=== PATIENT | male | born 1925 | race Caucasian/White ===

== ENCOUNTER → 2016-03-23 | Outpatient (CLI) | payer MEDICARE, OTHER ==
[~2016-03-23] MED LIST: ACIP20TA6 OR; ACIP20TA6 PO; BUME1TAB28 PO; CARV3.12 PO; CARV3.125 PO; FERR325T PO; FURO1TAB93 PO; FURO20TA PO; HYDR25TA5 PO; ISOS30TA3 PO; ISOS40TA PO; KLOR20TA6 PO; PLAV75TA PO; PLAV75TA29 PO; POTA-163 PO; RANE1000 PO; RANO500 PO; SIMV20TA PO; SIMV40TA PO
[2016-03-23 15:49] LABS: HEMATOCRIT 27.9 % (39.0-51.0); MEAN CELL VOLUME 84.5 FL (80.0-100.0); MEAN CORPUSCULAR HEMOGLOBIN 27.9 PG (27.0-34.0); MEAN CORPUSCULAR HGB CONC 33.1 % (32.0-36.0); PLATELET COUNT 380 TH/MM3 (150-450); RED BLOOD COUNT 3.31 MIL/MM3 (4.50-5.90); RED CELL DISTRIBUTION WIDTH 20.9 % (11.6-17.2); WHITE BLOOD COUNT 15.7 TH/MM3 (4.0-11.0)
[2016-03-23 15:56] LABS: HEMO FLAGS AUTO DIFF
[2016-03-23 16:43] LABS: BANDS 14 % (0-6); BASOPHILS 1 % (0-2); CORRECTED NUCLEATED RBC 2 /100 WBC (0-0); EOSINOPHILS 1 % (0-4); NEUTROPHIL # MANUAL DIFF 13.3 TH/MM3 (1.8-7.7); OVALOCYTES 1+ (NORMAL); PLATELET ESTIMATE SMEAR HIGH (NORMAL); PLATELET MORPHOLOGY ENLARGED (NORMAL); POLYS (SEG NEUTROPHILS) 71 % (16-70); SCAN/DIFF FINAL DIFF MANUAL; WBC DIFF SAMPLE 100
== END ==
LOC: PLAB 03-19 11:51
PROVIDERS: ATTEND Internal Medicine Gastroenterology
DX: D64.9 Anemia, unspecified (principal); Z86.010 Personal history of colon polyps; Z87.19 Personal history of other diseases of the digestive system; R16.1 Splenomegaly, not elsewhere classified
CPT/HCPCS: 36415; 85007; 85027

== ENCOUNTER → 2016-04-09 | Outpatient (CLI) | payer MEDICARE, OTHER ==
[2016-04-09 11:11] LABS: HEMATOCRIT 27.8 % (39.0-51.0); MEAN CELL VOLUME 82.5 FL (80.0-100.0); MEAN CORPUSCULAR HEMOGLOBIN 27.6 PG (27.0-34.0); MEAN CORPUSCULAR HGB CONC 33.5 % (32.0-36.0); PLATELET COUNT 371 TH/MM3 (150-450); RED BLOOD COUNT 3.37 MIL/MM3 (4.50-5.90); RED CELL DISTRIBUTION WIDTH 20.4 % (11.6-17.2); WHITE BLOOD COUNT 13.8 TH/MM3 (4.0-11.0)
[2016-04-09 11:19] LABS: HEMO FLAGS AUTO DIFF
[2016-04-09 11:56] LABS: ALKALINE PHOSPHATASE 72 U/L (45-117); ALT (GPT) 16 U/L (12-78); ANION GAP 8 MEQ/L (5-15); AST (GOT) 22 U/L (15-37); BICARBONATE 28.7 MEQ/L (21.0-32.0); BLOOD UREA NITROGEN 21 MG/DL (7-18); CHLORIDE 100 MEQ/L (98-107); GLOMERULAR FILTRATION RATE 37 ML/MIN (>89); GLUCOSE,FASTING 112 MG/DL (74-99); HDL CHOLESTEROL 36.3 MG/DL (40.0-60.0); LDL CHOLESTEROL 43 MG/DL (0-99); POTASSIUM 3.6 MEQ/L (3.5-5.1); SODIUM (NA) 137 MEQ/L (136-145); TOTAL BILIRUBIN ADULT 1.1 MG/DL (0.2-1.0)
[2016-04-09 12:02] LABS: BANDS 7 % (0-6); BASOPHILS 5 % (0-2); CORRECTED NUCLEATED RBC 3 /100 WBC (0-0); EOSINOPHILS 1 % (0-4); METAMYELOCYTES 1 % (0-1); MYELOCYTES 1 % (0-0); NEUTROPHIL # MANUAL DIFF 11.2 TH/MM3 (1.8-7.7); POLYS (SEG NEUTROPHILS) 72 % (16-70); WBC DIFF SAMPLE 100
[2016-04-09 12:03] LABS: PLATELET ESTIMATE SMEAR NORMAL (NORMAL); SCAN/DIFF FINAL DIFF MANUAL
[2016-04-09 12:04] LABS: KERATOCYTES OCC (NORMAL)
[2016-04-09 12:05] LABS: PLATELET MORPHOLOGY NORMAL (NORMAL)
== END ==
LOC: PLAB 09:33
PROVIDERS: ATTEND Family Medicine
DX: I25.10 Atherosclerotic heart disease of native coronary artery without angina pectoris (principal)
CPT/HCPCS: 36415; 80053; 80061; 85007; 85027

== ENCOUNTER 2016-05-02 11:15 | Inpatient (IN) | payer MEDICARE, OTHER ==
[~2016-05-02] VITALS: Ht 172.7 cm; Wt 87.4 kg
[2016-05-02] VITALS (8 sets, daily range): BP systolic 110–133; BP diastolic 55–74; PULSE 55–87; RESP 16–24; TEMP 97.6–98.4; O2SAT 96–99
[~2016-05-02 11:15] MED LIST changes: -ACIP20TA6 PO; -BUME1TAB28 PO; -CARV3.12 PO; -FERR325T PO; -FURO20TA PO; -HYDR25TA5 PO; -ISOS30TA3 PO; -PLAV75TA29 PO; -POTA-163 PO; -RANE1000 PO; -SIMV20TA PO
[2016-05-02] MEDS ORDERED: FURO20TA PO (11:45)
[2016-05-02] MEDS ORDERED: POTA-163 PO (11:45)
[2016-05-02] MEDS ORDERED: SIMV20TA PO (11:45)
[2016-05-02] MEDS ORDERED: ACIP20TA6 PO (11:45)
[2016-05-02] MEDS ORDERED: PLAV75TA29 PO (11:45)
[2016-05-02] MEDS ORDERED: ISOS30TA3 PO (11:45)
[2016-05-02] MEDS ORDERED: CARV3.12 PO (11:45)
[2016-05-02] MEDS ORDERED: FUROSEMIDE 40 MG/4 ML VIAL IV PUSH ONE (11:45)
[2016-05-02] MEDS ORDERED: HYDR25TA5 PO (11:45)
[2016-05-02] MEDS ORDERED: RANE1000 PO (11:45)
[2016-05-02 11:59] LABS: AUTOMATED NEUTROPHIL # 20.6 TH/MM3 (1.8-7.7); BASOPHIL # 0.3 TH/MM3 (0-0.2); EOSINOPHIL # 0.6 TH/MM3 (0-0.4); EOSINOPHIL % 2.3 % (0.0-4.0); HEMATOCRIT 25.1 % (39.0-51.0); LYMPH % 4.9 % (9.0-44.0); LYMPHOCYTE # 1.2 TH/MM3 (1.0-4.8); MEAN CELL VOLUME 79.5 FL (80.0-100.0); MEAN CORPUSCULAR HGB CONC 33.9 % (32.0-36.0); NEUT % 82.8 % (16.0-70.0); PLATELET COUNT 560 TH/MM3 (150-450); RED BLOOD COUNT 3.15 MIL/MM3 (4.50-5.90); RED CELL DISTRIBUTION WIDTH 20.9 % (11.6-17.2); WHITE BLOOD COUNT 24.9 TH/MM3 (4.0-11.0)
--- NOTE | 2016-05-02 11:59 | RADRPT ---
EXAM DATE/TIME: 05/02/2016 11:53 [facility] COMPARISON: CHEST SINGLE AP, April 07, 2015, 19:26. INDICATIONS : Short of breath MEDICAL HISTORY : Chronic obstructive pulmonary disease. Venous insufficiency. Stroke. SURGICAL HISTORY : CABG. ENCOUNTER: Initial ACUITY: 1 month PAIN SCORE: 0/10 LOCATION: Bilateral chest FINDINGS: A single view of the chest demonstrates mild infiltrates in both lung bases. The upper lungs are mart sly clear. The heart size is enlarged but stable. There is evidence of previous cardiothoracic surger y. Otherwise no other significant changes are demonstrated. The bony structures are stable.. CONCLUSION: Mild bibasilar infiltrates. Rajinder Vu MD on May 02, 2016 at 11:57 Board Certified Radiologist. This report was verified electronically.
[2016-05-02 12:02] LABS: HEMO FLAGS AUTO DIFF
[2016-05-02 12:12] LABS: APTT (PATIENT) 30.3 SEC (24.3-30.1); INTERNATIONAL NORMALIZED RATIO 1.3 RATIO; PROTHROMBIN TIME - PATIENT 14.7 SEC (9.8-11.6)
[2016-05-02 12:14] LABS: ANION GAP 14 MEQ/L (5-15); AST (GOT) 29 U/L (15-37); BICARBONATE 26.5 MEQ/L (21.0-32.0); BLOOD UREA NITROGEN 63 MG/DL (7-18); CHLORIDE 93 MEQ/L (98-107); GLOMERULAR FILTRATION RATE 19 ML/MIN (>89); MAGNESIUM 2.5 MG/DL (1.5-2.5); POTASSIUM 3.3 MEQ/L (3.5-5.1); SODIUM (NA) 133 MEQ/L (136-145)
--- NOTE | 2016-05-02 12:16 | PD ---
HPI Chief Complaint: Edema Time Seen by Provider: 12:08 Travel History International Travel<30 days: No Contact w/Intl Traveler<30days: No Traveled to known affect area: No History of Present Illness HPI 89-year-old male that presents to the ED for evaluation of lower leg edema and abdominal edema as well as shortness of breath. Per family and patient she's had the lower leg edema for years but for the past 2 weeks to a month is being worsening. Per patient the swelling seems to be worsening and imaging the medications that he is taking at this time are not really helping. 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 Solis who has been put him on Lasix and other water pills with some relief in the past but for the past 2 weeks they have not been working. They also mention to me that apparently patient was sent to a GI doctor secondary to some abdominal discomfort on the swelling and the did some testing that apparently was negative for acute disease other than for enlarged spleen and concern for issues with the bone marrow. Per significant other who is the one giving most of the information patient is to have an appointment next week with a stereotyper apprentice for this. Patient states that he couldn't wait because the swelling is getting so severe to now he cannot even walk. Per patient he swelling on his groin and abdomen is getting worse as well. Patient reports that he feels dehydrated. Per patient he feels short of breath with deep breaths. He denies any chest pain. He denies any abdominal discomfort with a stiff feeling constipated. He has not had a normal bowel movement for at least a week. He states that he is not urinating as much because of the swelling. He has an allergy to aspirin and Norvasc. He states that he is compliant with his medications. He has not seen a doctor in the last couple weeks. He states that the pain in the legs is 8 out of 10. PFSH Past Medical History Hx Anticoagulant Therapy: Yes (PLAVIX) Arthritis: Yes Blood Disorders: No Anxiety: No Depression: No Heart Rhythm Problems: Yes (CA) Cancer: Yes (SKIN CANCER) Cardiac Catheterization: Yes Cardiovascular Problems: Yes High Cholesterol: Yes Chemotherapy: No Chest Pain: Yes (HX OF CP) Congestive Heart Failure: No Cerebrovascular Accident: Yes (X5 YEARS AGO ) Coronary Artery Disease: Yes Diabetes: No Diminished Hearing: No Endocrine: No Gastrointestinal Disorders: Yes GERD: Yes Glaucoma: No Genitourinary: No Headaches: No Hepatitis: No Hiatal Hernia: No Hypertension: Yes Immune Disorder: No Medical other: Yes (S/P CRANIOTOMY (MENINGIOMA), HX ULCERS, BARRETTTS ESOPHAGUS) Musculoskeletal: Yes Neurologic: Yes Psychiatric: No Reproductive: No Respiratory: Yes (SOB ON EXERTION) Integumentary: No Migraines: No Radiation Therapy: No Seizures: No Sleep Apnea: No Thyroid Disease: No Ulcer: Yes Tetanus Vaccination: < 5 Years Influenza Vaccination: Yes Past Surgical History Abdominal Surgery: No AICD: No Appendectomy: Yes (1964.) Arteriovenous Shunt: No Body Medical Devices: STENTS X2, GREENFILTER Cardiac Surgery: Yes (CABG IN 1990) Cholecystectomy: Yes Coronary Artery Bypass Graft: Yes (TRIPLE BYPASS-1990.) Coronary Stent: Yes (X2) Ear Surgery: No Endocrine Surgery: No Eye Surgery: Yes (CAT. SX BILAT EYES) Genitourinary Surgery: No Gynecologic Surgery: No Insulin Pump: No Joint Replacement: No Neurologic Surgery: Yes (REMOVAL OF LEFT TEMPORAL MASS 07/08/2006 ) Oral Surgery: No Pacemaker: No Thoracic Surgery: No Tonsillectomy: Yes (1934) Other Surgery: Yes Social History Alcohol Use: Yes (RARELY) Tobacco Use: No (FORMER) Substance Use: No Allergies-Medications (Allergen,Severity, Reaction): Coded Allergies: Norvasc (Verified Allergy, Severe, Arrhythmias, 05/02/16) Aspirin (Verified Adverse Reaction, Intermediate, GI BLEED, 05/02/16) CHANGES MADE PER JUANITA IN PHARMACY. STATES HE SPOKE TO THE DOCTOR. Reported Meds & Prescriptions Reported Meds & Active Scripts Active Reported Hydrochlorothiazide 25 Mg Tab 25 Mg PO DAILY Aciphex (Rabeprazole Sodium) 20 Mg Tab 20 Mg PO DAILY Furosemide 20 Mg Tab 20 Mg PO BID Plavix (Clopidogrel Bisulfate) 75 Mg Tab 75 Mg PO DAILY Simvastatin 20 Mg Tab 20 Mg PO Isosorbide Mononitrate ER (Isosorbide Mononitrate) 30 Mg Lazaro 30 Mg PO DAILY Carvedilol 3.125 Mg Tab 3.125 Mg PO DAILY Ranexa ER 12 HR (Ranolazine) 1,000 Mg Tab 1,000 Mg PO BID Potassium Chloride ER (Potassium Chloride) 20 Meq Tab 20 Meq PO BID Review of Systems General / Constitutional: No: Fever, Chills, Weight Gain, Weight Loss, Other Eyes: No: Diploplia, Blurred Vision, Photophobia, Drainage, Redness, Foreign Body Sensation, Pain, Tearing, Blind Spots, Visual changes, Blindness, Other HENT: No: Headaches, Vertigo, Lightheadedness, Sore Throat, Rhinitis, Rhinorrhea, Congestion, Nosebleed, Neck Stiffness, Neck Pain, Masses, Gingival Bleeding, Dental Difficulties, Ear Discharge, Earache, Other Cardiovascular: Positive: Edema, No: Chest Pain or Discomfort, Palpitations, Irregular Rhythm, Tachycardia, Diaphoresis, Syncope, Dyspnea on exertion, Varicosities, Cyanosis, Varicosities, Phlebitis, Claudication, Other Respiratory: Positive: Shortness of Breath, No: Cough, Wheezing, Sneezing, Orthopnea, Hemoptysis, Stridor, Night Sweats, Pleuritic Pain, Other Gastrointestinal: Positive: Nausea, Abdominal Pain, Constipation, No: Vomiting , Diarrhea, Hematemesis, Hematochezia, Changes in Bowel Habits, Indigestion, Dysphagia, Loss of Appetite, Other Genitourinary: No: Urgency, Frequency, Dysuria, Nocturia, Hematuria, Decreased Urinary Output, Oliguria, Hesitancy, Dribbling, Incontinence, Pelvic Pain, Flank Pain, Dyspareunia, Discharge, Dysmenorrhea, Menorrhagia, Metorrhagia, Vaginal Bleeding, Other Musculoskeletal: No: Myalgias, Arthralgias, Limited ROM, Weakness, Cramping, Edema, Pain, Atrophy, Other Skin: No Rash, No Itching, No Dryness, No Lumps, No Hives, No Change in Pigmentation, No Change in nails, No Alopecia, No Lesions, No Breast Lumps, No Breast Tenderness, No Breast Swelling, No Other Neurologic: No: Weakness, Dizziness, Syncope, Focal Abnormalities, Coordination Problem, Tremor, Ataxia, Headache, Change in Mentation, Slurred Speech, Paresthesia, Incontinence, Seizures, Sensory Disturbance, Other Psychiatric: No: Anxiety, Depression, Suicidal Ideations, Disorder of Thought, Mood Disorder, Substance Abuse, Homicidal Ideation, Other Endocrine: No: Heat Intolerance, Cold Intolerance, Polyuria, Polydipsia, Other Hematologic/Lymphatic: No: Easy Bruising, Lymph Node Enlargement, Other Physical Exam Narrative GENERAL: SKIN: Warm and dry. HEAD: Atraumatic. Normocephalic. EYES: Pupils equal and round 4 mm reactive to light and accommodation. No scleral icterus. No injection or drainage. ENT: No nasal bleeding or discharge. Mucous membranes pink and moist. Tongue is midline. No Uvula deviation. NECK: Trachea midline. No JVD. CARDIOVASCULAR: Regular rate and rhythm. No murmurs, S3, S4. RESPIRATORY: No accessory muscle use. Clear to auscultation. Breath sounds equal bilaterally. GASTROINTESTINAL: Abdomen soft, non-tender, distended. Hepatic and splenic margins not palpable. MUSCULOSKELETAL: Extremities without clubbing, cyanosis, or edema. No obvious deformities. Has 2+ pitting edema in the lower legs with left worst than right. Scrum itself is edematous but nontender. Patient does have edema noted on the abdomen and the abdomen itself is distended. No obvious mass noted and no obvious tenderness on the abdomen but does appear to have some sort fluid. 2+ pulses bilaterally. NEUROLOGICAL: Awake and alert. No obvious cranial nerve deficits. Motor grossly within normal limits. Five out of 5 muscle strength in the arms and legs. Normal speech. PSYCHIATRIC: Appropriate mood and affect; insight and judgment normal. Data Data Last Documented VS Vital Signs Date Time Temp Pulse Resp B/P Pulse Ox O2 Delivery O2 Flow Rate FiO2 05/02/16 11:59 16 97 Room Air 05/02/16 11:18 97.6 68 133/65 Orders Electrocardiogram (05/02/16 ) Complete Blood Count With Diff (05/02/16 11:41) Comprehensive Metabolic Panel (05/02/16 11:41) Troponin I (05/02/16 11:41) B-Type Natriuretic Peptide (05/02/16 11:41) Prothrombin Time / Inr (Pt) (05/02/16 11:41) Act Partial Throm Time (Ptt) (05/02/16 11:41) Lipase (05/02/16 11:41) Urinalysis - C+S If Indicated (05/02/16 11:41) Magnesium (Mg) (05/02/16 11:41) Chest, Single Ap (05/02/16 11:41) Iv Access Insert/Monitor (05/02/16 11:41) Ecg Monitoring (05/02/16 11:41) Oximetry (05/02/16 11:41) Furosemide Inj (Lasix Inj) (05/02/16 11:45) Urinary Catheter Management ZION.Q8H (05/02/16 12:23) Blood Culture (05/02/16 12:26) Lactic Acid (05/02/16 12:26) Ceftriaxone Inj (Rocephin Inj) (05/02/16 12:30) Azithromycin Inj (Zithromax Inj) (05/02/16 12:30) Sodium Chlorid 0.9% 500 Ml Inj (Ns 500 M (05/02/16 13:00) Admit Order (Ed Use Only) (05/02/16 13:02) Consult Cardiology (05/02/16 ) Labs Laboratory Tests Test 05/02/16 05/02/16 11:46 12:21 White Blood Count 24.9 TH/MM3 Red Blood Count 3.15 MIL/MM3 Hemoglobin 8.5 GM/DL Hematocrit 25.1 % Mean Corpuscular Volume 79.5 FL Mean Corpuscular Hemoglobin 27.0 PG Mean Corpuscular Hemoglobin 33.9 % Concent Red Cell Distribution Width 20.9 % Platelet Count 560 TH/MM3 Mean Platelet Volume 9.0 FL Neutrophils (%) (Auto) 82.8 % Lymphocytes (%) (Auto) 4.9 % Monocytes (%) (Auto) 9.0 % Eosinophils (%) (Auto) 2.3 % Basophils (%) (Auto) 1.0 % Neutrophils # (Auto) 20.6 TH/MM3 Lymphocytes # (Auto) 1.2 TH/MM3 Monocytes # (Auto) 2.2 TH/MM3 Eosinophils # (Auto) 0.6 TH/MM3 Basophils # (Auto) 0.3 TH/MM3 CBC Comment AUTO DIFF Differential Total Cells 100 Counted Neutrophils % (Manual) 67 % Band Neutrophils % 10 % Lymphocytes % 4 % Monocytes % 5 % Eosinophils % 3 % Basophils % 4 % Neutrophils # (Manual) 20.9 TH/MM3 Metamyelocytes 2 % Myelocytes 4 % Promyelocytes 1 % Nucleated Red Blood Cells 2 /100 WBC Differential Comment FINAL DIFF MANUAL Platelet Estimate HIGH Platelet Morphology Comment NORMAL Tear Drop Cells 1+ Keratocytes OCC Prothrombin Time 14.7 SEC Prothromb Time International 1.3 RATIO Ratio Activated Partial 30.3 SEC Thromboplast Time Sodium Level 133 MEQ/L Potassium Level 3.3 MEQ/L Chloride Level 93 MEQ/L Carbon Dioxide Level 26.5 MEQ/L Anion Gap 14 MEQ/L Blood Urea Nitrogen 63 MG/DL Creatinine 3.11 MG/DL Estimat Glomerular Filtration 19 ML/MIN Rate Random Glucose 123 MG/DL Calcium Level 8.7 MG/DL Magnesium Level 2.5 MG/DL Total Bilirubin 1.6 MG/DL Aspartate Amino Transf 29 U/L (AST/SGOT) Alanine Aminotransferase 23 U/L (ALT/SGPT) Alkaline Phosphatase 64 U/L Troponin I 0.13 NG/ML B-Type Natriuretic Peptide 840 PG/ML Total Protein 6.8 GM/DL Albumin 3.5 GM/DL Lipase 137 U/L Urine Color YELLOW Urine Turbidity CLEAR Urine pH 6.0 Urine Specific [place] 1.010 Urine Protein 30 mg/dL Urine Glucose (UA) NEG mg/dL Urine Ketones NEG mg/dL Urine Occult Blood NEG Urine Nitrite NEG Urine Bilirubin NEG Urine Urobilinogen LESS THAN 2.0 MG/DL Urine Leukocyte Esterase NEG Urine RBC 1 /hpf Urine WBC 1 /hpf Urine Squamous Epithelial 1 /hpf Cells Urine Bacteria FEW /hpf Urine Hyaline Casts 59 /lpf Urine Mucus FEW /lpf Microscopic Urinalysis Comment CULT NOT INDICATED MDM Medical Decision Making Medical Screen Exam Complete: Yes Emergency Medical Condition: Yes Medical Record Reviewed: Yes Interpretation(s) CBC & BMP Diagram 05/02/16 11:46 LFTs and lipase within normal limits. Troponin elevated at 0.13 BNP in the 800s Last Impressions Chest X-Ray 05/02/16 1141 Signed Impressions: Service Date/Time: Monday, May 02, 2016 11:53 - CONCLUSION: Mild bibasilar infiltrates. Rajinder Vu MD EKG show LBBB which appears to be chronic from previous. No obvious sign of acute change read by me and attending. Differential Diagnosis Fluid retention versus CHF versus pneumonia versus anemia versus kidney failure versus electron abnormality versus STEMI versus an STEMI versus fluid overload versus sepsis Narrative Course 89-year-old male that presents to the ED for evaluation of edema. Patient was properly examined and was found to have signs and symptoms consistent what appears to be worsening edema. Labs and imaging ordered. Patient cannot give us a urine sample sent To be put on a Lozano secondary to his edema. Only minimal urine came out of the Lozano. Labs and imaging show elevated white blood cell count in the 22,000 and possible consolidations to the chest as well as worsening kidney function. This is likely secondary to dehydration and over use of the diuretics to help patient with his edema. Patient does also have a positive troponin which I believe is more related to the kidney disease but patient does have a history of heart disease. Patient follows with Dr. Vega slot floor supervisor, EKG show LBBB which appears to be old and unchanged from prior EKG done here. Patient is no longer taking Plavix secondary to the anemia as Dr. Velez and put him off of it secondary to wanting to rule out bleed. Case was discussed in my attending Dr. Rodriguez who agrees the patient is to be admitted. He wants me to consult medical. [facility] Hospitalist was contacted and recommends admission. Dr palma. Procedures EKG Prior to Arrival: No Sepsis Criteria SIRS Criteria (2 or more): RR > 20 or PaCO2 < 32, WBC > 51053, < 4000 or > 10 % bands Sepsis Criteria (SIRS+source): Infect source susp/known Severe Sepsis (+one): Organ Dysfunction Criteria Outcome: Meets severe sepsis criteria Diagnosis Primary Impression: Sepsis Qualified Code: A41.9 - Sepsis, due to unspecified organism Additional Impressions: Kidney failure, acute Qualified Code: N17.9 - Acute renal failure, unspecified acute renal failure type NSTEMI (non-ST elevated myocardial infarction) Elevated troponin Pneumonia Qualified Code: J18.9 - Pneumonia of both lower lobes due to infectious organism Edema due to congestive heart failure Admitting Information Admitting Physician Requests: Admit Reynaldo Sky May 02, 2016 12:16
[2016-05-02 12:19] LABS: ALKALINE PHOSPHATASE 64 U/L (45-117); ALT (GPT) 23 U/L (12-78); TOTAL BILIRUBIN ADULT 1.6 MG/DL (0.2-1.0)
[2016-05-02] MEDS ORDERED: cefTRIAXone INJ 1,000 MG in SODIUM CHLORIDE 0.9% INJ 100 ML IV ONE (12:30)
[2016-05-02] MEDS ORDERED: AZITHROMYCIN INJ 500 MG in SODIUM CHLOR 0.9% 250 ML INJ 250 ML IV ONE (12:30)
[2016-05-02 12:33] LABS: BANDS 10 % (0-6); BASOPHILS 4 % (0-2); CORRECTED NUCLEATED RBC 2 /100 WBC (0-0); EOSINOPHILS 3 % (0-4); METAMYELOCYTES 2 % (0-1); MYELOCYTES 4 % (0-0); NEUTROPHIL # MANUAL DIFF 20.9 TH/MM3 (1.8-7.7); POLYS (SEG NEUTROPHILS) 67 % (16-70); PROMYELOCYTES 1 % (0-0); WBC DIFF SAMPLE 100
[2016-05-02 12:35] LABS: KERATOCYTES OCC (NORMAL); TEARDROP RBCS 1+ (NORMAL)
[2016-05-02 12:36] LABS: PLATELET ESTIMATE SMEAR HIGH (NORMAL); PLATELET MORPHOLOGY NORMAL (NORMAL); SCAN/DIFF FINAL DIFF MANUAL
[2016-05-02 12:52] LABS: BACTERIA, URINE FEW /hpf; BLOOD, URINE NEG (NEG); GLUCOSE,URINE NEG (NEG); HYALINE CAST, URINE 59 /lpf (RARE); KETONE, URINE NEG (NEG); MUCUS URINE FEW /lpf (OCC); NITRITE,URINE NEG (NEG); SQUAMOUS EPITHELIAL CELL URINE 1 /hpf (0-5); URINE COLOR YELLOW (YELLW/STRAW)
[2016-05-02 12:54] LABS: COMMENT (UR) CULT NOT INDICATED; CULTURE IF INDICATED CULT NOT INDICATED
[2016-05-02] MEDS ORDERED: SODIUM CHLORID 0.9% 500 ML INJ 500 ML IV ONE (13:00)
[2016-05-02] MEDS ORDERED: NALOXONE HCL 0.4 MG/ML AMP IV PRN (13:30)
[2016-05-02] MEDS ORDERED: SODIUM CHLORIDE 0.9% FLUSH 5 ML FLUSH FLUSH PRN (13:30)
[2016-05-02] MEDS ORDERED: DIATRIZOATE MEGLUM/DIATRIZOATE SOD 9 ML CUP PO ONE (13:45)
[2016-05-02] MEDS ORDERED: POTASSIUM CL 40 MEQ/30 ML LIQ UDC PO ONE (14:00)
--- NOTE | 2016-05-02 14:19 | HHI.HP ---
[facility] Tanmay Aaron M.D. 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 Patient presented to the emergency room for increase in lower extremity edema as well as abdominal distention associated with dyspnea with exertion over the past year but worse over the last couple of weeks. Patient endorses that he's always had some chronic swelling to the left leg from previous bypass surgery but in the last couple months has become worse and now the right one is also becoming larger. He's also noted abdominal distention and has noted an increase in weight of 20 pounds in the last 2 weeks. He's also noted dyspnea with minimal exertion, no chest pain, no palpitations. He is constipated; has not had a good bowel movement in approximately 2-3 weeks. At times he has watery almost liquid rectal drainage and a couple "turner:. He's had dry heaves and has very poor appetite. He has been in to see his primary care Dr. Aaron who did laboratory workup and was noted anemic. He was referred to see Dr. Nielsen who examined him and noted an enlarged spleen and referred him to hematology. An EGD was also completed but he's not really clear on the findings. He was due to see Dr. Martin next week. Additionally he has been following with Dr. Solis who put him on Lasix and other diuretics with some relief but now they're not working. He's not sure if he's had an echocardiogram but his believes he did have EKG. Patient is not a very good historian, he's had a history of stroke and has some expressive aphasia. Information is mostly provided by his . He's noted poor urine output, he has difficulty ambulating and in the last couple days he hasn't been able to move very much. He has prior history of pulmonary emboli and DVT for which he had IVC filter placed in 2006. He's not able to be on any aspirin or anticoagulation as he had severe GI bleeds in the past. He denies any fever, no chills, no cough no sputum production. In the emergency room, patient was evaluated, vital signs were stable he was hemodynamically stable, no fever. Laboratory workup was significant for significant leukocytosis, WBC 24.9 with elevated neutrophil count. Hemoglobin 8.5, hematocrit 25.1. Platelet count 560. He was noted an acute renal injury with BUNs of 63, creatinine 3.11. AST 29 AST 23. Troponin was elevated 0.13. BNP was a 40. Albumin 3.5. Lipase 137. Chest x-ray demonstrated mild by basilar infiltrates. Patient was given Lasix, a Lozano catheter was inserted. Empiric antibiotics were started and cultures were obtained. EKG showed left bundle branch which is similar to other EKGs. Patient is examined in the emergency room, he is resting comfortably does not appear in any distress. Patient is admitted for further evaluation and treatment. (Cathie Toney) Review of Systems Constitutional: COMPLAINS OF: Fatigue, Weight loss, Change in appetite Respiratory: COMPLAINS OF: Shortness of breath Cardiovascular: COMPLAINS OF: Dyspnea on Exertion, Lower Extremity Edema Gastrointestinal: COMPLAINS OF: Constipation, Nausea Neurologic: COMPLAINS OF: Speech Problems (CHRONIC, HX CVA, EXPRESSIVE APHASIA) (Cathie Toney) Past Family Social History Past Medical History 1. Coronary artery disease with a stent times two to the distal left main and proximal circumflex September of 2012. 2. Hypertension. 3. Hyperlipidemia. 4. Prior episode of GI bleed while on aspirin. 5. Left temporal fossa mass status post craniotomy (had meningioma) in 2006 with residual short term memory loss. 6. Expressive aphasia. 7. Hyperlipidemia. 8. Previous coronary artery bypass graft in 2003. 9. Cholecystectomy. 10. Tonsillectomy previous pulmonary emboli. 11. Previous cerebrovascular accident. 12. Deep venous thrombosis./PE/IVC filter 13. Bilateral cataract surgery. 14. Hyperlipidemia. 15. Gastroesophageal reflux disease. 16. Previous upper and lower endoscopy. 17. Peptic ulcer disease. 18. GI bleed due to ASA and Xarelto 19. Longo's esophagus 20. Recent findings of splenomegaly, anemia, referred to hematology 21. S/P EGD, unsure of findings, Dr. Nielsen Reported Medications Reported Meds & Active Scripts Active Reported Hydrochlorothiazide 25 Mg Tab 25 Mg PO DAILY Aciphex (Rabeprazole Sodium) 20 Mg Tab 20 Mg PO DAILY Furosemide 20 Mg Tab 20 Mg PO BID Plavix (Clopidogrel Bisulfate) 75 Mg Tab 75 Mg PO DAILY Simvastatin 20 Mg Tab 20 Mg PO Isosorbide Mononitrate ER (Isosorbide Mononitrate) 30 Mg Lazaro 30 Mg PO DAILY Carvedilol 3.125 Mg Tab 3.125 Mg PO DAILY Ranexa ER 12 HR (Ranolazine) 1,000 Mg Tab 1,000 Mg PO BID Potassium Chloride ER (Potassium Chloride) 20 Meq Tab 20 Meq PO BID (Cathie Toney) Allergies: Coded Allergies: Norvasc (Verified Allergy, Severe, Arrhythmias, 05/02/16) Aspirin (Verified Adverse Reaction, Intermediate, GI BLEED, 05/02/16) CHANGES MADE PER JUANITA IN PHARMACY. STATES HE SPOKE TO THE DOCTOR. Active Ordered Medications Inpatient Medications Acetaminophen (Tylenol) 650 mg Q4H PRN PO TEMP > 100.4; Start 05/02/16 at 13:30 Azithromycin 500 mg/Sodium Chloride 250 ml @ 250 mls/hr ONCE ONCE IV ; Start 05/02/16 at 12:30; Stop 05/02/16 at 13:29; Status DC Carvedilol (Coreg) 3.125 mg DAILY PO ; Start 05/03/16 at 09:00 Ceftriaxone Sodium 1000 mg/ Sodium Chloride 100 ml @ 200 mls/hr ONCE ONCE IV Last administered on 05/02/16 13:55; Start 05/02/16 at 12:30; Stop 05/02/16 at 12:59; Status DC Ceftriaxone Sodium/Sodium Chloride (Rocephin Inj/NS Inj) 100 ml @ 200 mls/hr Q24H IV ; Start 05/03/16 at 13:00; Status UNV Clopidogrel Bisulfate (Plavix) 75 mg DAILY PO ; Start 05/03/16 at 09:00 Diatrizoate Meglum/ Diatrizoate Sod ( Gastroview Liq) 18 ml ONCE ONCE PO Last administered on 05/02/16 13:55; Start 05/02/16 at 13:45; Stop 05/02/16 at 13:46; Status DC Furosemide 40 mg 40 mg ONCE ONCE IV PUSH Last administered on 05/02/16 12:05 ; Start 05/02/16 at 11:45; Stop 05/02/16 at 11:46; Status DC Isosorbide Mononitrate (Imdur) 30 mg DAILY PO ; Start 05/03/16 at 09:00 IV Flush (NS Flush) 2 ml BID FLUSH ; Start 05/02/16 at 21:00 Naloxone HCl 0.4 mg 0.4 mg UNSCH PRN IV SEE LABEL COMMENTS; Start 05/02/16 at 13:30 Ondansetron HCl (Zofran Inj) 4 mg Q6H PRN IVP NAUSEA OR VOMITING; Start at 13:30 Pantoprazole Sodium (Protonix) 20 mg DAILY PO ; Start 05/03/16 at 09:00 Potassium Chloride (KCl 40 Meq/30 ml Liq) 40 meq ONCE ONCE PO ; Start 05/02/16 at 14:00; Stop 05/02/16 at 14:01; Status DC Potassium Chloride (KCl) 20 meq BID PO ; Start 05/02/16 at 21:00 Ranolazine (Ranexa) 1,000 mg BID PO ; Start 05/02/16 at 21:00 Sodium Chloride 1,000 ml @ 42 mls/hr [id number] IV ; Start 05/02/16 at 14:00 Sodium Chloride (NS 500 ml Inj) 500 ml @ 1,000 mls/hr BOLUS ONCE IV Last administered on 05/02/16 13:55; Start 05/02/16 at 13:00; Stop 05/02/16 at 13:29 ; Status DC Family History Mother with hx of lung cancer Brother, alive, 80s multiple medical problems Social History , lives at home with , no kids. Quit smoking many years ago, no ETOH , no substance abuse (Cahtie Toney) Physical Exam Vital Signs Vital Signs Date Time Temp Pulse Resp B/P Pulse Ox O2 Delivery O2 Flow Rate FiO2 05/02/16 11:59 16 97 Room Air 05/02/16 11:18 97.6 68 24 133/65 99 Room Air Physical Exam GENERAL: This is a well-nourished, well-developed patient, in no apparent distress. SKIN: Pale, cool, dry, anasarca noted. HEAD: Atraumatic. Normocephalic. No temporal or scalp tenderness. EYES: Pupils equal round and reactive. Extraocular motions intact. No scleral icterus. No injection or drainage. ENT: Nose without bleeding, purulent drainage or septal hematoma. Throat without erythema, tonsillar hypertrophy or exudate. Uvula midline. Airway patent. NECK: Trachea midline. No JVD or lymphadenopathy. Supple, nontender, no meningeal signs. CARDIOVASCULAR: Regular rate and rhythm with soft murmurs. No gallops, or rubs. RESPIRATORY: Clear to auscultation. Breath sounds equal bilaterally. No wheezes , rales, or rhonchi. GASTROINTESTINAL: Protuberant, with ascites, flank edema. Bowel sounds hypoactive, ? splenomegaly. MUSCULOSKELETAL: Extremities without clubbing, cyanosis. No joint tenderness, effusion, or edema noted. No calf tenderness. Negative Homans sign bilaterally. Bilat pedal edema feet to thighs 2+, L>R, pedal pulses difficult to palpate due to edema. NEUROLOGICAL: Awake, oriented x 3. Following commands, no focal deficits. Poor historian. Laboratory Laboratory Tests Test 05/02/16 05/02/16 05/02/16 11:46 12:21 13:10 White Blood Count 24.9 Red Blood Count 3.15 Hemoglobin 8.5 Hematocrit 25.1 Mean Corpuscular Volume 79.5 Mean Corpuscular Hemoglobin 27.0 Mean Corpuscular Hemoglobin 33.9 Concent Red Cell Distribution Width 20.9 Platelet Count 560 Mean Platelet Volume 9.0 Neutrophils (%) (Auto) 82.8 Lymphocytes (%) (Auto) 4.9 Monocytes (%) (Auto) 9.0 Eosinophils (%) (Auto) 2.3 Basophils (%) (Auto) 1.0 Neutrophils # (Auto) 20.6 Lymphocytes # (Auto) 1.2 Monocytes # (Auto) 2.2 Eosinophils # (Auto) 0.6 Basophils # (Auto) 0.3 CBC Comment AUTO DIFF Differential Total Cells 100 Counted Neutrophils % (Manual) 67 Band Neutrophils % 10 Lymphocytes % 4 Monocytes % 5 Eosinophils % 3 Basophils % 4 Neutrophils # (Manual) 20.9 Metamyelocytes 2 Myelocytes 4 Promyelocytes 1 Nucleated Red Blood Cells 2 Differential Comment FINAL DIFF MANUAL Platelet Estimate HIGH Platelet Morphology Comment NORMAL Tear Drop Cells 1+ Keratocytes OCC Prothrombin Time 14.7 Prothromb Time International 1.3 Ratio Activated Partial 30.3 Thromboplast Time Sodium Level 133 Potassium Level 3.3 Chloride Level 93 Carbon Dioxide Level 26.5 Anion Gap 14 Blood Urea Nitrogen 63 Creatinine 3.11 Estimat Glomerular Filtration 19 Rate Random Glucose 123 Calcium Level 8.7 Magnesium Level 2.5 Total Bilirubin 1.6 Aspartate Amino Transf 29 (AST/SGOT) Alanine Aminotransferase 23 (ALT/SGPT) Alkaline Phosphatase 64 Troponin I 0.13 B-Type Natriuretic Peptide 840 Total Protein 6.8 Albumin 3.5 Lipase 137 Urine Color YELLOW Urine Turbidity CLEAR Urine pH 6.0 Urine Specific [place] 1.010 Urine Protein 30 Urine Glucose (UA) NEG Urine Ketones NEG Urine Occult Blood NEG Urine Nitrite NEG Urine Bilirubin NEG Urine Urobilinogen LESS THAN 2.0 Urine Leukocyte Esterase NEG Urine RBC 1 Urine WBC 1 Urine Squamous Epithelial 1 Cells Urine Bacteria FEW Urine Hyaline Casts 59 Urine Mucus FEW Microscopic Urinalysis Comment CULT NOT INDICATED Lactic Acid Level 1.8 Date/Time Procedure Status Source Growth 05/02/16 13:16 Aerobic Blood Culture Received Blood Peripheral Pending 05/02/16 13:16 Anaerobic Blood Culture Received Blood Peripheral Pending (Cathie Toney) Result Diagram: 05/02/16 1146 05/02/16 1146 Imaging Last Impressions Chest X-Ray 05/02/16 1141 Signed Impressions: Service Date/Time: Monday, May 02, 2016 11:53 - CONCLUSION: Mild bibasilar infiltrates. Rajinder Vu MD (Cathie Toney) Assessment and Plan Problem List: (1) Sepsis (2) Elevated troponin (3) Pneumonia (4) Kidney failure, acute (5) History of GI bleed (6) History of CVA (cerebrovascular accident) (7) Hypertension (8) Hyperlipidemia (9) CAD (coronary artery disease) (10) Dehydration (11) Hypokalemia (12) Anasarca (13) Leukocytosis (14) Splenomegaly (15) Anemia Assessment and Plan Admit to Dr. Owens 89-year-old male with history of CAD, hypertension, chronic left leg edema, previous CABG, history of DVT and PE, GI bleed. Presented to emergency room with worsening lower extremity edema with increased abdominal extension, dyspnea with exertion, constipation. Was found with significant leukocytosis, possible pneumonia, anemia, acute renal injury Sepsis, possibly secondary to a pulmonary process Continue with cautious hydration Continue with empiric antibiotics Follow cultures closely Peripheral edema, now with anasarca, ascites, recent diagnosis of splenomegaly, rule out myeloproliferative disease -Consul hematology for evaluation-Dr. Martin will be evaluated -We will obtain a CT of the abdomen and pelvis Acute renal injury, likely secondary to over diuresing, possibly dehydrated We will hydrate cautiously, normal saline at 42 one hour Tomorrow we'll reevaluate, possibly try Lasix and albumin. -Monitor renal function closely Avoid nephrotoxic agents -Monitor electrolytes Constipation -bowel regimen Elevated troponin, denies any chest pain, likely stress-induced, rule out acute coronary syndrome. History of coronary artery disease -We will obtain 2-D echo -Continue with serial cardiac enzymes Consult cardiology for evaluation -Continue with Plavix, Coreg, Ranexa, Imdur Anemia, history of previous GI bleed -Follow H&H closely Stool for occult blood We will check iron studies HTN, stable -continue home meds Hx CVA, stable -continue home meds Home medications reviewed, initiated as indicated Plan of care discussed with the patient and his , the questions answered detail. Plan of care discussed with attending and registered nurse. Further management of the patient will be dependent on the hospital course This patient was seen by myself and Dr. Owens, this H&P is written on his behalf (Cathie Toney) Assessment and Plan Pt seed and examined in ER with at bedside dw ER pa in detail chart was revieewed in detail elyssa powers about plan of care d dw pt and at bedside condition guarded prog guarded (Stacie Owens MD) Physician Certification 2 Midnight Certification Type: Admission for Inpatient Services Order for Inpatient Services The services are ordered in accordance with Medicare regulations or non- Medicare payer requirements, as applicable. In the case of services not specified as inpatient-only, they are appropriately provided as inpatient services in accordance with the 2-midnight benchmark. Estimated LOS (days): 2 2 days is the estimated time the patient will need to remain in the hospital, assuming treatment plan goals are met and no additional complications. Post-Hospital Plan: Not yet determined (Cathie Toney) Problem Qualifiers (1) Sepsis: Qualified Code: A41.9 - Sepsis, due to unspecified organism (2) Pneumonia: Qualified Code: J18.9 - Pneumonia of both lower lobes due to infectious organism (3) Kidney failure, acute: Qualified Code: N17.9 - Acute renal failure, unspecified acute renal failure type (4) Hypertension: Qualified Code: I10 - Essential hypertension (5) Hyperlipidemia: Qualified Code: E78.5 - Hyperlipidemia, unspecified hyperlipidemia type (6) CAD (coronary artery disease): Qualified Code: I25.10 - Coronary artery disease involving [place] coronary artery of [place] heart without angina pectoris (7) Leukocytosis: Qualified Code: D72.825 - Bandemia (8) Anemia: Qualified Code: D64.9 - Anemia, unspecified type Cathie Toney May 02, 2016 14:19 Stacie Owens MD May 02, 2016 20:48
[2016-05-02] MEDS: SODIUM CHLOR 0.9% 1000 ML INJ 1,000 ML IV SCH (15:13)
[2016-05-02] MEDS ORDERED: MAGNESIUM HYDROXIDE SUSP 30 ML CUP PO PRN (15:45)
[2016-05-02] MEDS: POLYETHYLENE GLYCOL 17 GM PKG PO SCH (16:12)
--- NOTE | 2016-05-02 17:28 | RADRPT ---
EXAM DATE/TIME: 05/02/2016 15:40 [facility] COMPARISON: No previous studies available for comparison. EXTERNAL COMPARISON : [facility], US LEG, LEFT VENOUS DOPPLER, June 07, 2007, December 23, 2006. INDICATIONS : Bilateral leg swelling. MEDICAL HISTORY : Hypercholesterolemia. Hypertension. Gastroesophageal reflux disease. Cerebrovascular accident. [place] ry artery disease. Pulmonary embolism. Skin cancer. Longo's esophagus. meningioma. chest pain. dysp shayan. ulcer. arthritis. anticoagulant therapy, plavix. SURGICAL HISTORY : Tonsillectomy.CABG Coronary artery stent.Bilateral cataract surgery. Left temporal mass removal. Card iac cath. Appendectomy. Cholecystectomy. Back surgery. Left knee scope. Craniotomy. ENCOUNTER: Initial ACUITY: >1 year PAIN SCORE: 1/10 LOCATION: Bilateral leg. TECHNIQUE: Venous ultrasound of the left and right leg was performed from the inguinal ligament to the proximal calf. Real-time, color Doppler and spectral tracing, compression and augmentation techniques were us ed. FINDINGS: RIGHT LEG: There is normal compressibility of the deep venous system from the inguinal region to the proximal ca lf. No echogenic clot is seen in the lumen of the common femoral, femoral, popliteal, and posterior tibial veins. There is a normal response of the venous system to proximal and distal augmentation an d respiration. LEFT LEG: There is normal compressibility of the deep venous system from the inguinal region to the proximal ca lf. No echogenic clot is seen in the lumen of the common femoral, femoral, popliteal, and posterior tibial veins. There is a normal response of the venous system to proximal and distal augmentation an d respiration. CONCLUSION: 1. Negative for deep venous thrombosis. Edematous changes present in the soft tissues. Carlos Jeong MD on May 02, 2016 at 17:26 Board Certified Radiologist. This report was verified electronically.
--- NOTE | 2016-05-02 17:52 | RADRPT ---
EXAM DATE/TIME: 05/02/2016 17:30 [facility] COMPARISON: CT ABDOMEN & PELVIS W CONTRAST, November 04, 2013, 22:52. INDICATIONS : Pneumonia; worsening edema. ORAL CONTRAST: Prescribed oral contrast ingested. RADIATION DOSE: 15.34 CTDIvol (mGy) MEDICAL HISTORY : Cardiovascular disease. Cerebrovascular disease. Hypertension. SURGICAL HISTORY : Appendectomy. Cholecystectomy. ENCOUNTER: Initial ACUITY: 1 day PAIN SCALE: 0/10 LOCATION: abdomen TECHNIQUE: Volumetric scanning of the abdomen and pelvis was performed. Using automated exposure control and ad justment of the mA and/or kV according to patient size, radiation dose was kept as low as reasonably achievable to obtain optimal diagnostic quality images. FINDINGS: Comparison is 2013. There is a moderate size right pleural effusion and small left effusion with mild basilar airspace disease and interstitial prominence. There is mild ascites. Liver has a slightly lobulated appearance characteristic of cirrhosis. Spleen mildly prominent in size. No acute findings in the adrenals, kidneys or pancreas. Inferior vena cava filter is in place. There is no bowel obstruction. Lozano catheter is present in decompressed bladder. Previously identifi ed approximately 12 mm lytic lesion at L1 on the right is stable in appearance and likely benign. The re is moderate anasarca. CONCLUSION: 1. Moderate anasarca with bilateral pleural effusions, right greater than left and mild ascites. Ques tionable liver cirrhosis. 2. No obstruction or free air. 3. Inferior vena cava filter present. Bladder decompressed by Lozano. Carlos Jeong MD on May 02, 2016 at 17:45 Board Certified Radiologist. This report was verified electronically.
[2016-05-02] MEDS: ONDANSETRON HCL 4 MG/2 ML VIAL IVP PRN (18:28)
--- NOTE | 2016-05-02 20:13 | MB ---
cc: [facility] DATE OF CONSULTATION: 05/02/2016. REASON FOR CONSULTATION: Anemia, elevated white count, enlarged spleen, failure to thrive. PATIENT PROFILE: The patient is an 89-year white male. He is . He was born in [place], [place]. He has lived in [place] for the past 12 years. He has no children. He does not smoke. In the past, alcohol intake was modest. His favorite past time is going on cruises with his . HISTORY OF PRESENT ILLNESS: The patient is an 89-year-old male who has multiple medical problems, which will be delineated below. Over the past several weeks, he has had increasing weakness, fatigue, shortness of breath and failure to thrive. At some point during the past one or two months, he was found to be anemic. He was referred to Dr. Stan Nielsen, who is a deposition operator. He underwent upper endoscopy which for the most part was unremarkable. No evidence of malignancy or bleeding was found. He was apparently found to have an enlarged spleen. Arrangements were made for him see me as an outpatient and it is my understanding that he has an appointment this week. Due to increasing weakness and edema, he presented to the emergency room and was found to have a number of problems. Today's CBC and platelet count: hemoglobin is 8.5, hematocrit 25, white count 24,000, platelets of 560,000, MCV is 79 with a differential with 67% neutrophils, 10% bands, 4% lymphocytes, 5% monocytes, 3% eosinophils, 4% basophils, 4 myelocytes were identified, 1 promyelocyte and two nucleated red cells. On looking back over previous records, on March 23, 2016 hemoglobin was 9.2, white count 15,000 and platelets 380,000. In February of 2016, the white count was 14,900, hemoglobin was 9.2. His white count in March of 2015 was 14,000 and he was noted to have 2 nucleated red cells, 16 myelocytes, 2 metamyelocytes. If one goes as far back as 2013, the same abnormalities persist. He was found to have nucleated red cells, myelocytes metamyelocytes. The problem can be identified in 2012 when a peripheral smear and had two nucleated red cells, 2 myelocytes. At that time, the white count was 4600. At the time of admission, he was found to have profound renal failure with BUN 63, creatinine 3.1; this is new, as on 04/09/2016 BUN was 20 and creatinine was 1.76. Total bilirubin is 1.6. Liver function tests are normal. BNP is 840. PAST SURGICAL HISTORY: 1. Coronary artery disease with stent placement x2 in September of 2012. 2. The patient had removal of a left temporal fossa mass, which was a meningioma in 2006. He has had problems following the surgery with residual short-term memory loss, expressive aphasia. 3. Coronary artery bypass graft surgery in the . 4. Cholecystectomy. 5. Bilateral cataract surgery. PAST MEDICAL HISTORY: 1. Coronary artery disease with bypass surgery. 2. Hypertension. 3. Hyperlipidemia. 4. Removal of meningioma. 5. Stroke following removal of a meningioma. 6. Pulmonary embolus following removal of meningioma. The patient has an inferior vena cava filter. 7. Hyperlipidemia. 8. Gastroesophageal reflux. 9. Longo's esophagus. ALLERGIES: 1. ASPIRIN. 2. NORVASC. MEDICATIONS: 1. Carvedilol 3.125 milligrams daily. 2. Plavix 75 a day. 3. Lasix 20 a day. 4. Hydrochlorothiazide 25 a day. 5. Isosorbide. 6. Potassium. 7. Aciphex 20 milligrams a day. 8. Ranexa XR 1000 milligrams p.o. twice a day. 9. Simvastatin. FAMILY HISTORY: Family history is noncontributory. REVIEW OF SYSTEMS: No change in vision or hearing. No chest pain. He has shortness of breath, slight abdominal fullness. No melena or hematochezia. His scrotum has become edematous. The legs have become edematous. There has been increased confusion. Occasional difficulty finding words and generalized weakness. PHYSICAL EXAMINATION: GENERAL: The physical exam reveals an elderly male. He appears for the most part comfortable. VITAL SIGNS: Blood pressure 110/55, respiratory rate 18, pulse 60, afebrile. 90% saturation on room air. HEAD, EYES, EARS, NOSE, THROAT: Head is normocephalic. The sclerae and conjunctivae are normal. Oropharynx unremarkable. HEART: A regular rhythm. LUNGS: Decreased sounds at the bases. ABDOMEN: Distended. No hepatomegaly. Spleen, I believe, is 3 to 4 cm below the left costal margin. EXTREMITIES: 2+ edema and slight edema of the abdominal wall. NEUROLOGIC: No focal weakness. He does have a mild expressive aphasia. ASSESSMENT The patient is an 89-year-old male. His current hematologic problem is not new. One can trace it back several years ago. At that time, he had occasional metamyelocytes, myelocytes promyelocytes and nucleated red cells. 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 At the present time, he is in renal failure and this needs to be addressed first. I will return Tuesday, and if he is doing well, I will proceed with bone marrow aspirate, biopsy and chromosome studies. The differential includes myelofibrosis, myeloproliferative disorders, and chronic myelogenous leukemia. It will be possible to make a diagnosis after a bone marrow and the appropriate chromosome studies are performed. MD CHAPO Carter/JUAN C /7:18 PM /7:34 PM CA[facility]
[2016-05-02] MEDS: SODIUM CHLORIDE 0.9% FLUSH 5 ML FLUSH FLUSH SCH (20:42)
[2016-05-02] MEDS: POTASSIUM CHLORIDE 20 MEQ CONTROLLED RELEASE TAB PO SCH (20:42)
[2016-05-02] MEDS: ACETAMINOPHEN 325 MG TAB PO PRN (21:00)
[2016-05-02] MEDS ORDERED: RANOLAZINE 500 MG EXTENDED RELEASE TAB PO SCH (21:00)
[2016-05-03] VITALS (14 sets, daily range): BP systolic 108–145; BP diastolic 55–77; PULSE 63–73; RESP 16–18; TEMP 98.1–98.9; O2SAT 96–98
[2016-05-03 03:52] LABS: AUTOMATED NEUTROPHIL # 23.8 TH/MM3 (1.8-7.7); BASOPHIL # 0.2 TH/MM3 (0-0.2); BASOPHIL % 0.7 % (0.0-2.0); EOSINOPHIL # 0.4 TH/MM3 (0-0.4); EOSINOPHIL % 1.4 % (0.0-4.0); HEMATOCRIT 24.7 % (39.0-51.0); LYMPH % 2.4 % (9.0-44.0); LYMPHOCYTE # 0.6 TH/MM3 (1.0-4.8); MEAN CELL VOLUME 79.4 FL (80.0-100.0); MEAN CORPUSCULAR HEMOGLOBIN 26.7 PG (27.0-34.0); MEAN CORPUSCULAR HGB CONC 33.7 % (32.0-36.0); MONO % 7.8 % (0.0-8.0); NEUT % 87.7 % (16.0-70.0); PLATELET COUNT 457 TH/MM3 (150-450); RED BLOOD COUNT 3.11 MIL/MM3 (4.50-5.90); RED CELL DISTRIBUTION WIDTH 20.8 % (11.6-17.2); WHITE BLOOD COUNT 27.2 TH/MM3 (4.0-11.0)
[2016-05-03 03:53] LABS: REVIEW FLAG FINAL
[2016-05-03 03:57] LABS: HEMO FLAGS AUTO DIFF
[2016-05-03 04:33] LABS: BANDS 8 % (0-6); BLASTS 1 % (0-0); CORRECTED NUCLEATED RBC 6 /100 WBC (0-0); EOSINOPHILS 1 % (0-4); METAMYELOCYTES 1 % (0-1); MYELOCYTES 1 % (0-0); NEUTROPHIL # MANUAL DIFF 24.8 TH/MM3 (1.8-7.7); POLYS (SEG NEUTROPHILS) 81 % (16-70); WBC DIFF SAMPLE 100
[2016-05-03 04:35] LABS: TEARDROP RBCS 2+ (NORMAL)
[2016-05-03 04:36] LABS: PLATELET ESTIMATE SMEAR HIGH (NORMAL); PLATELET MORPHOLOGY ENLARGED (NORMAL); SCAN/DIFF FINAL DIFF MANUAL
[2016-05-03 04:37] LABS: ANION GAP 11 MEQ/L (5-15); BICARBONATE 24.6 MEQ/L (21.0-32.0); BLOOD UREA NITROGEN 64 MG/DL (7-18); CHLORIDE 96 MEQ/L (98-107); GLOMERULAR FILTRATION RATE 18 ML/MIN (>89); SODIUM (NA) 132 MEQ/L (136-145)
[2016-05-03] MEDS: ACETAMINOPHEN 325 MG TAB PO PRN ×2 (04:37→14:16)
[2016-05-03] MEDS: ONDANSETRON HCL 4 MG/2 ML VIAL IVP PRN (04:37)
[2016-05-03 05:02] LABS: FERRITIN 15 NG/ML (26-388); LDH SERUM 347 U/L (87-241); TOTAL BILIRUBIN ADULT 1.4 MG/DL (0.2-1.0); TRANSFERRIN IRON PROFILE 274 MG/DL (200-360)
[2016-05-03 05:05] LABS: CREATINE KINASE 47 U/L (39-308)
[2016-05-03] MEDS: ISOSORBIDE MONONITRATE 30 MG TAB PO SCH (08:44)
[2016-05-03] MEDS: CARVEDILOL 3.125 MG TAB PO SCH (08:44)
[2016-05-03] MEDS: CLOPIDOGREL 75 MG TAB PO SCH (08:44)
[2016-05-03] MEDS: POLYETHYLENE GLYCOL 17 GM PKG PO SCH (08:45)
[2016-05-03] MEDS: SODIUM CHLORIDE 0.9% FLUSH 5 ML FLUSH FLUSH SCH ×2 (08:45→20:33)
[2016-05-03] MEDS: POTASSIUM CHLORIDE 20 MEQ CONTROLLED RELEASE TAB PO SCH ×2 (08:45→20:33)
[2016-05-03] MEDS ORDERED: PANTOPRAZOLE SOD 20 MG DELAYED RELEASE TAB PO SCH (09:00)
--- NOTE | 2016-05-03 10:24 | EKG ---
Date Performed: 05/02/2016 Time Performed: 18:27:47 PTAGE: 89 years EKG: ATRIAL FIBRILLATION WITH SLOW VENTRICULAR RESPONSE WITH ABERRANT CONDUCTION OR VENTRICULAR PREMATURE COMPLEXES LEFT BUNDLE BRANCH BLOCK ABNORMAL ECG Compared to prior tracing no significant ch alondra PREVIOUS TRACING : 05/02/2016 11.43 DOCTOR: Dawit Gilbert Interpretating Date/Time 05/03/2016 10:23:26
--- NOTE | 2016-05-03 10:25 | EKG ---
Date Performed: 05/02/2016 Time Performed: 23:52:26 PTAGE: 89 years EKG: Possible idioventricular rhythm with slow ventricular response Left bundle branch block Abn ormal ECG Compared to prior tracing no significant change PREVIOUS TRACING : 05/02/2016 18.27 DOCTOR: Dawit Gilbert Interpretating Date/Time 05/03/2016 10:23:34
--- NOTE | 2016-05-03 11:13 | EKG ---
Date Performed: 05/02/2016 Time Performed: 11:43:46 PTAGE: 89 years EKG: RHYTHM APPEARS TO BE AN IDIOVENTRICULAR RHYTHM WITH UNDERLYING ATRIAL FIBRILLATION LEFT BUN DLE BRANCH BLOCK Since previous tracing, no significant change noted ABNORMAL ECG PREVIOUS TRACING : 07/14/2015 13.37 DOCTOR: Dawit Gilbert Interpretating Date/Time 05/03/2016 11:12:12
--- NOTE | 2016-05-03 11:51 | HHI.PR ---
Subjective Remarks Patient wants a sleeping medication and his medication for stomach burn. Other medications are not working. Still feeling weak and tired no chest pain No shortness of breath No nausea vomiting Review of system for 12 point system otherwise unremarkable Objective Objective Results - Vital Signs Date Time Temp Pulse Resp B/P Pulse Ox O2 Delivery O2 Flow Rate FiO2 05/03/16 11:00 72 05/03/16 10:00 72 05/03/16 09:00 70 05/03/16 08:00 70 05/03/16 08:00 98.7 71 18 145/77 97 05/03/16 07:00 66 05/03/16 03:00 98.1 63 18 108/55 98 05/02/16 23:00 98.4 58 16 114/65 97 05/02/16 19:23 98.2 87 18 114/69 96 05/02/16 18:00 55 18 110/55 97 Room Air 05/02/16 14:00 82 18 113/61 97 Room Air 05/02/16 13:00 84 18 128/74 97 Room Air 05/02/16 11:59 16 97 Room Air I/O 05/02/16 05/02/16 05/02/16 05/03/16 05/03/16 05/03/16 07:00 15:00 23:00 07:00 15:00 23:00 Intake Total 881 ml Output Total 480 ml Balance 401 ml Intake Oral 650 ml IV Total 231 ml Output Urine Total 480 ml # Bowel Movements 0 Result Diagram: 05/03/16 0339 05/03/16 0329 Imaging Last Impressions Chest X-Ray 05/02/16 1141 Signed Impressions: Service Date/Time: Monday, May 02, 2016 11:53 - CONCLUSION: Mild bibasilar infiltrates. Rajinder Vu MD Other Results Laboratory Tests Test 05/02/16 05/02/16 05/02/16 05/02/16 11:46 12:21 13:10 18:20 White Blood Count 24.9 Red Blood Count 3.15 Hemoglobin 8.5 Hematocrit 25.1 Mean Corpuscular Volume 79.5 Mean Corpuscular Hemoglobin 27.0 Mean Corpuscular Hemoglobin 33.9 Concent Red Cell Distribution Width 20.9 Platelet Count 560 Mean Platelet Volume 9.0 Neutrophils (%) (Auto) 82.8 Lymphocytes (%) (Auto) 4.9 Monocytes (%) (Auto) 9.0 Eosinophils (%) (Auto) 2.3 Basophils (%) (Auto) 1.0 Neutrophils # (Auto) 20.6 Lymphocytes # (Auto) 1.2 Monocytes # (Auto) 2.2 Eosinophils # (Auto) 0.6 Basophils # (Auto) 0.3 CBC Comment AUTO DIFF Differential Total Cells 100 Counted Neutrophils % (Manual) 67 Band Neutrophils % 10 Lymphocytes % 4 Monocytes % 5 Eosinophils % 3 Basophils % 4 Neutrophils # (Manual) 20.9 Metamyelocytes 2 Myelocytes 4 Promyelocytes 1 Nucleated Red Blood Cells 2 Differential Comment FINAL DIFF MANUAL Platelet Estimate HIGH Platelet Morphology Comment NORMAL Tear Drop Cells 1+ Keratocytes OCC Prothrombin Time 14.7 Prothromb Time International 1.3 Ratio Activated Partial 30.3 Thromboplast Time Sodium Level 133 Potassium Level 3.3 Chloride Level 93 Carbon Dioxide Level 26.5 Anion Gap 14 Blood Urea Nitrogen 63 Creatinine 3.11 Estimat Glomerular Filtration 19 Rate Random Glucose 123 Calcium Level 8.7 Magnesium Level 2.5 Total Bilirubin 1.6 Aspartate Amino Transf 29 (AST/SGOT) Alanine Aminotransferase 23 (ALT/SGPT) Alkaline Phosphatase 64 Troponin I 0.13 0.27 B-Type Natriuretic Peptide 840 Total Protein 6.8 Albumin 3.5 Lipase 137 Urine Color YELLOW Urine Turbidity CLEAR Urine pH 6.0 Urine Specific Mcnary 1.010 Urine Protein 30 Urine Glucose (UA) NEG Urine Ketones NEG Urine Occult Blood NEG Urine Nitrite NEG Urine Bilirubin NEG Urine Urobilinogen LESS THAN 2.0 Urine Leukocyte Esterase NEG Urine RBC 1 Urine WBC 1 Urine Squamous Epithelial 1 Cells Urine Bacteria FEW Urine Hyaline Casts 59 Urine Mucus FEW Microscopic Urinalysis Comment CULT NOT INDICATED Lactic Acid Level 1.8 Total Creatine Kinase 48 Test 05/03/16 05/03/16 03:29 03:39 Sodium Level 132 Potassium Level 4.0 Chloride Level 96 Carbon Dioxide Level 24.6 Anion Gap 11 Blood Urea Nitrogen 64 Creatinine 3.32 Estimat Glomerular Filtration 18 Rate Random Glucose 121 Calcium Level 8.5 Iron Level 17 Total Iron Binding Capacity 384 Percent Iron Saturation 4.4 Ferritin 15 Total Bilirubin 1.4 Lactate Dehydrogenase 347 Total Creatine Kinase 47 Troponin I 0.64 Vitamin B12 Level GREATER THAN 2000 White Blood Count 27.2 Red Blood Count 3.11 Hemoglobin 8.3 Hematocrit 24.7 Mean Corpuscular Volume 79.4 Mean Corpuscular Hemoglobin 26.7 Mean Corpuscular Hemoglobin 33.7 Concent Red Cell Distribution Width 20.8 Platelet Count 457 Mean Platelet Volume 8.6 Neutrophils (%) (Auto) 87.7 Lymphocytes (%) (Auto) 2.4 Monocytes (%) (Auto) 7.8 Eosinophils (%) (Auto) 1.4 Basophils (%) (Auto) 0.7 Neutrophils # (Auto) 23.8 Lymphocytes # (Auto) 0.6 Monocytes # (Auto) 2.1 Eosinophils # (Auto) 0.4 Basophils # (Auto) 0.2 CBC Comment AUTO DIFF Differential Total Cells 100 Counted Neutrophils % (Manual) 81 Band Neutrophils % 8 Lymphocytes % 6 Monocytes % 1 Eosinophils % 1 Neutrophils # (Manual) 24.8 Metamyelocytes 1 Myelocytes 1 Nucleated Red Blood Cells 6 Differential Comment FINAL DIFF MANUAL Blastocytes 1 Platelet Estimate HIGH Platelet Morphology Comment ENLARGED Tear Drop Cells 2+ Reticulocyte Count 3.0 Absolute Reticulocyte Count 91.1 Date/Time Procedure Status Source Growth 05/02/16 16:45 Stool Occult Blood (LIDIA) - Final Complete Stool Stool HEMOCCULT POSITIVE 05/02/16 13:16 Aerobic Blood Culture - Preliminary Resulted Blood Peripheral NO GROWTH IN 1 DAY 05/02/16 13:16 Anaerobic Blood Culture - Preliminary Resulted Blood Peripheral NO GROWTH IN 1 DAY Physical Exam Physical Exam GENERAL: This is a well-nourished, well-developed patient, in no apparent distress. SKIN: Pale, cool, dry, anasarca noted. HEAD: Atraumatic. Normocephalic. No temporal or scalp tenderness. EYES: Pupils equal round and reactive. Extraocular motions intact. No scleral icterus. No injection or drainage. ENT: Throat without erythema, tonsillar hypertrophy or exudate. Uvula midline. Airway patent. NECK: Trachea midline. Supple, nontender, no meningeal signs. CARDIOVASCULAR: Regular rate and rhythm with soft murmurs. No gallops, or rubs. RESPIRATORY: Clear to auscultation. Breath sounds equal bilaterally. No wheezes , rales, or rhonchi. GASTROINTESTINAL: Protuberant, with ascites, flank edema. Bowel sounds hypoactive, ? splenomegaly. MUSCULOSKELETAL: Extremities without clubbing, cyanosis. No joint tenderness, effusion, or edema noted. No calf tenderness. Negative Homans sign bilaterally. Bilat pedal edema feet to thighs 2+, L>R, pedal pulses difficult to palpate due to edema. NEUROLOGICAL: Awake, oriented x 3. Following commands, no focal deficits. Poor historian. A/P Assessment and Plan (1) Sepsis (2) Elevated troponin (3) Pneumonia (4) Kidney failure, acute (5) History of GI bleed (6) History of CVA (cerebrovascular accident) (7) Hypertension (8) Hyperlipidemia (9) CAD (coronary artery disease) (10) Dehydration (11) Hypokalemia (12) Anasarca (13) Leukocytosis (14) Splenomegaly (15) Anemia Plan 89-year-old male with history of CAD, hypertension, chronic left leg edema, previous CABG, history of DVT and PE, GI bleed. Presented to emergency room with worsening lower extremity edema with increased abdominal extension, dyspnea with exertion, constipation. Was found with significant leukocytosis, possible pneumonia, anemia, acute renal injury Sepsis, possibly secondary to a pulmonary process as patient has leukocytosis with bibasilar infiltrate Continue with cautious hydration Continue with empiric antibiotics Follow cultures closely Peripheral edema, now with anasarca, ascites, recent diagnosis of splenomegaly, rule out myeloproliferative disease -hematology for evaluation-Dr. Martin input appreciated likely for bone marrow biopsy tomorrow -CT of the abdomen and pelvis report reviewed -Ultrasound of the lower extension negative for DVT Acute renal injury, likely secondary to over diuresing, possibly dehydrated We will hydrate cautiously, normal saline at 42 one hour Tomorrow we'll reevaluate, possibly try Lasix and albumin. -Monitor renal function closely Avoid nephrotoxic agents -Monitor electrolytes -Plan for nephrology consult Constipation -bowel regimen Elevated troponin, denies any chest pain, likely stress-induced, rule out acute coronary syndrome. History of coronary artery disease -We will obtain 2-D echo -Continue with serial cardiac enzymes Consult cardiology for evaluation, awaiting -Continue with Plavix, Coreg, Ranexa, Imdur Anemia, history of previous GI bleed -Follow H&H closely Stool for occult blood We will check iron studies HTN, stable -continue home meds Hx CVA, stable -continue home meds Home medications reviewed, initiated as indicated Labs reviewed Plan of care discussed with the patient plan of care discussed with attending and registered nurse. Further management of the patient will be dependent on the hospital course Condition guarded Stacie Owens MD May 03, 2016 11:51
--- NOTE | 2016-05-03 12:40 | EC ---
Study Study Date:05/03/2016 STUDY CONCLUSIONS SUMMARY - Left ventricle: The cavity size was normal. Wall thickness was normal. Systolic function was moderately reduced. The estimated ejection fraction was in the range of 35% to 40%. Dyskinesis of the anteroseptal and anterolateral myocardium. - Aortic valve: There was mild stenosis. Valve area: 1.26cm^2(VTI). Valve area: 1.46cm^2 (Vmax). - Mitral valve: Moderate regurgitation. Valve area by continuity equation (using LVOT flow): 1.43cm^2. - Tricuspid valve: Moderate regurgitation. - Pulmonary arteries: PA peak pressure: 56mm Hg (S). If LV function is below 40, please consider prescribing an ACEI or ARB or document rationale for non-use. PROCEDURE DATA STUDY STATUS: Elective. Procedure: Transthoracic echocardiography. Image quality was good. Scanning was performed from the parasternal, apical, and subcostal acoustic windows. Study completion: The patient tolerated the procedure well. Transthoracic echocardiography. M-mode, complete 2D, complete spectral Doppler, and color Doppler. Patient status: Inpatient. CARDIAC ANATOMY LEFT VENTRICLE: The cavity size was normal. Wall thickness was normal. Systolic function was moderately reduced. The estimated ejection fraction was in the range of 35% to 40%. Consider right ventricular hypertrophy Regional wall motion abnormalities: Dyskinesis of the anteroseptal and anterolateral myocardium. AORTIC VALVE: Trileaflet; normal thickness leaflets. Doppler: There was mild stenosis. No regurgitation. Valve area: 1.26cm^2(VTI). Valve area: 1.46cm^2 (Vmax). Mean gradient: 8mm Hg (S). Peak gradient: 19mm Hg (S). AORTA: Aortic root: The aortic root was normal in size. MITRAL VALVE: Structurally normal valve. Doppler: Transvalvular velocity was within the normal range. There was no evidence for stenosis. Moderate regurgitation. Valve area by continuity equation (using LVOT flow): 1.43cm^2. Mean gradient: 2mm Hg (D). Peak gradient: 4mm Hg (D). LEFT ATRIUM: The atrium was normal in size. RIGHT VENTRICLE: The cavity size was normal. Wall thickness was normal. PULMONIC VALVE: Doppler: Transvalvular velocity was within the normal range. There was no evidence for stenosis. No regurgitation. TRICUSPID VALVE: Structurally normal valve. Doppler: Transvalvular velocity was within the normal range. Moderate regurgitation. PULMONARY ARTERY: The main pulmonary artery was normal-sized. Systolic pressure was within the normal range. RIGHT ATRIUM: The atrium was normal in size. PERICARDIUM: There was no pericardial effusion. SYSTEMIC VEINS: Inferior vena cava: The vessel was normal in size. BASIC MEASUREMENTS ADULT Normal Left ventricle LV internal dimension, ED, chordal level, 47.6 mm 43-52 PLAX LV internal dimension, ES, chordal level, *39.5 mm 23-38 PLAX Fractional shortening, chordal level, PLAX *17 % >29 LV posterior wall thickness, ED 9.81 mm IVS/LVPW ratio, ED 1.09 <1.3 Volume, ED, MOD, 1-plane 187 ml Volume, ES, MOD, 1-plane 108 ml Ejection fraction, MOD, 1-plane 42 % Stroke volume, MOD, 1-plane 79 ml Volume, ED, MOD, 2-plane 168 ml Volume, ES, MOD, 2-plane 113 ml Ejection fraction, MOD, 2-plane 33 % Stroke volume, MOD, 2-plane 55 ml Ventricular septum Septal thickness, ED 10.7 mm Left atrium Anterior-posterior dimension 34 mm Right ventricle RV internal dimension, ED, PLAX 34.4 mm 19-38 DOPPLER MEASUREMENTS ADULT Normal Main pulmonary artery Pressure, S *56 mm Hg =30 Aortic valve Peak velocity, S 217 cm/s Mean velocity, S 129 cm/s VTI, S 34.9 cm Mean gradient, S 8 mm Hg Peak gradient, S 19 mm Hg Valve area, VTI 1.26 cm^2 Valve area, Vmax 1.46 cm^2 Mitral valve Peak E-wave velocity 90.8 cm/s Peak A-wave velocity 72.6 cm/s Mean velocity, D 75.8 cm/s Mean gradient, D 2 mm Hg Peak gradient, D 4 mm Hg Peak E/A ratio 1.3 Valve area, LVOT continuity 1.43 cm^2 Maximal regurgitant velocity 493 cm/s Tricuspid valve Regurgitant peak velocity 340 cm/s Peak RV-RA gradient, S 46 mm Hg Maximal regurgitant velocity 340 cm/s Systemic veins Estimated CVP 10 mm Hg Right ventricle RV pressure, S *56 mm Hg <30 LEGEND: Mean values are shown as u=mean value. Asterisk (*) bauer values outside specified normal range. Prepared and signed by Dawit Gilbert [id number]
[2016-05-03] MEDS: SODIUM CHLOR 0.9% 1000 ML INJ 1,000 ML IV SCH (12:41)
[2016-05-03] MEDS: cefTRIAXone INJ 1,000 MG in SODIUM CHLORIDE 0.9% INJ 100 ML IV SCH (12:59)
--- NOTE | 2016-05-03 13:51 | PD.CONS ---
[facility] Service Nephrology Consult Requested By Reason for Consult Acute Renal Failure Primary Care Physician Tanmay Aaron M.D. History of Present Illness This is a pleasant 89 y/o male pt who was admitted yesterday with complaints of shortness of breath, lower extremity edema, fatigue, and failure to thrive. He has felt bad for two weeks. His is present at bedside during my exam. On arrival he was noted to be anemic which apparently has been an issue for several years. Other abnormalities are creatinine that measured 3.11 yesterday, today is 3.32. Potassium has been in normal range. Today BUN 64, GFR 18. His troponin was 0.13 on arrival, later readings were 0.27 and 0.64. He denies any chest pain. He is on IVF, 0.9% NS at 80 cc/hr. Echo done today reveal moderate systolic heart failure, EF 35-40% with mild . We were consulted for management. PMH of HTN, CVA, GERD with Longo's esophagus, and CAD hx of CABG and PCI with stenting. Looking through old records, creatinine was 1.28 on Apr 2015, 1.Feb, and 1.76 Mar. He has only made 400 ml urine since arrival. He is demonstrating fluid overload. HE is a full code. Of note he was taking Aleve regularly for chronic pain. He is on HCTZ daily, was on Lasix that was recently changed to Torsemide because "it was no longer working". He may have missed a few doses of his diuretics recently, appreciates a 20 # weight gain in past week. (Martha Bueno) Review of Systems Constitutional: COMPLAINS OF: Fatigue, Weight gain, DENIES: Fever Respiratory: COMPLAINS OF: Shortness of breath, DENIES: Apneas, Sputum production Cardiovascular: COMPLAINS OF: Dyspnea on Exertion, Lower Extremity Edema, Orthopnea Gastrointestinal: DENIES: Abdominal pain Genitourinary: DENIES: Urinary frequency, Urinary incontinence, Urgency Musculoskeletal: DENIES: Muscle aches (Martha Bueno) Past Family Social History Allergies: Coded Allergies: Norvasc (Verified Allergy, Severe, Arrhythmias, 05/02/16) Aspirin (Verified Adverse Reaction, Intermediate, GI BLEED, 05/02/16) CHANGES MADE PER JUANITA IN PHARMACY. STATES HE SPOKE TO THE DOCTOR. Past Medical History HTN CVA GERD/Longo's Esoph PE hx of IVC filter CHF, systolic anemia Past Surgical History left temporal fossa mass excised CABG PCI with stenting b/l cataracts GB Reported Medications Hydrochlorothiazide 25 Mg Tab 25 Mg PO DAILY Aciphex (Rabeprazole Sodium) 20 Mg Tab 20 Mg PO DAILY Furosemide 20 Mg Tab 20 Mg PO BID.. changed to Torsemide, unk dosage Plavix (Clopidogrel Bisulfate) 75 Mg Tab 75 Mg PO DAILY Simvastatin 20 Mg Tab 20 Mg PO Isosorbide Mononitrate ER (Isosorbide Mononitrate) 30 Mg Lazaro 30 Mg PO DAILY Carvedilol 3.125 Mg Tab 3.125 Mg PO DAILY Ranexa ER 12 HR (Ranolazine) 1,000 Mg Tab 1,000 Mg PO BID Potassium Chloride ER (Potassium Chloride) 20 Meq Tab 20 Meq PO BID Active Ordered Medications Current Medications Medications (Trade) Dose Ordered Sig/Prudence Route Start Time Stop Time Status Last Admin (NS Flush) 2 ml UNSCH PRN FLUSH 05/02/16 13:30 (NS Flush) 2 ml BID FLUSH 05/02/16 21:00 05/02/16 20:42 (Tylenol) 650 mg Q4H PRN PO 05/02/16 13:30 05/03/16 04:37 (Zofran Inj) 4 mg Q6H PRN IVP 05/02/16 13:30 05/03/16 04:37 Naloxone HCl 0.4 mg 0.4 mg UNSCH PRN IV 05/02/16 13:30 Sodium Chloride 1,000 ml @ 70 mls/hr [id number] IV 05/02/16 14:00 05/03/16 12:41 (Rocephin Inj/NS Inj) 100 ml @ 200 mls/hr Q24H IV 05/03/16 14:00 05/03/16 12:59 (Coreg) 3.125 mg DAILY PO 05/03/16 09:00 05/03/16 08:44 (Plavix) 75 mg DAILY PO 05/03/16 09:00 05/03/16 08:44 (Imdur) 30 mg DAILY PO 05/03/16 09:00 05/03/16 08:44 Potassium Chloride 20 meq 20 meq BID PO 2/12/17 21:00 05/03/16 08:45 (Zithromax Inj/ NS 250 ml Inj) 250 ml @ 250 mls/hr Q24H IV 05/03/16 15:00 (Miralax) 17 gm DAILY PO 05/02/16 15:45 05/02/16 16:12 (Milk Of Magnesia Liq) 30 ml DAILY PRN PO 05/02/16 15:45 (Protonix) 40 mg DAILY PO 05/04/16 09:00 (Restoril) 15 mg HS PRN PO 05/03/16 21:00 Family History No family hx of renal disorders Social History , lives with functionally independent retired full code remote smoking hx no ETOH use currently (Martha Bueno) Physical Exam Vital Signs Vital Signs Date Time Temp Pulse Resp B/P Pulse Ox O2 Delivery O2 Flow Rate FiO2 05/03/16 12:00 73 05/03/16 12:00 98.6 71 18 137/75 96 05/03/16 11:00 72 05/03/16 10:00 72 05/03/16 09:00 70 05/03/16 08:00 70 05/03/16 08:00 98.7 71 18 145/77 97 05/03/16 07:00 66 05/03/16 03:00 98.1 63 18 108/55 98 05/02/16 23:00 98.4 58 16 114/65 97 05/02/16 19:23 98.2 87 18 114/69 96 05/02/16 18:00 55 18 110/55 97 Room Air 05/02/16 14:00 82 18 113/61 97 Room Air Physical Exam GENERAL: This is a well-nourished, well-developed patient, in no apparent distress. He is very [id number] SKIN: Pale, cool, dry, anasarca noted. No wounds HEAD: Atraumatic. Normocephalic. No temporal or scalp tenderness. old scar left temporal area EYES: Pupils equal round and reactive. Extraocular motions intact. No scleral icterus. No injection or drainage. ENT: Nose without bleeding, purulent drainage or septal hematoma. Throat without erythema, tonsillar hypertrophy or exudate. Uvula midline. Airway patent. NECK: Trachea midline. No JVD or lymphadenopathy. Supple, nontender, no meningeal signs. CARDIOVASCULAR: Regular rate and rhythm with soft murmurs. No gallops, or rubs. RESPIRATORY: No wheezes, or rhonchi. Bibasilar rales. GASTROINTESTINAL: round, firm, Protuberant, with ascites, flank edema. Bowel sounds hypoactive, ? splenomegaly. MUSCULOSKELETAL: Extremities without clubbing, cyanosis. No joint tenderness, effusion, or edema noted. No calf tenderness. Negative Homans sign bilaterally. LE edema feet to thighs 2-3+, pedal pulses normal NEUROLOGICAL: Awake, oriented x 3. Following commands, no focal deficits. He is a poor historian. Laboratory Laboratory Tests Test 05/02/16 05/03/16 05/03/16 18:20 03:29 03:39 Total Creatine Kinase 48 47 Troponin I 0.27 0.64 Sodium Level 132 Potassium Level 4.0 Chloride Level 96 Carbon Dioxide Level 24.6 Anion Gap 11 Blood Urea Nitrogen 64 Creatinine 3.32 Estimat Glomerular Filtration 18 Rate Random Glucose 121 Calcium Level 8.5 Iron Level 17 Total Iron Binding Capacity 384 Percent Iron Saturation 4.4 Ferritin 15 Total Bilirubin 1.4 Lactate Dehydrogenase 347 Vitamin B12 Level GREATER THAN 2000 White Blood Count 27.2 Red Blood Count 3.11 Hemoglobin 8.3 Hematocrit 24.7 Mean Corpuscular Volume 79.4 Mean Corpuscular Hemoglobin 26.7 Mean Corpuscular Hemoglobin 33.7 Concent Red Cell Distribution Width 20.8 Platelet Count 457 Mean Platelet Volume 8.6 Neutrophils (%) (Auto) 87.7 Lymphocytes (%) (Auto) 2.4 Monocytes (%) (Auto) 7.8 Eosinophils (%) (Auto) 1.4 Basophils (%) (Auto) 0.7 Neutrophils # (Auto) 23.8 Lymphocytes # (Auto) 0.6 Monocytes # (Auto) 2.1 Eosinophils # (Auto) 0.4 Basophils # (Auto) 0.2 CBC Comment AUTO DIFF Differential Total Cells 100 Counted Neutrophils % (Manual) 81 Band Neutrophils % 8 Lymphocytes % 6 Monocytes % 1 Eosinophils % 1 Neutrophils # (Manual) 24.8 Metamyelocytes 1 Myelocytes 1 Nucleated Red Blood Cells 6 Differential Comment FINAL DIFF MANUAL Blastocytes 1 Platelet Estimate HIGH Platelet Morphology Comment ENLARGED Tear Drop Cells 2+ Reticulocyte Count 3.0 Absolute Reticulocyte Count 91.1 Date/Time Procedure Status Source Growth 05/02/16 16:45 Stool Occult Blood (LIDIA) - Final Complete Stool Stool HEMOCCULT POSITIVE 05/02/16 13:16 Aerobic Blood Culture - Preliminary Resulted Blood Peripheral NO GROWTH IN 1 DAY 05/02/16 13:16 Anaerobic Blood Culture - Preliminary Resulted Blood Peripheral NO GROWTH IN 1 DAY (Martha Bueno) Result Diagram: 05/03/16 0339 05/03/16 0329 Imaging Last 72 hours Impressions Chest X-Ray 05/02/16 1141 Signed Impressions: Service Date/Time: Monday, May 02, 2016 11:53 - CONCLUSION: Mild bibasilar infiltrates. Rajinder Vu MD Lower Extremity Ultrasound 05/02/16 0000 Signed Impressions: Service Date/Time: Monday, May 02, 2016 15:40 - CONCLUSION: 1. Negative for deep venous thrombosis. Edematous changes present in the soft tissues. Carlos Jeong MD Abdomen/Pelvis CT 05/02/16 0000 Signed Impressions: Service Date/Time: Monday, May 02, 2016 17:30 - CONCLUSION: 1. Moderate anasarca with bilateral pleural effusions, right greater than left and mild ascites. Questionable liver cirrhosis. 2. No obstruction or free air. 3. Inferior vena cava filter present. Bladder decompressed by Lozano. Carlos Jeong MD (Martha Bueno) Assessment and Plan Problem List: (1) Kidney failure, acute Plan: It appears his creatinine has been increasing since last fall In Mar 2016, creatinine was 1.76, GFR 17 consistent with CKD 3 INEZ may be due to CHF exacerbation, decreased renal perfusion I will stop the IVF, he is demonstrating fluid overload begin Bumex IV BID monitor urine output; no obstruction on imaging monitor electrolytes and replace as needed if urine output drops it is possible he may require dialysis this admission, discussed with pt and renal panel in am (2) Elevated troponin Plan: Hx CABG, cardiology evaluation pending avoid IV contrast if possible, which likely will cause renal function to worsen and necessitate dialysis (3) Hypertension Plan: BP acceptable continue medications as ordered (4) Leukocytosis Plan: hematology following, 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 Agree with above assessment and plan. Discussed with patient and his . Prognosis is guarded at this time. Continue diuretics. Dialysis may not be the best option especially if he has MDS. Consider palliative care. He appears to have significant ascites, may need therapeutic paracentesis. ( Jeromy Funez MD) Problem Qualifiers (1) Kidney failure, acute: Qualified Code: N17.9 - Acute renal failure, unspecified acute renal failure type (2) Hypertension: Qualified Code: I10 - Essential hypertension (3) Leukocytosis: Qualified Code: D72.825 - Bandemia (4) Anemia: Qualified Code: D64.9 - Anemia, unspecified type Martha Bueno May 03, 2016 13:51 Jeromy Funez MD May 03, 2016 17:19
[2016-05-03] MEDS: AZITHROMYCIN INJ 500 MG in SODIUM CHLOR 0.9% 250 ML INJ 250 ML IV SCH (14:16)
--- NOTE | 2016-05-03 15:15 | RADRPT ---
EXAM DATE/TIME: 05/03/2016 14:18 [place] COMPARISON: US LEG BILATERAL VENOUS DOPPLER, May 02, 2016, 15:40. EXTERNAL COMPARISON : [facility], CT ABDOMEN & PELVIS W/O CONTRAST, March 19, 2016 INDICATIONS : Increased BUN/creatinine. MEDICAL HISTORY : Hypercholesterolemia. Hypertension. Arthritis. Skin cancer. Meningioma. Longo's esophagus. cva. cad . pulmonary embolism. chest pain. dyspnea. gerd. ulcer. anticoagulant therapy, plavix. SURGICAL HISTORY : Tonsillectomy. CABG. Coronary artery stent. Bilateral cataract surgery. Left temporal mass removal. C ardiac cath. Appendectomy. Cholecystectomy. Back surgery. Left knee scope. Craniotomy. ENCOUNTER: Initial ACUITY: 1 day PAIN SCORE: 0/10 LOCATION: Bilateral flank MEASUREMENTS: RIGHT KIDNEY: 11.6 x 5.0 x 5.7 cm LEFT KIDNEY: 11.7 x 5.3 x 5.4 cm FINDINGS: RIGHT KIDNEY: Renal cortex is normal in thickness. The echogenicity is increased.. No hydronephrosis, stone, or ma ss. LEFT KIDNEY: Renal cortex is normal in thickness. The echogenicity is increased. No hydronephrosis, stone, or mas s. BLADDER: Within normal limits given the degree of distension. There is a Lozano catheter in place. There is ascites diffusely throughout the abdomen. CONCLUSION: 1. Bilateral echogenic kidneys suggesting medical renal disease. 2. Ascites diffusely throughout the abdomen. 3. No findings to indicate renal obstruction. Syed Rodriguez MD on May 03, 2016 at 15:12 Board Certified Radiologist. This report was verified electronically.
--- NOTE | 2016-05-03 15:53 | PD.CONS ---
HPI Service Cardiology Physicians Consult Requested By Reason for Consult Elevated trop, CHF Primary Care Physician Tanmay Aaron M.D. 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 He had a recent nuclear stress test that was stable compared to 2013. The patient presented to the hospital with progressively worsening abdominal pain, lower extremity edema, SOB and 'Feeling bad." He tried increasing diuresis without improvement of symptoms. Today, on evaluation, the patient continues to "feel sick." ( Marilee Alvarado) Review of Systems Consitutional: COMPLAINS OF: Weight gain, DENIES: Fatigue, Fever, Chills, Weight loss Eyes: DENIES: Amaurosis Fugax, Change in vision HEENT: DENIES: Lightheadedness, Change in hearing Respiratory: COMPLAINS OF: Shortness of breath, DENIES: See HPI, Cough, Snoring, Wheezing, Sputum production Cardiovascular: DENIES: See HPI, Chest pain, Palpitations, Syncope, Tachycardia Gastrointestinal: COMPLAINS OF: Change in bowel habits, DENIES: Nausea, Vomiting, Reflux, Bloody stools, Melena Genitourinary: DENIES: Urinary incontinence, Difficulty voiding Integumentary: DENIES: Rash Neurologic: DENIES: Tingling or numbness, Memory problems, Poor Balance, Stroke symptoms Musculoskeletal: DENIES: Joint pain, Muscle pain, Limited range of motion, Back pain Psychiatric: DENIES: Anxiety, Depression, Sleep disturbances Hematologic: DENIES: Bruising tendencies, Bleeding tendencies Endocrine: COMPLAINS OF: Weight gain, DENIES: Weight loss, Thyroid disease ( Marilee Alvarado) Past Family Social History Allergies: Coded Allergies: Norvasc (Verified Allergy, Severe, Arrhythmias, 05/02/16) Aspirin (Verified Adverse Reaction, Intermediate, GI BLEED, 05/02/16) CHANGES MADE PER JUANITA IN PHARMACY. STATES HE SPOKE TO THE DOCTOR. Past Medical History ASHD s/p CABG and stents X 2 2012 Chronic angina Chronic CHF HTN HLD Gerd/saunders's esophagus PE/DVT s/p IVC filter carotid stenosis GI bleed on Xarelto Left temporal fossa mass s/p craniotomy 2007 Expressive aphasia Past Surgical History Cath 2013 Craniotomy 2007 CABG 1992, 2004 Cholecystectomy Appendectomy Reported Medications Reported Meds & Active Scripts Active Reported Hydrochlorothiazide 25 Mg Tab 25 Mg PO DAILY Aciphex (Rabeprazole Sodium) 20 Mg Tab 20 Mg PO DAILY Furosemide 20 Mg Tab 20 Mg PO BID Plavix (Clopidogrel Bisulfate) 75 Mg Tab 75 Mg PO DAILY Simvastatin 20 Mg Tab 20 Mg PO Isosorbide Mononitrate ER (Isosorbide Mononitrate) 30 Mg Lazaro 30 Mg PO DAILY Carvedilol 3.125 Mg Tab 3.125 Mg PO DAILY Ranexa ER 12 HR (Ranolazine) 1,000 Mg Tab 1,000 Mg PO BID Potassium Chloride ER (Potassium Chloride) 20 Meq Tab 20 Meq PO BID Active Ordered Medications Current Medications Medications (Trade) Dose Ordered Sig/Prudence Route Start Time Stop Time Status Last Admin (NS Flush) 2 ml UNSCH PRN FLUSH 05/02/16 13:30 (NS Flush) 2 ml BID FLUSH 05/02/16 21:00 05/02/16 20:42 (Tylenol) 650 mg Q4H PRN PO 05/02/16 13:30 05/03/16 14:16 (Zofran Inj) 4 mg Q6H PRN IVP 05/02/16 13:30 05/03/16 04:37 Naloxone HCl 0.4 mg 0.4 mg UNSCH PRN IV 05/02/16 13:30 (Rocephin Inj/NS Inj) 100 ml @ 200 mls/hr Q24H IV 05/03/16 14:00 05/03/16 12:59 (Coreg) 3.125 mg DAILY PO 05/03/16 09:00 05/03/16 08:44 (Plavix) 75 mg DAILY PO 05/03/16 09:00 05/03/16 08:44 (Imdur) 30 mg DAILY PO 05/03/16 09:00 05/03/16 08:44 Potassium Chloride 20 meq 20 meq BID PO 05/02/16 21:00 05/03/16 08:45 (Zithromax Inj/ NS 250 ml Inj) 250 ml @ 250 mls/hr Q24H IV 05/03/16 15:00 05/03/16 14:16 (Miralax) 17 gm DAILY PO 05/02/16 15:45 05/02/16 16:12 (Milk Of Magnesia Liq) 30 ml DAILY PRN PO 05/02/16 15:45 (Protonix) 40 mg DAILY PO 05/04/16 09:00 (Restoril) 15 mg HS PRN PO 05/03/16 21:00 (Bumex Inj) 2 mg BID@09,18 IV PUSH 05/03/16 18:00 Family History non contributory Social History Lives with , non smoker, no etoh (Marilee Alvarado) Physical Exam Vital Signs Vital Signs Date Time Temp Pulse Resp B/P Pulse Ox O2 Delivery O2 Flow Rate FiO2 05/03/16 15:16 18 05/03/16 12:00 73 05/03/16 12:00 98.6 71 18 137/75 96 05/03/16 11:00 72 05/03/16 10:00 72 05/03/16 09:00 70 05/03/16 08:00 70 05/03/16 08:00 98.7 71 18 145/77 97 05/03/16 07:00 66 05/03/16 03:00 98.1 63 18 108/55 98 05/02/16 23:00 98.4 58 16 114/65 97 05/02/16 19:23 98.2 87 18 114/69 96 05/02/16 18:00 55 18 110/55 97 Room Air Physical Exam GENERAL: ill appearing elderly man SKIN: Warm and dry. HEAD: Atraumatic. Normocephalic. EYES: Pupils equal and round. ENT: Mucous membranes pink and moist. NECK: Trachea midline. CARDIOVASCULAR: Regular rate and rhythm. RESPIRATORY: No accessory muscle use, Breath sounds equal bilaterally. GASTROINTESTINAL: Abdomen soft, non-tender, nondistended MUSCULOSKELETAL: 2+ BLE edema NEUROLOGICAL: Awake and alert. PSYCHIATRIC: Appropriate mood and affect; insight and judgment normal. Laboratory Laboratory Tests Test 05/02/16 05/03/16 05/03/16 18:20 03:29 03:39 Total Creatine Kinase 48 47 Troponin I 0.27 0.64 Sodium Level 132 Potassium Level 4.0 Chloride Level 96 Carbon Dioxide Level 24.6 Anion Gap 11 Blood Urea Nitrogen 64 Creatinine 3.32 Estimat Glomerular Filtration 18 Rate Random Glucose 121 Calcium Level 8.5 Iron Level 17 Total Iron Binding Capacity 384 Percent Iron Saturation 4.4 Ferritin 15 Total Bilirubin 1.4 Lactate Dehydrogenase 347 Vitamin B12 Level GREATER THAN 2000 White Blood Count 27.2 Red Blood Count 3.11 Hemoglobin 8.3 Hematocrit 24.7 Mean Corpuscular Volume 79.4 Mean Corpuscular Hemoglobin 26.7 Mean Corpuscular Hemoglobin 33.7 Concent Red Cell Distribution Width 20.8 Platelet Count 457 Mean Platelet Volume 8.6 Neutrophils (%) (Auto) 87.7 Lymphocytes (%) (Auto) 2.4 Monocytes (%) (Auto) 7.8 Eosinophils (%) (Auto) 1.4 Basophils (%) (Auto) 0.7 Neutrophils # (Auto) 23.8 Lymphocytes # (Auto) 0.6 Monocytes # (Auto) 2.1 Eosinophils # (Auto) 0.4 Basophils # (Auto) 0.2 CBC Comment AUTO DIFF Differential Total Cells 100 Counted Neutrophils % (Manual) 81 Band Neutrophils % 8 Lymphocytes % 6 Monocytes % 1 Eosinophils % 1 Neutrophils # (Manual) 24.8 Metamyelocytes 1 Myelocytes 1 Nucleated Red Blood Cells 6 Differential Comment FINAL DIFF MANUAL Blastocytes 1 Platelet Estimate HIGH Platelet Morphology Comment ENLARGED Tear Drop Cells 2+ Reticulocyte Count 3.0 Absolute Reticulocyte Count 91.1 Date/Time Procedure Status Source Growth 05/02/16 16:45 Stool Occult Blood (LIDIA) - Final Complete Stool Stool HEMOCCULT POSITIVE 05/02/16 13:16 Aerobic Blood Culture - Preliminary Resulted Blood Peripheral NO GROWTH IN 1 DAY 05/02/16 13:16 Anaerobic Blood Culture - Preliminary Resulted Blood Peripheral NO GROWTH IN 1 DAY (Marilee Alvarado PA) Physical Exam Has 4 plus edema with very large legs (Estefania Solis MD) Result Diagram: 05/03/16 0339 05/03/16 0329 Imaging Last 72 hours Impressions Renal Ultrasound 05/03/16 0000 Signed Impressions: Service Date/Time: Tuesday, May 03, 2016 14:18 - CONCLUSION: 1. Bilateral echogenic kidneys suggesting medical renal disease. 2. Ascites diffusely throughout the abdomen. 3. No findings to indicate renal obstruction. Syed Rodriguez MD Chest X-Ray 05/02/16 1141 Signed Impressions: Service Date/Time: Monday, May 02, 2016 11:53 - CONCLUSION: Mild bibasilar infiltrates. Rajinder Vu MD Lower Extremity Ultrasound 05/02/16 0000 Signed Impressions: Service Date/Time: Monday, May 02, 2016 15:40 - CONCLUSION: 1. Negative for deep venous thrombosis. Edematous changes present in the soft tissues. Carlos Jeong MD Abdomen/Pelvis CT 05/02/16 0000 Signed Impressions: Service Date/Time: Monday, May 02, 2016 17:30 - CONCLUSION: 1. Moderate anasarca with bilateral pleural effusions, right greater than left and mild ascites. Questionable liver cirrhosis. 2. No obstruction or free air. 3. Inferior vena cava filter present. Bladder decompressed by Lozano. Carlos Jeong MD (Marilee Alvarado) Assessment and Plan Assessment and Plan ASSESSMENT: Acute on chronic systolic CHF exacerbation with ascites, BLE edema, and bilateral pleural effusions Acute on chronic CKD Leukocytosis with bandemia, thrombocytosis, anemia, hemo occult +, normal retic ASHD history, slight elevation of troponin without complaint of chest pain. EKG unchanged. Chronic LBBB. Chronic angina Echo 05/02/16 EF 35-40%, WMA and AL myocardium, Mod MR, Mod TR RVSP 56 PLAN: Treat for CHF, diuresis per nephrology Pending bone marrow biopsy. Resume Plavix per Heme/Onc Will consider ischemia work up outpatient. The patient has multiple medical problems. Elevated troponin likely related to demand ischemia. Unable treat with ROSEMARY/ARB or Aldactone for CMP due to acute renal disease The patient was seen and evaluated by Dr Solis (Marilee Alvarado) Assessment and Plan The exam, history, and the medical decision-making described in the above note were completed with the assistance of the mid-level provider. I reviewed and agree with the findings presented. I attest that I had a [id number] encounter with the patient on the same day, and personally performed and documented my assessment and findings in the medical record. continue bumex drip iv and monitor legs. r/o infection vs myelodysplastic syndrome as cause of high WCC (Estefania Solis MD) Marilee Alvarado May 03, 2016 15:53 Estefania Solis MD May 03, 2016 18:39
[2016-05-03] MEDS: ACETAMINOPHEN/HYDROcodone 325 MG/5 MG TAB PO PRN (16:46)
[2016-05-03] MEDS: BUMETANIDE INJ 1 MG/4 ML VIAL IV PUSH SCH (16:46)
[2016-05-03] MEDS: TEMAZEPAM 15 MG CAP PO PRN (20:33)
[2016-05-04] VITALS: BP 116/55; PULSE 65; RESP 16; TEMP 98.8; O2SAT 96
[2016-05-04 04:00] VITALS: BP 109/64; PULSE 67; RESP 18; TEMP 98.4; O2SAT 97
[2016-05-04 05:53] LABS: HEMATOCRIT 25.3 % (39.0-51.0); MEAN CELL VOLUME 79.6 FL (80.0-100.0); MEAN CORPUSCULAR HGB CONC 32.6 % (32.0-36.0); PLATELET COUNT 523 TH/MM3 (150-450); RED BLOOD COUNT 3.18 MIL/MM3 (4.50-5.90); RED CELL DISTRIBUTION WIDTH 21.2 % (11.6-17.2); WHITE BLOOD COUNT 32.1 TH/MM3 (4.0-11.0)
[2016-05-04 06:00] LABS: REVIEW FLAG FINAL
[2016-05-04 06:22] LABS: BICARBONATE 22.4 MEQ/L (21.0-32.0); MAGNESIUM 2.5 MG/DL (1.5-2.5); POTASSIUM 4.1 MEQ/L (3.5-5.1)
[2016-05-04 08:25] VITALS: BP 135/76; PULSE 85; PULSE 86; RESP 18; TEMP 97.5; O2SAT 95
[2016-05-04] MEDS: PANTOPRAZOLE SOD 20 MG DELAYED RELEASE TAB PO SCH (09:04)
[2016-05-04] MEDS: CLOPIDOGREL 75 MG TAB PO SCH (09:05)
[2016-05-04] MEDS: ISOSORBIDE MONONITRATE 30 MG TAB PO SCH (09:05)
[2016-05-04] MEDS: CARVEDILOL 3.125 MG TAB PO SCH (09:05)
[2016-05-04] MEDS: POTASSIUM CHLORIDE 20 MEQ CONTROLLED RELEASE TAB PO SCH ×2 (09:05→20:59)
[2016-05-04] MEDS: BUMETANIDE INJ 1 MG/4 ML VIAL IV PUSH SCH ×3 (09:06→18:26)
[2016-05-04] MEDS: POLYETHYLENE GLYCOL 17 GM PKG PO SCH (09:06)
[2016-05-04] MEDS: SODIUM CHLORIDE 0.9% FLUSH 5 ML FLUSH FLUSH SCH ×2 (09:07→20:59)
--- NOTE | 2016-05-04 10:40 | HHI.NPPN ---
Subjective Complaints: Shortness of Breath General Problems: Edema Interval History Renal function is worse. Urine output has decreased. Edema, anasarca, and ascites persists. (Martha Bueno) Review of Systems General Constitutional: Fatigue (Martha Bueno) Respiratory Lungs: SOB (Martha Bueno) Cardiovascular Cardiac: Edema (Martha Bueno) Objective Data Data 05/03/16 05/04/16 19:00 07:00 Intake Total 922 ml 480 ml Output Total 150 ml 200 ml Balance 772 ml 280 ml Intake Oral 600 ml 480 ml IV Total 322 ml Output Urine Total 150 ml 200 ml # Bowel Movements 2 0 Vital Signs Date Time Temp Pulse Resp B/P Pulse Ox O2 Delivery O2 Flow Rate FiO2 05/04/16 08:25 86 05/04/16 08:25 97.5 85 18 135/76 95 05/04/16 04:00 67 05/04/16 04:00 98.4 67 18 109/64 97 05/04/16 00:00 98.8 65 16 116/55 96 05/04/16 00:00 65 05/03/16 20:00 98.6 69 18 137/75 97 05/03/16 20:00 69 05/03/16 18:00 68 05/03/16 17:53 20 05/03/16 17:00 68 05/03/16 16:00 98.9 69 16 124/72 96 05/03/16 16:00 70 05/03/16 15:16 18 05/03/16 15:00 68 05/03/16 14:00 70 05/03/16 13:00 72 05/03/16 12:00 73 05/03/16 12:00 98.6 71 18 137/75 96 05/03/16 11:00 72 (Martha Bueno) -: 05/04/16 0450 05/04/16 0450 Imaging Last 72 hours Impressions Renal Ultrasound 05/03/16 0000 Signed Impressions: Service Date/Time: Tuesday, May 03, 2016 14:18 - CONCLUSION: 1. Bilateral echogenic kidneys suggesting medical renal disease. 2. Ascites diffusely throughout the abdomen. 3. No findings to indicate renal obstruction. Syed Rodriguez MD Chest X-Ray 2/12/17 1141 Signed Impressions: Service Date/Time: Monday, May 02, 2016 11:53 - CONCLUSION: Mild bibasilar infiltrates. Rajinder Vu MD Lower Extremity Ultrasound 05/02/16 0000 Signed Impressions: Service Date/Time: Monday, May 02, 2016 15:40 - CONCLUSION: 1. Negative for deep venous thrombosis. Edematous changes present in the soft tissues. Carlos Jeong MD Abdomen/Pelvis CT 05/02/16 0000 Signed Impressions: Service Date/Time: Monday, May 02, 2016 17:30 - CONCLUSION: 1. Moderate anasarca with bilateral pleural effusions, right greater than left and mild ascites. Questionable liver cirrhosis. 2. No obstruction or free air. 3. Inferior vena cava filter present. Bladder decompressed by Lozaon. Carlos Jeong MD (Martha Bueno B. [employer]) Physical Exam General Appearance: Well Developed, Well Nourished, Comfortable (Martha Bueno B. [employer]) Throat Throat Exam: Oral Mucosa [place] & Moist (Martha Bueno B. [employer]) Pulmonary Resp Exam: Breath Sounds Equal, No Distress, Crackles (Rupert Buenoon B. [employer]) Cardiology CV Exam: Regular, Normal Sinus Rhythm (Martha Bueno B. [employer]) Gastrointestinal/Abdomen GI Exam: Non-Tender, Bowel Sounds Present GI Remarks large volume ascites (Martha Bueno B. [employer]) Musculoskeletal MS Exam: Joints Intact, Normal Tone (Martha Bueno B. [employer]) Integumentary Skin Exam: Warm, Dry (Martha Bueno B. [employer]) Extremeties Extremities Exam: Pedal Pulses Palpable, Moderate Edema (Martha Bueno B. [employer]) Neurologic Neuro Exam: Alert, Awake, Oriented, Speech Clear, Moving All Extremities ( Martha Bueno B. [employer]) Psychiatric Psych Exam: Appropriate Responses (Martha Bueno BBrady RÍOSP) Assessment/Plan Discussed Condition With: Patient Problem List: (1) Kidney failure, acute Plan: It appears his creatinine has been increasing since last fall In Mar 2016, creatinine was 1.76, GFR 17 consistent with CKD 3 INEZ thought to be due to CHF exacerbation with decreased renal perfusion renal function is declining with decreased urine output avoid IVF, continue diuresis, on Bumex, increase to TID, 2 mg IV monitor urine output; no obstruction on imaging but increased abdominal pressure from ascites can compress renal vein and decrease GFR monitor electrolytes and replace as needed if urine output drops it is possible he may require dialysis; but may not be a good candidate due to age and multiple comorbidities. Will await Bone marrow biopsy report discussed with pt and ; if conservative management fails palliative care may be appropriate. 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 (Martha Bueno) Plan patient was seen and examined. Agree with above assessment and plan. Poor prognosis. Not a good candidate for mcc dialysis. Bone marrow biopsy is planned. Palliative care may be appropriate. Discussed with Dr. Owens. (Jeromy Funez MD) Problem Qualifiers (1) Kidney failure, acute: Qualified Code: N17.9 - Acute renal failure, unspecified acute renal failure type (2) Hypertension: Qualified Code: I10 - Essential hypertension (3) Leukocytosis: Qualified Code: D72.825 - Bandemia (4) Anemia: Qualified Code: D64.9 - Anemia, unspecified type Martha Bueno May 04, 2016 10:40 Jeromy Funez MD May 04, 2016 17:25
[2016-05-04 12:38] VITALS: BP 128/69; PULSE 70; PULSE 74; RESP 20; TEMP 98.1; O2SAT 98
--- NOTE | 2016-05-04 13:27 | PD.CARD.PN ---
Subjective Subjective Remarks The patient has expressive aphasia. Primary concern today is constipation and gas. The is at the bedside. She is concerned about dialysis. Patient denies CP or SOB at rest. His UO is low and renal function is worsening. Objective Vital Signs / I&O Vital Signs Date Time Temp Pulse Resp B/P Pulse Ox O2 Delivery O2 Flow Rate FiO2 05/04/16 12:38 74 05/04/16 12:38 98.1 70 20 128/69 98 05/04/16 08:25 86 05/04/16 08:25 97.5 85 18 135/76 95 05/04/16 04:00 67 05/04/16 04:00 98.4 67 18 109/64 97 05/04/16 00:00 98.8 65 16 116/55 96 05/04/16 00:00 65 05/03/16 20:00 98.6 69 18 137/75 97 05/03/16 20:00 69 05/03/16 18:00 68 05/03/16 17:53 20 05/03/16 17:00 68 05/03/16 16:00 98.9 69 16 124/72 96 05/03/16 16:00 70 05/03/16 15:16 18 05/03/16 15:00 68 05/03/16 14:00 70 I/O 05/03/16 05/03/16 05/03/16 05/04/16 05/04/16 05/04/16 07:00 15:00 23:00 07:00 15:00 23:00 Intake Total 881 ml 922 ml 480 ml Output Total 480 ml 150 ml 200 ml Balance 401 ml 772 ml 280 ml Intake Oral 650 ml 600 ml 480 ml IV Total 231 ml 322 ml Output Urine Total 480 ml 150 ml 200 ml # Bowel Movements 0 2 0 Physical Exam GENERAL: Laying in bed, no acute distress SKIN: Warm and dry. HEAD: Normocephalic. EYES: No scleral icterus. No injection or drainage. NECK: Supple, trachea midline. 3 cm JVD CARDIOVASCULAR: Regular rate and rhythm, BLE edema RESPIRATORY: Breath sounds equal bilaterally. No accessory muscle use. GASTROINTESTINAL: Abdomen soft, nondistended, left lower and upper quadrat tenderness to palpation : Dark urine MUSCULOSKELETAL: No cyanosis, 2+ BLE edema BACK: Nontender without obvious deformity. Laboratory Laboratory Tests Test 05/04/16 04:50 White Blood Count 32.1 TH/MM3 Red Blood Count 3.18 MIL/MM3 Hemoglobin 8.3 GM/DL Hematocrit 25.3 % Mean Corpuscular Volume 79.6 FL Mean Corpuscular Hemoglobin 26.0 PG Mean Corpuscular Hemoglobin 32.6 % Concent Red Cell Distribution Width 21.2 % Platelet Count 523 TH/MM3 Mean Platelet Volume 8.8 FL Sodium Level 132 MEQ/L Potassium Level 4.1 MEQ/L Chloride Level 96 MEQ/L Carbon Dioxide Level 22.4 MEQ/L Anion Gap 14 MEQ/L Blood Urea Nitrogen 75 MG/DL Creatinine 4.16 MG/DL Estimat Glomerular Filtration 14 ML/MIN Rate Random Glucose 126 MG/DL Calcium Level 8.6 MG/DL Phosphorus Level 4.5 MG/DL Magnesium Level 2.5 MG/DL Imaging Last 72 hours Impressions Renal Ultrasound 05/03/16 0000 Signed Impressions: Service Date/Time: Tuesday, May 03, 2016 14:18 - CONCLUSION: 1. Bilateral echogenic kidneys suggesting medical renal disease. 2. Ascites diffusely throughout the abdomen. 3. No findings to indicate renal obstruction. Syed Rodriguez MD Chest X-Ray 05/02/16 1141 Signed Impressions: Service Date/Time: Monday, May 02, 2016 11:53 - CONCLUSION: Mild bibasilar infiltrates. Rajinder Vu MD Lower Extremity Ultrasound 05/02/16 0000 Signed Impressions: Service Date/Time: Monday, May 02, 2016 15:40 - CONCLUSION: 1. Negative for deep venous thrombosis. Edematous changes present in the soft tissues. Carlos Jeong MD Abdomen/Pelvis CT 05/02/16 0000 Signed Impressions: Service Date/Time: Monday, May 02, 2016 17:30 - CONCLUSION: 1. Moderate anasarca with bilateral pleural effusions, right greater than left and mild ascites. Questionable liver cirrhosis. 2. No obstruction or free air. 3. Inferior vena cava filter present. Bladder decompressed by Lozano. Carlos Jeong MD Assessment and Plan Assessment and Plan ASSESSMENT: Acute on chronic CKD. Cr worsening. Acute on chronic systolic CHF exacerbation with ascites, BLE edema, and bilateral pleural effusions due to above. Leukocytosis with bandemia, thrombocytosis, anemia, hemo occult +, normal retic ASHD history, slight elevation of troponin without complaint of chest pain. EKG unchanged. Chronic LBBB. Chronic angina Echo 05/02/16 EF 35-40%, WMA and AL myocardium, Mod MR, Mod TR RVSP 56 PLAN: Treat for CHF, diuresis per nephrology. Cr trending up, decrease UO. Consideration for dialysis. Will give metolazone X 1 dose Pending bone marrow biopsy? Per RN, pending paracentesis, OK to hold Plavix for 5 days from a cardiac standpoint Will consider ischemia work up outpatient. The patient has multiple medical problems. Elevated troponin likely related to demand ischemia. Unable treat with ROSEMARY/ARB or Aldactone for CMP due to acute renal disease Assessment and plan discussed with Dr Solis. Marilee Alvarado May 04, 2016 13:27
[2016-05-04] MEDS: cefTRIAXone INJ 1,000 MG in SODIUM CHLORIDE 0.9% INJ 100 ML IV SCH (13:39)
[2016-05-04] MEDS ORDERED: METOLAZONE 5 MG TAB PO ONE (14:00)
--- NOTE | 2016-05-04 14:33 | HHI.PR ---
Subjective Remarks No chest pain Diarrhea BM 2 No shortness of breath at rest Color pale No headache No cough Objective Objective Results - Vital Signs Date Time Temp Pulse Resp B/P Pulse Ox O2 Delivery O2 Flow Rate FiO2 05/04/16 12:38 74 05/04/16 12:38 98.1 70 20 128/69 98 05/04/16 08:25 86 05/04/16 08:25 97.5 85 18 135/76 95 05/04/16 04:00 67 05/04/16 04:00 98.4 67 18 109/64 97 05/04/16 00:00 98.8 65 16 116/55 96 05/04/16 00:00 65 05/03/16 20:00 98.6 69 18 137/75 97 05/03/16 20:00 69 05/03/16 18:00 68 05/03/16 17:53 20 05/03/16 17:00 68 05/03/16 16:00 98.9 69 16 124/72 96 05/03/16 16:00 70 05/03/16 15:16 18 05/03/16 15:00 68 I/O 05/03/16 05/03/16 05/03/16 05/04/16 05/04/16 05/04/16 07:00 15:00 23:00 07:00 15:00 23:00 Intake Total 881 ml 922 ml 480 ml Output Total 480 ml 150 ml 200 ml Balance 401 ml 772 ml 280 ml Intake Oral 650 ml 600 ml 480 ml IV Total 231 ml 322 ml Output Urine Total 480 ml 150 ml 200 ml # Bowel Movements 0 2 0 Result Diagram: 05/04/1644905/04/16 0450 ROS General: Fatigue, Weakness, Other (10 point ROS done positives noted, weakness , fatigue ,mild abdominal pain with ascites, peripheral edema, cough. All other systems negative or unremarkable) Cardiac: Edema (1+ bilateral pedal) Pulmonary: Cough (occasional) GI: Abdominal Pain, Other (ascites) Physical Exam Physical Exam PHYSICAL EXAMINATION GENERAL: This is a well-developed, well-nourished male who appears ill. He is alert and awake, responds to verbal stimuli. HEAD: Normocephalic without any lesion or mass noted. Facial features appear symmetric. OROPHARYNGEAL: Oropharynx without erythema or edema. NECK: Supple. No nuchal rigidity or lymphadenopathy. Trachea midline without deviation. CARDIAC: Regular rhythm, regular rate, S1 and S2 are heard. Murmur soft grade 3/6; no gallops or rubs. LUNGS: Decreased to auscultation bilaterally. Low volumes , no wheeze, no rhonchi or rales ABDOMEN: , Round , taut, nontender, typanic, Bowel sounds are heard in all four quadrants. EXTREMITIES: 1+ edema. Pulses equal bilateral. cyanosis. NEUROLOGICAL: Patient mood and affect appropriate . No focal deficit SKIN:Warm and moist, pale, dry A/P Assessment and Plan Assessment and Plan (1) Sepsis (2) Elevated troponin (3) Pneumonia (4) Kidney failure, acute (5) History of GI bleed (6) History of CVA (cerebrovascular accident) (7) Hypertension (8) Hyperlipidemia (9) CAD (coronary artery disease) (10) Dehydration (11) Hypokalemia (12) Anasarca (13) Leukocytosis (14) Splenomegaly (15) Anemia Plan Sepsis, possibly secondary to a pulmonary process as patient has leukocytosis with bibasilar infiltrate Continue with cautious hydration, continues with increased leukocytosis of 32.1. We'll discuss with Dr. Owens antibiotics Peripheral edema, now with anasarca, ascites, recent diagnosis of splenomegaly, rule out myeloproliferative disease -hematology for evaluation-Dr. 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 Probable demand ischemia. Anemia, history of previous GI bleed -Follow H&H closely Stable at 8.3 HTN, stable -continue home meds Hx CVA, stable -continue home meds Labs reviewed, recheck in the a.m. Plan of care discussed with the patient and Condition guarded Discharge Planning Initiated, Discussed With: Nurse, Family (patient and ), Other (Dr. Owens, patient seen on his behalf) Francine Champion May 04, 2016 14:33
[2016-05-04] MEDS: AZITHROMYCIN INJ 500 MG in SODIUM CHLOR 0.9% 250 ML INJ 250 ML IV SCH (15:00)
[2016-05-04] MEDS: ACETAMINOPHEN/HYDROcodone 325 MG/5 MG TAB PO PRN (16:32)
[2016-05-04 16:36] VITALS: BP 117/63; PULSE 69; PULSE 76; RESP 18; TEMP 98.3; O2SAT 97
[2016-05-04 20:00] VITALS: BP 118/68; PULSE 64; RESP 14; TEMP 97.7; O2SAT 96
[2016-05-04] MEDS: TEMAZEPAM 15 MG CAP PO PRN (20:59)
--- NOTE | 2016-05-04 21:13 | PD.ONC.PN ---
Subjective Subjective Remarks tired and lower back hurts. Objective Data Date Time Temp Pulse Resp B/P Pulse Ox O2 Delivery O2 Flow Rate FiO2 05/04/16 17:37 18 05/04/16 16:36 98.3 69 18 117/63 97 05/04/16 16:36 76 05/04/16 12:38 74 05/04/16 12:38 98.1 70 20 128/69 98 05/04/16 08:25 86 05/04/16 08:25 97.5 85 18 135/76 95 05/04/16 04:00 67 05/04/16 04:00 98.4 67 18 109/64 97 05/04/16 00:00 98.8 65 16 116/55 96 05/04/16 00:00 65 05/04/16 05/04/16 05/04/16 07:00 15:00 23:00 Intake Total 480 ml 240 ml Output Total 200 ml 450 ml Balance 280 ml -210 ml Result Diagram: 05/04/16 0450 05/04/16 0450 Laboratory Results Laboratory Tests Test 05/04/16 04:50 White Blood Count 32.1 TH/MM3 Red Blood Count 3.18 MIL/MM3 Hemoglobin 8.3 GM/DL Hematocrit 25.3 % Mean Corpuscular Volume 79.6 FL Mean Corpuscular Hemoglobin 26.0 PG Mean Corpuscular Hemoglobin 32.6 % Concent Red Cell Distribution Width 21.2 % Platelet Count 523 TH/MM3 Mean Platelet Volume 8.8 FL Sodium Level 132 MEQ/L Potassium Level 4.1 MEQ/L Chloride Level 96 MEQ/L Carbon Dioxide Level 22.4 MEQ/L Anion Gap 14 MEQ/L Blood Urea Nitrogen 75 MG/DL Creatinine 4.16 MG/DL Estimat Glomerular Filtration 14 ML/MIN Rate Random Glucose 126 MG/DL Calcium Level 8.6 MG/DL Phosphorus Level 4.5 MG/DL Magnesium Level 2.5 MG/DL Culture Results Microbiology Date/Time Procedure Status Source Growth 05/02/16 13:08 Aerobic Blood Culture - Preliminary Resulted Blood Peripheral NO GROWTH IN 2 DAYS 05/02/16 13:08 Anaerobic Blood Culture - Preliminary Resulted Blood Peripheral NO GROWTH IN 2 DAYS 05/02/16 13:16 Aerobic Blood Culture - Preliminary Resulted Blood Peripheral NO GROWTH IN 2 DAYS 05/02/16 13:16 Anaerobic Blood Culture - Preliminary Resulted Blood Peripheral NO GROWTH IN 2 DAYS 05/02/16 16:45 Stool Occult Blood (LIDIA) - Final Complete Stool Stool HEMOCCULT POSITIVE Administered Medications Medications (Trade) Dose Ordered Sig/Prudence Route PRN Reason Start Time Stop Time Status Last Admin Dose Admin IV Flush (NS Flush) 2 ml BID FLUSH 05/02/16 21:00 05/04/16 20:59 Acetaminophen (Tylenol) 650 mg Q4H PRN PO TEMP > 100.4 05/02/16 13:30 05/03/16 14:16 Ondansetron HCl 4 mg 4 mg Q6H PRN IVP NAUSEA OR VOMITING 05/02/16 13:30 05/03/16 04:37 Ceftriaxone Sodium/Sodium Chloride (Rocephin Inj/NS Inj) 100 ml @ 200 mls/hr Q24H IV 05/03/16 14:00 05/04/16 13:39 Carvedilol (Coreg) 3.125 mg DAILY PO 05/03/16 09:00 05/04/16 09:05 Clopidogrel Bisulfate (Plavix) 75 mg DAILY PO 05/03/16 09:00 Hold 05/04/16 09:05 Isosorbide Mononitrate (Imdur) 30 mg DAILY PO 05/03/16 09:00 05/04/16 09:05 Potassium Chloride 20 meq 20 meq BID PO 05/02/16 21:00 05/04/16 20:59 Azithromycin/ Sodium Chloride (Zithromax Inj/ NS 250 ml Inj) 250 ml @ 250 mls/hr Q24H IV 05/03/16 15:00 05/04/16 15:00 Polyethylene Glycol (Miralax) 17 gm DAILY PO 05/02/16 15:45 05/04/16 09:06 Pantoprazole Sodium (Protonix) 40 mg DAILY PO 05/04/16 09:00 05/04/16 09:04 Temazepam (Restoril) 15 mg HS PRN PO insomnia 05/03/16 21:00 05/04/16 20:59 Acetaminophen/ Hydrocodone Bitart ([place]ula 5-325 Mg) 1 tab Q4H PRN PO PAIN SCALE 6 TO 10 05/03/16 16:00 05/04/16 16:32 Bumetanide (Bumex Inj) 2 mg TID IV PUSH 05/04/16 13:00 05/04/16 18:26 Objective Remarks GENERAL: Well-nourished, SKIN: Warm and dry. HEAD: Normocephalic. EYES: No scleral icterus. No injection or drainage. NECK: Supple, trachea midline. No JVD or lymphadenopathy. LYMPHATIC: No adenopathy. CARDIOVASCULAR: Regular rate and rhythm without murmurs. RESPIRATORY: Breath sounds equal bilaterally. No accessory muscle use. GASTROINTESTINAL: mild distention and soft EXTREMITIES: +2 edema MUSCULOSKELETAL: poor muscle tone. NEUROLOGICAL: mild expressive aphasia. PSYCHIATRIC: forgetful Assessment/Plan Assessment 1: hematologic problem not life threatening and is a chronic problem and should not impact decision to do dialysis. Will try to do marrow aspirate and bx tomorrow am. Sivakumar Martin MD May 04, 2016 21:13
[2016-05-05] VITALS (18 sets, daily range): BP systolic 105–130; BP diastolic 59–70; PULSE 63–98; RESP 18; TEMP 97.4–98.8; O2SAT 95–97
[2016-05-05 08:38] LABS: HEMATOCRIT 24.2 % (39.0-51.0); MEAN CELL VOLUME 80.7 FL (80.0-100.0); MEAN CORPUSCULAR HEMOGLOBIN 26.2 PG (27.0-34.0); MEAN CORPUSCULAR HGB CONC 32.4 % (32.0-36.0); PLATELET COUNT 473 TH/MM3 (150-450); RED CELL DISTRIBUTION WIDTH 21.1 % (11.6-17.2); REVIEW FLAG FINAL; WHITE BLOOD COUNT 23.6 TH/MM3 (4.0-11.0)
[2016-05-05 09:05] LABS: BICARBONATE 21.1 MEQ/L (21.0-32.0); POTASSIUM 3.6 MEQ/L (3.5-5.1)
[2016-05-05] MEDS: POLYETHYLENE GLYCOL 17 GM PKG PO SCH (09:24)
[2016-05-05] MEDS: CARVEDILOL 3.125 MG TAB PO SCH (09:25)
[2016-05-05] MEDS: PANTOPRAZOLE SOD 20 MG DELAYED RELEASE TAB PO SCH (09:25)
[2016-05-05] MEDS: ISOSORBIDE MONONITRATE 30 MG TAB PO SCH (09:25)
[2016-05-05] MEDS: BUMETANIDE INJ 1 MG/4 ML VIAL IV PUSH SCH (09:26)
[2016-05-05] MEDS: SODIUM CHLORIDE 0.9% FLUSH 5 ML FLUSH FLUSH SCH (09:26)
[2016-05-05] MEDS: POTASSIUM CHLORIDE 20 MEQ CONTROLLED RELEASE TAB PO SCH ×2 (09:26→22:28)
[2016-05-05 09:56] LABS: BONE MARROW PROCESSING COMPLETE
[2016-05-05 09:57] LABS: IRON STAIN DONE; JENNER GIEMSA STAIN DONE
[2016-05-05] MEDS: ACETAMINOPHEN/HYDROcodone 325 MG/5 MG TAB PO PRN ×3 (10:48→22:30)
--- NOTE | 2016-05-05 11:15 | HHI.NPPN ---
Subjective Complaints: Shortness of Breath General Problems: Edema Renal Failure: Chronic, Acute Interval History Creatinine has improved slightly, and his urine output has improved. Edema also improved overnight. (Martha Bueno) Review of Systems General Constitutional: Fatigue (Martha Bueno) Respiratory Lungs: SOB (Martha Bueno) Cardiovascular Cardiac: Edema (Martha Bueno) Objective Data Data 05/04/16 05/05/16 19:00 07:00 Intake Total 240 ml 600 ml Output Total 450 ml 750 ml Balance -210 ml -150 ml Intake Oral 240 ml 600 ml Output Urine Total 450 ml 750 ml # Bowel Movements 1 Vital Signs Date Time Temp Pulse Resp B/P Pulse Ox O2 Delivery O2 Flow Rate FiO2 05/05/16 11:00 98.0 67 18 106/64 95 05/05/16 10:16 68 05/05/16 09:00 70 05/05/16 08:55 69 05/05/16 08:00 97.4 67 18 125/67 96 05/05/16 08:00 67 05/05/16 04:00 63 05/05/16 04:00 98.1 63 18 121/65 97 05/05/16 00:00 98.0 69 18 130/70 97 05/05/16 00:00 69 05/04/16 20:00 64 05/04/16 20:00 97.7 64 14 118/68 96 05/04/16 17:37 18 05/04/16 16:36 98.3 69 18 117/63 97 05/04/16 16:36 76 05/04/16 12:38 74 05/04/16 12:38 98.1 70 20 128/69 98 (Martha Bueno) -: 05/05/16 0711 05/05/16 0711 Imaging Last 72 hours Impressions Renal Ultrasound 05/03/16 0000 Signed Impressions: Service Date/Time: Tuesday, May 03, 2016 14:18 - CONCLUSION: 1. Bilateral echogenic kidneys suggesting medical renal disease. 2. Ascites diffusely throughout the abdomen. 3. No findings to indicate renal obstruction. Syed Rodriguez MD Chest X-Ray 05/02/16 1141 Signed Impressions: Service Date/Time: Monday, May 02, 2016 11:53 - CONCLUSION: Mild bibasilar infiltrates. Rajinder Vu MD (Martha Bueno) Physical Exam General Appearance: Well Developed, Well Nourished, No Acute Distress, Comfortable ( Martha Bueno B. RAPIER INSERTION LOOM FIXER) Throat Throat Exam: Oral Mucosa [place] & Moist (Martha Bueno B. RAPIER INSERTION LOOM FIXER) Pulmonary Resp Exam: Breath Sounds Equal, No Distress, Crackles (Martha Bueno B. RAPIER INSERTION LOOM FIXER) Cardiology CV Exam: Regular, Normal Sinus Rhythm (Martha Bueno B. RAPIER INSERTION LOOM FIXER) Gastrointestinal/Abdomen GI Exam: Non-Tender, Bowel Sounds Present GI Remarks large volume ascites (Martha Bueno B. RAPIER INSERTION LOOM FIXER) Musculoskeletal MS Exam: Joints Intact, Normal Tone (Martha Bueno B. RAPIER INSERTION LOOM FIXER) Integumentary Skin Exam: Warm, Dry (Martha Bueno B. RAPIER INSERTION LOOM FIXER) Extremeties Extremities Exam: Pedal Pulses Palpable, Moderate Edema, Pitting Edema ( Martha Bueno B. RAPIER INSERTION LOOM FIXER) Neurologic Neuro Exam: Alert, Awake, Oriented, Speech Clear, Moving All Extremities ( Martha Bueno B. RAPIER INSERTION LOOM FIXER) Psychiatric Psych Exam: Appropriate Responses (Martha Bueno) Assessment/Plan Discussed Condition With: Patient Problem List: (1) Kidney failure, acute Plan: It appears his creatinine has been increasing since last fall In Mar 2016, creatinine was 1.76, GFR 17 consistent with CKD 3 INEZ thought to be due to CHF exacerbation with decreased renal perfusion renal function has stabilized overnight still with massive fluid overload, he was given a dose of Zaroxolyn yesterday, begin Bumex gtt at 2 mg/hr he is non oliguric, monitor urine output monitor electrolytes and replace as needed quantify proteinuria, obtain serologies including OLENA, ANCA, hepatitis B/C, complement levels we will reevaluate his need for dialysis tomorrow, the pt and are in agreement to pereue HD if necessary discussed with pt and d/w Dr. 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 however Plavix needs to be held for 5 days, last dose given 05/04; med held at this time will need PT/INR and CBC the day of procedure per [facility] (Martha Bueno) Problem List: (1) Kidney failure, acute Plan: It appears his creatinine has been increasing since last fall In Mar 2016, creatinine was 1.76, GFR 17 consistent with CKD 3 INEZ thought to be due to CHF exacerbation with decreased renal perfusion renal function has stabilized overnight still with massive fluid overload, he was given a dose of Zaroxolyn yesterday, begin Bumex gtt at 2 mg/hr he is non oliguric, monitor urine output monitor electrolytes and replace as needed quantify proteinuria, obtain serologies including OLENA, ANCA, hepatitis B/C, complement levels we will reevaluate his need for dialysis tomorrow, the pt and are in agreement to pereue HD if necessary discussed with pt and d/w Dr. 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 however Plavix needs to be held for 5 days, last dose given 05/04; med held at this time will need PT/INR and CBC the day of procedure per US tech Plan patient was seen and examined. Non oliguric, some improvement in edema. Discussed with Dr. Martin. Start IV iron. If renal function worsens tomorrow, we will need to start dialysis. Discussed with the patient and his . (Jeromy Funez MD) Problem Qualifiers (1) Kidney failure, acute: Qualified Code: N17.9 - Acute renal failure, unspecified acute renal failure type (2) Hypertension: Qualified Code: I10 - Essential hypertension (3) Leukocytosis: Qualified Code: D72.825 - Bandemia (4) Anemia: Qualified Code: D64.9 - Anemia, unspecified type Martha Bueno May 05, 2016 11:15 Jeromy Funez MD May 05, 2016 21:43
[2016-05-05] MEDS: IRON SUCROSE INJ 100 MG in SODIUM CHLORIDE 0.9% INJ 100 ML IV SCH (12:39)
[2016-05-05] MEDS: cefTRIAXone INJ 1,000 MG in SODIUM CHLORIDE 0.9% INJ 100 ML IV SCH (14:00)
--- NOTE | 2016-05-05 14:04 | HHI.PR ---
Subjective Remarks No chest pain No diarrhea today No shortness of breath at rest Color pale, but states he feels better No headache No cough (Francine Champion) Objective Objective Results - Vital Signs Date Time Temp Pulse Resp B/P Pulse Ox O2 Delivery O2 Flow Rate FiO2 05/05/16 13:10 69 05/05/16 12:26 64 05/05/16 12:26 98.0 69 18 106/64 96 05/05/16 11:51 18 05/05/16 11:24 67 05/05/16 11:00 98.0 67 18 106/64 95 05/05/16 10:16 68 05/05/16 09:00 70 05/05/16 08:55 69 05/05/16 08:00 97.4 67 18 125/67 96 05/05/16 08:00 67 05/05/16 04:00 63 05/05/16 04:00 98.1 63 18 121/65 97 05/05/16 00:00 98.0 69 18 130/70 97 05/05/16 00:00 69 05/04/16 20:00 64 05/04/16 20:00 97.7 64 14 118/68 96 05/04/16 16:36 98.3 69 18 117/63 97 05/04/16 16:36 76 I/O 05/04/16 05/04/16 05/04/16 05/05/16 05/05/16 05/05/16 07:00 15:00 23:00 07:00 15:00 23:00 Intake Total 480 ml 240 ml 600 ml Output Total 200 ml 450 ml 750 ml Balance 280 ml -210 ml -150 ml Intake Oral 480 ml 240 ml 600 ml Output Urine Total 200 ml 450 ml 750 ml # Bowel Movements 0 1 (Francine Champion) Result Diagram: 05/05/16 0711 05/05/16 0711 ROS General: Weakness (generalized), Other (10 point ROS done. Os dyspnea noted generalized weakness. ) /FELTING MACHINE OPERATOR: Other (Lozano catheter) Neuro/MS: Other (bone biopsy today) (Francine Champion) Physical Exam Physical Exam PHYSICAL EXAMINATION GENERAL: This is a well-developed, well-nourished male who appears to be in no acute distress. He is alert and awake, []. HEAD: Normocephalic without any lesion or mass noted. Facial features appear symmetric. OROPHARYNGEAL: Oropharynx without erythema or edema. NECK: Supple. No nuchal rigidity or lymphadenopathy. Trachea midline without deviation. CARDIAC: Regular rhythm, regular rate, S1 and S2 are heard. Murmur []; no gallops or rubs. LUNGS: Clear to auscultation bilaterally. [] wheeze, [] rhonchi or [] rale. No use of accessory muscles on inspiration or expiration. ABDOMEN: Soft, nontender, no organomegaly or masses. Bowel sounds are heard in all four quadrants. No rebound. No guarding. EXTREMITIES: [] edema. Pulses equal bilateral. [] cyanosis. NEUROLOGICAL: Patient mood and affect appropriate. No focal deficit SKIN:Warm and moist Objective Remarks I'm feeling so much better today (Francine Champion) A/P Assessment and Plan Assessment and Plan (1) Sepsis (2) Elevated troponin (3) Pneumonia (4) Kidney failure, acute (5) History of GI bleed (6) History of CVA (cerebrovascular accident) (7) Hypertension (8) Hyperlipidemia (9) CAD (coronary artery disease) (10) Dehydration (11) Hypokalemia (12) Anasarca (13) Leukocytosis (14) Splenomegaly (15) Anemia Plan Sepsis, possibly secondary to a pulmonary process as patient has leukocytosis with bibasilar infiltrate Continue with cautious hydration, decreased leukocytosis, improving Afebrile Peripheral edema, now with anasarca, ascites, recent diagnosis of splenomegaly, rule out myeloproliferative disease -hematology for evaluation-Dr. 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 Discussed with patient today options of dialysis. He is agreeable. -Plan for nephrology consult, appreciate input Consider removal of Lozano catheter in a.m. Constipation -bowel regimen Elevated troponin, denies any chest pain, likely stress-induced, History of coronary artery disease -Continue with serial cardiac enzymes, low positive Consult cardiology appreciate input, will do any workup as an outpatient after patient stabilizes. Probable demand ischemia. Anemia, history of previous GI bleed Stable for now, HTN, stable -continue home meds Hx CVA, stable -continue home meds Patient appears be more comfortable today. Less pain, appetite good. Willing to consider treatment regimens including dialysis for the future. Full code full aggressive care. Discharge Planning Initiated, Discussed With: Nurse, Family (patient and ), Other (Dr. Owens, patient seen on his behalf) (Francine Champion) Assessment and Plan Patient seen and examined visible Discussed with patient Labs reviewed Medications reviewed Plan of care discussed with PAYROLL TECHNICIAN (Stacie Owens MD) Francine Champion May 05, 2016 14:04 Stacie Owens MD May 05, 2016 15:33
[2016-05-05] MEDS: AZITHROMYCIN INJ 500 MG in SODIUM CHLOR 0.9% 250 ML INJ 250 ML IV SCH (15:00)
--- NOTE | 2016-05-05 15:00 | PD.CARD.PN ---
Subjective Subjective Remarks "I feel much better than yesterday, like night and day" Breathing better, improved appetite. Had a few 3-4 beat runs of NSVT. BP stable Objective Vital Signs / I&O Vital Signs Date Time Temp Pulse Resp B/P Pulse Ox O2 Delivery O2 Flow Rate FiO2 05/05/16 13:10 69 05/05/16 12:26 64 05/05/16 12:26 98.0 69 18 106/64 96 05/05/16 11:51 18 05/05/16 11:24 67 05/05/16 11:00 98.0 67 18 106/64 95 05/05/16 10:16 68 05/05/16 09:00 70 05/05/16 08:55 69 05/05/16 08:00 97.4 67 18 125/67 96 05/05/16 08:00 67 05/05/16 04:00 63 05/05/16 04:00 98.1 63 18 121/65 97 05/05/16 00:00 98.0 69 18 130/70 97 05/05/16 00:00 69 05/04/16 20:00 64 05/04/16 20:00 97.7 64 14 118/68 96 05/04/16 16:36 98.3 69 18 117/63 97 05/04/16 16:36 76 I/O 05/04/16 05/04/16 05/04/16 05/05/16 05/05/16 05/05/16 07:00 15:00 23:00 07:00 15:00 23:00 Intake Total 480 ml 240 ml 600 ml Output Total 200 ml 450 ml 750 ml Balance 280 ml -210 ml -150 ml Intake Oral 480 ml 240 ml 600 ml Output Urine Total 200 ml 450 ml 750 ml # Bowel Movements 0 1 Physical Exam GENERAL: Laying in bed, no acute distress, getting iron infusion SKIN: Warm and dry. HEAD: Normocephalic. EYES: No scleral icterus. No injection or drainage. NECK: Supple, trachea midline. 3 cm JVD CARDIOVASCULAR: Regular rate and rhythm, BLE edema RESPIRATORY: Breath sounds equal bilaterally. No accessory muscle use. GASTROINTESTINAL: Abdomen soft, nondistended, : Urine clear MUSCULOSKELETAL: No cyanosis, 2+ BLE edema BACK: Nontender without obvious deformity. Laboratory Laboratory Tests Test 05/05/16 05/05/16 07:11 13:13 White Blood Count 23.6 TH/MM3 Red Blood Count 3.00 MIL/MM3 Hemoglobin 7.8 GM/DL Hematocrit 24.2 % Mean Corpuscular Volume 80.7 FL Mean Corpuscular Hemoglobin 26.2 PG Mean Corpuscular Hemoglobin 32.4 % Concent Red Cell Distribution Width 21.1 % Platelet Count 473 TH/MM3 Mean Platelet Volume 8.8 FL Sodium Level 132 MEQ/L Potassium Level 3.6 MEQ/L Chloride Level 96 MEQ/L Carbon Dioxide Level 21.1 MEQ/L Anion Gap 15 MEQ/L Blood Urea Nitrogen 78 MG/DL Creatinine 4.13 MG/DL Estimat Glomerular Filtration 14 ML/MIN Rate Random Glucose 105 MG/DL Calcium Level 8.6 MG/DL Complement C3 82 MG/DL Complement C4 26 MG/DL Assessment and Plan Assessment and Plan ASSESSMENT: Acute on chronic CKD. Cr stable, UO improving Acute on chronic systolic CHF exacerbation with ascites, BLE edema, and bilateral pleural effusions due to above. Leukocytosis with bandemia, thrombocytosis, anemia, hemo occult +, normal retic ASHD history, slight elevation of troponin without complaint of chest pain. EKG unchanged. Cardiomyopathy NSVT Chronic LBBB. Chronic angina Echo 05/02/16 EF 35-40%, WMA and AL myocardium, Mod MR, Mod TR RVSP 56 PLAN: Treat for CHF and CKD, diuresis per nephrology. Gave one dose of metolazone yesterday. UO improving, Cr stable, electrolytes stable. Consideration for dialysis. Work up per Hemo/Onc in process Per RN, pending paracentesis, OK to hold Plavix for 5 days from a cardiac standpoint Will consider ischemia work up outpatient. The patient has multiple medical problems. Elevated troponin likely related to demand ischemia. Unable treat with ROSEMARY/ARB or Aldactone for CMP due to acute renal disease Assessment and plan discussed with Dr Solis. Marilee Alvarado May 05, 2016 15:00
--- NOTE | 2016-05-05 20:30 | PD.ONC.PN ---
Subjective Subjective Remarks tired but feels better today Objective Data Date Time Temp Pulse Resp B/P Pulse Ox O2 Delivery O2 Flow Rate FiO2 05/05/16 18:23 67 05/05/16 16:34 98.8 68 18 109/59 95 05/05/16 16:34 68 05/05/16 15:07 70 05/05/16 14:30 68 05/05/16 13:10 69 05/05/16 12:26 64 05/05/16 12:26 98.0 69 18 106/64 96 05/05/16 11:51 18 05/05/16 11:24 67 05/05/16 11:00 98.0 67 18 106/64 95 05/05/16 10:16 68 05/05/16 09:00 70 05/05/16 08:55 69 05/05/16 08:00 97.4 67 18 125/67 96 05/05/16 08:00 67 05/05/16 04:00 63 05/05/16 04:00 98.1 63 18 121/65 97 05/05/16 00:00 98.0 69 18 130/70 97 05/05/16 00:00 69 05/05/16 05/05/16 05/05/16 07:00 15:00 23:00 Intake Total 600 ml 960 ml Output Total 750 ml 900 ml Balance -150 ml 60 ml Result Diagram: 05/05/1671005/05/16710 Laboratory Results Laboratory Tests Test 05/05/16 05/05/16 07:11 13:13 White Blood Count 23.6 TH/MM3 Red Blood Count 3.00 MIL/MM3 Hemoglobin 7.8 GM/DL Hematocrit 24.2 % Mean Corpuscular Volume 80.7 FL Mean Corpuscular Hemoglobin 26.2 PG Mean Corpuscular Hemoglobin 32.4 % Concent Red Cell Distribution Width 21.1 % Platelet Count 473 TH/MM3 Mean Platelet Volume 8.8 FL Sodium Level 132 MEQ/L Potassium Level 3.6 MEQ/L Chloride Level 96 MEQ/L Carbon Dioxide Level 21.1 MEQ/L Anion Gap 15 MEQ/L Blood Urea Nitrogen 78 MG/DL Creatinine 4.13 MG/DL Estimat Glomerular Filtration 14 ML/MIN Rate Random Glucose 105 MG/DL Calcium Level 8.6 MG/DL Complement C3 82 MG/DL Complement C4 26 MG/DL Administered Medications Medications (Trade) Dose Ordered Sig/Prudence Route PRN Reason Start Time Stop Time Status Last Admin Dose Admin IV Flush (NS Flush) 2 ml BID FLUSH 05/02/16 21:00 05/05/16 09:26 Acetaminophen (Tylenol) 650 mg Q4H PRN PO TEMP > 100.4 05/02/16 13:30 05/03/16 14:16 Ondansetron HCl 4 mg 4 mg Q6H PRN IVP NAUSEA OR VOMITING 05/02/16 13:30 05/03/16 04:37 Ceftriaxone Sodium/Sodium Chloride (Rocephin Inj/NS Inj) 100 ml @ 200 mls/hr Q24H IV 05/03/16 14:00 05/05/16 14:00 Carvedilol (Coreg) 3.125 mg DAILY PO 05/03/16 09:00 05/05/16 09:25 Clopidogrel Bisulfate (Plavix) 75 mg DAILY PO 05/03/16 09:00 Hold 05/04/16 09:05 Isosorbide Mononitrate (Imdur) 30 mg DAILY PO 05/03/16 09:00 05/05/16 09:25 Potassium Chloride 20 meq 20 meq BID PO 05/02/16 21:00 05/05/16 09:26 Azithromycin/ Sodium Chloride (Zithromax Inj/ NS 250 ml Inj) 250 ml @ 250 mls/hr Q24H IV 05/03/16 15:00 05/05/16 15:00 Polyethylene Glycol (Miralax) 17 gm DAILY PO 05/02/16 15:45 05/05/16 09:24 Pantoprazole Sodium (Protonix) 40 mg DAILY PO 05/04/16 09:00 05/05/16 09:25 Temazepam (Restoril) 15 mg HS PRN PO insomnia 05/03/16 21:00 05/04/16 20:59 Acetaminophen/ Hydrocodone Bitart ([place] 5-325 Mg) 1 tab Q4H PRN PO PAIN SCALE 6 TO 10 05/03/16 16:00 05/05/16 18:30 Bumetanide 2 mg 2 mg TID IV PUSH 05/04/16 13:00 Hold 05/05/16 09:26 Iron Sucrose/ Sodium Chloride (Venofer Inj/NS Inj) 105 ml @ 105 mls/hr DAILY IV 05/05/16 12:00 05/14/16 09:59 05/05/16 12:39 Objective Remarks GENERAL: in no immediate distress SKIN: Warm and dry. HEAD: Normocephalic. EYES: No scleral icterus. No injection or drainage. NECK: Supple, trachea midline. No JVD or lymphadenopathy. LYMPHATIC: No adenopathy. CARDIOVASCULAR: Regular rate and rhythm without murmurs. RESPIRATORY: Breath sounds equal bilaterally. No accessory muscle use. GASTROINTESTINAL: Abdomen soft, mild distention EXTREMITIES: +1 edema MUSCULOSKELETAL. muscle loss NEUROLOGICAL: generalized weakness PSYCHIATRIC: Appropriate mood and affect; insight and judgment normal. Assessment/Plan Assessment 1: bone marrow aspirate and bx done and material sent for flow, chromosomes, bcr /abl, mango 2. 2: anemia multifactorial with iron deficiency, renal failure and possibly a myeloproliferative disorder contributing. The patient will receive venofer and oral iron which should resolve iron deficiency. Normally one would proceed with upper and lower endoscopy but at present I would not be in favor of this as he is very frail and in renal failure not far from dialysis. Hopefully his renal function will recover if this is an acute reversible event. Within a short time I will have a diagnosis for his myeloproliferative disease which based on previous cbc plat counts has been present for several years. Sivakumar Martin MD May 05, 2016 20:30
[2016-05-05] MEDS: FERROUS SULFATE 325 MG (65 MG ELEMENTAL IRON) TAB PO SCH (22:28)
[2016-05-06] VITALS (15 sets, daily range): BP systolic 96–127; BP diastolic 57–87; PULSE 70–80; RESP 16–20; TEMP 97.7–98.4; O2SAT 96–97
[2016-05-06] MEDS: ACETAMINOPHEN/HYDROcodone 325 MG/5 MG TAB PO PRN (04:26)
[2016-05-06] MEDS: POLYETHYLENE GLYCOL 17 GM PKG PO SCH (09:00)
[2016-05-06] MEDS: POTASSIUM CHLORIDE 20 MEQ CONTROLLED RELEASE TAB PO SCH ×2 (09:00→23:24)
[2016-05-06] MEDS: SODIUM CHLORIDE 0.9% FLUSH 5 ML FLUSH FLUSH SCH ×3 (09:00→23:24)
[2016-05-06] MEDS: IRON SUCROSE INJ 100 MG in SODIUM CHLORIDE 0.9% INJ 100 ML IV SCH (09:00)
[2016-05-06] MEDS: PANTOPRAZOLE SOD 20 MG DELAYED RELEASE TAB PO SCH (09:38)
[2016-05-06] MEDS: CARVEDILOL 3.125 MG TAB PO SCH (09:38)
[2016-05-06] MEDS: ISOSORBIDE MONONITRATE 30 MG TAB PO SCH (09:38)
[2016-05-06] MEDS: FERROUS SULFATE 325 MG (65 MG ELEMENTAL IRON) TAB PO SCH ×2 (09:38→23:24)
[2016-05-06 10:06] LABS: BICARBONATE 24.8 MEQ/L (21.0-32.0)
[2016-05-06 10:45] LABS: POTASSIUM 2.8 MEQ/L (3.5-5.1)
[2016-05-06] MEDS ORDERED: POTASSIUM CHLORIDE 20 MEQ CONTROLLED RELEASE TAB PO ONE (12:45)
--- NOTE | 2016-05-06 13:34 | HHI.NPPN ---
Subjective Complaints: Shortness of Breath General Problems: Edema Renal Failure: Chronic, Acute Interval History Sitting up in chair. Renal function is better. The Bumex gtt was not started. He has increased scrotal edema. Severely hypokalemic today. (Martha Bueno) Review of Systems General Constitutional: Fatigue (Martha Bueno) Respiratory Lungs: SOB (Martha Bueno) Cardiovascular Cardiac: Edema (Martha Bueno) Objective Data Data 05/05/16 05/06/16 19:00 07:00 Intake Total 960 ml 240 ml Output Total 900 ml 1000 ml Balance 60 ml -760 ml Intake Oral 960 ml 240 ml Output Urine Total 900 ml 1000 ml Vital Signs Date Time Temp Pulse Resp B/P Pulse Ox O2 Delivery O2 Flow Rate FiO2 05/06/16 09:39 18 05/06/16 06:00 70 05/06/16 05:00 72 05/06/16 04:00 70 05/06/16 04:00 97.9 72 20 127/68 96 05/06/16 03:00 72 05/06/16 02:00 72 05/06/16 01:00 70 05/06/16 00:00 98.2 70 18 96/87 96 05/06/16 00:00 70 05/05/16 23:00 68 05/05/16 22:00 68 05/05/16 21:00 70 05/05/16 20:00 68 05/05/16 20:00 98.1 69 18 105/63 97 05/05/16 18:23 67 05/05/16 16:34 98.8 68 18 109/59 95 05/05/16 16:34 68 05/05/16 15:07 70 05/05/16 14:30 68 (Martha Bueno) -: 05/05/16 0711 05/06/16 0855 Physical Exam General Appearance: Well Developed, Well Nourished, No Acute Distress, Comfortable ( Martha Bueno) Throat Throat Exam: Oral Mucosa [place] & Moist (Martha Bueno) Pulmonary Resp Exam: Breath Sounds Equal, No Distress, Crackles (Martha Bueno) Cardiology CV Exam: Regular, Normal Sinus Rhythm, Good Perfusion (Martha Bueno) Gastrointestinal/Abdomen GI Exam: Non-Tender, Bowel Sounds Present GI Remarks large volume ascites (Martha Bueno) Musculoskeletal MS Exam: Joints Intact, Normal Tone (Martha Bueno) Integumentary Skin Exam: Warm, Dry (Martha Bueno) Extremeties Extremities Exam: Pedal Pulses Palpable, Moderate Edema, Pitting Edema ( Martha Bueno) Neurologic Neuro Exam: Alert, Awake, Oriented, Speech Clear, Moving All Extremities ( Martha Bueno) Psychiatric Psych Exam: Appropriate Responses (Martha Bueno) Assessment/Plan Discussed Condition With: Patient, Spouse Electrolyte Assessment: Hypokalemia Problem List: (1) Kidney failure, acute Plan: It appears his creatinine has been increasing since last fall In Mar 2016, creatinine was 1.76, GFR 17 consistent with CKD 3 INEZ thought to be due to CHF exacerbation with decreased renal perfusion renal function has improved fluid overload persists, Bumex gtt ordered yesterday not started, spoke with pharmacy and unsure why it was not given begin gtt now at 2 mg/hr, monitor response he is non oliguric, monitor urine output, has abel monitor electrolytes and replace as needed, he is hypokalemic today, po and IV replacement ordered quantify proteinuria, serologies including OLENA, ANCA, hepatitis B/C, in progress ; complement levels low/normal monitor renal function daily, if UOP decreases, creatinine worsens, or fluid overload worsens, he may require renal replacement therapy discussed with pt and daily renal panel 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 however Plavix needs to be held for 5 days, last dose given 05/04; 05/10 would be soonest it can be done will need PT/INR and CBC the day of procedure per US tech (Martha Bueno) Plan patient was seen and examined. Renal function is better. Replace potassium. Needs diuresis. (Jeromy Funez MD) Problem Qualifiers (1) Kidney failure, acute: Qualified Code: N17.9 - Acute renal failure, unspecified acute renal failure type (2) Hypertension: Qualified Code: I10 - Essential hypertension (3) Leukocytosis: Qualified Code: D72.825 - Bandemia (4) Anemia: Qualified Code: D64.9 - Anemia, unspecified type Martha Bueno May 06, 2016 13:34 Jeromy Funez MD May 07, 2016 14:35
[2016-05-06] MEDS: POTASSIUM CHLOR 20 MEQ PREMIX 100 ML IV SCH ×2 (14:44→15:00)
[2016-05-06] MEDS: AZITHROMYCIN INJ 500 MG in SODIUM CHLOR 0.9% 250 ML INJ 250 ML IV SCH (15:00)
--- NOTE | 2016-05-06 16:41 | HHI.PR ---
Subjective Remarks Patient has edema Still feeling weak and tired no chest pain No shortness of breath No nausea vomiting Review of system for 10 point system otherwise unremarkable Objective Objective Results - Vital Signs Date Time Temp Pulse Resp B/P Pulse Ox O2 Delivery O2 Flow Rate FiO2 05/06/16 09:39 18 05/06/16 06:00 70 05/06/16 05:00 72 05/06/16 04:00 70 05/06/16 04:00 97.9 72 20 127/68 96 05/06/16 03:00 72 05/06/16 02:00 72 05/06/16 01:00 70 05/06/16 00:00 98.2 70 18 96/87 96 05/06/16 00:00 70 05/05/16 23:00 68 05/05/16 22:00 68 05/05/16 21:00 70 05/05/16 20:00 68 05/05/16 20:00 98.1 69 18 105/63 97 05/05/16 18:23 67 I/O 05/05/16 05/05/16 05/05/16 05/06/16 05/06/16 05/06/16 07:00 15:00 23:00 07:00 15:00 23:00 Intake Total 600 ml 960 ml 240 ml Output Total 750 ml 900 ml 1000 ml Balance -150 ml 60 ml -760 ml Intake Oral 600 ml 960 ml 240 ml Output Urine Total 750 ml 900 ml 1000 ml # Bowel Movements 1 Result Diagram: 05/05/16 0711 05/06/16 0855 Imaging Last Impressions Chest X-Ray 05/02/16 1141 Signed Impressions: Service Date/Time: Monday, May 02, 2016 11:53 - CONCLUSION: Mild bibasilar infiltrates. Rajinder Vu MD Other Results Laboratory Tests Test 05/06/16 08:55 Sodium Level 132 Potassium Level 2.8 Chloride Level 95 Carbon Dioxide Level 24.8 Anion Gap 12 Blood Urea Nitrogen 74 Creatinine 3.64 Estimat Glomerular Filtration 16 Rate Random Glucose 113 Calcium Level 8.2 Phosphorus Level 4.2 Albumin 2.7 Date/Time Procedure Status Source Growth 05/02/16 16:45 Stool Occult Blood ([facility]) - Final Complete Stool Stool HEMOCCULT POSITIVE 05/02/16 13:16 Aerobic Blood Culture - Preliminary Resulted Blood Peripheral NO GROWTH IN 4 DAYS 05/02/16 13:16 Anaerobic Blood Culture - Preliminary Resulted Blood Peripheral NO GROWTH IN 4 DAYS Physical Exam Physical Exam GENERAL: This is a well-nourished, well-developed patient, in no apparent distress. SKIN: Pale, cool, dry, anasarca noted. HEAD: Atraumatic. Normocephalic. No temporal or scalp tenderness. EYES: Extraocular motions intact. No scleral icterus. No injection or drainage. ENT: Throat without erythema, tonsillar hypertrophy or exudate. Airway patent. NECK: Trachea midline. Supple, nontender, no meningeal signs. CARDIOVASCULAR: Regular rate and rhythm with soft murmurs. No gallops, or rubs. RESPIRATORY: Clear to auscultation. Breath sounds equal bilaterally. No wheezes , rales, or rhonchi. GASTROINTESTINAL: Protuberant, with ascites, flank edema. Bowel sounds hypoactive, ? splenomegaly. MUSCULOSKELETAL: Extremities without clubbing, cyanosis. No joint tenderness, effusion, or edema noted. No calf tenderness. Negative Homans sign bilaterally. Bilat pedal edema feet to thighs 2+, pedal pulses difficult to palpate due to edema. NEUROLOGICAL: Awake, oriented x 3. Following commands, no focal deficits. Poor historian. A/P Assessment and Plan (1) Sepsis (2) Elevated troponin (3) Pneumonia (4) Kidney failure, acute (5) History of GI bleed (6) History of CVA (cerebrovascular accident) (7) Hypertension (8) Hyperlipidemia (9) CAD (coronary artery disease) (10) Dehydration (11) Hypokalemia (12) Anasarca (13) Leukocytosis (14) Splenomegaly (15) Anemia Plan Sepsis, possibly secondary to a pulmonary process as patient has leukocytosis with bibasilar infiltrate Continue with cautious hydration, decreased leukocytosis, improving Afebrile Peripheral edema, now with anasarca, ascites, recent diagnosis of splenomegaly, rule out myeloproliferative disease -hematology for evaluation-Dr. 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 Patient is agreeable about hemodialysis. -Appreciate nephrology input. Discussed with director of dietary today Monitor edema Constipation -bowel regimen Elevated troponin, denies any chest pain, likely stress-induced, History of coronary artery disease -Continue with serial cardiac enzymes, low positive. Secondary to renal failure Consult cardiology appreciate input, will do any workup as an outpatient after patient stabilizes. Probable demand ischemia. Anemia, history of previous GI bleed Stable for now, HTN, stable -continue home meds Hx CVA, stable -continue home meds Patient appears be comfortable today. Less pain, appetite good. Willing to consider treatment regimens including dialysis for the future. Full code full aggressive care. Discussed with patient and at bedside Discussed With: Nurse, Family (patient and ) Stacie Owens MD May 06, 2016 16:41
[2016-05-06] MEDS: BUMETANIDE INJ 100 ML IV SCH (17:00)
--- NOTE | 2016-05-06 19:41 | PD.ONC.PN ---
Subjective Subjective Remarks Patient feeling better, except for diarrhea. Objective Data Date Time Temp Pulse Resp B/P Pulse Ox O2 Delivery O2 Flow Rate FiO2 05/06/16 16:00 98.1 71 18 122/66 97 05/06/16 09:39 18 05/06/16 08:00 97.9 76 20 118/70 96 05/06/16 06:00 70 05/06/16 05:00 72 05/06/16 04:00 70 05/06/16 04:00 97.9 72 20 127/68 96 05/06/16 03:00 72 05/06/16 02:00 72 05/06/16 01:00 70 05/06/16 00:00 98.2 70 18 96/87 96 05/06/16 00:00 70 05/05/16 23:00 68 05/05/16 22:00 68 05/05/16 21:00 70 05/05/16 20:00 68 05/05/16 20:00 98.1 69 18 105/63 97 05/06/16 05/06/16 05/06/16 07:00 15:00 23:00 Intake Total 240 ml Output Total 1000 ml Balance -760 ml Result Diagram: 05/05/16 0711 05/06/16 0855 Laboratory Results Laboratory Tests Test 05/06/16 08:55 Sodium Level 132 MEQ/L Potassium Level 2.8 MEQ/L Chloride Level 95 MEQ/L Carbon Dioxide Level 24.8 MEQ/L Anion Gap 12 MEQ/L Blood Urea Nitrogen 74 MG/DL Creatinine 3.64 MG/DL Estimat Glomerular Filtration 16 ML/MIN Rate Random Glucose 113 MG/DL Calcium Level 8.2 MG/DL Phosphorus Level 4.2 MG/DL Albumin 2.7 GM/DL Administered Medications Medications (Trade) Dose Ordered Sig/Prudence Route PRN Reason Start Time Stop Time Status Last Admin Dose Admin IV Flush (NS Flush) 2 ml BID FLUSH 05/02/16 21:00 05/06/16 09:00 Acetaminophen (Tylenol) 650 mg Q4H PRN PO TEMP > 100.4 05/02/16 13:30 05/03/16 14:16 Ondansetron HCl 4 mg 4 mg Q6H PRN IVP NAUSEA OR VOMITING 05/02/16 13:30 05/03/16 04:37 Ceftriaxone Sodium/Sodium Chloride (Rocephin Inj/NS Inj) 100 ml @ 200 mls/hr Q24H IV 05/03/16 14:00 05/05/16 14:00 Carvedilol (Coreg) 3.125 mg DAILY PO 05/03/16 09:00 05/06/16 09:38 Clopidogrel Bisulfate (Plavix) 75 mg DAILY PO 05/03/16 09:00 Hold 05/04/16 09:05 Isosorbide Mononitrate (Imdur) 30 mg DAILY PO 05/03/16 09:00 05/06/16 09:38 Potassium Chloride 20 meq 20 meq BID PO 05/02/16 21:00 05/06/16 09:00 Azithromycin/ Sodium Chloride (Zithromax Inj/ NS 250 ml Inj) 250 ml @ 250 mls/hr Q24H IV 05/03/16 15:00 05/06/16 15:00 Polyethylene Glycol (Miralax) 17 gm DAILY PO 05/02/16 15:45 05/06/16 09:00 Pantoprazole Sodium (Protonix) 40 mg DAILY PO 05/04/16 09:00 05/06/16 09:38 Temazepam (Restoril) 15 mg HS PRN PO insomnia 05/03/16 21:00 05/04/16 20:59 Acetaminophen/ Hydrocodone Bitart ([place] 5-325 Mg) 1 tab Q4H PRN PO PAIN SCALE 6 TO 10 05/03/16 16:00 05/06/16 04:26 Bumetanide (Bumex Inj) 2 mg TID IV PUSH 05/04/16 13:00 Hold 05/05/16 09:26 Ferrous Sulfate 325 mg 325 mg BID PO 05/05/16 21:00 05/06/16 09:38 Bumetanide 100 ml @ 8 mls/hr CONTINUOUS IV 05/05/16 14:00 05/06/16 17:00 Iron Sucrose/ Sodium Chloride (Venofer Inj/NS Inj) 105 ml @ 105 mls/hr DAILY IV 05/05/16 12:00 05/14/16 09:59 05/06/16 09:00 Objective Remarks GENERAL: elderly, frail SKIN: Warm and dry. HEAD: Normocephalic. EYES: No scleral icterus. No injection or drainage. NECK: Supple, trachea midline. No JVD or lymphadenopathy. LYMPHATIC: No adenopathy. CARDIOVASCULAR: Regular rate and rhythm without murmurs. RESPIRATORY: Breath sounds equal bilaterally. No accessory muscle use. GASTROINTESTINAL: Abdomen mildly swollen EXTREMITIES: +1 edema, large amount of scrotal edema MUSCULOSKELETAL: Poor muscle tone. NEUROLOGICAL: No obvious focal deficit. Awake, alert, and oriented x3. 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 Additional studies pending but unlikely to affect diagnosis. 2: renal function improving, patient receiving iron. Hopefully this will result in an improvement of Hgb in the next few weeks. At this point, no further treatment of his hematologic disorder is required. If he were to develop symptomatic anemia, I would recommend transfusion pending improvement from iron and resolving renal failure. Check CBC and platelet count in am. Sivakumar Martin MD May 06, 2016 19:41
[2016-05-06] MEDS ORDERED: ZOLPIDEM TARTRATE 5 MG TAB PO SCH (22:00)
[2016-05-06] MEDS: cefTRIAXone INJ 1,000 MG in SODIUM CHLORIDE 0.9% INJ 100 ML IV SCH (23:23)
[2016-05-07] VITALS (24 sets, daily range): BP systolic 112–137; BP diastolic 62–69; PULSE 76–90; RESP 16–18; TEMP 97.9–98.2; O2SAT 96–98
[2016-05-07] MEDS: BUMETANIDE INJ 100 ML IV SCH (07:16)
[2016-05-07 08:08] LABS: HEMATOCRIT 25.4 % (39.0-51.0); MEAN CELL VOLUME 78.9 FL (80.0-100.0); MEAN CORPUSCULAR HEMOGLOBIN 26.4 PG (27.0-34.0); MEAN CORPUSCULAR HGB CONC 33.5 % (32.0-36.0); PLATELET COUNT 510 TH/MM3 (150-450); RED BLOOD COUNT 3.22 MIL/MM3 (4.50-5.90); RED CELL DISTRIBUTION WIDTH 21.6 % (11.6-17.2); WHITE BLOOD COUNT 26.1 TH/MM3 (4.0-11.0)
[2016-05-07 08:15] LABS: HEMO FLAGS AUTO DIFF
[2016-05-07 08:25] LABS: POTASSIUM 2.7 MEQ/L (3.5-5.1)
[2016-05-07 08:46] LABS: BANDS 8 % (0-6); CORRECTED NUCLEATED RBC 1 /100 WBC (0-0); EOSINOPHILS 7 % (0-4); METAMYELOCYTES 3 % (0-1); MYELOCYTES 4 % (0-0); NEUTROPHIL # MANUAL DIFF 22.4 TH/MM3 (1.8-7.7); POLYS (SEG NEUTROPHILS) 71 % (16-70); WBC DIFF SAMPLE 100
[2016-05-07 08:51] LABS: KERATOCYTES OCC (NORMAL); PLATELET ESTIMATE SMEAR HIGH (NORMAL); PLATELET MORPHOLOGY NORMAL (NORMAL); POLYCHROMASIA 2.5 % (0.0-1.9); SCAN/DIFF FINAL DIFF MANUAL; TEARDROP RBCS 1+ (NORMAL)
[2016-05-07] MEDS: POLYETHYLENE GLYCOL 17 GM PKG PO SCH (09:00)
[2016-05-07] MEDS: IRON SUCROSE INJ 100 MG in SODIUM CHLORIDE 0.9% INJ 100 ML IV SCH (09:00)
[2016-05-07] MEDS: PANTOPRAZOLE SOD 20 MG DELAYED RELEASE TAB PO SCH (09:02)
[2016-05-07] MEDS: FERROUS SULFATE 325 MG (65 MG ELEMENTAL IRON) TAB PO SCH ×2 (09:02→21:49)
[2016-05-07] MEDS: POTASSIUM CHLOR 20 MEQ PREMIX 100 ML IV SCH ×4 (09:02→15:58)
[2016-05-07] MEDS: POTASSIUM CHLORIDE 20 MEQ CONTROLLED RELEASE TAB PO SCH ×2 (09:02→21:49)
[2016-05-07] MEDS: CARVEDILOL 3.125 MG TAB PO SCH (09:02)
[2016-05-07] MEDS: ISOSORBIDE MONONITRATE 30 MG TAB PO SCH (09:02)
[2016-05-07] MEDS: SODIUM CHLORIDE 0.9% FLUSH 5 ML FLUSH FLUSH SCH ×2 (09:03→21:00)
[2016-05-07] MEDS ORDERED: POTASSIUM CHLORIDE 20 MEQ CONTROLLED RELEASE TAB PO ONE (09:30)
--- NOTE | 2016-05-07 09:44 | HHI.NPPN ---
Subjective Complaints: Shortness of Breath General Problems: Edema Renal Failure: Chronic, Acute Interval History Bumex gtt infusing, diuresing well. Renal function is better. Hypokalemic today. (Martha Bueno) Review of Systems General Constitutional: Fatigue (Martha Bueno) Respiratory Lungs: SOB (Martha Bueno) Cardiovascular Cardiac: Edema (Martha Bueno) Objective Data Data 05/06/16 05/07/16 19:00 07:00 Intake Total 950 ml Output Total 3150 ml Balance -2200 ml Intake Oral 680 ml IV Total 270 ml Output Urine Total 3150 ml Vital Signs Date Time Temp Pulse Resp B/P Pulse Ox O2 Delivery O2 Flow Rate FiO2 05/07/16 05:00 90 05/07/16 04:14 98.2 79 18 119/62 96 05/07/16 04:00 90 05/07/16 03:00 80 05/07/16 02:00 80 05/07/16 01:00 80 05/07/16 00:00 78 05/06/16 23:50 98.4 79 18 121/66 96 05/06/16 23:00 80 05/06/16 22:00 76 05/06/16 21:00 76 05/06/16 21:00 97.7 78 16 124/57 97 05/06/16 20:00 76 05/06/16 19:00 74 05/06/16 16:00 98.1 71 18 122/66 97 (Martha Bueno) -: 05/07/16 0732 05/07/16 0722 Tubes & Lines: Abel (Martha Bueno) Physical Exam General Appearance: Well Developed, Well Nourished, No Acute Distress, Comfortable ( Martha Bueno) Throat Throat Exam: Oral Mucosa [place] & Moist (Martha Bueno) Pulmonary Resp Exam: Breath Sounds Equal, No Distress, Crackles (Martha Bueno) Cardiology CV Exam: Regular, Normal Sinus Rhythm, Good Perfusion (Martha Bueno) Gastrointestinal/Abdomen GI Exam: Non-Tender, Bowel Sounds Present GI Remarks large volume ascites (Martha Bueno) Musculoskeletal MS Exam: Joints Intact, Normal Tone (Martha Bueno) Integumentary Skin Exam: Warm, Dry (Martha Bueno) Extremeties Extremities Exam: Pedal Pulses Palpable, Moderate Edema, Pitting Edema ( Martha Bueno) Neurologic Neuro Exam: Alert, Awake, Oriented, Speech Clear, Moving All Extremities ( Martha Bueno) Psychiatric Psych Exam: Appropriate Responses (Martha Bueno) Assessment/Plan Discussed Condition With: Patient, Spouse Electrolyte Assessment: Hypokalemia Problem List: (1) Kidney failure, acute Plan: It appears his creatinine has been increasing since last fall In Mar 2016, creatinine was 1.76, GFR 17 consistent with CKD 3 INEZ thought to be due to CHF exacerbation with decreased renal perfusion renal function has improved diuresing well with Bumex gtt, continue at 2 mg/hr he is non oliguric, monitor urine output, has abel monitor electrolytes and replace as needed, hypokalemic continues, on po and IV replacement quantify proteinuria, serologies including OLENA, ANCA, in progress; hepatitis B/ C negative; complement levels low/normal monitor renal function daily, if UOP decreases, creatinine worsens, or fluid overload worsens, he may require renal replacement therapy discussed with pt and daily renal panel 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 however Plavix needs to be held for 5 days, last dose given 05/04; 05/10 would be soonest it can be done will need PT/INR and CBC the day of procedure per US tech (Martha Bueno) Plan patient was seen and examined. Agree with above assessment and plan. Replace potassium. No need for dialysis at this time as renal function is improving. ( Jeromy Funez MD) Problem Qualifiers (1) Kidney failure, acute: Qualified Code: N17.9 - Acute renal failure, unspecified acute renal failure type (2) Hypertension: Qualified Code: I10 - Essential hypertension (3) Leukocytosis: Qualified Code: D72.825 - Bandemia (4) Anemia: Qualified Code: D64.9 - Anemia, unspecified type Martha Bueno May 07, 2016 09:44 Jeromy Funez MD May 07, 2016 14:45
--- NOTE | 2016-05-07 12:42 | HHI.PR ---
Subjective Remarks Patient has edema Still feeling weak and tired Feeling full in his stomach No nausea vomiting No abdominal pain no chest pain No shortness of breath Review of system for 10 point system otherwise unremarkable As per RN patient had 4 run of V. tach Objective Objective Results - Vital Signs Date Time Temp Pulse Resp B/P Pulse Ox O2 Delivery O2 Flow Rate FiO2 05/07/16 08:00 98.0 85 18 137/69 98 05/07/16 05:00 90 05/07/16 04:14 98.2 79 18 119/62 96 05/07/16 04:00 90 05/07/16 03:00 80 05/07/16 02:00 80 05/07/16 01:00 80 05/07/16 00:00 78 05/06/16 23:50 98.4 79 18 121/66 96 05/06/16 23:00 80 05/06/16 22:00 76 05/06/16 21:00 76 05/06/16 21:00 97.7 78 16 124/57 97 05/06/16 20:00 76 05/06/16 19:00 74 05/06/16 16:00 98.1 71 18 122/66 97 I/O 05/06/16 05/06/16 05/06/16 05/07/16 05/07/16 05/07/16 07:00 15:00 23:00 07:00 15:00 23:00 Intake Total 240 ml 950 ml Output Total 1000 ml 3150 ml Balance -760 ml -2200 ml Intake Oral 240 ml 680 ml IV Total 270 ml Output Urine Total 1000 ml 3150 ml Result Diagram: 05/07/16 0732 05/07/16 0722 Imaging Last Impressions Chest X-Ray 05/02/16 1141 Signed Impressions: Service Date/Time: Monday, May 02, 2016 11:53 - CONCLUSION: Mild bibasilar infiltrates. Rajinder Vu MD Other Results Laboratory Tests Test 05/07/16 05/07/16 07:22 07:32 Sodium Level 135 Potassium Level 2.7 Chloride Level 94 Carbon Dioxide Level 28.0 Anion Gap 13 Blood Urea Nitrogen 67 Creatinine 2.92 Estimat Glomerular Filtration 20 Rate Random Glucose 114 Calcium Level 8.7 Phosphorus Level 3.3 Albumin 2.9 White Blood Count 26.1 Red Blood Count 3.22 Hemoglobin 8.5 Hematocrit 25.4 Mean Corpuscular Volume 78.9 Mean Corpuscular Hemoglobin 26.4 Mean Corpuscular Hemoglobin 33.5 Concent Red Cell Distribution Width 21.6 Platelet Count 510 Mean Platelet Volume 8.7 Neutrophils (%) (Auto) Lymphocytes (%) (Auto) Monocytes (%) (Auto) Eosinophils (%) (Auto) Basophils (%) (Auto) Neutrophils # (Auto) Lymphocytes # (Auto) Monocytes # (Auto) Eosinophils # (Auto) Basophils # (Auto) CBC Comment AUTO DIFF Differential Total Cells 100 Counted Neutrophils % (Manual) 71 Band Neutrophils % 8 Lymphocytes % 2 Monocytes % 5 Eosinophils % 7 Neutrophils # (Manual) 22.4 Metamyelocytes 3 Myelocytes 4 Nucleated Red Blood Cells 1 Differential Comment FINAL DIFF MANUAL Platelet Estimate HIGH Platelet Morphology Comment NORMAL Polychromasia 2.5 Tear Drop Cells 1+ Keratocytes OCC Date/Time Procedure Status Source Growth 05/02/16 16:45 Stool Occult Blood ([facility]) - Final Complete Stool Stool HEMOCCULT POSITIVE 05/02/16 13:16 Aerobic Blood Culture - Final Complete Blood Peripheral NO GROWTH IN 5 DAYS 05/02/16 13:16 Anaerobic Blood Culture - Final Complete Blood Peripheral NO GROWTH IN 5 DAYS Physical Exam Physical Exam GENERAL: This is a well-nourished, well-developed patient, in no apparent distress. SKIN: Pale, cool, dry, anasarca noted. HEAD: Atraumatic. Normocephalic. No temporal or scalp tenderness. EYES: Extraocular motions intact. No scleral icterus. No injection or drainage. ENT: Throat without erythema, tonsillar hypertrophy or exudate. Airway patent. NECK: Trachea midline. Supple, nontender, no meningeal signs. CARDIOVASCULAR: Regular rate and rhythm with soft murmurs. No gallops, or rubs. RESPIRATORY: Clear to auscultation. Breath sounds equal bilaterally. No wheezes , rales, or rhonchi. GASTROINTESTINAL: Protuberant, with ascites, flank edema. Bowel sounds hypoactive, ? splenomegaly. MUSCULOSKELETAL: Extremities without clubbing, cyanosis. No joint tenderness, effusion, or edema noted. No calf tenderness. Negative Homans sign bilaterally. Bilat pedal edema feet to thighs 2+ NEUROLOGICAL: Awake, oriented x 3. Following commands, no focal deficits. Poor historian. A/P Assessment and Plan (1) Sepsis (2) Elevated troponin (3) Pneumonia (4) Kidney failure, acute (5) History of GI bleed (6) History of CVA (cerebrovascular accident) (7) Hypertension (8) Hyperlipidemia (9) CAD (coronary artery disease) (10) Dehydration (11) Hypokalemia (12) Anasarca (13) Leukocytosis (14) Splenomegaly (15) Anemia Plan Sepsis, possibly secondary to a pulmonary process as patient has leukocytosis with bibasilar infiltrate Continue with cautious hydration, decreased leukocytosis, improving . On antibiotic Afebrile Peripheral edema, now with anasarca, ascites, recent diagnosis of splenomegaly, rule out myeloproliferative disease -hematology for evaluation-Dr. 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 Awaiting report. Continue on the Bumex drip Acute renal injury, worsening Continues with renal failure, improving creatinine and edema. Patient is agreeable about hemodialysis. -Appreciate nephrology input. Monitor edema Constipation -bowel regimen Elevated troponin, denies any chest pain, likely stress-induced, History of coronary artery disease -Continue with serial cardiac enzymes, low positive. Secondary to renal failure Consult cardiology appreciate input, will do any workup as an outpatient after patient stabilizes. Probable demand ischemia. Anemia, history of previous GI bleed Stable for now, HTN, stable -continue home meds Hx CVA, stable -continue home meds Short run of V. tach with low potassium. Plan for replacement. Check magnesium level. No normal phosphorus Patient appears be comfortable today. Less pain, appetite good. Willing to consider treatment regimens including dialysis for the future. Full code full aggressive care. Discussed with patient and at bedside Discussed with RN Discussed With: Nurse, Family (patient and ) Stacie Owens MD May 07, 2016 12:42
[2016-05-07] MEDS: ACETAMINOPHEN/HYDROcodone 325 MG/5 MG TAB PO PRN ×2 (13:52→21:45)
[2016-05-07] MEDS: cefTRIAXone INJ 1,000 MG in SODIUM CHLORIDE 0.9% INJ 100 ML IV SCH (14:00)
[2016-05-07] MEDS: AZITHROMYCIN INJ 500 MG in SODIUM CHLOR 0.9% 250 ML INJ 250 ML IV SCH (15:00)
[2016-05-07] MEDS: ZOLPIDEM TARTRATE 5 MG TAB PO PRN (21:46)
[2016-05-08] VITALS (27 sets, daily range): BP systolic 112–143; BP diastolic 67–78; PULSE 78–95; RESP 16–18; TEMP 97.6–98.2; O2SAT 94–98
[2016-05-08] MEDS: BUMETANIDE INJ 100 ML IV SCH (04:31)
[2016-05-08 08:00] LABS: HEMATOCRIT 25.8 % (39.0-51.0); MEAN CELL VOLUME 80.4 FL (80.0-100.0); MEAN CORPUSCULAR HEMOGLOBIN 26.5 PG (27.0-34.0); PLATELET COUNT 504 TH/MM3 (150-450); RED BLOOD COUNT 3.21 MIL/MM3 (4.50-5.90); RED CELL DISTRIBUTION WIDTH 20.5 % (11.6-17.2); WHITE BLOOD COUNT 30.1 TH/MM3 (4.0-11.0)
[2016-05-08 08:08] LABS: REVIEW FLAG FINAL
[2016-05-08 08:16] LABS: BICARBONATE 28.4 MEQ/L (21.0-32.0); MAGNESIUM 1.8 MG/DL (1.5-2.5)
[2016-05-08 08:22] LABS: POTASSIUM 2.9 MEQ/L (3.5-5.1)
[2016-05-08] MEDS: PANTOPRAZOLE SOD 20 MG DELAYED RELEASE TAB PO SCH (09:28)
[2016-05-08] MEDS: POLYETHYLENE GLYCOL 17 GM PKG PO SCH (09:28)
[2016-05-08] MEDS: ISOSORBIDE MONONITRATE 30 MG TAB PO SCH (09:28)
[2016-05-08] MEDS: POTASSIUM CHLOR 20 MEQ PREMIX 100 ML IV SCH ×2 (09:28→11:35)
[2016-05-08] MEDS: FERROUS SULFATE 325 MG (65 MG ELEMENTAL IRON) TAB PO SCH ×2 (09:28→20:36)
[2016-05-08] MEDS: POTASSIUM CHLORIDE 20 MEQ CONTROLLED RELEASE TAB PO SCH ×2 (09:29→20:36)
[2016-05-08] MEDS: CARVEDILOL 3.125 MG TAB PO SCH (09:29)
[2016-05-08] MEDS: SODIUM CHLORIDE 0.9% FLUSH 5 ML FLUSH FLUSH SCH ×2 (09:30→20:36)
[2016-05-08] MEDS: IRON SUCROSE INJ 100 MG in SODIUM CHLORIDE 0.9% INJ 100 ML IV SCH (10:31)
[2016-05-08] MEDS: ACETAMINOPHEN/HYDROcodone 325 MG/5 MG TAB PO PRN ×2 (10:32→15:26)
--- NOTE | 2016-05-08 10:59 | HHI.PR ---
Subjective Remarks Patient has edema Still feeling weak and tired Feeling full in his stomach No nausea vomiting No abdominal pain no chest pain No shortness of breath Review of system for 10 point system otherwise unremarkable Objective Objective Results - Vital Signs Date Time Temp Pulse Resp B/P Pulse Ox O2 Delivery O2 Flow Rate FiO2 05/08/16 08:05 98.2 85 17 143/78 98 05/08/16 05:14 98.1 90 16 121/70 95 05/08/16 05:00 90 05/08/16 04:00 82 05/08/16 03:00 86 05/08/16 02:00 86 05/08/16 01:06 98.1 84 16 114/67 95 05/08/16 01:00 88 05/08/16 00:00 78 05/07/16 23:00 84 05/07/16 22:00 78 05/07/16 21:00 90 05/07/16 20:00 80 05/07/16 20:00 97.9 84 16 112/66 97 05/07/16 19:00 80 05/07/16 18:00 82 05/07/16 17:00 82 05/07/16 16:00 76 05/07/16 16:00 97.9 77 18 124/65 97 05/07/16 15:59 18 05/07/16 15:00 76 05/07/16 14:00 78 05/07/16 13:00 82 05/07/16 12:00 98.2 83 18 127/68 97 05/07/16 12:00 78 05/07/16 11:00 82 I/O 05/07/16 05/07/16 05/07/16 05/08/16 05/08/16 05/08/16 07:00 15:00 23:00 07:00 15:00 23:00 Intake Total 950 ml 1480 ml 576 ml Output Total 3150 ml 3425 ml 1400 ml Balance -2200 ml -1945 ml -824 ml Intake Oral 680 ml 480 ml 480 ml IV Total 270 ml 1000 ml 96 ml Output Urine Total 3150 ml 3425 ml 1400 ml # Bowel Movements 0 Result Diagram: 05/08/16 0659 05/08/16 0659 Imaging Last Impressions Chest X-Ray 05/02/16 1141 Signed Impressions: Service Date/Time: Monday, May 02, 2016 11:53 - CONCLUSION: Mild bibasilar infiltrates. Rajinder Vu MD Other Results Laboratory Tests Test 05/07/16 05/08/16 05/08/16 16:58 04:30 06:59 Potassium Level 3.1 2.9 Urine Random Creatinine 50 Urine Microalbumin/Creatinine 304 Ratio White Blood Count 30.1 Red Blood Count 3.21 Hemoglobin 8.5 Hematocrit 25.8 Mean Corpuscular Volume 80.4 Mean Corpuscular Hemoglobin 26.5 Mean Corpuscular Hemoglobin 33.0 Concent Red Cell Distribution Width 20.5 Platelet Count 504 Mean Platelet Volume 8.4 Sodium Level 136 Chloride Level 97 Carbon Dioxide Level 28.4 Anion Gap 11 Blood Urea Nitrogen 58 Creatinine 2.28 Estimat Glomerular Filtration 27 Rate Random Glucose 124 Calcium Level 8.6 Phosphorus Level 2.7 Magnesium Level 1.8 Physical Exam Physical Exam GENERAL: This is a well-nourished, well-developed patient, in no apparent distress. SKIN: Pale, cool, dry, anasarca noted. HEAD: Atraumatic. Normocephalic. No temporal or scalp tenderness. EYES: Extraocular motions intact. No scleral icterus. No injection or drainage. ENT: Throat without erythema, tonsillar hypertrophy or exudate. Airway patent. NECK: Trachea midline. Supple, nontender, no meningeal signs. CARDIOVASCULAR: Regular rate and rhythm with soft murmurs. No gallops, or rubs. RESPIRATORY: Clear to auscultation. Breath sounds equal bilaterally. No wheezes , rales, or rhonchi. GASTROINTESTINAL: Protuberant, with ascites, flank edema. Bowel sounds hypoactive, ? splenomegaly. MUSCULOSKELETAL: Extremities without clubbing, cyanosis. No joint tenderness, effusion, or edema noted. No calf tenderness. Negative Homans sign bilaterally. Bilat pedal edema feet to thighs 2+ NEUROLOGICAL: Awake, oriented x 3. Following commands, no focal deficits. Poor historian. A/P Assessment and Plan (1) Sepsis (2) Elevated troponin (3) Pneumonia (4) Kidney failure, acute (5) History of GI bleed (6) History of CVA (cerebrovascular accident) (7) Hypertension (8) Hyperlipidemia (9) CAD (coronary artery disease) (10) Dehydration (11) Hypokalemia (12) Anasarca (13) Leukocytosis (14) Splenomegaly (15) Anemia Plan Sepsis, possibly secondary to a pulmonary process as patient has leukocytosis with bibasilar infiltrate Continue with cautious hydration, decreased leukocytosis, improving . On antibiotic Afebrile Peripheral edema, now with anasarca, ascites, recent diagnosis of splenomegaly, rule out myeloproliferative disease -hematology for evaluation-Dr. 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 Awaiting report. Continue on the Bumex drip. Improving BUN/creatinine Acute renal injury, worsening Continues with renal failure, improving creatinine and edema. Patient is agreeable about hemodialysis. -Appreciate nephrology input.. Improving BUN/creatinine Monitor edema Constipation -bowel regimen Elevated troponin, denies any chest pain, likely stress-induced, History of coronary artery disease -Continue with serial cardiac enzymes, low positive. Secondary to renal failure Consult cardiology appreciate input, will do any workup as an outpatient after patient stabilizes. Probable demand ischemia. Anemia, history of previous GI bleed Stable H&H HTN, stable -continue home meds Hx CVA, stable -continue home meds Patient appears be comfortable today. Less pain, appetite good. Willing to consider treatment regimens including dialysis for the future. Full code full aggressive care. Discussed with patient and at bedside Discussed with RN Labs for tomorrow Discussed With: Nurse, Family (patient and ) Stacie Owens MD May 08, 2016 10:59
--- NOTE | 2016-05-08 12:38 | HHI.NPPN ---
Subjective Complaints: Shortness of Breath General Problems: Edema Renal Failure: Chronic, Acute Review of Systems General Constitutional: Fatigue Respiratory Lungs: SOB Cardiovascular Cardiac: Edema Objective Data Data 05/07/16 05/08/16 19:00 07:00 Intake Total 1480 ml 576 ml Output Total 3425 ml 1400 ml Balance -1945 ml -824 ml Intake Oral 480 ml 480 ml IV Total 1000 ml 96 ml Output Urine Total 3425 ml 1400 ml # Bowel Movements 0 Vital Signs Date Time Temp Pulse Resp B/P Pulse Ox O2 Delivery O2 Flow Rate FiO2 05/08/16 08:05 98.2 85 17 143/78 98 05/08/16 05:14 98.1 90 16 121/70 95 05/08/16 05:00 90 05/08/16 04:00 82 05/08/16 03:00 86 05/08/16 02:00 86 05/08/16 01:06 98.1 84 16 114/67 95 05/08/16 01:00 88 05/08/16 00:00 78 05/07/16 23:00 84 05/07/16 22:00 78 05/07/16 21:00 90 05/07/16 20:00 80 05/07/16 20:00 97.9 84 16 112/66 97 05/07/16 19:00 80 05/07/16 18:00 82 05/07/16 17:00 82 05/07/16 16:00 76 05/07/16 16:00 97.9 77 18 124/65 97 05/07/16 15:59 18 05/07/16 15:00 76 05/07/16 14:00 78 05/07/16 13:00 82 -: 05/08/16 0659 05/08/16 0659 Tubes & Lines: Lozano Physical Exam General Appearance: Well Developed, Well Nourished, No Acute Distress, Comfortable Throat Throat Exam: Oral Mucosa [place] & Moist Pulmonary Resp Exam: Breath Sounds Equal, No Distress, Crackles Cardiology CV Exam: Regular, Normal Sinus Rhythm, Good Perfusion Gastrointestinal/Abdomen GI Exam: Non-Tender, Bowel Sounds Present Musculoskeletal MS Exam: Joints Intact, Normal Tone Integumentary Skin Exam: Warm, Dry Extremeties Extremities Exam: Pedal Pulses Palpable, Moderate Edema, Pitting Edema Neurologic Neuro Exam: Alert, Awake, Oriented, Speech Clear, Moving All Extremities Psychiatric Psych Exam: Appropriate Responses Assessment/Plan Discussed Condition With: Patient, Spouse Electrolyte Assessment: Hypokalemia Problem List: (1) Kidney failure, acute Plan: INEZ thought to be due to CHF exacerbation with decreased renal perfusion renal function has improved diuresing well with Bumex gtt decreased to 1 mg/hr Hypokalemia K been replaced given 1 dose of Albumin 25 gm today for help with diuresis as concerned UOP lower at night he is non oliguric, monitor urine output, has Lozano monitor electrolytes and replace as needed, hypokalemic continues, on po and IV replacement quantify proteinuria, serologies including OLENA, ANCA, in progress; hepatitis B/ C negative; complement levels low/normal discussed with pt and follow BMP 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 however Plavix needs to be held for 5 days, last dose given 05/04; 05/10 would be soonest it can be done will need PT/INR and CBC the day of procedure per [employer] Problem Qualifiers (1) Kidney failure, acute: Qualified Code: N17.9 - Acute renal failure, unspecified acute renal failure type (2) Hypertension: Qualified Code: I10 - Essential hypertension (3) Leukocytosis: Qualified Code: D72.825 - Bandemia (4) Anemia: Qualified Code: D64.9 - Anemia, unspecified type Landon Encinas MD May 08, 2016 12:38
[2016-05-08] MEDS ORDERED: ALBUMIN HUMAN 25% 25 GM/100 ML BAGP IV ONE (15:00)
[2016-05-08] MEDS: cefTRIAXone INJ 1,000 MG in SODIUM CHLORIDE 0.9% INJ 100 ML IV SCH (15:27)
[2016-05-08] MEDS: AZITHROMYCIN INJ 500 MG in SODIUM CHLOR 0.9% 250 ML INJ 250 ML IV SCH (16:51)
[2016-05-09] VITALS (26 sets, daily range): BP systolic 97–130; BP diastolic 62–74; PULSE 69–90; RESP 16–18; TEMP 97.3–98.4; O2SAT 95–98
[2016-05-09] MEDS: ZOLPIDEM TARTRATE 5 MG TAB PO PRN (00:11)
[2016-05-09 06:23] LABS: BICARBONATE 26.2 MEQ/L (21.0-32.0); POTASSIUM 3.6 MEQ/L (3.5-5.1)
[2016-05-09] MEDS: FERROUS SULFATE 325 MG (65 MG ELEMENTAL IRON) TAB PO SCH ×2 (08:52→19:33)
[2016-05-09] MEDS: SODIUM CHLORIDE 0.9% FLUSH 5 ML FLUSH FLUSH SCH ×2 (08:52→19:33)
[2016-05-09] MEDS: POLYETHYLENE GLYCOL 17 GM PKG PO SCH (08:52)
[2016-05-09] MEDS: POTASSIUM CHLORIDE 20 MEQ CONTROLLED RELEASE TAB PO SCH ×2 (08:52→19:33)
[2016-05-09] MEDS: IRON SUCROSE INJ 100 MG in SODIUM CHLORIDE 0.9% INJ 100 ML IV SCH (08:52)
[2016-05-09] MEDS: ISOSORBIDE MONONITRATE 30 MG TAB PO SCH (08:52)
[2016-05-09] MEDS: PANTOPRAZOLE SOD 20 MG DELAYED RELEASE TAB PO SCH (08:52)
[2016-05-09] MEDS: CARVEDILOL 3.125 MG TAB PO SCH (08:52)
[2016-05-09] MEDS: cefTRIAXone INJ 1,000 MG in SODIUM CHLORIDE 0.9% INJ 100 ML IV SCH (13:29)
--- NOTE | 2016-05-09 14:20 | HHI.PR ---
Subjective Remarks No chest pain BM yesterday No shortness of breath at rest Generalized weakness, more alert No headache No cough Up in chair (Francine Champion) Objective Objective Results - Vital Signs Date Time Temp Pulse Resp B/P Pulse Ox O2 Delivery O2 Flow Rate FiO2 05/09/16 12:00 98.4 80 16 120/70 98 05/09/16 12:00 81 05/09/16 11:00 74 05/09/16 10:00 82 05/09/16 09:00 80 05/09/16 08:00 79 05/09/16 08:00 98.2 81 18 117/66 97 05/09/16 07:00 80 05/09/16 06:31 82 05/09/16 05:00 80 05/09/16 04:12 98.2 79 130/74 95 05/09/16 04:00 80 05/09/16 03:00 74 05/09/16 02:15 98 Venturi Mask 3.00 28 05/09/16 02:00 86 05/09/16 01:00 74 05/09/16 00:41 97.3 89 126/67 95 05/09/16 00:00 80 05/08/16 23:00 92 05/08/16 22:00 86 05/08/16 21:59 97.9 82 129/70 94 05/08/16 21:00 82 05/08/16 20:00 80 05/08/16 19:00 88 05/08/16 18:20 87 05/08/16 17:00 86 05/08/16 16:17 87 05/08/16 15:00 97.6 90 16 112/72 96 05/08/16 15:00 80 I/O 05/08/16 05/08/16 05/08/16 05/09/16 05/09/16 05/09/16 07:00 15:00 23:00 07:00 15:00 23:00 Intake Total 576 ml 1628 ml 240 ml Output Total 1400 ml 1750 ml 800 ml Balance -824 ml -122 ml -560 ml Intake Oral 480 ml 720 ml 240 ml IV Total 96 ml 908 ml Output Urine Total 1400 ml 1750 ml 800 ml # Bowel Movements 0 0 2 (Francine Champion) Result Diagram: 05/08/16 0659 05/09/16 0458 Other Results Active Medications Albumin Human (Albumin 25% Inj) 25 gm ONCE ONCE IV Last administered on t 16:51; Admin Dose 25 GM; Start 05/08/16 at 15:00; Stop 05/08/16 at 15:01; Status DC Medications and IVs Last Impressions Renal Ultrasound 05/03/16 0000 Signed Impressions: Service Date/Time: Tuesday, May 03, 2016 14:18 - CONCLUSION: 1. Bilateral echogenic kidneys suggesting medical renal disease. 2. Ascites diffusely throughout the abdomen. 3. No findings to indicate renal obstruction. Syed Rodriguez MD Chest X-Ray 05/02/16 1141 Signed Impressions: Service Date/Time: Monday, May 02, 2016 11:53 - CONCLUSION: Mild bibasilar infiltrates. Rajinder Vu MD Lower Extremity Ultrasound 05/02/16 0000 Signed Impressions: Service Date/Time: Monday, May 02, 2016 15:40 - CONCLUSION: 1. Negative for deep venous thrombosis. Edematous changes present in the soft tissues. Carlos Jeong MD Abdomen/Pelvis CT 05/02/16 0000 Signed Impressions: Service Date/Time: Monday, May 02, 2016 17:30 - CONCLUSION: 1. Moderate anasarca with bilateral pleural effusions, right greater than left and mild ascites. Questionable liver cirrhosis. 2. No obstruction or free air. 3. Inferior vena cava filter present. Bladder decompressed by Lozano. Carlos Jeong MD (Francine Champion) ROS General: Fatigue (generalized), Weakness, Other (10 point ROS done. Positives noted with fatigue weakness some edema, cough, shortness of breath. Her systems negative or unremarkable) Cardiac: Edema (pedal, trace to 1+ but improving) Pulmonary: Cough, SOB (Francine Champion) Physical Exam Physical Exam PHYSICAL EXAMINATION GENERAL: This is a well-developed, ill appearing male who appears to be tired. He is alert and awake, responding to verbal stimuli. HEAD: Normocephalic without any lesion or mass noted. Facial features appear symmetric. OROPHARYNGEAL: Oropharynx without erythema or edema., Dry NECK: Supple. No nuchal rigidity or lymphadenopathy. Trachea midline without deviation. CARDIAC: Regular rhythm, regular rate, S1 and S2 are heard. Murmur []; no gallops or rubs. LUNGS: No rhonchi heard, decreased breath sounds bilateral continue. Up into the mid lobes ABDOMEN: Soft, nontender, no organomegaly or masses. Bowel sounds are heard in all four quadrants. No rebound. EXTREMITIES: Trace to 1+ edema. Pulses equal bilateral. No cyanosis. NEUROLOGICAL: Patient mood and affect appropriate, slow moving. No focal deficit SKIN:Warm and moist, dry, color pale with yellow tint Objective Remarks I'm doing okay I guess. Still weak (Francine Champion) A/P Assessment and Plan Assessment and Plan (1) Sepsis (2) Elevated troponin (3) Pneumonia (4) Kidney failure, acute (5) History of GI bleed (6) History of CVA (cerebrovascular accident) (7) Hypertension (8) Hyperlipidemia (9) CAD (coronary artery disease) (10) Dehydration (11) Hypokalemia (12) Anasarca (13) Leukocytosis (14) Splenomegaly (15) Anemia Plan Sepsis, possibly secondary to a pulmonary process as patient has leukocytosis with bibasilar infiltrate Continue with cautious hydration, leukocytosis trending back up with white count 30.1 chest x-ray ordered today for comparison Afebrile, UA ordered Patient still on azithromycin and Rocephin Peripheral edema, now with anasarca, ascites, recent diagnosis of splenomegaly, rule out myeloproliferative disease -hematology for evaluation-Dr. 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 Medical management for now Acute renal injury, worsening hydrate cautiously, normal saline at 42 one hour Continues with renal failure, no positive changes and blood work. Discussed with patient today options of dialysis. He is agreeable. -Plan for nephrology consult, appreciate input Anemia stable at 8.5 Constipation -bowel regimen, large BM yesterday, monitor Elevated troponin, denies any chest pain, likely stress-induced, History of coronary artery disease -Continue with serial cardiac enzymes, low positive Consult cardiology appreciate input, will do any workup as an outpatient after patient stabilizes. Probable demand ischemia. Anemia, history of previous GI bleed Stable for now, HTN, stable -continue home meds Hx CVA, stable -continue home meds Up in chair today. Less pain, appetite good. in room. and discussing options for the future and quality of life. Still willing for dialysis if absolutely necessary We'll discuss with Dr. Owens, with special attention to WBC count Full code full aggressive care. Discharge Planning Initiated, Discussed With: Nurse, Family (patient and ), Other (Dr. Owens patient seen on his behalf,) (Francine Champion) Assessment and Plan Patient seen and examined as above [id number] time spent with patient and at bedside Labs reviewed Discussed with patient and at bedside possible paracentesis tomorrow Plan of care discussed with [employer] Discussed with patient (Stacie Owens MD) Francine Champion May 09, 2016 14:19 Stacie Owens MD May 09, 2016 15:12
--- NOTE | 2016-05-09 14:43 | HHI.NPPN ---
Subjective Complaints: Shortness of Breath General Problems: Edema Renal Failure: Chronic, Acute Review of Systems General Constitutional: Fatigue Respiratory Lungs: SOB Cardiovascular Cardiac: Edema Objective Data Data 05/08/16 05/09/16 19:00 07:00 Intake Total 1628 ml 240 ml Output Total 1750 ml 800 ml Balance -122 ml -560 ml Intake Oral 720 ml 240 ml IV Total 908 ml Output Urine Total 1750 ml 800 ml # Bowel Movements 0 2 Vital Signs Date Time Temp Pulse Resp B/P Pulse Ox O2 Delivery O2 Flow Rate FiO2 05/09/16 12:00 98.4 80 16 120/70 98 05/09/16 12:00 81 05/09/16 11:00 74 05/09/16 10:00 82 05/09/16 09:00 80 05/09/16 08:00 79 05/09/16 08:00 98.2 81 18 117/66 97 05/09/16 07:00 80 05/09/16 06:31 82 05/09/16 05:00 80 05/09/16 04:12 98.2 79 130/74 95 05/09/16 04:00 80 05/09/16 03:00 74 05/09/16 02:15 98 Venturi Mask 3.00 28 05/09/16 02:00 86 05/09/16 01:00 74 05/09/16 00:41 97.3 89 126/67 95 05/09/16 00:00 80 05/08/16 23:00 92 05/08/16 22:00 86 05/08/16 21:59 97.9 82 129/70 94 05/08/16 21:00 82 05/08/16 20:00 80 05/08/16 19:00 88 05/08/16 18:20 87 05/08/16 17:00 86 05/08/16 16:17 87 05/08/16 15:00 97.6 90 16 112/72 96 05/08/16 15:00 80 -: 05/08/16 0659 05/09/16 0458 Tubes & Lines: Lozano Physical Exam General Appearance: Well Developed, Well Nourished, No Acute Distress, Comfortable Throat Throat Exam: Oral Mucosa [place] & Moist Pulmonary Resp Exam: Breath Sounds Equal, No Distress, Crackles Cardiology CV Exam: Regular, Normal Sinus Rhythm, Good Perfusion Gastrointestinal/Abdomen GI Exam: Non-Tender, Bowel Sounds Present Musculoskeletal MS Exam: Joints Intact, Normal Tone Integumentary Skin Exam: Warm, Dry Extremeties Extremities Exam: Pedal Pulses Palpable, Moderate Edema, Pitting Edema Neurologic Neuro Exam: Alert, Awake, Oriented, Speech Clear, Moving All Extremities Psychiatric Psych Exam: Appropriate Responses Assessment/Plan Discussed Condition With: Patient, Spouse Electrolyte Assessment: Hypokalemia Problem List: (1) Kidney failure, acute Plan: INEZ thought to be due to CHF exacerbation with decreased renal perfusion renal function has improved diuresing well with Bumex gtt decreased to 1 mg/hr going for Paracentesis in am dc bumex drip by am Hypokalemia K been replaced he is non oliguric, monitor urine output, has Lozano monitor electrolytes and replace as needed, hypokalemic continues, on po and IV replacement quantify proteinuria, serologies including OLENA, ANCA, in progress; hepatitis B/ C negative; complement levels low/normal discussed with pt and follow BMP 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 however Plavix needs to be held for 5 days, last dose given 05/04; 05/10 would be soonest it can be done will need PT/INR and CBC the day of procedure per [place] Problem Qualifiers (1) Kidney failure, acute: Qualified Code: N17.9 - Acute renal failure, unspecified acute renal failure type (2) Hypertension: Qualified Code: I10 - Essential hypertension (3) Leukocytosis: Qualified Code: D72.825 - Bandemia (4) Anemia: Qualified Code: D64.9 - Anemia, unspecified type Huang,Sajid MD May 09, 2016 14:43
[2016-05-09] MEDS: AZITHROMYCIN INJ 500 MG in SODIUM CHLOR 0.9% 250 ML INJ 250 ML IV SCH (14:50)
--- NOTE | 2016-05-09 15:21 | RADRPT ---
EXAM DATE/TIME: 05/09/2016 14:37 [facility] COMPARISON: CHEST SINGLE AP, May 02, 2016, 11:53. INDICATIONS : Short of Breath, Evaluate for Pneumonia. MEDICAL HISTORY : Hypercholesterolemia. Hypertension. Arthritis. Skin cancer. Meningioma. Longo's esophagus. cva. cad . pulmonary embolism. chest pain. dyspnea. gerd. ulcer. anticoagulant therapy, plavix. SURGICAL HISTORY : Tonsillectomy. CABG. Coronary artery stent. Bilateral cataract surgery. Left temporal mass removal. C ardiac cath. Appendectomy. Cholecystectomy. Back surgery. Left knee scope. Craniotomy. ENCOUNTER: Subsequent ACUITY: 1 month PAIN SCORE: 0/10 LOCATION: Bilateral chest FINDINGS: Single AP view of the chest. Median sternotomy wires. Moderate cardiac silhouette enlargement unchang ed. Increase in bilateral hazy opacity at the lung bases and pulmonary vasculature indistinctness. No evidence of pneumothorax. CONCLUSION: Evidence of increased pulmonary vascular congestion/mild pulmonary edema. Persistent cardiac silhouet te enlargement. Enrike Bhat MD on May 09, 2016 at 15:18 Board Certified Radiologist. This report was verified electronically.
[2016-05-09] MEDS: ACETAMINOPHEN/HYDROcodone 325 MG/5 MG TAB PO PRN ×2 (17:14→22:05)
[2016-05-10] VITALS (25 sets, daily range): BP systolic 96–122; BP diastolic 48–68; PULSE 62–84; RESP 18–20; TEMP 97.7–98.3; O2SAT 95–99
[2016-05-10 03:56] LABS: MYELOPEROXIDASE LESS THAN 1.0 AI (<1.0); PROTEINASE-3 LESS THAN 1.0 AI (<1.0)
[2016-05-10 08:07] LABS: BICARBONATE 28.2 MEQ/L (21.0-32.0)
[2016-05-10 08:12] LABS: POTASSIUM 2.8 MEQ/L (3.5-5.1)
--- NOTE | 2016-05-10 08:46 | RADRPT ---
EXAM DATE/TIME: 05/10/2016 07:45 [facility] COMPARISON: No previous studies available for comparison. INDICATIONS : Ascites. MEDICAL HISTORY : Hypertension. Longo's esophogus. gi disorder. cardiovascular problems. cva. cad. SURGICAL HISTORY : Tonsillectomy. Appendectomy. CABG. Craniotomy/meningioma. Cardiac catheteriza tion. Coronary stents. Greenfilter. ENCOUNTER: Initial ACUITY: 1 week PAIN SCORE: 8/10 LOCATION: Four quadrant abdomen. AREA EVALUATED: Upper and lower abdomen. FINDINGS: Imaging of the abdomen and pelvis was performed to evaluate for ascites for possible paracentesis. CONCLUSION: There is not enough fluid for safe paracentesis. Clifford Rodriguez MD FACR on May 10, 2016 at 8:42 Board Certified Radiologist. This report was verified electronically.
[2016-05-10] MEDS: ISOSORBIDE MONONITRATE 30 MG TAB PO SCH (09:32)
[2016-05-10] MEDS: SODIUM CHLORIDE 0.9% FLUSH 5 ML FLUSH FLUSH SCH ×2 (09:32→20:47)
[2016-05-10] MEDS: ACETAMINOPHEN/HYDROcodone 325 MG/5 MG TAB PO PRN ×2 (09:38→16:17)
[2016-05-10] MEDS: POTASSIUM CHLORIDE 20 MEQ CONTROLLED RELEASE TAB PO SCH ×2 (09:38→20:46)
[2016-05-10] MEDS: CARVEDILOL 3.125 MG TAB PO SCH (09:38)
[2016-05-10] MEDS: PANTOPRAZOLE SOD 20 MG DELAYED RELEASE TAB PO SCH (09:38)
[2016-05-10] MEDS: FERROUS SULFATE 325 MG (65 MG ELEMENTAL IRON) TAB PO SCH ×2 (09:39→20:46)
[2016-05-10] MEDS: POLYETHYLENE GLYCOL 17 GM PKG PO SCH (09:39)
[2016-05-10] MEDS: IRON SUCROSE INJ 100 MG in SODIUM CHLORIDE 0.9% INJ 100 ML IV SCH (09:39)
[2016-05-10] MEDS ORDERED: POTASSIUM CHLORIDE 20 MEQ CONTROLLED RELEASE TAB PO ONE ×2 (10:00→16:45)
--- NOTE | 2016-05-10 14:07 | HHI.PR ---
Subjective Remarks No chest pain BM yesterday mild SOB, low volumes, denies symptoms Generalized weakness, more alert No cough in rm (Francine Champion) Objective Objective Results - Vital Signs Date Time Temp Pulse Resp B/P Pulse Ox O2 Delivery O2 Flow Rate FiO2 05/10/16 13:00 74 05/10/16 12:00 70 05/10/16 11:03 97.8 74 20 113/66 97 05/10/16 11:00 77 05/10/16 10:38 18 05/10/16 10:00 76 05/10/16 09:00 74 05/10/16 08:00 97 Room Air 05/10/16 08:00 66 05/10/16 08:00 72 05/10/16 08:00 97.7 66 20 122/63 97 05/10/16 07:00 66 05/10/16 06:04 84 05/10/16 05:00 70 05/10/16 04:00 98.1 67 18 109/68 96 05/10/16 04:00 67 05/10/16 04:00 Nasal Cannula 2.00 05/10/16 03:00 71 05/10/16 02:00 69 05/10/16 01:00 78 05/10/16 00:00 65 05/10/16 00:00 Nasal Cannula 2.00 05/10/16 00:00 98.0 65 18 96/48 95 05/09/16 23:00 78 05/09/16 22:00 69 05/09/16 21:00 90 05/09/16 20:00 98.1 75 18 116/63 96 05/09/16 20:00 75 05/09/16 18:00 82 05/09/16 17:00 89 05/09/16 16:00 81 05/09/16 16:00 98.4 89 16 97/62 97 05/09/16 15:00 82 I/O 05/09/16 05/09/16 05/09/16 05/10/16 05/10/16 05/10/16 07:00 15:00 23:00 07:00 15:00 23:00 Intake Total 240 ml 1000 ml 440 ml Output Total 800 ml 800 ml 900 ml Balance -560 ml 200 ml -460 ml Intake Oral 240 ml 480 ml 400 ml IV Total 520 ml 40 ml Output Urine Total 800 ml 800 ml 900 ml # Bowel Movements 2 1 1 (Francine Champion) Result Diagram: 05/08/16 0659 05/10/16 0654 ROS General: Fatigue, Weakness, Other Pulmonary: Cough (occasional), SOB (mild) GI: Other (ascites mild) (Francine Champion) Physical Exam Physical Exam PHYSICAL EXAMINATION GENERAL: This is a well-developed, well-nourished male who appears to be in no acute distress. He is alert and awake, wants to go home HEAD: Normocephalic without any lesion or mass noted. Facial features appear symmetric. OROPHARYNGEAL: Oropharynx without erythema or edema. NECK: Supple. No nuchal rigidity or lymphadenopathy. Trachea midline without deviation. CARDIAC: Regular rhythm, regular rate, S1 and S2 are heard.distant LUNGS: Decreased breath sounds to auscultation bilaterally. None wheeze, no rhonchi No use of accessory muscles on inspiration or expiration. ABDOMEN: Soft, nontender, typanic, round, fluid wave mild, Bowel sounds are heard in all four quadrants EXTREMITIES: 1+ edema bilateral. Pulses equal bilateral. No cyanosis. Chronic lower back pain, scrotal edema NEUROLOGICAL: Patient mood and affect appropriate, restless, . No focal deficit SKIN:Warm and moist , abel catheter. Objective Remarks I'm so tired at this hospital and wanted to go home. (Francine Champion) A/P Assessment and Plan Assessment and Plan (1) Sepsis (2) Elevated troponin (3) Pneumonia (4) Kidney failure, acute (5) History of GI bleed (6) History of CVA (cerebrovascular accident) (7) Hypertension (8) Hyperlipidemia (9) CAD (coronary artery disease) (10) Dehydration (11) Hypokalemia (12) Anasarca (13) Leukocytosis (14) Splenomegaly (15) Anemia Plan Sepsis, possibly secondary to a pulmonary process bibasilar infiltrate worsened from chest x-ray 9-19 no acute shortness of breath, low air volumes Continue with cautious hydration, leukocytosis trending back up Afebrile, Patient still on azithromycin and Rocephin UA pending Peripheral edema, now with anasarca, ascites, recent diagnosis of splenomegaly, rule out myeloproliferative disease -hematology for evaluation-Dr. 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 Positive for scrotal edema Medical management for now Acute renal injury, worsening hydrate cautiously, Continues with renal failure, no positive changes and blood work. At this time and has been state no dialysis. -Plan for nephrology consult, following at this time with medical management Constipation -bowel regimen, large BM yesterday, monitor Elevated troponin, denies any chest pain, likely stress-induced, History of coronary artery disease -Continue with serial cardiac enzymes, low positive Consult cardiology appreciate input, will do any workup as an outpatient after patient stabilizes. Probable demand ischemia. Medical management Anemia, history of previous GI bleed Stable for now, HTN, stable -continue home meds Hx CVA, stable -continue home meds And are very restless to discharge from hospital if no further testing is to be done. Discussed the degree of patient's illness, and safety taking patient home. We'll remove Abel and evaluate patient's voiding. Ultrasound done, but no paracentesis at this time. Hypokalemia, extra potassium given today. We'll discuss with Dr. Owens, current feelings of and . He will discuss with him further. Full code full aggressive care. Discharge Planning Initiated, Discussed With: Nurse, Family (patient and ), Other (Dr. Owens patient seen on his behalf,) (Francine Champion) Assessment and Plan Patient seen and examined as above Labs reviewed Appreciate nephrology's input Is still on Bumex drip hopefully DC tomorrow Monitor electrolytes Labs for tomorrow Discussed with patient and at bedside Plan of care discussed with [facility] [place] discussed with RN (Stacie Owens MD) Francine Champion May 10, 2016 14:07 Stacie Owens MD May 10, 2016 16:31
[2016-05-10] MEDS: cefTRIAXone INJ 1,000 MG in SODIUM CHLORIDE 0.9% INJ 100 ML IV SCH (14:21)
[2016-05-10] MEDS: AZITHROMYCIN INJ 500 MG in SODIUM CHLOR 0.9% 250 ML INJ 250 ML IV SCH (16:06)
--- NOTE | 2016-05-10 17:05 | HHI.NPPN ---
Subjective Complaints: Shortness of Breath General Problems: Edema Renal Failure: Chronic, Acute Additional Remarks Patient is alert, has abd. distension, no SOB. Review of Systems General Constitutional: Fatigue Respiratory Lungs: SOB Cardiovascular Cardiac: Edema Objective Data Data 05/09/16 05/10/16 19:00 07:00 Intake Total 1000 ml 440 ml Output Total 800 ml 900 ml Balance 200 ml -460 ml Intake Oral 480 ml 400 ml IV Total 520 ml 40 ml Output Urine Total 800 ml 900 ml # Bowel Movements 1 1 Vital Signs Date Time Temp Pulse Resp B/P Pulse Ox O2 Delivery O2 Flow Rate FiO2 05/10/16 15:00 71 05/10/16 15:00 98.3 71 20 113/66 99 05/10/16 14:00 74 05/10/16 13:00 74 05/10/16 12:00 70 05/10/16 11:03 97.8 74 20 113/66 97 05/10/16 11:00 77 05/10/16 10:38 18 05/10/16 10:00 76 05/10/16 09:00 74 05/10/16 08:00 97 Room Air 05/10/16 08:00 66 05/10/16 08:00 72 05/10/16 08:00 97.7 66 20 122/63 97 05/10/16 07:00 66 05/10/16 06:04 84 05/10/16 05:00 70 05/10/16 04:00 98.1 67 18 109/68 96 05/10/16 04:00 67 05/10/16 04:00 Nasal Cannula 2.00 05/10/16 03:00 71 05/10/16 02:00 69 05/10/16 01:00 78 05/10/16 00:00 65 05/10/16 00:00 Nasal Cannula 2.00 05/10/16 00:00 98.0 65 18 96/48 95 05/09/16 23:00 78 05/09/16 22:00 69 05/09/16 21:00 90 05/09/16 20:00 98.1 75 18 116/63 96 05/09/16 20:00 75 05/09/16 18:00 82 -: 05/08/16 0659 05/10/16 1520 Tubes & Lines: Lozano Physical Exam General Appearance: No Acute Distress, Comfortable Throat Throat Exam: Oral Mucosa [place] & Moist Pulmonary Resp Exam: Breath Sounds Equal, No Distress, Crackles Cardiology CV Exam: Regular, Normal Sinus Rhythm, Good Perfusion Gastrointestinal/Abdomen GI Exam: Non-Tender, Bowel Sounds Present Musculoskeletal MS Exam: Joints Intact, Normal Tone Integumentary Skin Exam: Warm, Dry Extremeties Extremities Exam: Moderate Edema, Pitting Edema, Dependent Edema Neurologic Neuro Exam: Alert, Awake, Oriented, Speech Clear, Moving All Extremities Psychiatric Psych Exam: Appropriate Responses Assessment/Plan Discussed Condition With: Patient, Spouse Electrolyte Assessment: Hypokalemia Problem List: (1) Kidney failure, acute Plan: INEZ thought to be due to CHF exacerbation with decreased renal perfusion Hypokalemia K been replaced. Repeat K is 3.1, on PO supplement now. he is non oliguric, monitor urine output, has Lozano monitor electrolytes and replace as needed, hypokalemic continues, on po and IV replacement quantify proteinuria, serologies including OLENA, ANCA, in progress; hepatitis B/ C negative; complement levels low/normal. Bumex is stopped and has good urine out put. U/S abd. noted, not enough ascites. 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
[2016-05-11] VITALS (22 sets, daily range): BP systolic 105–133; BP diastolic 59–73; PULSE 56–92; RESP 16–20; TEMP 97.2–98.3; O2SAT 95–99
[2016-05-11] MEDS: ZOLPIDEM TARTRATE 5 MG TAB PO PRN (00:25)
[2016-05-11 06:49] LABS: BICARBONATE 25.2 MEQ/L (21.0-32.0); POTASSIUM 3.6 MEQ/L (3.5-5.1)
--- NOTE | 2016-05-11 09:52 | HHI.NPPN ---
Subjective Complaints: Shortness of Breath General Problems: Edema Renal Failure: Chronic, Acute Additional Remarks Patient is alert, sitting on chair, feeling better. Review of Systems General Constitutional: Fatigue Respiratory Lungs: SOB Cardiovascular Cardiac: Edema Objective Data Data 05/10/16 05/11/16 19:00 07:00 Intake Total 720 ml 360 ml Output Total 1150 ml 125 ml Balance -430 ml 235 ml Intake Oral 720 ml 360 ml Output Urine Total 1150 ml 125 ml # Voids 2 # Bowel Movements 1 Vital Signs Date Time Temp Pulse Resp B/P Pulse Ox O2 Delivery O2 Flow Rate FiO2 05/11/16 06:00 64 05/11/16 05:00 74 05/11/16 04:00 67 05/11/16 04:00 97.5 62 16 127/63 97 05/11/16 03:00 64 05/11/16 02:00 56 05/11/16 01:00 66 05/11/16 00:00 66 05/11/16 00:00 97.3 67 20 113/59 99 05/10/16 23:00 64 05/10/16 22:00 73 05/10/16 21:00 66 05/10/16 20:00 75 05/10/16 19:00 98.0 65 20 117/66 97 05/10/16 19:00 97 Room Air 05/10/16 19:00 65 05/10/16 18:00 72 05/10/16 17:00 68 05/10/16 16:00 62 05/10/16 15:00 71 05/10/16 15:00 98.3 71 20 113/66 99 05/10/16 14:00 74 05/10/16 13:00 74 05/10/16 12:00 70 05/10/16 11:03 97.8 74 20 113/66 97 05/10/16 11:00 77 05/10/16 10:38 18 05/10/16 10:00 76 -: 05/08/16 0659 05/11/16 0455 Tubes & Lines: Lozano Physical Exam General Appearance: No Acute Distress, Comfortable Throat Throat Exam: Oral Mucosa [place] & Moist Pulmonary Resp Exam: Breath Sounds Equal, No Distress, Crackles Cardiology CV Exam: Regular, Normal Sinus Rhythm, Good Perfusion Gastrointestinal/Abdomen GI Exam: Non-Tender, Bowel Sounds Present Musculoskeletal MS Exam: Joints Intact, Normal Tone Integumentary Skin Exam: Warm, Dry Extremeties Extremities Exam: Moderate Edema, Pitting Edema, Dependent Edema Neurologic Neuro Exam: Alert, Awake, Oriented, Speech Clear, Moving All Extremities Psychiatric Psych Exam: Appropriate Responses Assessment/Plan Discussed Condition With: Patient, Spouse Electrolyte Assessment: Hypokalemia Problem List: (1) Kidney failure, acute Plan: INEZ thought to be due to CHF exacerbation with decreased renal perfusion Hypokalemia K been replaced. Repeat K is 3.1, on PO supplement now. he is non oliguric, monitor urine output, has Lozano monitor electrolytes and replace as needed, hypokalemic continues, on po and IV replacement quantify proteinuria, serologies including OLENA, ANCA, in progress; hepatitis B/ C negative; complement levels low/normal. Bumex is stopped and has good urine out put. Creatinine increase now to 2.7. On K replacement. 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 Hematology following, WBC still elevated. (7) Ascites Problem Qualifiers (1) Kidney failure, acute: Qualified Code: N17.9 - Acute renal failure, unspecified acute renal failure type (2) Hypertension: Qualified Code: I10 - Essential hypertension (3) Leukocytosis: Qualified Code: D72.825 - Bandemia (4) Anemia: Qualified Code: D64.9 - Anemia, unspecified type Cristian Conn MD May 11, 2016 09:52
[2016-05-11] MEDS: CARVEDILOL 3.125 MG TAB PO SCH (09:56)
[2016-05-11] MEDS: FERROUS SULFATE 325 MG (65 MG ELEMENTAL IRON) TAB PO SCH ×2 (09:58→21:17)
[2016-05-11] MEDS: PANTOPRAZOLE SOD 20 MG DELAYED RELEASE TAB PO SCH (09:58)
[2016-05-11] MEDS: POLYETHYLENE GLYCOL 17 GM PKG PO SCH (09:58)
[2016-05-11] MEDS: SODIUM CHLORIDE 0.9% FLUSH 5 ML FLUSH FLUSH SCH ×2 (09:58→21:18)
[2016-05-11] MEDS: ISOSORBIDE MONONITRATE 30 MG TAB PO SCH (09:58)
[2016-05-11] MEDS: POTASSIUM CHLORIDE 20 MEQ CONTROLLED RELEASE TAB PO SCH ×2 (09:58→21:18)
[2016-05-11] MEDS: IRON SUCROSE INJ 100 MG in SODIUM CHLORIDE 0.9% INJ 100 ML IV SCH (10:04)
[2016-05-11] MEDS: AZITHROMYCIN INJ 500 MG in SODIUM CHLOR 0.9% 250 ML INJ 250 ML IV SCH (13:56)
[2016-05-11] MEDS: cefTRIAXone INJ 1,000 MG in SODIUM CHLORIDE 0.9% INJ 100 ML IV SCH (13:56)
--- NOTE | 2016-05-11 14:28 | HHI.PR ---
Subjective Remarks Patient has edema Still feeling weak and tired No nausea vomiting No abdominal pain no chest pain No shortness of breath had a bowel movement No genitourinary symptoms as per patient Review of system for 10 point system otherwise unremarkable Objective Objective Results - Vital Signs Date Time Temp Pulse Resp B/P Pulse Ox O2 Delivery O2 Flow Rate FiO2 05/11/16 11:00 98.2 66 16 105/60 98 05/11/16 08:00 97.8 70 18 133/73 98 05/11/16 08:00 98 Room Air 05/11/16 06:00 64 05/11/16 05:00 74 05/11/16 04:00 67 05/11/16 04:00 97.5 62 16 127/63 97 05/11/16 03:00 64 05/11/16 02:00 56 05/11/16 01:00 66 05/11/16 00:00 66 05/11/16 00:00 97.3 67 20 113/59 99 05/10/16 23:00 64 05/10/16 22:00 73 05/10/16 21:00 66 05/10/16 20:00 75 05/10/16 19:00 98.0 65 20 117/66 97 05/10/16 19:00 97 Room Air 05/10/16 19:00 65 05/10/16 18:00 72 05/10/16 17:00 68 05/10/16 16:00 62 05/10/16 15:00 71 05/10/16 15:00 98.3 71 20 113/66 99 I/O 05/10/16 05/10/16 05/10/16 05/11/16 05/11/16 05/11/16 07:00 15:00 23:00 07:00 15:00 23:00 Intake Total 440 ml 720 ml 360 ml Output Total 900 ml 1150 ml 125 ml Balance -460 ml -430 ml 235 ml Intake Oral 400 ml 720 ml 360 ml IV Total 40 ml Output Urine Total 900 ml 1150 ml 125 ml # Voids 2 # Bowel Movements 1 1 Result Diagram: 05/08/16 0659 05/11/16 0455 Imaging Last Impressions Chest X-Ray 05/02/16 1141 Signed Impressions: Service Date/Time: Monday, May 02, 2016 11:53 - CONCLUSION: Mild bibasilar infiltrates. Rajinder J. Siragusa, MD Other Results Laboratory Tests Test 05/10/16 05/11/16 15:20 04:55 Potassium Level 3.1 3.6 Sodium Level 135 Chloride Level 95 Carbon Dioxide Level 25.2 Anion Gap 15 Blood Urea Nitrogen 59 Creatinine 2.78 Estimat Glomerular Filtration 22 Rate Random Glucose 117 Calcium Level 8.7 Physical Exam Physical Exam GENERAL: This is a well-nourished, well-developed patient, in no apparent distress. SKIN: Pale, cool, dry, anasarca noted. HEAD: Atraumatic. Normocephalic. No temporal or scalp tenderness. EYES: Extraocular motions intact. No scleral icterus. No injection or drainage. ENT: Throat without erythema, tonsillar hypertrophy or exudate. Airway patent. NECK: Trachea midline. Supple, nontender, no meningeal signs. CARDIOVASCULAR: Regular rate and rhythm with soft murmurs. No gallops, or rubs. RESPIRATORY: Clear to auscultation. Breath sounds equal bilaterally. No wheezes , rales, or rhonchi. GASTROINTESTINAL: Protuberant, with ascites, flank edema. Bowel sounds hypoactive, ? splenomegaly. MUSCULOSKELETAL: Extremities without clubbing, cyanosis. No joint tenderness, effusion noted. No calf tenderness. Negative Homans sign bilaterally. Bilat pedal edema feet to thighs 2+ NEUROLOGICAL: Awake, oriented x 3. Following commands, no focal deficits. Poor historian. A/P Assessment and Plan (1) Sepsis (2) Elevated troponin (3) Pneumonia (4) Kidney failure, acute (5) History of GI bleed (6) History of CVA (cerebrovascular accident) (7) Hypertension (8) Hyperlipidemia (9) CAD (coronary artery disease) (10) Dehydration (11) Hypokalemia (12) Anasarca (13) Leukocytosis (14) Splenomegaly (15) Anemia Sepsis, possibly secondary to a pulmonary process bibasilar infiltrate worsened from chest x-ray 9-19 no acute shortness of breath, low air volumes Continue with cautious hydration, leukocytosis trending back up Afebrile, Patient still on azithromycin and Rocephin Peripheral edema, better anasarca, ascites improved, recent diagnosis of splenomegaly, rule out myeloproliferative disease -hematology for evaluation-Dr. 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 Positive for scrotal edema Medical management for now Acute renal injury, worsening hydrate cautiously, Continues with renal failure, no positive changes and blood work. At this time and has been state no dialysis. -nephrology consult, following at this time with medical management Constipation -bowel regimen, now or constipation Elevated troponin, denies any chest pain, likely stress-induced, History of coronary artery disease -serial cardiac enzymes, low positive Consult cardiology appreciate input, will do any workup as an outpatient after patient stabilizes. Probable demand ischemia. Medical management Anemia, history of previous GI bleed Stable for now, HTN, stable -continue home meds Hx CVA, stable -continue home meds And are very restless to discharge from hospital if no further testing is to be done. Discussed the degree of patient's illness, and safety taking patient home. We'll remove Lozano and evaluate patient's voiding. Ultrasound done, but no paracentesis at this time. Hypokalemia, improved We will monitor off of Bumex drip Labs for tomorrow Continue physical therapy discuss with patient and . Discussed with RN DC planning Discussed With: Nurse, Family (patient and ), Other (Dr. Owens patient seen on his behalf,) Stacie Owens MD May 11, 2016 14:28
[2016-05-11] MEDS: ACETAMINOPHEN/HYDROcodone 325 MG/5 MG TAB PO PRN (21:17)
[2016-05-12] VITALS (22 sets, daily range): BP systolic 112–119; BP diastolic 55–68; PULSE 62–76; RESP 16–20; TEMP 97.4–97.5; O2SAT 98–100
[2016-05-12] MEDS: ACETAMINOPHEN/HYDROcodone 325 MG/5 MG TAB PO PRN ×2 (04:31→20:24)
[2016-05-12 05:39] LABS: BICARBONATE 25.3 MEQ/L (21.0-32.0); POTASSIUM 3.7 MEQ/L (3.5-5.1)
[2016-05-12] MEDS: IRON SUCROSE INJ 100 MG in SODIUM CHLORIDE 0.9% INJ 100 ML IV SCH (09:00)
[2016-05-12] MEDS: PANTOPRAZOLE SOD 20 MG DELAYED RELEASE TAB PO SCH (09:02)
[2016-05-12] MEDS: POTASSIUM CHLORIDE 20 MEQ CONTROLLED RELEASE TAB PO SCH ×2 (09:02→20:24)
[2016-05-12] MEDS: POLYETHYLENE GLYCOL 17 GM PKG PO SCH (09:02)
[2016-05-12] MEDS: FERROUS SULFATE 325 MG (65 MG ELEMENTAL IRON) TAB PO SCH ×2 (09:02→20:24)
[2016-05-12] MEDS: SODIUM CHLORIDE 0.9% FLUSH 5 ML FLUSH FLUSH SCH ×2 (09:02→20:24)
[2016-05-12] MEDS: ISOSORBIDE MONONITRATE 30 MG TAB PO SCH (09:02)
[2016-05-12] MEDS: CARVEDILOL 3.125 MG TAB PO SCH (09:02)
--- NOTE | 2016-05-12 11:23 | HHI.PR ---
Subjective Interval History awake alert still pretty lethargic no fever edematous at bed side multiple bmS YESTERDAY Vitals/Results Intake & Output 05/11/16 05/11/16 05/12/16 15:00 23:00 07:00 Intake Total 980 ml Output Total 100 ml Balance 880 ml Intake Oral 780 ml IV Total 200 ml Output Urine Total 100 ml # Voids 1 # Bowel Movements 2 Vital Signs Vital Signs Date Time Temp Pulse Resp B/P Pulse Ox O2 Delivery O2 Flow Rate FiO2 05/12/16 07:54 100 Room Air 05/12/16 07:54 97.4 66 16 114/55 100 05/12/16 04:00 63 05/12/16 03:00 97.4 65 18 118/67 100 05/11/16 23:00 98.3 77 18 119/62 95 05/11/16 19:00 97.6 67 18 123/71 98 05/11/16 19:00 70 05/11/16 19:00 98 Room Air 05/11/16 19:00 69 05/11/16 18:44 86 05/11/16 18:00 69 05/11/16 17:00 90 05/11/16 16:00 82 05/11/16 15:00 97.2 59 18 126/60 97 05/11/16 15:00 70 05/11/16 14:00 82 05/11/16 13:00 76 05/11/16 12:00 92 CBC/BMP: 05/08/16 0659 05/12/16 0455 Lab Results Laboratory Tests Test 05/12/16 04:55 Sodium Level 136 MEQ/L Potassium Level 3.7 MEQ/L Chloride Level 99 MEQ/L Carbon Dioxide Level 25.3 MEQ/L Anion Gap 12 MEQ/L Blood Urea Nitrogen 62 MG/DL Creatinine 2.79 MG/DL Estimat Glomerular Filtration 22 ML/MIN Rate Random Glucose 127 MG/DL Calcium Level 8.5 MG/DL Physical Exam General General Appearance: No Acute Distress, Comfortable Throat Throat Exam: Oral Mucosa [place] & Moist Pulmonary Resp Exam: Breath Sounds Equal, No Distress, Crackles Cardiology CV Exam: Regular, Normal Sinus Rhythm, Good Perfusion Gastrointestinal/Abdomen GI Exam: Non-Tender, Bowel Sounds Present Musculoskeletal MS Exam: Joints Intact, Normal Tone Integumentary Skin Exam: Warm, Dry Extremeties Extremities Exam: Moderate Edema, Pitting Edema, Dependent Edema Neurologic Neuro Exam: Alert, Awake, Oriented, Speech Clear, Moving All Extremities Psychiatric Psych Exam: Appropriate Responses Assessment/Plan Assessment/Plan A/P Assessment and Plan (1) Sepsis (2) Elevated troponin (3) Pneumonia (4) Kidney failure, acute (5) History of GI bleed (6) History of CVA (cerebrovascular accident) (7) Hypertension (8) Hyperlipidemia (9) CAD (coronary artery disease) (10) Dehydration (11) Hypokalemia (12) Anasarca (13) Leukocytosis (14) Splenomegaly (15) Anemia Sepsis resolved leukocytosis trending back up ? Myeloproliferative disorder Afebrile, d/c azithromycin continue Rocephin Peripheral edema, better anasarca, ascites improved, recent diagnosis of splenomegaly -hematology for evaluation-Dr. Martin s/p bone marrow biopsy today, Myeloproliferative disorder Medical management for now Acute renal injury, cr 2.7 -nephrology consult, following at this time with medical management off bumex will d/w nephrology re further plans Constipation resolved,now having diarrhea with Miralax d/c miralax prn MOM Elevated troponin, denies any chest pain, likely stress-induced, History of coronary artery disease -serial cardiac enzymes, low positive Consult cardiology appreciate input, will do any workup as an outpatient after patient stabilizes. Probable demand ischemia. Medical management Anemia, history of previous GI bleed Stable for now, HTN, stable -continue home meds Hx CVA, stable -continue home meds Ultrasound done, but no paracentesis at this time. Hypokalemia, improved Labs for tomorrow Continue physical therapy discuss with patient and . Discussed with Yesenia Asher DC, MD May 12, 2016 11:23 discuss with patient and . Discussed with Yesenia Asher DC, MD May 12, 2016 11:23
[2016-05-12] MEDS: cefTRIAXone INJ 1,000 MG in SODIUM CHLORIDE 0.9% INJ 100 ML IV SCH (14:43)
--- NOTE | 2016-05-12 15:56 | HHI.NPPN ---
Subjective Complaints: Shortness of Breath General Problems: Edema Renal Failure: Chronic, Acute Additional Remarks Patient is alert, no SOB, abd. distension is better, not eating well. Review of Systems General Constitutional: Fatigue Respiratory Lungs: SOB Cardiovascular Cardiac: Edema Objective Data Data 05/11/16 05/12/16 19:00 07:00 Intake Total 980 ml Output Total 100 ml Balance 880 ml Intake Oral 780 ml IV Total 200 ml Output Urine Total 100 ml # Voids 1 # Bowel Movements 2 Vital Signs Date Time Temp Pulse Resp B/P Pulse Ox O2 Delivery O2 Flow Rate FiO2 05/12/16 15:28 97.4 68 18 119/68 99 05/12/16 14:00 62 05/12/16 13:00 64 05/12/16 12:00 70 05/12/16 11:28 97.4 66 20 119/64 98 05/12/16 11:00 73 05/12/16 10:00 66 05/12/16 09:00 62 05/12/16 08:00 70 05/12/16 07:54 100 Room Air 05/12/16 07:54 97.4 66 16 114/55 100 05/12/16 07:00 67 05/12/16 04:00 63 05/12/16 03:00 97.4 65 18 118/67 100 05/11/16 23:00 98.3 77 18 119/62 95 05/11/16 19:00 97.6 67 18 123/71 98 05/11/16 19:00 70 05/11/16 19:00 98 Room Air 05/11/16 19:00 69 05/11/16 18:44 86 05/11/16 18:00 69 05/11/16 17:00 90 05/11/16 16:00 82 -: 05/08/16 0659 05/12/16 0455 Tubes & Lines: Lozano Physical Exam General Appearance: No Acute Distress, Comfortable Throat Throat Exam: Oral Mucosa [place] & Moist Pulmonary Resp Exam: Breath Sounds Equal, No Distress, Crackles Cardiology CV Exam: Regular, Normal Sinus Rhythm, Good Perfusion Gastrointestinal/Abdomen GI Exam: Non-Tender, Bowel Sounds Present Musculoskeletal MS Exam: Joints Intact, Normal Tone Integumentary Skin Exam: Warm, Dry Extremeties Extremities Exam: Moderate Edema, Pitting Edema, Dependent Edema Neurologic Neuro Exam: Alert, Awake, Oriented, Speech Clear, Moving All Extremities Psychiatric Psych Exam: Appropriate Responses Assessment/Plan Discussed Condition With: Patient, Spouse Electrolyte Assessment: Hypokalemia Problem List: (1) Kidney failure, acute Plan: INEZ thought to be due to CHF exacerbation with decreased renal perfusion Hypokalemia K been replaced. Repeat K is 3.1, on PO supplement now. he is non oliguric, monitor urine output, has Lozano monitor electrolytes and replace as needed, hypokalemic continues, on po and IV replacement quantify proteinuria, serologies including OLENA, ANCA, in progress; hepatitis B/ C negative; complement levels low/normal. Bumex is stopped and has good urine out put. Creatinine now almost same. Holding the diuretics, will follow. 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 Hematology following, WBC still elevated. (7) Ascites Problem Qualifiers (1) Kidney failure, acute: Qualified Code: N17.9 - Acute renal failure, unspecified acute renal failure type (2) Hypertension: Qualified Code: I10 - Essential hypertension (3) Leukocytosis: Qualified Code: D72.825 - Bandemia (4) Anemia: Qualified Code: D64.9 - Anemia, unspecified type Cristian Conn MD May 12, 2016 15:56
[2016-05-13] VITALS (28 sets, daily range): BP systolic 118–134; BP diastolic 64–71; PULSE 58–82; RESP 16–20; TEMP 97.4–97.9; O2SAT 94–100
[2016-05-13 04:27] LABS: AUTOMATED NEUTROPHIL # 28.9 TH/MM3 (1.8-7.7); BASOPHIL # 0.4 TH/MM3 (0-0.2); BASOPHIL % 1.2 % (0.0-2.0); HEMATOCRIT 25.9 % (39.0-51.0); LYMPH % 4.3 % (9.0-44.0); LYMPHOCYTE # 1.4 TH/MM3 (1.0-4.8); MEAN CORPUSCULAR HEMOGLOBIN 27.4 PG (27.0-34.0); MEAN CORPUSCULAR HGB CONC 32.7 % (32.0-36.0); MONO % 5.7 % (0.0-8.0); NEUT % 85.8 % (16.0-70.0); PLATELET COUNT 460 TH/MM3 (150-450); RED BLOOD COUNT 3.08 MIL/MM3 (4.50-5.90); RED CELL DISTRIBUTION WIDTH 25.6 % (11.6-17.2); WHITE BLOOD COUNT 33.6 TH/MM3 (4.0-11.0)
[2016-05-13 04:30] LABS: HEMO FLAGS AUTO DIFF
[2016-05-13 04:55] LABS: BICARBONATE 22.7 MEQ/L (21.0-32.0)
[2016-05-13 05:27] LABS: BANDS 15 % (0-6); BASOPHILS 2 % (0-2); CORRECTED NUCLEATED RBC 2 /100 WBC (0-0); EOSINOPHILS 1 % (0-4); METAMYELOCYTES 4 % (0-1); MYELOCYTES 2 % (0-0); NEUTROPHIL # MANUAL DIFF 28.9 TH/MM3 (1.8-7.7); POLYS (SEG NEUTROPHILS) 65 % (16-70); SCAN/DIFF FINAL DIFF MANUAL; WBC DIFF SAMPLE 100
[2016-05-13 05:28] LABS: PLATELET ESTIMATE SMEAR HIGH (NORMAL); PLATELET MORPHOLOGY NORMAL (NORMAL)
[2016-05-13 05:29] LABS: DOHLE BODIES PRESENT (NONE SEEN); TOXIC GRANULATION 1+ (NORMAL)
[2016-05-13] MEDS: ISOSORBIDE MONONITRATE 30 MG TAB PO SCH (09:16)
[2016-05-13] MEDS: FERROUS SULFATE 325 MG (65 MG ELEMENTAL IRON) TAB PO SCH ×2 (09:16→22:41)
[2016-05-13] MEDS: PANTOPRAZOLE SOD 20 MG DELAYED RELEASE TAB PO SCH (09:16)
[2016-05-13] MEDS: CARVEDILOL 3.125 MG TAB PO SCH (09:16)
[2016-05-13] MEDS: POTASSIUM CHLORIDE 20 MEQ CONTROLLED RELEASE TAB PO SCH ×2 (09:16→22:42)
[2016-05-13] MEDS: IRON SUCROSE INJ 100 MG in SODIUM CHLORIDE 0.9% INJ 100 ML IV SCH (09:17)
[2016-05-13] MEDS: SODIUM CHLORIDE 0.9% FLUSH 5 ML FLUSH FLUSH SCH ×2 (09:17→21:00)
--- NOTE | 2016-05-13 10:44 | HHI.NPPN ---
Subjective Complaints: Shortness of Breath General Problems: Edema Renal Failure: Chronic, Acute Additional Remarks Patient is alert, now sitting on chair, has mild SOB. Review of Systems General Constitutional: Fatigue Respiratory Lungs: SOB Cardiovascular Cardiac: Edema Objective Data Data 05/12/16 05/13/16 19:00 07:00 Intake Total 1640 ml 360 ml Balance 1640 ml 360 ml Intake Oral 1440 ml 360 ml IV Total 200 ml # Voids 4 4 # Bowel Movements 1 Vital Signs Date Time Temp Pulse Resp B/P Pulse Ox O2 Delivery O2 Flow Rate FiO2 05/13/16 09:29 97.4 70 18 128/71 98 05/13/16 09:29 98 Room Air 05/13/16 06:00 64 05/13/16 05:00 73 05/13/16 04:00 60 05/13/16 04:00 97.8 64 20 120/66 98 05/13/16 03:00 68 05/13/16 02:00 70 05/13/16 01:00 58 05/13/16 00:00 73 05/13/16 00:00 97.9 73 18 118/64 99 05/12/16 23:00 71 05/12/16 22:00 76 05/12/16 21:00 68 05/12/16 20:00 73 05/12/16 19:00 99 Room Air 05/12/16 19:00 64 05/12/16 19:00 97.5 74 18 112/65 99 05/12/16 18:00 72 05/12/16 17:00 75 05/12/16 16:00 71 05/12/16 15:28 97.4 68 18 119/68 99 05/12/16 15:00 70 05/12/16 14:00 62 05/12/16 13:00 64 05/12/16 12:00 70 05/12/16 11:28 97.4 66 20 119/64 98 05/12/16 11:00 73 -: 05/13/16 0328 05/13/16 0328 Tubes & Lines: Lozano Physical Exam General Appearance: No Acute Distress, Comfortable Throat Throat Exam: Oral Mucosa [place] & Moist Pulmonary Resp Exam: Breath Sounds Equal, No Distress, Crackles Cardiology CV Exam: Regular, Normal Sinus Rhythm, Good Perfusion Gastrointestinal/Abdomen GI Exam: Non-Tender, Bowel Sounds Present Musculoskeletal MS Exam: Joints Intact, Normal Tone Integumentary Skin Exam: Warm, Dry Extremeties Extremities Exam: Moderate Edema, Pitting Edema, Dependent Edema Neurologic Neuro Exam: Alert, Awake, Oriented, Speech Clear, Moving All Extremities Psychiatric Psych Exam: Appropriate Responses Assessment/Plan Discussed Condition With: Patient, Spouse Electrolyte Assessment: Hypokalemia Problem List: (1) Kidney failure, acute Plan: INEZ thought to be due to CHF exacerbation with decreased renal perfusion Hypokalemia K been replaced. Repeat K is 3.1, on PO supplement now. he is non oliguric, monitor urine output, has Lozano monitor electrolytes and replace as needed, hypokalemic continues, on po and IV replacement quantify proteinuria, serologies including OLENA, ANCA, in progress; hepatitis B/ C negative; complement levels low/normal. Bumex is on hold. Creatinine now almost same. Has more edema, will restart Bumex. Follow BMP, if creatinine is better, will consider D/C home. D/W the in detail. 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 Hematology following, WBC still elevated. (7) Ascites Problem Qualifiers (1) Kidney failure, acute: Qualified Code: N17.9 - Acute renal failure, unspecified acute renal failure type (2) Hypertension: Qualified Code: I10 - Essential hypertension (3) Leukocytosis: Qualified Code: D72.825 - Bandemia (4) Anemia: Qualified Code: D64.9 - Anemia, unspecified type Cristian Conn MD May 13, 2016 10:44
--- NOTE | 2016-05-13 11:16 | HHI.PR ---
Subjective Interval History awake alert and oreinted sitting in chair very frustrated wants to get out of here even more anxious BMs improved after Miralax discontinued no fever still with generalized edema Vitals/Results Intake & Output 05/12/16 05/12/16 05/13/16 15:00 23:00 07:00 Intake Total 480 ml 1160 ml 360 ml Balance 480 ml 1160 ml 360 ml Intake Oral 480 ml 960 ml 360 ml IV Total 200 ml # Voids 4 4 # Bowel Movements 1 Vital Signs Vital Signs Date Time Temp Pulse Resp B/P Pulse Ox O2 Delivery O2 Flow Rate FiO2 05/13/16 09:29 97.4 70 18 128/71 98 05/13/16 09:29 98 Room Air 05/13/16 06:00 64 05/13/16 05:00 73 05/13/16 04:00 60 05/13/16 04:00 97.8 64 20 120/66 98 05/13/16 03:00 68 05/13/16 02:00 70 05/13/16 01:00 58 05/13/16 00:00 73 05/13/16 00:00 97.9 73 18 118/64 99 05/12/16 23:00 71 05/12/16 22:00 76 05/12/16 21:00 68 05/12/16 20:00 73 05/12/16 19:00 99 Room Air 05/12/16 19:00 64 05/12/16 19:00 97.5 74 18 112/65 99 05/12/16 18:00 72 05/12/16 17:00 75 05/12/16 16:00 71 05/12/16 15:28 97.4 68 18 119/68 99 05/12/16 15:00 70 05/12/16 14:00 62 05/12/16 13:00 64 05/12/16 12:00 70 05/12/16 11:28 97.4 66 20 119/64 98 CBC/BMP: 05/13/16 0328 05/13/16 0328 Lab Results Laboratory Tests Test 05/13/16 03:28 White Blood Count 33.6 TH/MM3 Red Blood Count 3.08 MIL/MM3 Hemoglobin 8.5 GM/DL Hematocrit 25.9 % Mean Corpuscular Volume 84.0 FL Mean Corpuscular Hemoglobin 27.4 PG Mean Corpuscular Hemoglobin 32.7 % Concent Red Cell Distribution Width 25.6 % Platelet Count 460 TH/MM3 Mean Platelet Volume 9.0 FL Neutrophils (%) (Auto) 85.8 % Lymphocytes (%) (Auto) 4.3 % Monocytes (%) (Auto) 5.7 % Eosinophils (%) (Auto) 3.0 % Basophils (%) (Auto) 1.2 % Neutrophils # (Auto) 28.9 TH/MM3 Lymphocytes # (Auto) 1.4 TH/MM3 Monocytes # (Auto) 1.9 TH/MM3 Eosinophils # (Auto) 1.0 TH/MM3 Basophils # (Auto) 0.4 TH/MM3 CBC Comment AUTO DIFF Differential Total Cells 100 Counted Neutrophils % (Manual) 65 % Band Neutrophils % 15 % Lymphocytes % 4 % Monocytes % 7 % Eosinophils % 1 % Basophils % 2 % Neutrophils # (Manual) 28.9 TH/MM3 Metamyelocytes 4 % Myelocytes 2 % Nucleated Red Blood Cells 2 /100 WBC Differential Comment FINAL DIFF MANUAL Toxic Granulation 1+ Dohle Bodies PRESENT Platelet Estimate HIGH Platelet Morphology Comment NORMAL Sodium Level 134 MEQ/L Potassium Level 4.0 MEQ/L Chloride Level 100 MEQ/L Carbon Dioxide Level 22.7 MEQ/L Anion Gap 11 MEQ/L Blood Urea Nitrogen 63 MG/DL Creatinine 2.71 MG/DL Estimat Glomerular Filtration 22 ML/MIN Rate Random Glucose 127 MG/DL Calcium Level 8.4 MG/DL Physical Exam General General Appearance: No Acute Distress, Comfortable Throat Throat Exam: Oral Mucosa [place] & Moist Pulmonary Resp Exam: Breath Sounds Equal, No Distress, Crackles Cardiology CV Exam: Regular, Normal Sinus Rhythm, Good Perfusion Gastrointestinal/Abdomen GI Exam: Non-Tender, Bowel Sounds Present Musculoskeletal MS Exam: Joints Intact, Normal Tone Integumentary Skin Exam: Warm, Dry Extremeties Extremities Exam: Moderate Edema, Pitting Edema, Dependent Edema Neurologic Neuro Exam: Alert, Awake, Oriented, Speech Clear, Moving All Extremities Psychiatric Psych Exam: Appropriate Responses Assessment/Plan Assessment/Plan A/P Assessment and Plan (1) Sepsis (2) Elevated troponin (3) Pneumonia (4) Kidney failure, acute (5) History of GI bleed (6) History of CVA (cerebrovascular accident) (7) Hypertension (8) Hyperlipidemia (9) CAD (coronary artery disease) (10) Dehydration (11) Hypokalemia (12) Anasarca (13) Leukocytosis (14) Splenomegaly (15) Anemia Sepsis resolved leukocytosis likely sec to Myeloproliferative disorder Afebrile, d/c azithromycin discontinue Rocephin, switch to po ceftin Peripheral edema,anasarca, ascites improved, recent diagnosis of splenomegaly -hematology for evaluation-Dr. Martin s/p bone marrow biopsy today, Myeloproliferative disorder Medical management for now Acute renal injury, cr 2.7 -nephrology following bumex restarted bid dosing monitor i & os monitor renal function Constipation prn MOM Elevated troponin, denies any chest pain, likely stress-induced, History of coronary artery disease -serial cardiac enzymes, low positive Consult cardiology appreciate input, will do any workup as an outpatient after patient stabilizes. Probable demand ischemia. Medical management Anemia, history of previous GI bleed Stable for now, HTN, stable -continue home meds Hx CVA, stable -continue home meds Ultrasound done, but no paracentesis at this time. Hypokalemia, improved Labs for tomorrow Continue physical therapy: needs rehab at discharge consult case management discuss with patient and . Discussed with Yesenia Asher DC, MD May 13, 2016 11:16
[2016-05-13] MEDS: BUMETANIDE INJ 1 MG/4 ML VIAL IV PUSH SCH (18:33)
[2016-05-13] MEDS ORDERED: diphenhydrAMINE HCL 25 MG CAP PO ONE (21:45)
[2016-05-13] MEDS: CEFUROXIME AXETIL 500 MG TAB PO SCH (22:41)
[2016-05-13] MEDS: ACETAMINOPHEN/HYDROcodone 325 MG/5 MG TAB PO PRN (22:43)
[2016-05-14] VITALS (21 sets, daily range): BP systolic 99–135; BP diastolic 57–76; PULSE 63–107; RESP 16–18; TEMP 97.6–98.3; O2SAT 95–100
[2016-05-14 07:41] LABS: BICARBONATE 27.5 MEQ/L (21.0-32.0); POTASSIUM 3.3 MEQ/L (3.5-5.1)
[2016-05-14] MEDS: POTASSIUM CHLORIDE 20 MEQ CONTROLLED RELEASE TAB PO SCH (10:25)
[2016-05-14] MEDS: BUMETANIDE INJ 1 MG/4 ML VIAL IV PUSH SCH ×2 (10:25→17:46)
[2016-05-14] MEDS: CEFUROXIME AXETIL 500 MG TAB PO SCH (10:25)
[2016-05-14] MEDS: FERROUS SULFATE 325 MG (65 MG ELEMENTAL IRON) TAB PO SCH (10:25)
[2016-05-14] MEDS: PANTOPRAZOLE SOD 20 MG DELAYED RELEASE TAB PO SCH (10:25)
[2016-05-14] MEDS: CARVEDILOL 3.125 MG TAB PO SCH (10:25)
[2016-05-14] MEDS: ISOSORBIDE MONONITRATE 30 MG TAB PO SCH (10:26)
[2016-05-14] MEDS: IRON SUCROSE INJ 100 MG in SODIUM CHLORIDE 0.9% INJ 100 ML IV SCH (10:26)
[2016-05-14] MEDS: SODIUM CHLORIDE 0.9% FLUSH 5 ML FLUSH FLUSH SCH (10:26)
--- NOTE | 2016-05-14 10:29 | HHI.PR ---
Subjective Interval History awake ALert and oriented sitting in chair at bed side remains on oxygen still with significant edema no diarrhea no fever no new complaints Vitals/Results Intake & Output 05/13/16 05/13/16 05/14/16 15:00 23:00 07:00 Intake Total 1160 ml 320 ml Output Total 2 ml 500 ml Balance 1158 ml -180 ml Intake Oral 960 ml 320 ml IV Total 200 ml 0 ml Output Urine Total 2 ml 500 ml # Voids 2 # Bowel Movements 1 0 Vital Signs Vital Signs Date Time Temp Pulse Resp B/P Pulse Ox O2 Delivery O2 Flow Rate FiO2 05/14/16 06:00 82 05/14/16 05:29 98.2 63 16 126/69 95 05/14/16 05:00 82 05/14/16 04:00 83 05/14/16 03:00 73 05/14/16 02:00 76 05/14/16 01:32 97.8 79 16 99/57 97 05/14/16 01:00 80 05/14/16 00:00 82 05/13/16 23:00 76 05/13/16 22:00 78 05/13/16 21:00 82 05/13/16 20:56 94 Room Air 05/13/16 20:55 97.7 64 16 134/67 94 05/13/16 20:00 76 05/13/16 19:00 66 05/13/16 18:00 70 05/13/16 17:00 78 05/13/16 16:02 97.4 60 18 119/67 100 05/13/16 16:00 80 05/13/16 15:00 59 05/13/16 14:00 62 05/13/16 13:00 64 05/13/16 12:00 66 05/13/16 11:45 97.4 66 20 120/70 100 05/13/16 11:00 66 CBC/BMP: 05/13/16 0328 05/14/16 0508 Lab Results Laboratory Tests Test 05/14/16 05:08 Sodium Level 136 MEQ/L Potassium Level 3.3 MEQ/L Chloride Level 98 MEQ/L Carbon Dioxide Level 27.5 MEQ/L Anion Gap 11 MEQ/L Blood Urea Nitrogen 55 MG/DL Creatinine 2.24 MG/DL Estimat Glomerular Filtration 28 ML/MIN Rate Random Glucose 95 MG/DL Calcium Level 8.7 MG/DL Physical Exam General General Appearance: No Acute Distress, Comfortable Throat Throat Exam: Oral Mucosa [place] & Moist Pulmonary Resp Exam: Breath Sounds Equal, No Distress, Crackles Cardiology CV Exam: Regular, Normal Sinus Rhythm, Good Perfusion Gastrointestinal/Abdomen GI Exam: Non-Tender, Bowel Sounds Present Musculoskeletal MS Exam: Joints Intact, Normal Tone Integumentary Skin Exam: Warm, Dry Extremeties Extremities Exam: Moderate Edema, Pitting Edema, Dependent Edema Neurologic Neuro Exam: Alert, Awake, Oriented, Speech Clear, Moving All Extremities Psychiatric Psych Exam: Appropriate Responses Assessment/Plan Assessment/Plan A/P Assessment and Plan (1) Sepsis (2) Elevated troponin (3) Pneumonia (4) Kidney failure, acute (5) History of GI bleed (6) History of CVA (cerebrovascular accident) (7) Hypertension (8) Hyperlipidemia (9) CAD (coronary artery disease) (10) Dehydration (11) Hypokalemia (12) Anasarca (13) Leukocytosis (14) Splenomegaly (15) Anemia Sepsis resolved leukocytosis likely sec to Myeloproliferative disorder Afebrile, d/c azithromycin discontinue Rocephin, switched to po ceftin Peripheral edema,anasarca, ascites improved, recent diagnosis of splenomegaly -hematology for evaluation-Dr. Martin s/p bone marrow biopsy today, Myeloproliferative disorder Medical management for now Acute renal injury, cr 2.24 -nephrology following bumex restarted bid dosing, d/w Dr Christy , ok to switch to po Bumex and discharge to REhab monitor renal function Constipation prn MOM Elevated troponin, denies any chest pain, likely stress-induced, History of coronary artery disease -serial cardiac enzymes, low positive Consult cardiology appreciate input, will do any workup as an outpatient after patient stabilizes. Probable demand ischemia. Medical management Anemia, history of previous GI bleed Stable for now, HTN, stable -continue home meds Hx CVA, stable -continue home meds Ultrasound done, but no paracentesis at this time. Hypokalemia, improved Continue physical therapy: needs rehab at discharge consult case management discuss with patient and . Discussed with Yesenia Dill MD May 14, 2016 10:29
[2016-05-14] MEDS ORDERED: FERR325T PO (10:35)
[2016-05-14] MEDS ORDERED: BUME1TAB28 PO (10:35)
--- NOTE | 2016-05-14 12:32 | HHI.NPPN ---
Subjective Complaints: Shortness of Breath General Problems: Edema Renal Failure: Chronic, Acute Additional Remarks Patient is alert, sitting on chair, still complaining of leg swelling. Review of Systems General Constitutional: Fatigue Respiratory Lungs: SOB Cardiovascular Cardiac: Edema Objective Data Data 05/13/16 05/14/16 19:00 07:00 Intake Total 1160 ml 320 ml Output Total 2 ml 500 ml Balance 1158 ml -180 ml Intake Oral 960 ml 320 ml IV Total 200 ml 0 ml Output Urine Total 2 ml 500 ml # Voids 2 # Bowel Movements 1 0 Vital Signs Date Time Temp Pulse Resp B/P Pulse Ox O2 Delivery O2 Flow Rate FiO2 05/14/16 06:00 82 05/14/16 05:29 98.2 63 16 126/69 95 05/14/16 05:00 82 05/14/16 04:00 83 05/14/16 03:00 73 05/14/16 02:00 76 05/14/16 01:32 97.8 79 16 99/57 97 05/14/16 01:00 80 05/14/16 00:00 82 05/13/16 23:00 76 05/13/16 22:00 78 05/13/16 21:00 82 05/13/16 20:56 94 Room Air 05/13/16 20:55 97.7 64 16 134/67 94 05/13/16 20:00 76 05/13/16 19:00 66 05/13/16 18:00 70 05/13/16 17:00 78 05/13/16 16:02 97.4 60 18 119/67 100 05/13/16 16:00 80 05/13/16 15:00 59 05/13/16 14:00 62 05/13/16 13:00 64 -: 05/13/16 0328 05/14/16 0508 Tubes & Lines: Lozano Physical Exam General Appearance: No Acute Distress, Comfortable Throat Throat Exam: Oral Mucosa [place] & Moist Pulmonary Resp Exam: Breath Sounds Equal, No Distress, Crackles Cardiology CV Exam: Regular, Normal Sinus Rhythm, Good Perfusion Gastrointestinal/Abdomen GI Exam: Non-Tender, Bowel Sounds Present Musculoskeletal MS Exam: Joints Intact, Normal Tone Integumentary Skin Exam: Warm, Dry Extremeties Extremities Exam: Moderate Edema, Pitting Edema, Dependent Edema Neurologic Neuro Exam: Alert, Awake, Oriented, Speech Clear, Moving All Extremities Psychiatric Psych Exam: Appropriate Responses Assessment/Plan Discussed Condition With: Patient, Spouse Electrolyte Assessment: Hypokalemia Problem List: (1) Kidney failure, acute Plan: INEZ thought to be due to CHF exacerbation with decreased renal perfusion Hypokalemia K been replaced. Repeat K is 3.1, on PO supplement now. he is non oliguric, monitor urine output, has Lozano monitor electrolytes and replace as needed, hypokalemic continues, on po and IV replacement quantify proteinuria, serologies including OLENA, ANCA, in progress; hepatitis B/ C negative; complement levels low/normal. Started on Bumex. Has edema in legs, told to restrict salt and fluid. Creatinine is slightly better. Can change Bumex to PO and discharge, will need Nephrology follow up. 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 Hematology following, WBC still elevated. (7) Ascites Problem Qualifiers (1) Kidney failure, acute: Qualified Code: N17.9 - Acute renal failure, unspecified acute renal failure type (2) Hypertension: Qualified Code: I10 - Essential hypertension (3) Leukocytosis: Qualified Code: D72.825 - Bandemia (4) Anemia: Qualified Code: D64.9 - Anemia, unspecified type Cristian Conn MD May 14, 2016 12:31
--- NOTE | 2016-05-14 19:30 | HHI.DS ---
Discharge Summary Admission Date May 02, 2016 at 13:04 Discharge Date: May 14, 2016 Admitting Diagnosis sepsis, pneumonia, worsening edema, positive troponin (1) Sepsis (2) Elevated troponin (3) Pneumonia (4) Kidney failure, acute (5) History of GI bleed (6) History of CVA (cerebrovascular accident) (7) Hypertension (8) Hyperlipidemia (9) CAD (coronary artery disease) (10) Dehydration (11) Hypokalemia (12) Anasarca (13) Leukocytosis (14) Splenomegaly (15) Anemia Procedures s/p bone marrow biopsy CBC/BMP: 05/13/16 0328 05/14/16 0508 Significant Findings Laboratory Tests Test 05/12/16 05/13/16 05/14/16 04:55 03:28 05:08 Blood Urea Nitrogen 62 MG/DL (7-18) 63 MG/DL (7-18) 55 MG/DL (7-18) Creatinine 2.79 MG/DL 2.71 MG/DL 2.24 MG/DL (0.60-1.30) (0.60-1.30) (0.60-1.30) Estimat Glomerular Filtration 22 ML/MIN (>89) 22 ML/MIN (>89) 28 ML/MIN (>89) Rate Random Glucose 127 MG/DL 127 MG/DL (74-106) (74-106) White Blood Count 33.6 TH/MM3 (4.0-11.0) Red Blood Count 3.08 MIL/MM3 (4.50-5.90) Hemoglobin 8.5 GM/DL (13.0-17.0) Hematocrit 25.9 % (39.0-51.0) Red Cell Distribution Width 25.6 % (11.6-17.2) Platelet Count 460 TH/MM3 (150-450) Neutrophils (%) (Auto) 85.8 % (16.0-70.0) Lymphocytes (%) (Auto) 4.3 % (9.0-44.0) Neutrophils # (Auto) 28.9 TH/MM3 (1.8-7.7) Monocytes # (Auto) 1.9 TH/MM3 (0-0.9) Eosinophils # (Auto) 1.0 TH/MM3 (0-0.4) Basophils # (Auto) 0.4 TH/MM3 (0-0.2) Band Neutrophils % 15 % (0-6) Lymphocytes % 4 % (9-44) Neutrophils # (Manual) 28.9 TH/MM3 (1.8-7.7) Metamyelocytes 4 % (0-1) Myelocytes 2 % (0-0) Nucleated Red Blood Cells 2 /100 WBC (0-0) Toxic Granulation 1+ (NORMAL) Dohle Bodies PRESENT (NONE SEEN) Platelet Estimate HIGH (NORMAL) Sodium Level 134 MEQ/L (136-145) Calcium Level 8.4 MG/DL (8.5-10.1) Potassium Level 3.3 MEQ/L (3.5-5.1) Imaging Last Impressions Abdomen Ultrasound 05/10/16 0000 Signed Impressions: Service Date/Time: Tuesday, May 10, 2016 07:45 - CONCLUSION: There is not enough fluid for safe paracentesis. Clifford Rodriguez MD FACR Chest X-Ray 05/09/16 0000 Signed Impressions: Service Date/Time: Monday, May 09, 2016 14:37 - CONCLUSION: Evidence of increased pulmonary vascular congestion/mild pulmonary edema. Persistent cardiac silhouette enlargement. Enrike Bhat MD Renal Ultrasound 05/03/16 0000 Signed Impressions: Service Date/Time: Tuesday, May 03, 2016 14:18 - CONCLUSION: 1. Bilateral echogenic kidneys suggesting medical renal disease. 2. Ascites diffusely throughout the abdomen. 3. No findings to indicate renal obstruction. Syed Rodriguez MD Lower Extremity Ultrasound 05/02/16 0000 Signed Impressions: Service Date/Time: Monday, May 02, 2016 15:40 - CONCLUSION: 1. Negative for deep venous thrombosis. Edematous changes present in the soft tissues. Carlos Jeong MD Abdomen/Pelvis CT 05/02/16 0000 Signed Impressions: Service Date/Time: Monday, May 02, 2016 17:30 - CONCLUSION: 1. Moderate anasarca with bilateral pleural effusions, right greater than left and mild ascites. Questionable liver cirrhosis. 2. No obstruction or free air. 3. Inferior vena cava filter present. Bladder decompressed by Lozano. 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 Patient presented to the emergency room for increase in lower extremity edema as well as abdominal distention associated with dyspnea with exertion over the past year but worse over the last couple of weeks. Patient endorses that he's always had some chronic swelling to the left leg from previous bypass surgery but in the last couple months has become worse and now the right one is also becoming larger. He's also noted abdominal distention and has noted an increase in weight of 20 pounds in the last 2 weeks. He's also noted dyspnea with minimal exertion, no chest pain, no palpitations. He is constipated; has not had a good bowel movement in approximately 2-3 weeks. At times he has watery almost liquid rectal drainage and a couple "turner:. He's had dry heaves and has very poor appetite. He has been in to see his primary care Dr. Aaron who did laboratory workup and was noted anemic. He was referred to see Dr. Nielsen who examined him and noted an enlarged spleen and referred him to hematology. An EGD was also completed but he's not really clear on the findings. He was due to see Dr. Martin next week. Additionally he has been following with Dr. Solis who put him on Lasix and other diuretics with some relief but now they're not working. He's not sure if he's had an echocardiogram but his believes he did have EKG. Patient is not a very good historian, he's had a history of stroke and has some expressive aphasia. Information is mostly provided by his . He's noted poor urine output, he has difficulty ambulating and in the last couple days he hasn't been able to move very much. He has prior history of pulmonary emboli and DVT for which he had IVC filter placed in 2006. He's not able to be on any aspirin or anticoagulation as he had severe GI bleeds in the past. He denies any fever, no chills, no cough no sputum production. In the emergency room, patient was evaluated, vital signs were stable he was hemodynamically stable, no fever. Laboratory workup was significant for significant leukocytosis, WBC 24.9 with elevated neutrophil count. Hemoglobin 8.5, hematocrit 25.1. Platelet count 560. He was noted an acute renal injury with BUNs of 63, creatinine 3.11. AST 29 AST 23. Troponin was elevated 0.13. BNP was a 40. Albumin 3.5. Lipase 137. Chest x-ray demonstrated mild by basilar infiltrates. Patient was given Lasix, a Lozano catheter was inserted. Empiric antibiotics were started and cultures were obtained. EKG showed left bundle branch which is similar to other EKGs. Patient is examined in the emergency room, he is resting comfortably does not appear in any distress. Patient admitted for further evaluation and treatment. (1) Sepsis (2) Elevated troponin (3) Pneumonia (4) Kidney failure, acute (5) History of GI bleed (6) History of CVA (cerebrovascular accident) (7) Hypertension (8) Hyperlipidemia (9) CAD (coronary artery disease) (10) Dehydration (11) Hypokalemia (12) Anasarca (13) Leukocytosis (14) Splenomegaly (15) Anemia During the course of the hospitalization, the following took place: Admitted with sepsis, foot on empiric antibiotics. 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 Didn't appear to have infectious process. Was afebrile Afebrile, IV antibiotics were changed to oral as pt. improved. put on oral abx for discharge. Peripheral edema,anasarca, ascites improved, recent diagnosis of splenomegaly -hematology for evaluation-Dr. Martin evaluated - s/p bone marrow biopsy -- Myeloproliferative disorder -Medical management for now Acute renal injury, cr 2.24 -nephrology following -work up done -Lozano was inserted, eventually removed without complications -urine output monitored closely -renal function was monitored, improved -was changed to oral bumex as he improved per renal. Constipation prn MOM Elevated troponin, denied any chest pain, likely stress-induced, History of coronary artery disease -serial cardiac enzymes, low positive Consulted cardiology appreciate input, will do any workup as an outpatient after patient stabilizes. Probably demand ischemia. -Continued on Medical management Anemia, history of previous GI bleed - was followed, stable through hospitalization. -hemoccult + -received IV venofer HTN, stable -continued home meds Hx CVA, stable -continue home meds Ultrasound done, but no paracentesis at this time. Not enough fluid Hypokalemia, improved Continue physical therapy: needs rehab at discharge consulted case management Patient improved slowly Renal function was monitored He was less short of breath Edema improved He did not require paracentesis He was discharged to rehabilitation facility in stable condition Pt Condition on Discharge: Stable Discharge Disposition: Discharge to SNF Discharge Instructions DIET: Follow Instructions for: Heart Healthy Diet Activities you can perform: Regular-No Restrictions Follow up Referrals: Nephrology - 1 Week with Cristian Conn MD New Medications: Bumetanide (Bumex) 2 Mg Tab 2 MG PO BID edema #30 Ref 0 TAB Ferrous Sulfate (Ferrous Sulfate) 325 Mg Tab 325 MG PO BID anemia Days 30 TAB Continued Medications: Carvedilol (Carvedilol) 3.125 Mg Tab 3.125 MG PO DAILY #60 Ref 0 TAB Clopidogrel (Plavix) 75 Mg Tab 75 MG PO DAILY Blood Clot Prevention #30 Ref 0 TAB Isosorbide Mononitrate ER (Isosorbide Mononitrate ER) 30 Mg Lazaro 30 MG PO DAILY Prevent Chest Pain #30 Ref 0 TAB Potassium Chloride ER (Potassium Chloride ER) 20 Meq Tab 20 MEQ PO BID Electrolyte Replacement #60 Ref 0 TAB Rabeprazole (Aciphex) 20 Mg Tab 20 MG PO DAILY Reflux #30 Ref 0 TAB Ranolazine ER 12 HR (Ranexa ER 12 HR) 1,000 Mg Tab 1000 MG PO BID Chest Pain #60 Ref 0 TAB Simvastatin (Simvastatin) 20 Mg Tab 20 MG PO Cholesterol Management #30 Ref 0 TAB Discontinued Medications: Furosemide (Furosemide) 20 Mg Tab 20 MG PO BID #30 Ref 0 TAB Hydrochlorothiazide (Hydrochlorothiazide) 25 Mg Tab 25 MG PO DAILY #30 Ref 0 TAB Cathie Toney May 14, 2016 19:30
--- NOTE | 2016-05-20 22:56 | HHI.PR ---
Subjective Interval History He is poorly responsive,No sign of distress Physical Exam General General Appearance: No Acute Distress, Comfortable Throat Throat Exam: Oral Mucosa [place] & Moist Pulmonary Resp Exam: Breath Sounds Equal, No Distress, Crackles Cardiology CV Exam: Regular, Normal Sinus Rhythm, Good Perfusion Gastrointestinal/Abdomen GI Exam: Non-Tender, Bowel Sounds Present Musculoskeletal MS Exam: Joints Intact, Normal Tone Integumentary Skin Exam: Warm, Dry Extremeties Extremities Exam: Moderate Edema, Pitting Edema, Dependent Edema Neurologic Neuro Exam: Alert, Awake, Oriented, Speech Clear, Moving All Extremities Psychiatric Psych Exam: Appropriate Responses Assessment/Plan Assessment/Plan A/P Assessment and Plan (1) Sepsis (2) Elevated troponin (3) Pneumonia (4) Kidney failure, acute (5) History of GI bleed (6) History of CVA (cerebrovascular accident) (7) Hypertension (8) Hyperlipidemia (9) CAD (coronary artery disease) (10) Dehydration (11) Hypokalemia (12) Anasarca (13) Leukocytosis (14) Splenomegaly (15) Anemia The patient is being discharged today to hospice unit discuss with . Discussed with willow analyst Minutes: 40 Latosha Glaser MD May 20, 2016 22:56
== END 2016-05-14 21:50 | disposition left against medical advice (07) | DRG 871 ==
LOC: NEPE 11:15 → NEDA 13:04 → HCIS 19:23
PROVIDERS: ADMIT Specialist; ATTEND Specialist
PROC: 07DR3ZX Extraction of Iliac Bone Marrow, Percutaneous Approach, Diagnostic (ICD-10-PCS; principal; 2016-05-05)
DX: A41.9 Sepsis, unspecified organism (principal); J18.9 Pneumonia, unspecified organism; N17.9 Acute kidney failure, unspecified; I50.23 Acute on chronic systolic (congestive) heart failure; I47.2 Ventricular tachycardia; R18.8 Other ascites; N18.3 Chronic kidney disease, stage 3 (moderate); I42.9 Cardiomyopathy, unspecified; I13.0 Hypertensive heart and chronic kidney disease with heart failure and stage 1 through stage 4 chronic kidney disease, or unspecified chronic kidney disease; D75.81 Myelofibrosis; R62.7 Adult failure to thrive; I65.29 Occlusion and stenosis of unspecified carotid artery; E86.0 Dehydration; I69.320 Aphasia following cerebral infarction; I44.7 Left bundle-branch block, unspecified; K22.70 Barrett's esophagus without dysplasia; Z95.1 Presence of aortocoronary bypass graft; R16.1 Splenomegaly, not elsewhere classified; E78.5 Hyperlipidemia, unspecified; E87.6 Hypokalemia; K59.00 Constipation, unspecified; R26.2 Difficulty in walking, not elsewhere classified; R41.3 Other amnesia; D50.9 Iron deficiency anemia, unspecified; K21.9 Gastro-esophageal reflux disease without esophagitis; I25.119 Atherosclerotic heart disease of native coronary artery with unspecified angina pectoris; G89.29 Other chronic pain; R65.20 Severe sepsis without septic shock; M19.90 Unspecified osteoarthritis, unspecified site; R19.5 Other fecal abnormalities; I25.10 Atherosclerotic heart disease of native coronary artery without angina pectoris; Z79.02 Long term (current) use of antithrombotics/antiplatelets; Z86.711 Personal history of pulmonary embolism; Z86.718 Personal history of other venous thrombosis and embolism; Z95.5 Presence of coronary angioplasty implant and graft; Z86.011 Personal history of benign neoplasm of the brain; Z87.11 Personal history of peptic ulcer disease; Z88.6 Allergy status to analgesic agent; Z85.828 Personal history of other malignant neoplasm of skin; Z87.891 Personal history of nicotine dependence
CPT/HCPCS: 71010; 74176; 76705; 76775; 76937; 80048; 80053; 80069; 81001; 81219; 81270; 81402; 81403; 82043; 82247; 82272; 82550; 82607; 82728; 83540; 83550; 83605; 83615; 83690; 83735; 83880; 84100; 84132; 84484; 85007; 85027; 85044; 85097; 85610; 85730; 86021; 86038; 86160; 86803; 87040; 87340; 88184; 88185; 88237; 88264; 88280; 88305; 88311; 88313; 88377; 93005; 93306; 93970; 96374; J0456; J0696; J1756; J1940; J2405; J3480; J7030; J7040; J7050; P9047; Q9963

== ENCOUNTER 2016-05-15 18:09 | Inpatient (IN) | payer MEDICARE, OTHER ==
[~2016-05-15] VITALS: Ht 182.9 cm; Wt 95.3 kg
[~2016-05-15 18:09] MED LIST changes: -ACIP20TA6 OR; +ACIP20TA6 PO; +BUME1TAB28 PO; +CARV3.12 PO; -CARV3.125 PO; +FERR325T PO; -FURO1TAB93 PO; +ISOS30TA3 PO; -ISOS40TA PO; -KLOR20TA6 PO; -PLAV75TA PO; +PLAV75TA29 PO; +POTA-163 PO; +RANE1000 PO; -RANO500 PO; +SIMV20TA PO; -SIMV40TA PO
[2016-05-15 18:18] VITALS: BP 128/58; PULSE 72; RESP 18; TEMP 98.8; O2SAT 98
[2016-05-15] MEDS ORDERED: SODIUM CHLORIDE 0.9% FLUSH 5 ML FLUSH IVF PRN (18:30)
[2016-05-15 18:32] VITALS: O2SAT 98
--- NOTE | 2016-05-15 18:49 | PD ---
HPI Chief Complaint: Edema Time Seen by Provider: 18:17 Travel History International Travel<30 days: No Contact w/Intl Traveler<30days: No Traveled to known affect area: No History of Present Illness HPI Patient is an 89-year-old male presents emergency Department with swelling in his legs and abdomen. Patient was discharged in the hospital yesterday and states that since his discharge is gained 4 pounds. Patient states she's been limiting his fluid intake. According the patient he was noted to the hospital for 10 days and discharged on multiple water pills and states that he was told his kidneys are bad but not bad enough to be on dialysis. Patient does endorse some mild shortness of breath from time to time. Denies fever denies cough denies chest pain. PFSH Past Medical History Hx Anticoagulant Therapy: Yes (PLAVIX) Arthritis: Yes Blood Disorders: No Anxiety: No Depression: No Heart Rhythm Problems: Yes (CA) Cancer: Yes (SKIN CANCER) Cardiac Catheterization: Yes Cardiovascular Problems: Yes High Cholesterol: Yes Chemotherapy: No Chest Pain: Yes (HX OF CP) Congestive Heart Failure: No Cerebrovascular Accident: Yes Coronary Artery Disease: Yes Diabetes: No Diminished Hearing: No Endocrine: No Gastrointestinal Disorders: Yes GERD: Yes Glaucoma: No Genitourinary: No Headaches: No Hepatitis: No Hiatal Hernia: No Hypertension: Yes Immune Disorder: No Medical other: Yes (S/P CRANIOTOMY (MENINGIOMA), HX ULCERS, BARRETTTS ESOPHAGUS) Musculoskeletal: Yes Neurologic: Yes Psychiatric: No Reproductive: No Respiratory: Yes (SOB ON EXERTION) Integumentary: No Migraines: No Radiation Therapy: No Seizures: No Sleep Apnea: No Thyroid Disease: No Ulcer: Yes Past Surgical History Abdominal Surgery: No AICD: No Appendectomy: Yes (1964.) Arteriovenous Shunt: No Body Medical Devices: STENTS X2, GREENFILTER Cardiac Surgery: Yes (CABG IN 1990) Cholecystectomy: Yes Coronary Artery Bypass Graft: Yes (TRIPLE BYPASS-1990.) Coronary Stent: Yes (X2) Ear Surgery: No Endocrine Surgery: No Eye Surgery: Yes (CAT. SX BILAT EYES) Genitourinary Surgery: No Gynecologic Surgery: No Insulin Pump: No Joint Replacement: No Neurologic Surgery: Yes (REMOVAL OF LEFT TEMPORAL MASS 07/08/2006 ) Oral Surgery: No Pacemaker: No Thoracic Surgery: No Tonsillectomy: Yes (1934) Other Surgery: Yes Social History Alcohol Use: Yes (RARELY) Tobacco Use: No (FORMER) Substance Use: No Allergies-Medications (Allergen,Severity, Reaction): Coded Allergies: Norvasc (Verified Allergy, Severe, Arrhythmias, 05/15/16) Aspirin (Verified Adverse Reaction, Intermediate, GI BLEED, 05/15/16) CHANGES MADE PER JUANITA IN PHARMACY. STATES HE SPOKE TO THE DOCTOR. Reported Meds & Prescriptions Reported Meds & Active Scripts Active Bumex (Bumetanide) 2 Mg Tab 2 Mg PO BID Ferrous Sulfate 325 Mg Tab 325 Mg PO BID 30 Days Reported Aciphex (Rabeprazole Sodium) 20 Mg Tab 20 Mg PO DAILY Plavix (Clopidogrel Bisulfate) 75 Mg Tab 75 Mg PO DAILY Simvastatin 20 Mg Tab 20 Mg PO Isosorbide Mononitrate ER (Isosorbide Mononitrate) 30 Mg Lazaro 30 Mg PO DAILY Carvedilol 3.125 Mg Tab 3.125 Mg PO DAILY Ranexa ER 12 HR (Ranolazine) 1,000 Mg Tab 1,000 Mg PO BID Potassium Chloride ER (Potassium Chloride) 20 Meq Tab 20 Meq PO BID Review of Systems Except as stated in HPI: all other systems reviewed are Neg Physical Exam Narrative GENERAL: Well-developed well-nourished no apparent distress SKIN: Warm and dry. Patient is some mild erythema and swelling to the left before meals fossa consistent with a thrombophlebitis from a previous IV start. HEAD: Atraumatic. Normocephalic. EYES: Pupils equal and round. No scleral icterus. No injection or drainage. ENT: No nasal bleeding or discharge. Mucous membranes pink and moist. NECK: Trachea midline. No JVD. CARDIOVASCULAR: Regular rate and rhythm. No murmur appreciated. RESPIRATORY: No accessory muscle use. Breath sounds equal bilaterally. Bibasilar faint rales. GASTROINTESTINAL: Abdomen soft, non-tender, nondistended. Hepatic and splenic margins not palpable. MUSCULOSKELETAL: No obvious deformities. No clubbing. No cyanosis. Patient has 3+ pitting edema from his feet to his umbilicus. Also has fluid in bilateral forearms.. NEUROLOGICAL: Awake and alert. No obvious cranial nerve deficits. Motor grossly within normal limits. Normal speech. PSYCHIATRIC: Appropriate mood and affect; insight and judgment normal. Data Data Last Documented VS Vital Signs Date Time Temp Pulse Resp B/P Pulse Ox O2 Delivery O2 Flow Rate FiO2 2/25/17 19:15 76 18 117/58 97 Room Air 05/15/16 18:18 98.8 Orders Complete Blood Count With Diff (05/15/16 18:28) Comprehensive Metabolic Panel (05/15/16 18:28) Prothrombin Time / Inr (Pt) (05/15/16 18:28) Act Partial Throm Time (Ptt) (05/15/16 18:28) Urinalysis - C+S If Indicated (05/15/16 18:28) Iv Access Insert/Monitor (05/15/16 18:28) Ecg Monitoring (05/15/16 18:28) Oximetry (05/15/16 18:28) Sodium Chloride 0.9% Flush (Ns Flush) (05/15/16 18:30) Electrocardiogram (05/15/16 18:28) B-Type Natriuretic Peptide (05/15/16 18:29) Chest, Pa & Lat (05/15/16 ) Us Arm Venous Doppler (05/15/16 18:31) Apixaban (Eliquis) (05/15/16 21:15) Bumetanide Inj (Bumex Inj) (05/15/16 21:15) Admit Order (Ed Use Only) (05/15/16 21:12) Carvedilol (Coreg) (05/16/16 09:00) Clopidogrel (Plavix) (05/16/16 09:00) Ferrous Sulfate (Ferrous Sulfate) (05/16/16 09:00) Isosorbide Mononitrate (Imdur) (05/16/16 09:00) Potassium Chloride (Kcl) (05/16/16 09:00) Pantoprazole (Protonix) (05/16/16 09:00) Ranolazine Sr (Ranexa) (05/16/16 09:00) Admit To Inpatient (05/15/16 ) Vital Signs (Adult) Q4H (05/15/16 21:13) Activity Oob With Assistance (05/15/16 21:13) Credit Risk Manager / Telemetry .CONTINUOUS (05/15/16 21:13) Sodium Chloride 0.9% Flush (Ns Flush) (05/15/16 21:15) Sodium Chloride 0.9% Flush (Ns Flush) (05/16/16 09:00) Bisacodyl Supp (Dulcolax Supp) (05/15/16 21:15) Sennosides (Senokot) (05/15/16 21:15) Basic Metabolic Panel (Bmp) (05/16/16 06:00) Creatine Kinase (Cpk) (05/15/16 21:13) Creatine Kinase (Cpk) (05/16/16 03:13) Troponin I (05/15/16 21:13) Troponin I (05/16/16 03:13) Scd Bilateral/Knee High ZION.BID (05/15/16 21:13) Naloxone Inj (Narcan Inj) (05/15/16 21:15) Inpatient Certification (05/15/16 ) Bumetanide Inj (Bumex Inj) (05/16/16 09:00) Labs Laboratory Tests Test 05/15/16 05/15/16 18:50 19:55 White Blood Count 27.0 TH/MM3 Red Blood Count 3.06 MIL/MM3 Hemoglobin 8.4 GM/DL Hematocrit 26.1 % Mean Corpuscular Volume 85.1 FL Mean Corpuscular Hemoglobin 27.3 PG Mean Corpuscular Hemoglobin 32.1 % Concent Red Cell Distribution Width 26.1 % Platelet Count 379 TH/MM3 Mean Platelet Volume 9.2 FL Neutrophils (%) (Auto) 86.0 % Lymphocytes (%) (Auto) 3.9 % Monocytes (%) (Auto) 6.6 % Eosinophils (%) (Auto) 2.4 % Basophils (%) (Auto) 1.1 % Neutrophils # (Auto) 23.2 TH/MM3 Lymphocytes # (Auto) 1.0 TH/MM3 Monocytes # (Auto) 1.8 TH/MM3 Eosinophils # (Auto) 0.6 TH/MM3 Basophils # (Auto) 0.3 TH/MM3 CBC Comment AUTO DIFF Differential Total Cells 100 Counted Neutrophils % (Manual) 70 % Band Neutrophils % 5 % Lymphocytes % 4 % Monocytes % 9 % Eosinophils % 1 % Basophils % 2 % Neutrophils # (Manual) 22.7 TH/MM3 Metamyelocytes 4 % Myelocytes 5 % Nucleated Red Blood Cells 1 /100 WBC Differential Comment FINAL DIFF MANUAL Platelet Estimate NORMAL Platelet Morphology Comment NORMAL Prothrombin Time 14.0 SEC Prothromb Time International 1.3 RATIO Ratio Activated Partial 32.9 SEC Thromboplast Time Sodium Level 138 MEQ/L Potassium Level 3.7 MEQ/L Chloride Level 101 MEQ/L Carbon Dioxide Level 25.3 MEQ/L Anion Gap 12 MEQ/L Blood Urea Nitrogen 49 MG/DL Creatinine 1.80 MG/DL Estimat Glomerular Filtration 36 ML/MIN Rate Random Glucose 97 MG/DL Calcium Level 8.2 MG/DL Total Bilirubin 1.1 MG/DL Aspartate Amino Transf 44 U/L (AST/SGOT) Alanine Aminotransferase 23 U/L (ALT/SGPT) Alkaline Phosphatase 67 U/L Total Creatine Kinase 63 U/L Troponin I 0.14 NG/ML B-Type Natriuretic Peptide 1552 PG/ML Total Protein 6.6 GM/DL Albumin 2.8 GM/DL Urine Color YELLOW Urine Turbidity CLEAR Urine pH 5.0 Urine Specific [place] 1.009 Urine Protein TRACE mg/dL Urine Glucose (UA) NEG mg/dL Urine Ketones NEG mg/dL Urine Occult Blood NEG Urine Nitrite NEG Urine Bilirubin NEG Urine Urobilinogen LESS THAN 2.0 MG/DL Urine Leukocyte Esterase TRACE Urine RBC LESS THAN 1 /hpf Urine WBC 4 /hpf Urine Squamous Epithelial <1 /hpf Cells Urine Hyaline Casts 2 /lpf Urine Mucus FEW /lpf Microscopic Urinalysis Comment CULT NOT INDICATED MDM Medical Decision Making Medical Screen Exam Complete: Yes Emergency Medical Condition: Yes Interpretation(s) EKG shows sinus rhythm with a left bundle-branch block, negative Miryam's a criteria. Intervals otherwise within normal limits. This is an abnormal EKG. Differential Diagnosis Anasarca, acute kidney injury, heart failure, electro-light abnormality, end- stage renal failure, pulmonary edema. Narrative Course Patient initial evaluation is stable but anasarca this. Has minimal bibasilar rales. Laboratory workup is started. Patient was discussed with Dr. Contreras to follow-up labs and disposition properly. Delano Caro MD May 15, 2016 18:49
[2016-05-15 19:14] LABS: AUTOMATED NEUTROPHIL # 23.2 TH/MM3 (1.8-7.7); BASOPHIL # 0.3 TH/MM3 (0-0.2); BASOPHIL % 1.1 % (0.0-2.0); EOSINOPHIL # 0.6 TH/MM3 (0-0.4); EOSINOPHIL % 2.4 % (0.0-4.0); HEMATOCRIT 26.1 % (39.0-51.0); LYMPH % 3.9 % (9.0-44.0); MEAN CELL VOLUME 85.1 FL (80.0-100.0); MEAN CORPUSCULAR HEMOGLOBIN 27.3 PG (27.0-34.0); MEAN CORPUSCULAR HGB CONC 32.1 % (32.0-36.0); MONO % 6.6 % (0.0-8.0); PLATELET COUNT 379 TH/MM3 (150-450); RED BLOOD COUNT 3.06 MIL/MM3 (4.50-5.90); RED CELL DISTRIBUTION WIDTH 26.1 % (11.6-17.2)
[2016-05-15 19:15] VITALS: BP 117/58; PULSE 76; RESP 18; O2SAT 97
[2016-05-15 19:20] LABS: HEMO FLAGS AUTO DIFF
[2016-05-15 19:22] LABS: APTT (PATIENT) 32.9 SEC (24.3-30.1); INTERNATIONAL NORMALIZED RATIO 1.3 RATIO
--- NOTE | 2016-05-15 19:27 | RADRPT ---
EXAM DATE/TIME: 05/15/2016 19:07 [facility] COMPARISON: No previous studies available for comparison. INDICATIONS : Chest Pain, Short of Breath. MEDICAL HISTORY : Hypertension. Longo's esophagus. gi disorder. cardiovascular problems. cva. cad. SURGICAL HISTORY : Tonsillectomy. Appendectomy. CABG. Craniotomy/meningioma. Cardiac catheterization. Coronary stents. Jc reenfilter. ENCOUNTER: Initial ACUITY: 1 day PAIN SCORE: 3/10 LOCATION: Bilateral chest FINDINGS: PA and lateral views of the chest demonstrate small right pleural effusion. Cardiomegaly and previous CABG. Increased pulmonary vascularity. Osseous structures are intact. CONCLUSION: 1. Cardiomegaly with small right pleural effusion and right basilar density. 2. Cardiomegaly and previous CABG. Karan Merino MD on May 15, 2016 at 19:25 Board Certified Radiologist. This report was verified electronically.
[2016-05-15 19:49] LABS: ALKALINE PHOSPHATASE 67 U/L (45-117); ALT (GPT) 23 U/L (12-78); ANION GAP 12 MEQ/L (5-15); AST (GOT) 44 U/L (15-37); BICARBONATE 25.3 MEQ/L (21.0-32.0); BLOOD UREA NITROGEN 49 MG/DL (7-18); CHLORIDE 101 MEQ/L (98-107); GLOMERULAR FILTRATION RATE 36 ML/MIN (>89); SODIUM (NA) 138 MEQ/L (136-145); TOTAL BILIRUBIN ADULT 1.1 MG/DL (0.2-1.0)
[2016-05-15 19:50] LABS: POTASSIUM 3.7 MEQ/L (3.5-5.1)
[2016-05-15 20:08] LABS: BANDS 5 % (0-6); BASOPHILS 2 % (0-2); CORRECTED NUCLEATED RBC 1 /100 WBC (0-0); EOSINOPHILS 1 % (0-4); METAMYELOCYTES 4 % (0-1); MYELOCYTES 5 % (0-0); NEUTROPHIL # MANUAL DIFF 22.7 TH/MM3 (1.8-7.7); POLYS (SEG NEUTROPHILS) 70 % (16-70); WBC DIFF SAMPLE 100
[2016-05-15 20:10] LABS: PLATELET ESTIMATE SMEAR NORMAL (NORMAL); PLATELET MORPHOLOGY NORMAL (NORMAL); SCAN/DIFF FINAL DIFF MANUAL
--- NOTE | 2016-05-15 20:11 | RADRPT ---
EXAM DATE/TIME: 05/15/2016 19:31 [facility] COMPARISON: No previous studies available for comparison. INDICATIONS : Left arm swelling. MEDICAL HISTORY : Gastroesophageal reflux disease. Hypertension. Hypercholesterolemia. Barretts esophagus. Cerebrovascu lar accident. Coronary artery disease. Anticoagulant therapy, Plavix. Pulmonary embolism. Irregular h eartbeat. Ulcer. Arthritis. Skin cancer. Measles. SURGICAL HISTORY : Appendectomy. Tonsillectomy. Cholecystectomy. Coronary artery stent. Bilateral cataract removal. CAB G. Craniotomy. Back surgery. Left knee surgery. ENCOUNTER: Subsequent ACUITY: 1 day PAIN SCORE: 0/10 LOCATION: Left arm. FINDINGS: There is occlusive thrombus in the left cephalic and left basilic vein. The axillary, brachial, subcl colt and jugular veins are patent. CONCLUSION: Occlusive thrombus in the left cephalic and left basilic vein. Karan Merino MD on May 15, 2016 at 20:08 Board Certified Radiologist. This report was verified electronically.
[2016-05-15 20:27] LABS: BLOOD, URINE NEG (NEG); COMMENT (UR) CULT NOT INDICATED; CULTURE IF INDICATED CULT NOT INDICATED; GLUCOSE,URINE NEG (NEG); HYALINE CAST, URINE 2 /lpf (RARE); KETONE, URINE NEG (NEG); MUCUS URINE FEW /lpf (OCC); NITRITE,URINE NEG (NEG); SQUAMOUS EPITHELIAL CELL URINE <1 /hpf (0-5); URINE COLOR YELLOW (YELLW/STRAW)
--- NOTE | 2016-05-15 20:32 | EKG ---
Date Performed: 05/15/2016 Time Performed: 18:47:18 PTAGE: 89 years EKG: Sinus rhythm LEFT BUNDLE BRANCH BLOCK ABNORMAL ECG PREVIOUS TRACING : 05/02/2016 23.52 No significant change from previous tracing noted. DOCTOR: Enrique Carrillo Interpretating Date/Time 05/15/2016 20:30:18
--- NOTE | 2016-05-15 21:06 | PD ---
Physical Exam Narrative Patient was seen by ED physician and signed out to me. Data Data Last Documented VS Vital Signs Date Time Temp Pulse Resp B/P Pulse Ox O2 Delivery O2 Flow Rate FiO2 05/15/16 18:32 98 Room Air 05/15/16 18:18 98.8 72 18 128/58 Orders Complete Blood Count With Diff (05/15/16 18:28) Comprehensive Metabolic Panel (05/15/16 18:28) Prothrombin Time / Inr (Pt) (05/15/16 18:28) Act Partial Throm Time (Ptt) (05/15/16 18:28) Urinalysis - C+S If Indicated (05/15/16 18:28) Iv Access Insert/Monitor (05/15/16 18:28) Ecg Monitoring (05/15/16 18:28) Oximetry (05/15/16 18:28) Sodium Chloride 0.9% Flush (Ns Flush) (05/15/16 18:30) Electrocardiogram (05/15/16 18:28) B-Type Natriuretic Peptide (05/15/16 18:29) Chest, Pa & Lat (05/15/16 ) Us Arm Venous Doppler (05/15/16 18:31) Labs Laboratory Tests Test 05/15/16 05/15/16 18:50 19:55 White Blood Count 27.0 TH/MM3 Red Blood Count 3.06 MIL/MM3 Hemoglobin 8.4 GM/DL Hematocrit 26.1 % Mean Corpuscular Volume 85.1 FL Mean Corpuscular Hemoglobin 27.3 PG Mean Corpuscular Hemoglobin 32.1 % Concent Red Cell Distribution Width 26.1 % Platelet Count 379 TH/MM3 Mean Platelet Volume 9.2 FL Neutrophils (%) (Auto) 86.0 % Lymphocytes (%) (Auto) 3.9 % Monocytes (%) (Auto) 6.6 % Eosinophils (%) (Auto) 2.4 % Basophils (%) (Auto) 1.1 % Neutrophils # (Auto) 23.2 TH/MM3 Lymphocytes # (Auto) 1.0 TH/MM3 Monocytes # (Auto) 1.8 TH/MM3 Eosinophils # (Auto) 0.6 TH/MM3 Basophils # (Auto) 0.3 TH/MM3 CBC Comment AUTO DIFF Differential Total Cells 100 Counted Neutrophils % (Manual) 70 % Band Neutrophils % 5 % Lymphocytes % 4 % Monocytes % 9 % Eosinophils % 1 % Basophils % 2 % Neutrophils # (Manual) 22.7 TH/MM3 Metamyelocytes 4 % Myelocytes 5 % Nucleated Red Blood Cells 1 /100 WBC Differential Comment FINAL DIFF MANUAL Platelet Estimate NORMAL Platelet Morphology Comment NORMAL Prothrombin Time 14.0 SEC Prothromb Time International 1.3 RATIO Ratio Activated Partial 32.9 SEC Thromboplast Time Sodium Level 138 MEQ/L Potassium Level 3.7 MEQ/L Chloride Level 101 MEQ/L Carbon Dioxide Level 25.3 MEQ/L Anion Gap 12 MEQ/L Blood Urea Nitrogen 49 MG/DL Creatinine 1.80 MG/DL Estimat Glomerular Filtration 36 ML/MIN Rate Random Glucose 97 MG/DL Calcium Level 8.2 MG/DL Total Bilirubin 1.1 MG/DL Aspartate Amino Transf 44 U/L (AST/SGOT) Alanine Aminotransferase 23 U/L (ALT/SGPT) Alkaline Phosphatase 67 U/L B-Type Natriuretic Peptide 1552 PG/ML Total Protein 6.6 GM/DL Albumin 2.8 GM/DL Urine Color YELLOW Urine Turbidity CLEAR Urine pH 5.0 Urine Specific [place] 1.009 Urine Protein TRACE mg/dL Urine Glucose (UA) NEG mg/dL Urine Ketones NEG mg/dL Urine Occult Blood NEG Urine Nitrite NEG Urine Bilirubin NEG Urine Urobilinogen LESS THAN 2.0 MG/DL Urine Leukocyte Esterase TRACE Urine RBC LESS THAN 1 /hpf Urine WBC 4 /hpf Urine Squamous Epithelial <1 /hpf Cells Urine Hyaline Casts 2 /lpf Urine Mucus FEW /lpf Microscopic Urinalysis Comment CULT NOT INDICATED MDM Supervised Visit with NENA: No Interpretation(s) Last Impressions Upper Extremity Ultrasound 05/15/16 1831 Signed Impressions: Service Date/Time: Sunday, May 15, 2016 19:31 - CONCLUSION: Occlusive thrombus in the left cephalic and left basilic vein. Karan Merino MD Chest X-Ray 05/15/16 0000 Signed Impressions: Service Date/Time: Sunday, May 15, 2016 19:07 - CONCLUSION: 1. Cardiomegaly with small right pleural effusion and right basilar density. 2. Cardiomegaly and previous CABG. Karan Merino MD 7 PM. CBC WBC 27.0. Hemoglobin 8.4 hematocrit 26.1. 86 neutrophil. BUN 49. Creatinine 1.80. BNP 1552. Diagnosis Primary Impression: Acute exacerbation of CHF (congestive heart failure) Qualified Code: I50.9 - Acute on chronic congestive heart failure, unspecified congestive heart failure type Additional Impressions: Deep venous thrombosis of left upper extremity Qualified Code: I82.622 - Acute deep vein thrombosis (DVT) of other vein of left upper extremity Chronic kidney disease Qualified Code: N18.3 - Chronic kidney disease, stage 3 (moderate) Admitting Information Admitting Physician Requests: it Yuri Contreras MD May 15, 2016 21:06
[2016-05-15] MEDS ORDERED: BISACODYL 10 MG SUPP PR PRN (21:15)
[2016-05-15] MEDS ORDERED: BUMETANIDE INJ 1 MG/4 ML VIAL IV PUSH ONE (21:15)
[2016-05-15] MEDS ORDERED: NALOXONE HCL 0.4 MG/ML AMP IV PRN (21:15)
[2016-05-15] MEDS ORDERED: SENNOSIDES 8.6 MG TAB PO PRN (21:15)
[2016-05-15] MEDS ORDERED: APIXABAN 2.5 MG TABLET PO ONE (21:15)
[2016-05-15] MEDS ORDERED: SODIUM CHLORIDE 0.9% FLUSH 5 ML FLUSH FLUSH PRN (21:15)
[2016-05-16] VITALS (7 sets, daily range): BP systolic 109–129; BP diastolic 56–67; PULSE 63–76; RESP 18–22; TEMP 95.7–98; O2SAT 97–99
[2016-05-16 04:34] LABS: BICARBONATE 26.1 MEQ/L (21.0-32.0); POTASSIUM 3.1 MEQ/L (3.5-5.1)
[2016-05-16] MEDS ORDERED: POTASSIUM CHLORIDE 20 MEQ CONTROLLED RELEASE TAB PO SCH (09:00)
[2016-05-16] MEDS ORDERED: FERROUS SULFATE 325 MG (65 MG ELEMENTAL IRON) TAB PO SCH (09:00)
[2016-05-16] MEDS ORDERED: BUMETANIDE INJ 1 MG/4 ML VIAL IV PUSH SCH ×2 (09:00→21:00)
[2016-05-16] MEDS ORDERED: POTASSIUM CHLORIDE 20 MEQ CONTROLLED RELEASE TAB PO ONE (09:45)
--- NOTE | 2016-05-16 09:48 | HHI.HP ---
HPI Service [facility] Primary Care Physician Tanmay Aaron M.D. Admission Diagnosis acute exacerbation of CHF. Left arm DVT. Chronic kidney disease. 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 Patient was recently admitted 05/02 to 05/14 with sepsis, CHF, anasarca, CESAR. He was diuresed, evaluated by both cardiology and nephrology. Underwent bone marrow biopsy per Dr. 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 Medical management was recommended. Patient was actually discharged on the and recommended rehabilitation placement which case management had arranged. However at the last moment, he decided to go home with home health care. Patient presented back to the emergency room complaining of increased weight gain, 4 pounds cannot sit on his close. Endorses increased pedal edema as well as abdominal girth. He is making urine, has been compliant taking diuretics. He has some dyspnea with exertion, no chest pain. Denies any fever, no chills. Patient is somewhat anxious, poor historian requesting that I obtain information from his as she knows "everything". In the emergency room, patient was evaluated in laboratory workup was completed. CBC was remarkable for leukocytosis, WBC 27 which is similar to recent admissions. Hemoglobin 8.4.hematocrit 26.1. Renal function is actually improved, creatinine 1.8 and GFR 36. BNP was 1552. He was noted with left arm swelling and erythema, ultrasound completed showed occlusive thrombus in the left cephalic and left basilic vein. He was given a one-time dose of Eliquis. Chest x-ray remarkable for cardiomegaly with small right pleural effusion and right basilar density as well as findings of previous CABG. He was given Bumex 1 mg 1. Patient is now admitted, evaluated in room 1616. He is sitting up in the chair, appears comfortable, no respiratory distress. Patient is admitted for further evaluation and treatment. Review of Systems Constitutional: COMPLAINS OF: Fatigue, Weight gain Cardiovascular: COMPLAINS OF: Dyspnea on Exertion, Lower Extremity Edema Past Family Social History Past Medical History 1. Coronary artery disease with a stent times two to the distal left main and proximal circumflex September of 2012. 2. Hypertension. 3. Hyperlipidemia. 4. Prior episode of GI bleed while on aspirin. 5. Left temporal fossa mass status post craniotomy (had meningioma) in 2006 with residual short term memory loss. 6. Expressive aphasia. 7. Hyperlipidemia. 8. Previous coronary artery bypass graft in 2003. 9. Cholecystectomy. 10. Tonsillectomy previous pulmonary emboli. 11. Previous cerebrovascular accident. 12. Deep venous thrombosis./PE/IVC filter 13. Bilateral cataract surgery. 14. Hyperlipidemia. 15. Gastroesophageal reflux disease. 16. Previous upper and lower endoscopy. 17. Peptic ulcer disease. 18. GI bleed due to ASA and Xarelto 19. Longo's esophagus 20. Recent findings of splenomegaly, anemia, referred to hematology 21. S/P EGD, unsure of findings, Dr. Nielsen 22. Admitted 05/02 to 05/14 with sepsis, CHF, anasarca, CESAR, MDS Reported Medications Reported Meds & Active Scripts Active Bumex (Bumetanide) 2 Mg Tab 2 Mg PO BID Ferrous Sulfate 325 Mg Tab 325 Mg PO BID 30 Days Reported Aciphex (Rabeprazole Sodium) 20 Mg Tab 20 Mg PO DAILY Plavix (Clopidogrel Bisulfate) 75 Mg Tab 75 Mg PO DAILY Simvastatin 20 Mg Tab 20 Mg PO Isosorbide Mononitrate ER (Isosorbide Mononitrate) 30 Mg Lazaro 30 Mg PO DAILY Carvedilol 3.125 Mg Tab 3.125 Mg PO DAILY Ranexa ER 12 HR (Ranolazine) 1,000 Mg Tab 1,000 Mg PO BID Potassium Chloride ER (Potassium Chloride) 20 Meq Tab 20 Meq PO BID Allergies: Coded Allergies: Norvasc (Verified Allergy, Severe, Arrhythmias, 05/15/16) Aspirin (Verified Adverse Reaction, Intermediate, GI BLEED, 05/15/16) CHANGES MADE PER JUANITA IN PHARMACY. STATES HE SPOKE TO THE DOCTOR. Active Ordered Medications Inpatient Medications Apixaban (Eliquis) 2.5 mg ONCE ONCE PO Last administered on 05/15/16t 22:45; Start 05/15/16 at 21:15; Stop 05/15/16 at 21:16; Status DC Bisacodyl (Dulcolax Supp) 10 mg DAILY PRN [place] CONSTIPATION; Start 05/15/16 at 21 :15 Bumetanide (Bumex Inj) 1 mg TID IV PUSH ; Start 05/16/16 at 09:00 Carvedilol (Coreg) 3.125 mg DAILY PO ; Start 05/16/16 at 09:00 Clopidogrel Bisulfate (Plavix) 75 mg DAILY PO ; Start 05/16/16 at 09:00 Ferrous Sulfate (Ferrous Sulfate) 325 mg BID PO ; Start 05/16/16 at 09:00 Isosorbide Mononitrate (Imdur) 30 mg DAILY PO ; Start 05/16/16 at 09:00 IV Flush (NS Flush) 2 ml BID FLUSH ; Start 05/16/16 at 09:00 Naloxone HCl (Narcan Inj) 0.4 mg UNSCH PRN IV SEE LABEL COMMENTS; Start at 21:15 Pantoprazole Sodium (Protonix) 20 mg DAILY PO ; Start 05/16/16 at 09:00 Potassium Chloride (KCl) 20 meq ONCE ONCE PO ; Start 05/16/16 at 09:45; Stop at 09:46; Status UNV Ranolazine (Ranexa) 1,000 mg BID PO ; Start 05/16/16 at 09:00 Sennosides (Senokot) 17.2 mg Q12H PRN PO CONSTIPATION; Start 05/15/16 at 21:15 Family History Mother with hx of lung cancer Brother, alive, 80s multiple medical problems Social History , lives at home with , no kids. Quit smoking many years ago, no ETOH , no substance abuse Physical Exam Vital Signs Vital Signs Date Time Temp Pulse Resp B/P Pulse Ox O2 Delivery O2 Flow Rate FiO2 05/16/16 05:13 98.0 72 22 116/56 97 05/16/16 00:11 97.6 72 18 119/58 98 05/15/16 19:15 76 18 117/58 97 Room Air 05/15/16 18:51 71 18 97 Room Air 05/15/16 18:32 98 Room Air 05/15/16 18:18 98.8 72 18 128/58 98 Physical Exam GENERAL: This is a well-nourished, well-developed patient, in no apparent distress. Anxious, poor historian. SKIN: No rashes, ecchymoses or lesions. Cool and dry. HEAD: Atraumatic. Normocephalic. No temporal or scalp tenderness. EYES: Pupils equal round and reactive. Extraocular motions intact. No scleral icterus. No injection or drainage. ENT: Nose without bleeding, purulent drainage or septal hematoma. Throat without erythema, tonsillar hypertrophy or exudate. Uvula midline. Airway patent. NECK: Trachea midline. No JVD or lymphadenopathy. Supple, nontender, no meningeal signs. CARDIOVASCULAR: Regular rate and rhythm without murmurs, gallops, or rubs. Noted with anasarca. Bilateral lower extremities from thighs all the way down to feet with 3+ pitting edema. Difficult to palpate pedal pulses. Capillary refill less than 3 seconds. Left upper extremity edema noted as well, with diffuse erythema. RESPIRATORY: Bibasilar Rales mid lobes to bases. GASTROINTESTINAL: Abdomen soft, non-tender, nondistended. No hepato-splenomegaly , or palpable masses. No guarding.Bilateral flank edema. MUSCULOSKELETAL: No joint abnormality, no tenderness. NEUROLOGICAL: Awake, alert oriented 3. No focal deficits. Poor historian. Laboratory Laboratory Tests Test 05/15/16 05/15/16 05/16/16 18:50 19:55 03:34 White Blood Count 27.0 Red Blood Count 3.06 Hemoglobin 8.4 Hematocrit 26.1 Mean Corpuscular Volume 85.1 Mean Corpuscular Hemoglobin 27.3 Mean Corpuscular Hemoglobin 32.1 Concent Red Cell Distribution Width 26.1 Platelet Count 379 Mean Platelet Volume 9.2 Neutrophils (%) (Auto) 86.0 Lymphocytes (%) (Auto) 3.9 Monocytes (%) (Auto) 6.6 Eosinophils (%) (Auto) 2.4 Basophils (%) (Auto) 1.1 Neutrophils # (Auto) 23.2 Lymphocytes # (Auto) 1.0 Monocytes # (Auto) 1.8 Eosinophils # (Auto) 0.6 Basophils # (Auto) 0.3 CBC Comment AUTO DIFF Differential Total Cells 100 Counted Neutrophils % (Manual) 70 Band Neutrophils % 5 Lymphocytes % 4 Monocytes % 9 Eosinophils % 1 Basophils % 2 Neutrophils # (Manual) 22.7 Metamyelocytes 4 Myelocytes 5 Nucleated Red Blood Cells 1 Differential Comment FINAL DIFF MANUAL Platelet Estimate NORMAL Platelet Morphology Comment NORMAL Prothrombin Time 14.0 Prothromb Time International 1.3 Ratio Activated Partial 32.9 Thromboplast Time Sodium Level 138 140 Potassium Level 3.7 3.1 Chloride Level 101 102 Carbon Dioxide Level 25.3 26.1 Anion Gap 12 12 Blood Urea Nitrogen 49 48 Creatinine 1.80 1.78 Estimat Glomerular Filtration 36 36 Rate Random Glucose 97 109 Calcium Level 8.2 8.4 Total Bilirubin 1.1 Aspartate Amino Transf 44 (AST/SGOT) Alanine Aminotransferase 23 (ALT/SGPT) Alkaline Phosphatase 67 Total Creatine Kinase 63 26 Troponin I 0.14 0.12 B-Type Natriuretic Peptide 1552 Total Protein 6.6 Albumin 2.8 Urine Color YELLOW Urine Turbidity CLEAR Urine pH 5.0 Urine Specific [place] 1.009 Urine Protein TRACE Urine Glucose (UA) NEG Urine Ketones NEG Urine Occult Blood NEG Urine Nitrite NEG Urine Bilirubin NEG Urine Urobilinogen LESS THAN 2.0 Urine Leukocyte Esterase TRACE Urine RBC LESS THAN 1 Urine WBC 4 Urine Squamous Epithelial <1 Cells Urine Hyaline Casts 2 Urine Mucus FEW Microscopic Urinalysis Comment CULT NOT INDICATED Result Diagram: 05/15/16 1850 05/16/16 0334 Imaging Last Impressions Upper Extremity Ultrasound 05/15/16 1831 Signed Impressions: Service Date/Time: Sunday, May 15, 2016 19:31 - CONCLUSION: Occlusive thrombus in the left cephalic and left basilic vein. Karan Merino MD Chest X-Ray 05/15/16 0000 Signed Impressions: Service Date/Time: Sunday, May 15, 2016 19:07 - CONCLUSION: 1. Cardiomegaly with small right pleural effusion and right basilar density. 2. Cardiomegaly and previous CABG. Karan Merino MD Assessment and Plan Problem List: (1) Acute exacerbation of CHF (congestive heart failure) (2) Cardiomyopathy (3) Deep venous thrombosis of left upper extremity (4) History of CVA (cerebrovascular accident) (5) Chronic kidney disease (6) Hypertension (7) Myeloproliferative disease (8) Anasarca (9) Anemia (10) Leukocytosis Assessment and Plan 89-year-old male with history of CAD, hypertension, chronic left leg edema, previous CABG, cardiomyopathy, history of DVT and PE, GI bleed. 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 Patient presented back to the emergency room with increased weight gain, pedal edema, increase abdominal girth and dyspnea with exertion. Acute on chronic CHF exacerbation, history of dilated cardiomyopathy Continue with Bumex IV, continue with Aldactone Strict intake and output Patient will be put on 1200 cc fluid restriction and low sodium diet Continuous cardiac telemetry Cardiology consultation -Had recent echocardiogram, EF 35-40%. No need to repeat Acute DVT left arm, occlusive thrombus in the left cephalic and left basilic vein. Consult hematology for recommendations on appropriate anticoagulant, history of GI bleed in the past while on Xarelto In the meantime patient will be put on Lovenox 100 mg subcutaneous daily. 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 With significant leukocytosis, anemia Monitor CBC Had recent bone marrow biopsy, evaluated by hematology -Continue with supportive care -May need blood transfusion Chronic kidney disease III, creat stable. Actually improved from recent admission. Continue with Bumex Nephrology has been consulted -Monitor intake and output Monitor BMP Avoid nephrotoxic agent Elevated troponin, no chest pain, dyspnea on exertion. History of Coronary artery disease -Continue with serial cardiac enzymes Cardiology consultation Continue with Plavix, Coreg, Ranexa, Imdur HTN, stable -continue home meds Hx CVA, stable -continue home meds Home medications reviewed, initiated as indicated Case management consulted for rehabilitation placement, patient is undecided what he wants to do after discharge, request that we speak to his . Lovenox for DVT prophylaxis Plan of care discussed with the patient, attending and registered nurse. Further management of the patient will be dependent on the hospital course This patient was seen by myself and Dr. Gaitan, this H&P is written on his behalf Physician Certification 2 Midnight Certification Type: Admission for Inpatient Services Order for Inpatient Services The services are ordered in accordance with Medicare regulations or non- Medicare payer requirements, as applicable. In the case of services not specified as inpatient-only, they are appropriately provided as inpatient services in accordance with the 2-midnight benchmark. Estimated LOS (days): 2 2 days is the estimated time the patient will need to remain in the hospital, assuming treatment plan goals are met and no additional complications. Post-Hospital Plan: SNF Problem Qualifiers (1) Acute exacerbation of CHF (congestive heart failure): Qualified Code: I50.9 - Acute on chronic congestive heart failure, unspecified congestive heart failure type (2) Cardiomyopathy: Qualified Code: I42.0 - Dilated cardiomyopathy (3) Deep venous thrombosis of left upper extremity: Qualified Code: I82.622 - Acute deep vein thrombosis (DVT) of other vein of left upper extremity (4) Chronic kidney disease: Qualified Code: N18.3 - Chronic kidney disease, stage 3 (moderate) (5) Hypertension: Qualified Code: I10 - Essential hypertension (6) Anemia: Qualified Code: 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
[2016-05-16] MEDS: SODIUM CHLORIDE 0.9% FLUSH 5 ML FLUSH FLUSH SCH ×2 (10:08→20:25)
[2016-05-16] MEDS: CARVEDILOL 3.125 MG TAB PO SCH (10:09)
[2016-05-16] MEDS: CLOPIDOGREL 75 MG TAB PO SCH (10:09)
[2016-05-16] MEDS: ISOSORBIDE MONONITRATE 30 MG TAB PO SCH (10:09)
[2016-05-16] MEDS: RANOLAZINE 500 MG EXTENDED RELEASE TAB PO SCH ×2 (10:09→20:23)
[2016-05-16] MEDS: PANTOPRAZOLE SOD 20 MG DELAYED RELEASE TAB PO SCH (10:10)
--- NOTE | 2016-05-16 11:19 | MB ---
cc: SHAR SIERRA MD DATE OF CONSULTATION: 05/16/2016 REASON FOR CONSULTATION Elevated BUN and creatinine and edema of the legs. HISTORY OF PRESENT ILLNESS This is a 89-year-old male with past medical history of ischemic heart disease, hypertension, hyperlipidemia, cholecystectomy, chronic kidney disease, recent history of acute kidney injury, history of deep vein thrombosis, came to the hospital with complaint of swelling of the legs and abdominal swelling. I was called to see the patient because of elevated BUN and creatinine. The patient has known history of chronic kidney disease and has history of recent acute kidney injury. His creatinine went up to as high as 4.1. This was about 2 weeks ago and he was seen by Dr. Funez at that time and he was just discharged on Tuesday and came back today. The patient has increased swelling of the legs and when he was discharged his creatinine was 2.2 and improving now, the creatinine is 1.7-1.8. His potassium is on the lower side and he is on replacement. The patient was discharged on Bumex p.o. but he stayed one day at home and now he is getting the Bumex IV. He denies any shortness of breath. There is no nausea or vomiting. PAST MEDICAL HISTORY 1. Hypertension. 2. Ischemic heart disease. 3. Congestive heart failure with ejection fraction of 35-40%. 4. Chronic kidney disease with recent acute kidney injury. 5. Hyperlipidemia. 6. Longo's esophagus. PAST SURGICAL HISTORY 1. Cholecystectomy. 2. Tonsillectomy. 3. Cataract surgery. 4. Endoscopy. 5. History of craniotomy for meningioma. 6. Cardiac catheterization with stent placement. REVIEW OF SYSTEMS The patient has generalized weakness, feeling tired and he noticed more and more swelling of his legs and his abdomen. There is no nausea or vomiting. Denies any shortness of breath. No chest pain. No palpitation. His appetite is normal. He is eating his breakfast right now. There is no history of dysuria, hematuria or difficulty passing urine. SOCIAL HISTORY Is . He has past history of smoking. FAMILY HISTORY Noncontributory. ALLERGIES Allergic to ASPIRIN AND NORVASC. MEDICATIONS Currently he is on: 1. Ferrous sulfate 325 mg b.i.d. 2. Xanax 1 gram t.i.d. 3. Potassium chloride 40 mEq b.i.d. 4. Carvedilol 3.125 mg daily. 5. Plavix 75 mg daily. 6. Imdur 30 mg once a day. 7. Protonix 20 mg daily. 8. Bumex 1 mg t.i.d. 9. Senokot p.r.n. PHYSICAL EXAMINATION GENERAL: On examination the patient is awake, alert. He is sitting in the chair, not in acute distress. VITAL SIGNS: His last blood pressure is 129/67, temperature is 95.9, oxygen saturation 97-99%. HEENT: Pupils equally reacting to light. Nonicteric sclerae, conjunctivae pale. NECK: Supple. JVD is not elevated. LUNGS: The patient has bilateral decreased air entry with some basilar rales. HEART: S1, S2, regular rhythm. ABDOMEN: Abdomen is soft, lax, distended with possibility of some ascites. EXTREMITIES: He has bilateral 3+ edema. INVESTIGATION WBC count is 27.0, hemoglobin 8.4, platelet count of 379, neutrophils 86%, sodium 140, potassium 3.1, chloride 102, bicarb 26.1, BUN 48, creatinine 1.7, calcium is 8.4, INR 1.3. Urinalysis showing trace proteinuria. IMAGING STUDIES Ultrasound of the upper extremities done which was showing that he has thrombus in the left cephalic and left basilic vein, this is ultrasound of the left arm. Chest x-ray was done which shows cardiomegaly with a small pleural effusion and right basilar density. Ultrasound of the kidney was done when he was here the last time and it shows that he has normal size kidneys with echogenic and ascites. ASSESSMENT/PLAN 1. Chronic kidney disease. 2. Generalized anasarca and fluid overload status. 3. Congestive heart failure 4. Deep vein thrombosis, left upper arm. 5. Anemia and leukocytosis. 6. Hypertension. The patient had a stable creatinine. It is possibly close to his baseline but he has an element of acute kidney injury which was gradually getting better. He needs more diuresis. I will change his Bumex to 2 mg b.i.d. and I will also add spironolactone. His potassium is also low. He is on potassium replacement, so this will need to be watched closely and follow the urine output and the BUN and creatinine. Since patient has been followed by Dr. Funez in the past, I will ask him to follow the patient from tomorrow. Thank you for the consultation. MD JOCELYN Hill/TLL /10:24 AM /10:54 AM
--- NOTE | 2016-05-16 15:39 | MB ---
cc: PAPITO JOHNS DO DATE OF CONSULTATION: 05/16/2016. IMPRESSIONS: 1. Dilated cardiomyopathy, etiology atherosclerotic heart disease, last ejection fraction 35% range, history of coronary bypass grafting surgery, history of percutaneous coronary intervention. 2. Hypertension. 3. Chronic renal failure with GFR 135 mL. 4. Lower extremity edema. The patient appears to have anasarca. 5. History of GI bleed. 6. 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 He apparently has a new left upper extremity DVT. 7. History of stroke with mild expressive aphasia. 8. His peripheral vascular disease with carotid artery stenosis. 9. Esophageal reflux disease. 10. Dyslipidemia. RECOMMENDATIONS: At this point in time diuresis. The patient appears to be hemodynamically stable cardiac-hathaway. He does have chronic left bundle branch block. He apparently has had a recent noninvasive workup including stress test and echocardiogram, which have been unchanged. CLINICAL DATA / HISTORY OF PRESENT ILLNESS: Mr. Morales is an 89-year-old male readmitted to the hospital. He apparently was discharged Tuesday and readmitted Tuesday with lower extremity edema and a four-pound weight gain. He also states that he has had increasing abdominal girth and satiety. He has a complicated medical history and has been admitted to the hospital and started on intravenous Bumex. He has not had any recent chest pain. He has had no syncope but states he cannot walk because his legs are too weak. He is able to drive a car. He apparently does live at home and has not been in a retirement. PAST SURGICAL HISTORY: His past surgical history includes: 1. Cardiac catheterization with percutaneous coronary intervention, apparently left main and circumflex. 2. He has had a craniotomy in 2006. 3. Coronary bypass grafting surgery apparently in 1991 with a redo in 2003. 4. Cholecystectomy. 5. Appendectomy. MEDICATIONS: His medications at the time of admission included: 1. Ferrous sulfate twice a day 2. Xanax p.r.n. 3. Potassium chloride 40 twice a day. 4. Carvedilol 3.125 daily. 5. Plavix 75 daily. 6. Imdur 30 daily. 7. Protonix 20 daily. 8. Bumex 1 milligram three times a day. ALLERGIES: 1. ASPIRIN. 2. NORVASC. REVIEW OF SYSTEMS: He denies any recent chest pain. He has chronic low back pain having had back surgery in the remote past. He has had no recent fever, febrile illness, upper respiratory infection, et cetera. The patient has been seen by nephrology. His Bumex as been changed to 2 mg IV twice a day and he has been started on spironolactone. He has had no syncope but states he cannot walk. He has had no paroxysmal nocturnal dyspnea or orthopnea, but has had mild exertional dyspnea. PHYSICAL EXAMINATION: GENERAL: At this time demonstrates an arousable male who is quite frustrated and has difficulty communicating and appears to be a poor historian. As example, he denied that he had ever had a stroke. VITAL SIGNS: His blood pressure 117/58, heart rate 70 and regular with occasional extrasystoles. HEAD, EYES, EARS, NOSE, THROAT: Anicteric sclerae. NECK: Jugular venous pressures are elevated Kussmaul sign positive. CHEST/LUNGS: He has clear lung denton anteriorly and laterally. CARDIAC: On cardiac exam he has a regular rate and rhythm. There is a 2/6 systolic ejection murmur. There is no S3 noted currently. EXTREMITIES: The patient has 3+ to 4+ edema up to his knees. He also has edematous thighs. EKGS: A 12-lead EKG is unchanged demonstrating sinus rhythm with complete left bundle branch block. PERTINENT LABORATORY DATA: White cell count 27,000. The patient has been afebrile since admission. His hematocrit is 26, platelet count 379,000. Electrolytes: 140, 3.1, 102, 26 with a BUN of 48, creatinine of 1.8. Random glucose was 109. Troponins are minimally elevated at 0.12 and 0.14. BNP 1552. Albumin is 2.8. A lipid profile with triglycerides is not available. DISCUSSION: This is an elderly debilitated male readmitted to the hospital with lower extremity edema. His chest x-ray demonstrated cardiomegaly with increased interstitial markings and fluid in the minor fissure. RECOMMENDATIONS: Recommendations are as noted above. If the patient does not begin diuresing, I would add metolazone 5 mg daily. His overall prognosis appears to be guarded. DO SALLY Ha/JUAN C /2:48 PM /3:28 PM
[2016-05-16] MEDS ORDERED: ENOXAPARIN SODIUM 100 MG/ML SYRINGE SQ SCH (16:00)
[2016-05-16] MEDS: SPIRONOLACTONE 25 MG TAB PO SCH (17:09)
[2016-05-16] MEDS ORDERED: IRON SUCROSE INJ 100 MG in SODIUM CHLORIDE 0.9% INJ 100 ML IV ONE (19:15)
[2016-05-16] MEDS: ACETAMINOPHEN/HYDROcodone 325 MG/5 MG TAB PO PRN (20:22)
[2016-05-16] MEDS: POTASSIUM CHLORIDE 20 MEQ CONTROLLED RELEASE TAB PO SCH (20:22)
--- NOTE | 2016-05-16 20:35 | MB ---
cc: HEAVEN FORBES,DOMO THOMPSON,SHOAIB Linares M.D. Oncology new patient consultative summary DATE OF CONSULTATION 05/16/[address] Gaitan[address] CHIEF COMPLA[address]. Gaitan requested consultation for Mr. Morales regarding newly diagnosed left upper extremity thromboses. HISTORY OF THE PRESENT ILLNESS Mr. Morales is an 89-year-old man well-known from a previous consultation dating back to July 05, 2006. Mr. Morales has a history of atherosclerotic heart disease, hypertension, hyperlipidemia, gastroesophageal reflux and Longo's esophagus. He also has chronic back pain, osteoarthritis, peripheral vascular disease, mitral and tricuspid valve regurg. In 2006 he was seen for A 0.2 cm homogeneously enhancing mass in the left temporal lobe which turned to be a meningioma that was resected by Dr. Ronal Gan on July 11, 2006. Mr. Morales has come under the care of Dr. Heaven Forbes. He was last seen by Dr. Forbes on May 06, 2016. He is undergoing evaluation for chronic anemia, suspected myelofibrosis versus myeloproliferative disorder versus chronic myelogenous leukemia. Dr. Forbes recently coordinated a bone marrow biopsy May 05 and it is still pending. Initial studies for SHRUTHI-2 mutation was negative. Mr. Morales has chronic anemia dating back to 2006. It appears more microcytic recently. His white blood cell count has increased since March 2015. His platelet count is elevated in April of 2016 consistent with reactive thrombocytosis from iron deficiency. Iron studies, last ferritin from May 03, 2016 is consistent with iron deficiency. Mr. Morales was discharged for rehab placement during his last admission, decided to go home. The patient presented back in the emergency room with weight gain, cannot sit down, pedal edema, increased abdominal girth, dyspnea on exertion, anxious. His hemoglobin was 8.4. His renal function is improved although diminished. With a finding of left arm swelling ultrasound was performed on 05/15 that showed an occlusive thrombus in the left cephalic and left basilic vein. He has associated erythema along the site. It is remarkably swollen compared to the right side. He reports multiple IVs placed on that arm on previous admission. Mr. Morales's main complaint is not feeling well. He reports that he is a chronic insomnic. He had nightmares with Ambien and declined Ambien. Restoril makes him too groggy. He is agreeable to try lorazepam. He denies any fevers. He has the symptoms described above. Hematology/Oncology is consulted for options for anticoagulation. Mr. Morales describes being on Coumadin for a long time from cardiology issues. He was taken off Coumadin about a year ago by his marketing proposal coordinator. He reports a bad experience with Xarelto. He is preferring not to go on the new oral anticoagulants. PAST MEDICAL HISTORY As described above. 1. Coronary artery disease. 2. Chronic renal insufficiency. 3. Iron deficiency anemia. 4. Reactive thrombocytosis. 5. Hypertension. 6. Hyperlipidemia. 7. Meningioma. 8. CVA. 9. Pulmonary embolism. 10. Gastroesophageal reflux. PAST SURGICAL HISTORY 1. Cholecystectomy. 2. Bilateral cataract surgery. 3. Removal of meningioma. 4. Coronary artery bypass graft surgery in 1989. 5. coronary artery stent placement. 6. Inferior vena cava filter placement. 7. Previous history of deep vein thromboses. ALLERGIES NORVASC AND ASPIRIN. MEDICATIONS Current medications: 1. Potassium chloride. 2. Bumex. 3. Spironolactone. 4. Anoxaparin. 5. Carvedilol. 6. Plavix. 7. Ferrous sulfate. 8. Imdure. 9. Protonix. 10. Ranexa. PHYSICAL EXAMINATION VITAL SIGNS: Temperature 95.7, heart rate 63, respiratory 19, blood pressure 111/58, saturation 98%. GENERAL: Mr. Morales is an anxious appearing elderly man. HEENT: His pupils are round and reactive to light and accommodation. Oropharynx is dry. NECK: Supple. Has an old scar on his right high forehead and old scar from his meningioma surgery on the left in front of his ear. LUNGS: Clear anteriorly. CARDIOVASCULAR: Exam reveals some mild bradycardia. ABDOMEN: Large and benign. EXTREMITIES: Lower extremities with 2+ pitting edema. NEUROLOGICAL: Exam is nonfocal. LABORATORY DATA Significant for leukocytosis with white blood cell count 27,000. Hemoglobin 8.40, platelet count 379. Chemistry BUN of 48, creatinine 1.7. PT/PTT are both prolonged. ASSESSMENT/PLAN Mr. Morales is an 89-year-old man with multiple medical problems. He is well-known patient to Dr. Heaven Forbes. He has tried multiple anticoagulant therapy at various times for various events throughout his long complicated medical history. He has developed new left upper extremity deep vein thromboses. He has recently been discharged from the hospital and just returned back two days later. He is unable to manage at home. He was discharged home on new oral anticoagulants. Review of the medication list suggests that he was on apixaban 2.5 milligrams and the last dose administered was 05/15/2016. Despite the apixaban he still has residual clot described above. We discussed the risk and benefits of low-molecular weight heparin. We are concerned about the apixaban in light of the renal insufficiency and his older age at 89. The safety of these medications are in question in much older patients. The patient's preference is not to be placed on Coumadin. With this our options are limited to low-molecular weight heparin. He and his are willing to learn how to administer low-molecular weight heparin. He is given a dose of 100 mg once daily. In light of his heme-positive stools and his multiple medical problems, I would probably decrease the dose and split the dose twice a day. He may have difficulty managing the peak of once daily dosing. Furthermore, we can observe how low-molecular weight heparin reacts to the clot bound thrombin and may improve the swelling in his left arm. We will monitor the erythema associated with the left arm. There is suspected super infection. Antibiotic therapy is held at the moment. If the erythema persists we may consider Keflex for treatment of the cellulitis. The case was discussed with Dr. Forbes. He will return to follow up on Tuesday. His bone marrow biopsy results will be followed. In light of his iron deficiency, a trial of a parenteral iron is recommended. The lorazepam is offered for his anxiety. Hopefully this will help him sleep. MD POWER Benton/ELLYN /6:52 PM /8:02 PM
--- NOTE | 2016-05-16 21:37 | RADRPT ---
EXAM DATE/TIME: 05/16/2016 20:34 [facility] COMPARISON: No previous studies available for comparison. EXTERNAL COMPARISON : [facility], CT ABDOMEN & PELVIS W/O CONTRAST, March 19, 2016 INDICATIONS : Ascites. MEDICAL HISTORY : Gastroesophageal reflux disease. Hypercholesterolemia. Hypertension. Longo's esophagus. cerebrovasc ular accident. coronary artery disease. anticoagulant therapy, plavix. pulmonary embolism. irregular heartbeat. ulcer. arthritis. skin cancer. measles. SURGICAL HISTORY : Appendectomy. Cholecystectomy. Tonsillectomy. Coronary artery stent. Bilateral cataract removal. CABG . Craniotomy. Back surgery. Left knee surgery. ENCOUNTER: Subsequent ACUITY: 1 day PAIN SCORE: 6/10 LOCATION: Abdomen. AREA EVALUATED: Abdominal quadrants. FINDINGS: Imaging of the abdomen and pelvis was performed to evaluate for ascites for possible paracentesis. S mall moderate abdominal ascites. CONCLUSION: Small to moderate amount of abdominal ascites. Karan Merino MD on May 16, 2016 at 21:35 Board Certified Radiologist. This report was verified electronically.
[2016-05-17] VITALS (7 sets, daily range): BP systolic 102–128; BP diastolic 55–65; PULSE 58–68; RESP 16–20; TEMP 95.8–97.9; O2SAT 95–99
[2016-05-17] MEDS: LORazepam 0.5 MG TAB PO PRN ×3 (00:31→23:36)
[2016-05-17] MEDS: ACETAMINOPHEN/HYDROcodone 325 MG/5 MG TAB PO PRN ×3 (02:11→18:34)
[2016-05-17 07:04] LABS: HEMATOCRIT 27.2 % (39.0-51.0); MEAN CELL VOLUME 85.7 FL (80.0-100.0); MEAN CORPUSCULAR HEMOGLOBIN 27.5 PG (27.0-34.0); MEAN CORPUSCULAR HGB CONC 32.1 % (32.0-36.0); PLATELET COUNT 346 TH/MM3 (150-450); RED BLOOD COUNT 3.17 MIL/MM3 (4.50-5.90); RED CELL DISTRIBUTION WIDTH 26.4 % (11.6-17.2); WHITE BLOOD COUNT 20.1 TH/MM3 (4.0-11.0)
[2016-05-17 07:10] LABS: REVIEW FLAG FINAL
[2016-05-17 07:31] LABS: POTASSIUM 3.7 MEQ/L (3.5-5.1)
--- NOTE | 2016-05-17 09:55 | HHI.NPPN ---
Subjective Complaints: Shortness of Breath General Problems: Edema Renal Failure: Chronic, Acute Interval History Pt is sitting up in chair. He is fluid overloaded. is present, apparently the left AMA without Rx for diuretics. Was readmitted after one day. (Martha Bueno) Review of Systems Respiratory Lungs: SOB (Martha Bueno) Cardiovascular Cardiac: Edema (Martha Bueno) Objective Data Data 05/16/16 05/17/16 19:00 07:00 Intake Total 720 ml 720 ml Output Total 200 ml Balance 720 ml 520 ml Intake Oral 720 ml 720 ml Output Urine Total 200 ml # Voids 3 2 # Bowel Movements 1 0 Vital Signs Date Time Temp Pulse Resp B/P Pulse Ox O2 Delivery O2 Flow Rate FiO2 05/17/16 08:14 95.9 60 16 112/65 99 05/17/16 04:14 95.8 62 19 117/62 95 05/17/16 00:06 95.8 66 20 112/58 99 05/16/16 21:00 69 05/16/16 20:14 96.6 64 19 109/57 99 05/16/16 16:00 95.7 63 19 111/58 98 05/16/16 12:00 97.4 76 19 126/61 98 (Martha Bueno) -: 05/17/16 0600 05/17/16 0600 Imaging Last 72 hours Impressions Abdomen Ultrasound 05/16/16 0000 Signed Impressions: Service Date/Time: Monday, May 16, 2016 20:34 - CONCLUSION: Small to moderate amount of abdominal ascites. Karan Merino MD Upper Extremity Ultrasound 05/15/16 1831 Signed Impressions: Service Date/Time: Sunday, May 15, 2016 19:31 - CONCLUSION: Occlusive thrombus in the left cephalic and left basilic vein. Karan Merino MD Chest X-Ray 05/15/16 0000 Signed Impressions: Service Date/Time: Sunday, May 15, 2016 19:07 - CONCLUSION: 1. Cardiomegaly with small right pleural effusion and right basilar density. 2. Cardiomegaly and previous CABG. Karan Merino MD (Martha Bueno) Physical Exam General Appearance: Well Developed, Well Nourished, No Acute Distress (Martha Bueno. [employer]) Throat Throat Exam: Oral Mucosa Edinburgh & Moist (Martha Bueno. [employer]) Neck Neck Exam: Neck Supple (Martha Bueno. [employer]) Pulmonary Resp Exam: No Distress, Crackles (Martha Bueno. [employer]) Cardiology CV Exam: Regular, Good Perfusion (Martha Bueno [employer]) Gastrointestinal/Abdomen GI Exam: Bowel Sounds Present, Distended GI Remarks firm, distended (Martha Bueno. [employer]) Musculoskeletal MS Exam: Joints Intact, Normal Tone (Martha Bueno. [employer]) Integumentary Skin Exam: Clear, Warm, Dry (Martha Bueno [employer]) Extremeties Extremities Exam: Pedal Pulses Palpable, Moderate Edema, Dependent Edema ( Martha Bueno. [employer]) Neurologic Neuro Exam: Alert, Awake, Oriented, Speech Clear, Moving All Extremities ( Martha Bueno [employer]) Psychiatric Psych Exam: Appropriate Responses (Martha Bueno) Assessment/Plan Discussed Condition With: Patient, Spouse, Daughter Assessment Summary: INEZ/Acute Renal Failure, Fluid/Volume Overload Problem List: (1) Anasarca Plan: due to CKD, CHF diuresis as per above, monitor I/O (he did require bumex gtt previous admission) elevate lower extremities, low Na diet, limit oral fluids to 1500 ml daily (2) Chronic kidney disease Plan: Baseline creatinine 1.7, GFR 46 (CKD 3) his renal function is slightly worse, may be due to aggressive diuresis K was replaced (he is on high doses of oral KCL and Aldactone, follow K closely) demonstrating fluid overload On Aldactone BID, change Bumex to gtt at 2 mg/hr place abel renal panel in am (3) Deep venous thrombosis of left upper extremity Plan: On lovenox hematology has been consulted apparently cannot tolerate coumadin or Xarelto (4) Ascites Plan: per US, minimal fluid, paracentesis not necessary (Martha Bueno. [employer]) Plan patient was seen and examined. He presents with massive fluid overload, similar to his last presentation. We will start Bumex drip and monitor his response. Discussed at length with his and another family member who had a lot questions and concerns. (Jeromy Funez MD) Problem Qualifiers (1) Chronic kidney disease: Qualified Code: N18.3 - Chronic kidney disease, stage 3 (moderate) (2) Deep venous thrombosis of left upper extremity: Qualified Code: I82.622 - Acute deep vein thrombosis (DVT) of other vein of left upper extremity Martha Bueno May 17, 2016 09:55 Jeromy Funez MD May 17, 2016 11:39
[2016-05-17] MEDS: RANOLAZINE 500 MG EXTENDED RELEASE TAB PO SCH ×2 (10:58→21:54)
[2016-05-17] MEDS: CLOPIDOGREL 75 MG TAB PO SCH (10:58)
[2016-05-17] MEDS: PANTOPRAZOLE SOD 20 MG DELAYED RELEASE TAB PO SCH (10:58)
[2016-05-17] MEDS: SPIRONOLACTONE 25 MG TAB PO SCH ×2 (10:58→18:34)
[2016-05-17] MEDS: ISOSORBIDE MONONITRATE 30 MG TAB PO SCH (10:58)
[2016-05-17] MEDS: POTASSIUM CHLORIDE 20 MEQ CONTROLLED RELEASE TAB PO SCH ×2 (10:58→21:54)
[2016-05-17] MEDS: CARVEDILOL 3.125 MG TAB PO SCH (10:58)
[2016-05-17] MEDS: SODIUM CHLORIDE 0.9% FLUSH 5 ML FLUSH FLUSH SCH ×2 (10:59→21:00)
[2016-05-17] MEDS ORDERED: BUMETANIDE INJ 1 MG/4 ML VIAL IV PUSH ONE (11:30)
[2016-05-17] MEDS ORDERED: BUMETANIDE INJ 1 MG/4 ML VIAL IV PUSH SCH (13:00)
[2016-05-17] MEDS ORDERED: LIDOCAINE 2% JELLY 30 ML TUBE TOPICAL ONE (14:00)
[2016-05-17] MEDS ORDERED: LIDOCAINE 2% JELLY 5 ML TUBE TOPICAL ONE (14:15)
--- NOTE | 2016-05-17 14:43 | PD.CARD.PN ---
Subjective Subjective Remarks Patient feels bad and family member at bedside. Planning to start Bumex drip Objective Vital Signs / I&O Vital Signs Date Time Temp Pulse Resp B/P Pulse Ox O2 Delivery O2 Flow Rate FiO2 05/17/16 12:20 97.9 62 16 128/61 97 05/17/16 08:14 95.9 60 16 112/65 99 05/17/16 04:14 95.8 62 19 117/62 95 05/17/16 00:06 95.8 66 20 112/58 99 05/16/16 21:00 69 05/16/16 20:14 96.6 64 19 109/57 99 05/16/16 16:00 95.7 63 19 111/58 98 I/O 05/16/16 05/16/16 05/16/16 05/17/16 05/17/16 05/17/16 07:00 15:00 23:00 07:00 15:00 23:00 Intake Total 240 ml 720 ml 600 ml 120 ml Output Total 350 ml 200 ml Balance -110 ml 720 ml 600 ml -80 ml Intake Oral 240 ml 720 ml 600 ml 120 ml Output Urine Total 350 ml 200 ml # Voids 3 2 # Bowel Movements 0 1 0 0 Physical Exam GENERAL: Ill appearing male SKIN: Warm and dry. HEAD: Normocephalic. EYES: No scleral icterus. No injection or drainage. NECK: Supple, trachea midline. Increased JVD CARDIOVASCULAR: Regular rate and rhythm without murmurs, gallops, or rubs. RESPIRATORY: Breath sounds equal bilaterally. No accessory muscle use. Mildly labored breathing GASTROINTESTINAL: Abdomen soft, non-tender, nondistended. MUSCULOSKELETAL: No cyanosis, BLE extremity edema and scrotal edema BACK: Nontender without obvious deformity. Laboratory Laboratory Tests Test 05/17/16 06:00 White Blood Count 20.1 TH/MM3 Red Blood Count 3.17 MIL/MM3 Hemoglobin 8.7 GM/DL Hematocrit 27.2 % Mean Corpuscular Volume 85.7 FL Mean Corpuscular Hemoglobin 27.5 PG Mean Corpuscular Hemoglobin 32.1 % Concent Red Cell Distribution Width 26.4 % Platelet Count 346 TH/MM3 Mean Platelet Volume 9.2 FL Sodium Level 136 MEQ/L Potassium Level 3.7 MEQ/L Chloride Level 99 MEQ/L Carbon Dioxide Level 25.0 MEQ/L Anion Gap 12 MEQ/L Blood Urea Nitrogen 48 MG/DL Creatinine 2.02 MG/DL Estimat Glomerular Filtration 31 ML/MIN Rate Random Glucose 110 MG/DL Calcium Level 8.2 MG/DL Imaging Last 48 hours Impressions Abdomen Ultrasound 05/16/16 0000 Signed Impressions: Service Date/Time: Monday, May 16, 2016 20:34 - CONCLUSION: Small to moderate amount of abdominal ascites. Karan Merino MD Upper Extremity Ultrasound 05/15/16 1831 Signed Impressions: Service Date/Time: Sunday, May 15, 2016 19:31 - CONCLUSION: Occlusive thrombus in the left cephalic and left basilic vein. Karan Merino MD Assessment and Plan Assessment and Plan 1. Dilated cardiomyopathy, etiology atherosclerotic heart disease, last ejection fraction 35% range, history of coronary bypass grafting surgery, history of percutaneous coronary intervention. 2. Hypertension. 3. Chronic renal failure 4. Lower extremity edema. The patient appears to have anasarca. 5. History of GI bleed. 6. 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 He apparently has a new left upper extremity DVT. 7. History of stroke with mild expressive aphasia. 8. His peripheral vascular disease with carotid artery stenosis. 9. Esophageal reflux disease. 10. Dyslipidemia. Plan: Agree with Bumex drip. Will continue to follow with you Prognosis guarded. Recurrent admission. Recently left AMA. Patient seen and evaluated by Marilee Walker May 17, 2016 14:43
--- NOTE | 2016-05-17 14:47 | HHI.PR ---
Subjective Remarks sitting upright inc. leg edema SOB with activity inc. scrotal edema no cp no fever c/o back pain family at bs, is going to tour [facility] Objective Objective Results - Vital Signs Date Time Temp Pulse Resp B/P Pulse Ox O2 Delivery O2 Flow Rate FiO2 05/17/16 12:20 97.9 62 16 128/61 97 05/17/16 08:14 95.9 60 16 112/65 99 05/17/16 04:14 95.8 62 19 117/62 95 05/17/16 00:06 95.8 66 20 112/58 99 05/16/16 21:00 69 05/16/16 20:14 96.6 64 19 109/57 99 05/16/16 16:00 95.7 63 19 111/58 98 I/O 05/16/16 05/16/16 05/16/16 05/17/16 05/17/16 05/17/16 07:00 15:00 23:00 07:00 15:00 23:00 Intake Total 240 ml 720 ml 600 ml 120 ml Output Total 350 ml 200 ml Balance -110 ml 720 ml 600 ml -80 ml Intake Oral 240 ml 720 ml 600 ml 120 ml Output Urine Total 350 ml 200 ml # Voids 3 2 # Bowel Movements 0 1 0 0 Result Diagram: 05/17/16 0600 05/17/16 0600 Imaging Last Impressions Upper Extremity Ultrasound 05/15/16 1831 Signed Impressions: Service Date/Time: Sunday, May 15, 2016 19:31 - CONCLUSION: Occlusive thrombus in the left cephalic and left basilic vein. Karan Merino MD Chest X-Ray 05/15/16 0000 Signed Impressions: Service Date/Time: Sunday, May 15, 2016 19:07 - CONCLUSION: 1. Cardiomegaly with small right pleural effusion and right basilar density. 2. Cardiomegaly and previous CABG. Karan Merino MD Other Results Laboratory Tests Test 05/17/16 06:00 White Blood Count 20.1 Red Blood Count 3.17 Hemoglobin 8.7 Hematocrit 27.2 Mean Corpuscular Volume 85.7 Mean Corpuscular Hemoglobin 27.5 Mean Corpuscular Hemoglobin 32.1 Concent Red Cell Distribution Width 26.4 Platelet Count 346 Mean Platelet Volume 9.2 Sodium Level 136 Potassium Level 3.7 Chloride Level 99 Carbon Dioxide Level 25.0 Anion Gap 12 Blood Urea Nitrogen 48 Creatinine 2.02 Estimat Glomerular Filtration 31 Rate Random Glucose 110 Calcium Level 8.2 ROS General: Weakness, No: Fatigue, Other HEENT: No: Sore Throat, Dysphagia Cardiac: Chest Pain, Edema, No: Palpitations, Other Pulmonary: SOB, No: Cough, Wheezing, Other GI: No: Abdominal Pain, BM, Diarrhea, N/V /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 Anxious, poor historian. Appears fatigued SKIN: No rashes, ecchymoses or lesions. Cool and dry. HEAD: Atraumatic. Normocephalic. No temporal or scalp tenderness. EYES: Pupils equal round and reactive. Extraocular motions intact. No scleral icterus. No injection or drainage. ENT: Nose without bleeding, purulent drainage or septal hematoma. Throat without erythema, tonsillar hypertrophy or exudate. Uvula midline. Airway patent. NECK: Trachea midline. No JVD or lymphadenopathy. Supple, nontender, no meningeal signs. CARDIOVASCULAR: Regular rate and rhythm without murmurs, gallops, or rubs. Noted with anasarca. Bilateral lower extremities from thighs all the way down to feet with 3+ pitting edema. Difficult to palpate pedal pulses. Capillary refill less than 3 seconds. Left upper extremity edema noted as well, erythema improved. RESPIRATORY: Faint bibasilar Rales mid lobes to bases. GASTROINTESTINAL: Abdomen soft, non-tender, nondistended. No hepato-splenomegaly , or palpable masses. No guarding. Bilateral flank edema. Scrotal edema MUSCULOSKELETAL: No joint abnormality, no tenderness. NEUROLOGICAL: Awake, alert oriented 3. No focal deficits. Poor historian. Urinary Catheter: No Vascular Central Line Catheter: No A/P Diagnosis: (1) Acute exacerbation of CHF (congestive heart failure) (2) Cardiomyopathy (3) Deep venous thrombosis of left upper extremity (4) History of CVA (cerebrovascular accident) (5) Chronic kidney disease (6) Hypertension (7) Myeloproliferative disease (8) Anasarca (9) Anemia (10) Leukocytosis Assessment and Plan 89-year-old male with history of CAD, hypertension, chronic left leg edema, previous CABG, cardiomyopathy, history of DVT and PE, GI bleed. 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 Patient presented back to the emergency room with increased weight gain, pedal edema, increase abdominal girth and dyspnea with exertion. Acute on chronic CHF exacerbation, history of dilated cardiomyopathy will be starting on Bumex gtt, continue Aldactone Strict intake and output 1200 cc fluid restriction and low sodium diet Continuous cardiac telemetry Cardiology consultation, Dr. Solis evaluated, continue with present management -Had recent echocardiogram, EF 35-40%. No need to repeat -abel to be inserted, inc. scrotal edema. Apply small amount of lido jelly before abel insertion, d/w RN -Douglas wrap legs, keep elevated. -Keep scrotum elevated Acute DVT left arm, occlusive thrombus in the left cephalic and left basilic vein. Heme input appreciated, Dec. Lovenox to 60 mg SQ daily. -Pt. and want to avoid Coumadin, Eliquis not a good choice due to renal function. 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 With significant leukocytosis, anemia Monitor CBC. WBC better 20.7 Had recent bone marrow biopsy, evaluated by hematology -Continue with supportive care -May need blood transfusion -HH stable Chronic kidney disease III, creat stable. Actually improved from recent admission. Continue with Bumex gtt Nephrology input appreciated. -Monitor intake and output Monitor BMP Avoid nephrotoxic agent -Slight increase in creat, monitor closely Elevated troponin, no chest pain, dyspnea on exertion. History of Coronary artery disease -Continue with serial cardiac enzymes-negative Cardiology input appreciated Continue with Plavix, Coreg, Ranexa, Imdur HTN, stable -continue home meds Hx CVA, stable -continue home meds Case management consulted for rehabilitation placement, CIR evaluated. D/W , niece and pt. Lovenox for DVT prophylaxis Continue with above tx will need rehab, d/w , he can't go home. Apparently they signed out AMA during previous admission Labs in am Hopefully to CIR in 2-3 days D/W RN D/W CM D/W pt, niece, . Discussed at length, chronicity of condition, possible exacerbations, realistic expectations. is elderly and frail herself. D/W Dr. Gaitan D/W Dr. Solis This patient was seen by myself and Dr. Gaitan, this note is written on his behalf Problem Qualifiers (1) Acute exacerbation of CHF (congestive heart failure): Qualified Code: I50.9 - Acute on chronic congestive heart failure, unspecified congestive heart failure type (2) Cardiomyopathy: Qualified Code: I42.0 - Dilated cardiomyopathy (3) Deep venous thrombosis of left upper extremity: Qualified Code: I82.622 - Acute deep vein thrombosis (DVT) of other vein of left upper extremity (4) Chronic kidney disease: Qualified Code: N18.3 - Chronic kidney disease, stage 3 (moderate) (5) Hypertension: Qualified Code: I10 - Essential hypertension (6) Anemia: Qualified Code: 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
[2016-05-17] MEDS: ENOXAPARIN SODIUM 60 MG/0.6 ML SYRINGE SQ SCH (15:46)
[2016-05-17] MEDS: BUMETANIDE INJ 100 ML IV SCH (15:47)
[2016-05-17] MEDS: ONDANSETRON HCL 4 MG/2 ML VIAL IV PUSH PRN (23:36)
[2016-05-18] VITALS: BP 117/61; PULSE 88; RESP 16; TEMP 97; O2SAT 95
[2016-05-18 04:00] VITALS: BP 109/65; PULSE 61; RESP 17; TEMP 96.4; O2SAT 97
[2016-05-18] MEDS: ONDANSETRON HCL 4 MG/2 ML VIAL IV PUSH PRN (06:26)
[2016-05-18 07:27] LABS: MEAN CORPUSCULAR HEMOGLOBIN 28.1 PG (27.0-34.0); MEAN CORPUSCULAR HGB CONC 32.7 % (32.0-36.0); PLATELET COUNT 392 TH/MM3 (150-450); RED BLOOD COUNT 3.48 MIL/MM3 (4.50-5.90); RED CELL DISTRIBUTION WIDTH 26.6 % (11.6-17.2); WHITE BLOOD COUNT 22.6 TH/MM3 (4.0-11.0)
[2016-05-18 07:40] LABS: BICARBONATE 23.6 MEQ/L (21.0-32.0); MAGNESIUM 1.8 MG/DL (1.5-2.5); POTASSIUM 4.1 MEQ/L (3.5-5.1)
[2016-05-18 07:49] LABS: REVIEW FLAG FINAL
[2016-05-18 08:00] VITALS: BP 144/82; PULSE 65; RESP 18; TEMP 96; O2SAT 99
[2016-05-18] MEDS: RANOLAZINE 500 MG EXTENDED RELEASE TAB PO SCH ×2 (09:36→20:48)
[2016-05-18] MEDS: CLOPIDOGREL 75 MG TAB PO SCH (09:36)
[2016-05-18] MEDS: CARVEDILOL 3.125 MG TAB PO SCH (09:36)
[2016-05-18] MEDS: POTASSIUM CHLORIDE 20 MEQ CONTROLLED RELEASE TAB PO SCH ×2 (09:36→20:48)
[2016-05-18] MEDS: ISOSORBIDE MONONITRATE 30 MG TAB PO SCH (09:36)
[2016-05-18] MEDS: PANTOPRAZOLE SOD 20 MG DELAYED RELEASE TAB PO SCH (09:36)
[2016-05-18] MEDS: SODIUM CHLORIDE 0.9% FLUSH 5 ML FLUSH FLUSH SCH ×2 (09:37→20:49)
[2016-05-18] MEDS: SPIRONOLACTONE 25 MG TAB PO SCH ×2 (09:37→17:36)
--- NOTE | 2016-05-18 10:58 | HHI.NPPN ---
Subjective Complaints: Shortness of Breath General Problems: Edema Renal Failure: Chronic, Acute Interval History He is on Bumex gtt with marginal response. Creatinine is worse, anasarca persists. He is not sleeping, now with nausea/vomiting. Family at bedside, plan to transfer to hospice if no improvement. (Martha Bueno) Review of Systems General Constitutional: Fatigue General Remarks insomnia (Martha Bueno) Respiratory Lungs: SOB (Martha Bueno) Cardiovascular Cardiac: Edema (Martha Bueno) Gastrointestinal Gastrointestinal: Nausea & Vomiting (Martha Bueno) Objective Data Data 05/17/16 05/18/16 19:00 07:00 Intake Total 480 ml 0 ml Output Total 450 ml 520 ml Balance 30 ml -520 ml Intake Oral 480 ml 0 ml Output Urine Total 450 ml 520 ml # Bowel Movements 0 Vital Signs Date Time Temp Pulse Resp B/P Pulse Ox O2 Delivery O2 Flow Rate FiO2 05/18/16 08:00 96.0 65 18 144/82 99 05/18/16 04:00 96.4 61 17 109/65 97 05/18/16 00:00 97.0 88 16 117/61 95 05/17/16 23:48 60 05/17/16 20:00 96.9 58 16 102/55 95 05/17/16 16:30 96.1 68 16 121/63 97 05/17/16 12:20 97.9 62 16 128/61 97 (Martha Bueno) -: 05/18/16 0636 05/18/16 0636 Tubes & Lines: Lozano Drip Comment Bumex (Martha Bueno) Physical Exam General Appearance: Well Developed, Well Nourished Appearance Remarks moaning, rocking side to side, sleepy (Martha Bueno) Eyes Eye Exam: Pupils Equal (Martha Bueno) Throat Throat Exam: Oral Mucosa Dysart & Moist (Martha Bueno) Neck Neck Exam: Neck Supple (Martha Bueno) Pulmonary Resp Exam: Breath Sounds Equal, No Distress, Crackles (Martha Bueno) Cardiology CV Exam: Regular, Good Perfusion (Martha Bueno) Gastrointestinal/Abdomen GI Exam: Bowel Sounds Present, Distended GI Remarks firm, distended (Martha Bueno) Musculoskeletal MS Exam: Joints Intact, Normal Tone (Martha Bueno) Integumentary Skin Exam: Clear, Warm, Dry (Martha Bueno) Extremeties Extremities Exam: Pedal Pulses Palpable, Moderate Edema, Dependent Edema ( Martha Bueno) Neurologic Neuro Exam: Alert, Awake, Oriented, Speech Clear, Moving All Extremities ( Martha Bueno) Psychiatric Psych Exam: Appropriate Responses (Martha Bueno) VTE Prophylaxis Meds: Lovenox (Martha Bueno) Assessment/Plan Discussed Condition With: Patient, Spouse, Daughter Assessment Summary: INEZ/Acute Renal Failure, Fluid/Volume Overload Problem List: (1) Anasarca Plan: due to CKD, CHF diuresis as per above, monitor I/O (he also required bumex gtt previous admission) elevate lower extremities, compression stockings, low Na diet, limit oral fluids to 1500 ml daily (2) Chronic kidney disease Plan: Baseline creatinine 1.7, GFR 46 (CKD 3) his renal function is worse, likely due to aggressive diuresis K has normalized persistent fluid overload, continue Aldactone and Bumex gtt at 2 mg/hr monitor response if he clinically declines, plan to transfer to hospice, D/W family daily renal panel, Urine output measurement (3) Deep venous thrombosis of left upper extremity Plan: On lovenox hematology following apparently cannot tolerate Coumadin or Xarelto (4) Ascites Plan: per US, minimal fluid, paracentesis not necessary (Martha Bueno) Plan patient was seen and examined. Renal function is worse. Inadequate response to Bumex drip. Family is considering hospice. (Jeromy Funez MD) Problem Qualifiers (1) Chronic kidney disease: Qualified Code: N18.3 - Chronic kidney disease, stage 3 (moderate) (2) Deep venous thrombosis of left upper extremity: Qualified Code: I82.622 - Acute deep vein thrombosis (DVT) of other vein of left upper extremity Martha Bueno May 18, 2016 10:58 Jeromy Funez MD May 18, 2016 16:25
[2016-05-18] MEDS ORDERED: PROMETHAZINE INJ 25 MG/ML VIAL IM PRN ×2 (11:15→18:00)
--- NOTE | 2016-05-18 11:16 | HHI.PR ---
Subjective Remarks Debilitated General aches and pains especially in lower extremities Abdomen taut Nausea Vomiting over the last 12 hours, with dry heaves Appetite poor (Francine Champion) Objective Objective Results - Vital Signs Date Time Temp Pulse Resp B/P Pulse Ox O2 Delivery O2 Flow Rate FiO2 05/18/16 08:00 96.0 65 18 144/82 99 05/18/16 04:00 96.4 61 17 109/65 97 05/18/16 00:00 97.0 88 16 117/61 95 05/17/16 23:48 60 05/17/16 20:00 96.9 58 16 102/55 95 05/17/16 16:30 96.1 68 16 121/63 97 05/17/16 12:20 97.9 62 16 128/61 97 I/O 05/17/16 05/17/16 05/17/16 05/18/16 05/18/16 05/18/16 07:00 15:00 23:00 07:00 15:00 23:00 Intake Total 120 ml 480 ml 0 ml 0 ml Output Total 200 ml 450 ml 220 ml 300 ml Balance -80 ml 30 ml -220 ml -300 ml Intake Oral 120 ml 480 ml 0 ml 0 ml Output Urine Total 200 ml 450 ml 220 ml 300 ml # Bowel Movements 0 0 0 (Francine Champion) Result Diagram: 05/18/16 0636 05/18/16 0636 Other Results Last Impressions Abdomen Ultrasound 05/16/16 0000 Signed Impressions: Service Date/Time: Monday, May 16, 2016 20:34 - CONCLUSION: Small to moderate amount of abdominal ascites. Karan Merino MD Upper Extremity Ultrasound 05/15/16 1831 Signed Impressions: Service Date/Time: Sunday, May 15, 2016 19:31 - CONCLUSION: Occlusive thrombus in the left cephalic and left basilic vein. Karan Merino MD Chest X-Ray 05/15/16 0000 Signed Impressions: Service Date/Time: Sunday, May 15, 2016 19:07 - CONCLUSION: 1. Cardiomegaly with small right pleural effusion and right basilar density. 2. Cardiomegaly and previous CABG. Karan Merino MD Medications and IVs Active Medications Bumetanide (Bumex Inj) 2 mg TID IV PUSH; Start 05/17/16 at 13:00; Stop 05/17/16 at 13:00; Status DC Bumetanide (Bumex Inj) 100 ml @ 8 mls/hr CONTINUOUS IV Last administered on 05/17 15:47; Admin Dose 8 MLS/HR; Start 05/17/16 at 13:30 Bumetanide 2 mg 2 mg NOW ONCE IV PUSH Last administered on 05/17/16 12:14; Admin Dose 2 MG; Start 05/17/16 at 11:30; Stop 05/17/16 at 11:39; Status DC Enoxaparin Sodium (Lovenox Inj) 60 mg Q24H SQ Last administered on 05/17/16 15: 46; Admin Dose 60 MG; Start 05/17/16 at 16:00 Lidocaine HCl (Xylocaine 2% Jelly) 1 applic ONCE ONCE TOPICAL; Start 05/17/16 at 14:00; Stop 05/17/16 at 14:11; Status DC Lidocaine HCl (Xylocaine 2% Jelly) 1 applic ONCE ONCE TOPICAL Last administered on 05/17/16 15:47; Admin Dose 1 APPLIC; Start 05/17/16 at 14:15; Stop 05/17/16 at 14:16; Status DC Ondansetron HCl (Zofran Inj) 4 mg Q4H PRN IV PUSH Last administered on 06:26; Admin Dose 4 MG; Start 05/17/16 at 23:45 (Francine Champion) ROS General: Fatigue, Weakness, Other (10 point ROS done positives include fatigue and weakness generalized edema, shortness of breath, abdominal pain, nausea and vomiting. 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 He is alert and awake, SOB mild HEAD: Normocephalic without any lesion or mass noted. Facial features appear symmetric. OROPHARYNGEAL: Oropharynx without erythema or edema. NECK: Supple. No nuchal rigidity or lymphadenopathy. Trachea midline without deviation. CARDIAC: Regular rhythm, regular rate, S1 and S2 distant. LUNGS: Clear to auscultation bilaterally. [] wheeze, [] rhonchi or [] rale. Positive use of accessory muscles on inspiration or expiration. ABDOMEN: Round taut, tympanic, nontender to light palpation Hypoactive Bowel sounds No rebound. EXTREMITIES: 3+ lower extremity edema. Lower legs wrapped, 1+ upper extremity NEUROLOGICAL: Patient mood and affect appears ill. No focal deficit SKIN:Warm and moist, pale, dry, enamorado tone mild Objective Remarks I feels so nauseated and had been vomiting all night. I'm still short of breath (Francine Champion) A/P Assessment and Plan (1) Acute exacerbation of CHF (congestive heart failure) (2) Cardiomyopathy (3) Deep venous thrombosis of left upper extremity (4) History of CVA (cerebrovascular accident) (5) Chronic kidney disease (6) Hypertension (7) Myeloproliferative disease (8) Anasarca (9) Anemia (10) Leukocytosis 11. Rule out ileus Assessment and Plan 89-year-old male with history of CAD, hypertension, chronic left leg edema, previous CABG, cardiomyopathy, history of DVT and PE, GI bleed. 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 Patient presented back to the emergency room with increased weight gain, pedal edema, increase abdominal girth and dyspnea with exertion. Acute on chronic CHF exacerbation, history of dilated cardiomyopathy Bumex gtt, continue Aldactone Strict intake and output 1200 cc fluid restriction and low sodium diet Continuous cardiac telemetry Cardiology consultation, Dr. Solis evaluated, continue with present management -Had recent echocardiogram, EF 35-40%. -abel, still has scrotal edema encouraged to elevate scrotum -Douglas wrap legs, keep elevated. -Keep scrotum elevated Acute DVT left arm, occlusive thrombus in the left cephalic and left basilic vein. Heme input appreciated, Dec. Lovenox to 60 mg SQ daily. -Pt. and want to avoid Coumadin, Eliquis not a good choice due to renal function. Continue Lovenox for now Anasarca Abdominal ultrasound done, not enough fluid for paracentesis. Abdomen continues to show possible increased girth We'll check KUB today to rule out ileus. 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 With significant leukocytosis, anemia Monitor CBC, hemoglobin 9.8 stable. WBC increased today 22.6 Had recent bone marrow biopsy, evaluated by hematology -Continue with supportive care -HH stable Chronic kidney disease III, creat stable. Sodium 134, Continue with Bumex gtt Nephrology input appreciated. -Monitor intake and output Monitor BMP Avoid nephrotoxic agent -Slight increase in creat, monitor closely , will check labs in the morning Elevated troponin, no chest pain, dyspnea on exertion. History of Coronary artery disease -Continue with serial cardiac enzymes-negative Cardiology input appreciated Continue with Plavix, Coreg, Ranexa, Imdur HTN, stable -continue home meds Hx CVA, stable -continue home meds Case management consulted for rehabilitation placement, CIR evaluated. D/W , niece and pt. Lovenox for DVT prophylaxis, currently on Lovenox and Plavix PUD prophylaxis with Protonix Monitor vital signs currently afebrile, BP 144/82 Continue with above tx will need rehab, d/w , he can't go home. Apparently they signed out AMA during previous admission Labs in am Hopefully to CIR in 2-3 days But today will need KUB to rule out any type of obstruction Shortness of breath nausea and vomiting continue, increased over the last 12 hours. Medications reviewed. Discussed with and family member Discussed with Dr. Gaitan, patient seen on her behalf Discharge Planning Case management involved, will need SNF for rehabilitation Discussed With: Nurse, Family (patient , and family member), Other (Dr. Gaitan, patient seen on her behalf) (Francine Champion) Assessment and Plan Patient seen and examined appears uncomfortable KUB neg worsening renal function discussed with niece in length, considering Hospice consult Hospice would like to go to [facility] prn phenergan for n/v discussed with Francine ALEXIS (Yesenia Gaitan MD) Francine Champion May 18, 2016 11:16 Yesenia Gaitan MD May 18, 2016 14:11
[2016-05-18 12:00] VITALS: BP 133/71; PULSE 70; RESP 18; O2SAT 98
--- NOTE | 2016-05-18 12:52 | RADRPT ---
EXAM DATE/TIME: 05/18/2016 11:53 [facility] COMPARISON: No previous studies available for comparison. INDICATIONS : Abdominal pain, short of breath, nausea, evaluate ileus MEDICAL HISTORY : Gastroesophageal reflux disease. Cerebrovascular disease. Cardiovascular disease. pulmonary embo masoud, ulcer, skin cancer SURGICAL HISTORY : Appendectomy. Cholecystectomy. Coronary artery stent. CABG, Craniotomy, Back surgery, knee surgery ENCOUNTER: Subsequent ACUITY: 2 days PAIN SCORE: 10/10 LOCATION: Bilateral abomen FINDINGS: Supine view of the abdomen was performed. The abdominal bowel gas pattern is normal. No abnormal ma sses, calcifications, or organomegaly is seen. The osseous structures are unremarkable. CONCLUSION: Normal examination. IVC filter in place Mohamud Pierre MD on May 18, 2016 at 12:50 Board Certified Radiologist. This report was verified electronically.
--- NOTE | 2016-05-18 14:22 | PD.CARD.PN ---
Subjective Subjective Remarks Niece at bedside. mental status worse today. Patient in mild distress. Nausea/ vomiting last night. Persistent edema. On Bumex drip. Objective Vital Signs / I&O Vital Signs Date Time Temp Pulse Resp B/P Pulse Ox O2 Delivery O2 Flow Rate FiO2 05/18/16 12:00 70 18 133/71 98 05/18/16 08:00 96.0 65 18 144/82 99 05/18/16 04:00 96.4 61 17 109/65 97 05/18/16 00:00 97.0 88 16 117/61 95 05/17/16 23:48 60 05/17/16 20:00 96.9 58 16 102/55 95 05/17/16 16:30 96.1 68 16 121/63 97 I/O 05/17/16 05/17/16 05/17/16 05/18/16 05/18/16 05/18/16 07:00 15:00 23:00 07:00 15:00 23:00 Intake Total 120 ml 480 ml 0 ml 0 ml Output Total 200 ml 450 ml 220 ml 300 ml Balance -80 ml 30 ml -220 ml -300 ml Intake Oral 120 ml 480 ml 0 ml 0 ml Output Urine Total 200 ml 450 ml 220 ml 300 ml # Bowel Movements 0 0 0 Physical Exam GENERAL: Ill appearing male in mild distress SKIN: Warm and dry. Mildly jaundice HEAD: Normocephalic. EYES: No scleral icterus. No injection or drainage. NECK: Supple, trachea midline. Increased JVD CARDIOVASCULAR: Regular rate and rhythm without murmurs, gallops, or rubs. RESPIRATORY: Breath sounds equal bilaterally. No accessory muscle use. GASTROINTESTINAL: Abdomen soft, distended more compared to yesterday MUSCULOSKELETAL: No cyanosis, BLE extremity edema and scrotal edema BACK: Nontender without obvious deformity. Laboratory Laboratory Tests Test 05/18/16 06:36 White Blood Count 22.6 TH/MM3 Red Blood Count 3.48 MIL/MM3 Hemoglobin 9.8 GM/DL Hematocrit 30.0 % Mean Corpuscular Volume 86.0 FL Mean Corpuscular Hemoglobin 28.1 PG Mean Corpuscular Hemoglobin 32.7 % Concent Red Cell Distribution Width 26.6 % Platelet Count 392 TH/MM3 Mean Platelet Volume 9.4 FL Sodium Level 134 MEQ/L Potassium Level 4.1 MEQ/L Chloride Level 99 MEQ/L Carbon Dioxide Level 23.6 MEQ/L Anion Gap 11 MEQ/L Blood Urea Nitrogen 51 MG/DL Creatinine 2.42 MG/DL Estimat Glomerular Filtration 25 ML/MIN Rate Random Glucose 133 MG/DL Calcium Level 8.5 MG/DL Phosphorus Level 3.8 MG/DL Magnesium Level 1.8 MG/DL Albumin 2.8 GM/DL Assessment and Plan Assessment and Plan 1. Dilated cardiomyopathy, etiology atherosclerotic heart disease, last ejection fraction 35% range, history of coronary bypass grafting surgery, history of percutaneous coronary intervention. Slightly elevated troponin 2. Hypertension. 3. Acute on chronic renal failure 4. Lower extremity edema. The patient appears to have anasarca. 5. History of GI bleed. 6. 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 He apparently has a new left upper extremity DVT. 7. History of stroke with mild expressive aphasia. 8. His peripheral vascular disease with carotid artery stenosis. 9. Esophageal reflux disease. 10. Dyslipidemia. 11. Altered mental status 12. Mild jaundice Plan: Agree with Bumex drip. Monitor electrolytes Appears mildly jaundice today, mental status worse today. Will check LFT, if elevated, check ammonia Agree with palliative care vs hospice. Will continue to follow with you Prognosis guarded. Recurrent admission. Recently left AMA. Assessment and plan discussed with Marilee Walker May 18, 2016 14:22
--- NOTE | 2016-05-18 15:21 | OTSOAPIP ---
TIME SESSION COMPLETED: 15:15 PM TREATMENT TIME: 0 MINS. CHART REVIEWED. RECEIVED OCCUPATIONAL THERAPY ORDERS FROM REUBEN LUNSFORD. REVIEWED ELECTRONIC MEDICAL RECORD. ATTEMPTED TO SEE PATIENT FOR INITIAL EVALUATION, HOWEVER PATIENT IS LETHARGIC, DID NOT SLEEP NIGHT BEFORE AND IS NOT ABLE TO FULLY PARTICIPATE. PATIENT'S FAMILY PRESENT IN ROOM AND POLITELY DECLINE EVALUATION FOR PATIENT AT THIS TIME, REQUEST TO REATTEMPT TOMORROW. WILL PLAN TO REATTEMPT NEXT DAY. INTERDISCIPLINARY COMMUNICATION: REVIEWED ELECTRONIC MEDICAL RECORD Therapist: Erica Ching OTR/L Signature on file
[2016-05-18 15:35] VITALS: BP 128/76; PULSE 71; RESP 15; TEMP 97.1; O2SAT 98
[2016-05-18 17:12] LABS: INDIRECT BILIRUBIN 0.6 MG/DL (0.0-0.8); TOTAL BILIRUBIN ADULT 1.2 MG/DL (0.2-1.0)
[2016-05-18] MEDS: ENOXAPARIN SODIUM 60 MG/0.6 ML SYRINGE SQ SCH (17:37)
[2016-05-18 19:24] VITALS: BP 124/67; PULSE 73; RESP 15; TEMP 96.5; O2SAT 99
--- NOTE | 2016-05-18 20:11 | PD.ONC.PN ---
Subjective Subjective Remarks patient increasingly confused and now have worsening renal function Objective Data Date Time Temp Pulse Resp B/P Pulse Ox O2 Delivery O2 Flow Rate FiO2 05/18/16 19:24 96.5 73 15 124/67 99 05/18/16 15:35 97.1 71 15 128/76 98 05/18/16 12:00 70 18 133/71 98 05/18/16 08:00 96.0 65 18 144/82 99 05/18/16 04:00 96.4 61 17 109/65 97 05/18/16 00:00 97.0 88 16 117/61 95 05/17/16 23:48 60 05/18/16 05/18/16 05/18/16 07:00 15:00 23:00 Intake Total 0 ml 240 ml Output Total 300 ml 250 ml Balance -300 ml -10 ml Result Diagram: 05/18/16 0636 05/18/16 0636 Laboratory Results Laboratory Tests Test 05/18/16 06:36 White Blood Count 22.6 TH/MM3 Red Blood Count 3.48 MIL/MM3 Hemoglobin 9.8 GM/DL Hematocrit 30.0 % Mean Corpuscular Volume 86.0 FL Mean Corpuscular Hemoglobin 28.1 PG Mean Corpuscular Hemoglobin 32.7 % Concent Red Cell Distribution Width 26.6 % Platelet Count 392 TH/MM3 Mean Platelet Volume 9.4 FL Sodium Level 134 MEQ/L Potassium Level 4.1 MEQ/L Chloride Level 99 MEQ/L Carbon Dioxide Level 23.6 MEQ/L Anion Gap 11 MEQ/L Blood Urea Nitrogen 51 MG/DL Creatinine 2.42 MG/DL Estimat Glomerular Filtration 25 ML/MIN Rate Random Glucose 133 MG/DL Calcium Level 8.5 MG/DL Phosphorus Level 3.8 MG/DL Magnesium Level 1.8 MG/DL Total Bilirubin 1.2 MG/DL Direct Bilirubin 0.6 MG/DL Indirect Bilirubin 0.6 MG/DL Aspartate Amino Transf 24 U/L (AST/SGOT) Alanine Aminotransferase 18 U/L (ALT/SGPT) Alkaline Phosphatase 61 U/L Total Protein 6.5 GM/DL Albumin 3.0 GM/DL Imaging Studies Last 24 hours Impressions Abdomen X-Ray 05/18/16 0000 Signed Impressions: Service Date/Time: Wednesday, May 18, 2016 11:53 - CONCLUSION: Normal examination. IVC filter in place Mohamud Pierre MD Administered Medications Medications (Trade) Dose Ordered Sig/Prudence Route PRN Reason Start Time Stop Time Status Last Admin Dose Admin Carvedilol (Coreg) 3.125 mg DAILY PO 05/16/16 09:00 05/18/16 09:36 Clopidogrel Bisulfate (Plavix) 75 mg DAILY PO 05/16/16 09:00 05/18/16 09:36 Isosorbide Mononitrate (Imdur) 30 mg DAILY PO 05/16/16 09:00 05/18/16 09:36 Pantoprazole Sodium (Protonix) 20 mg DAILY PO 05/16/16 09:00 05/18/16 09:36 Ranolazine (Ranexa) 1,000 mg BID PO 05/16/16 09:00 05/18/16 09:36 IV Flush (NS Flush) 2 ml BID FLUSH 05/16/16 09:00 05/17/16 10:59 Sennosides (Senokot) 17.2 mg Q12H PRN PO CONSTIPATION 05/15/16 21:15 05/17/16 15:46 Potassium Chloride (KCl) 40 meq BID PO 05/16/16 21:00 05/18/16 09:36 Spironolactone (Aldactone) 25 mg BID@09,18 PO 05/16/16 18:00 05/18/16 17:36 Enoxaparin Sodium (Lovenox Inj) 60 mg Q24H SQ 05/17/16 16:00 05/18/16 17:37 Lorazepam (Ativan) 0.5 mg Q8H PRN PO anxiety 05/16/16 19:15 05/17/16 23:36 Acetaminophen/ Hydrocodone Bitart 1 tab 1 tab Q6H PRN PO PAIN SCALE 6 TO 10 05/16/16 20:00 05/17/16 18:34 Bumetanide (Bumex Inj) 100 ml @ 8 mls/hr CONTINUOUS IV 05/17/16 13:30 05/17/16 15:47 Ondansetron HCl (Zofran Inj) 4 mg Q4H PRN IV PUSH NAUSEA 05/17/16 23:45 05/18/16 06:26 Promethazine HCl (Phenergan Inj) 12.5 mg ONCE PRN IM nausea 05/18/16 11:15 05/18/16 23:59 05/18/16 12:07 Objective Remarks GENERAL: confused, chronically ill and old SKIN: Warm and dry. HEAD: Normocephalic. EYES: No scleral icterus. No injection or drainage. NECK: Supple, trachea midline. No JVD or lymphadenopathy. LYMPHATIC: No adenopathy. CARDIOVASCULAR: Regular rate and rhythm without murmurs. RESPIRATORY: Breath sounds equal bilaterally. No accessory muscle use. GASTROINTESTINAL: Abdomen soft, non-tender, mild distention EXTREMITIES: +2 edema MUSCULOSKELETAL: poor muscle tone. NEUROLOGICAL: confused with purposeless movements at time. 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 patient has received IV iron and in future may supplement if he gets better 3: thrombosis involving the left basilic and cephalic vein which are superficial veins. Will continue lovenex which has been reduced for renal failure 4: I met with who is a patient of mine and daughter and reviewed current problems with fluctuating renal failure and apparent inability to get better. I spoke to them about NO CPR given age and comorbidities and they will decided in next day. They would like a few more days before deciding on hospice/ palliative care for this man, to give him one more opportunity of getting better. If he does not they are leaning towards hospice as even with a " palliative care" approach he does not have long to live unless there is a rapid turn around. Sivakumar Martin MD May 18, 2016 20:11
[2016-05-18] MEDS: BUMETANIDE INJ 100 ML IV SCH (20:48)
[2016-05-18] MEDS: LORazepam 0.5 MG TAB PO PRN (20:52)
[2016-05-19] VITALS (8 sets, daily range): BP systolic 101–140; BP diastolic 56–72; PULSE 57–71; RESP 15–18; TEMP 95.5–97.2; O2SAT 94–98
[2016-05-19 06:54] LABS: BICARBONATE 20.3 MEQ/L (21.0-32.0)
[2016-05-19] MEDS: CARVEDILOL 3.125 MG TAB PO SCH (08:22)
[2016-05-19] MEDS: SPIRONOLACTONE 25 MG TAB PO SCH (08:22)
[2016-05-19] MEDS: ISOSORBIDE MONONITRATE 30 MG TAB PO SCH (08:22)
[2016-05-19] MEDS: ACETAMINOPHEN/HYDROcodone 325 MG/5 MG TAB PO PRN (08:22)
[2016-05-19] MEDS: RANOLAZINE 500 MG EXTENDED RELEASE TAB PO SCH (08:22)
[2016-05-19] MEDS: PANTOPRAZOLE SOD 20 MG DELAYED RELEASE TAB PO SCH (08:22)
[2016-05-19] MEDS: CLOPIDOGREL 75 MG TAB PO SCH (08:22)
[2016-05-19 08:42] LABS: AUTOMATED NEUTROPHIL # 20.8 TH/MM3 (1.8-7.7); BASOPHIL # 0.3 TH/MM3 (0-0.2); BASOPHIL % 1.1 % (0.0-2.0); EOSINOPHIL # 0.4 TH/MM3 (0-0.4); EOSINOPHIL % 1.7 % (0.0-4.0); HEMATOCRIT 30.7 % (39.0-51.0); LYMPH % 3.1 % (9.0-44.0); LYMPHOCYTE # 0.7 TH/MM3 (1.0-4.8); MEAN CELL VOLUME 85.5 FL (80.0-100.0); MEAN CORPUSCULAR HEMOGLOBIN 27.2 PG (27.0-34.0); MEAN CORPUSCULAR HGB CONC 31.8 % (32.0-36.0); MONO % 7.7 % (0.0-8.0); NEUT % 86.4 % (16.0-70.0); PLATELET COUNT 476 TH/MM3 (150-450); RED BLOOD COUNT 3.59 MIL/MM3 (4.50-5.90); RED CELL DISTRIBUTION WIDTH 27.1 % (11.6-17.2); WHITE BLOOD COUNT 24.1 TH/MM3 (4.0-11.0)
[2016-05-19 08:47] LABS: HEMO FLAGS AUTO DIFF
[2016-05-19] MEDS: SODIUM CHLORIDE 0.9% FLUSH 5 ML FLUSH FLUSH SCH (09:00)
[2016-05-19 09:30] LABS: ACANTHOCYTES OCC (NORMAL); BANDS 24 % (0-6); BASOPHILS 1 % (0-2); CORRECTED NUCLEATED RBC 1 /100 WBC (0-0); HELMET CELLS OCC (NORMAL); METAMYELOCYTES 3 % (0-1); MYELOCYTES 3 % (0-0); NEUTROPHIL # MANUAL DIFF 21.7 TH/MM3 (1.8-7.7); POLYS (SEG NEUTROPHILS) 60 % (16-70); TEARDROP RBCS 1+ (NORMAL); WBC DIFF SAMPLE 100
[2016-05-19 09:31] LABS: OVALOCYTES 1+ (NORMAL)
[2016-05-19 09:32] LABS: PLATELET ESTIMATE SMEAR HIGH (NORMAL); PLATELET MORPHOLOGY ENLARGED (NORMAL); SCAN/DIFF FINAL DIFF MANUAL
--- NOTE | 2016-05-19 09:37 | PD.ONC.PN ---
Subjective Subjective Remarks less confused today and comfortable Objective Data Date Time Temp Pulse Resp B/P Pulse Ox O2 Delivery O2 Flow Rate FiO2 05/19/16 08:00 96.1 71 18 117/68 98 05/19/16 04:15 96.4 69 17 116/63 98 05/19/16 00:15 97.2 71 16 101/56 96 05/18/16 19:24 96.5 73 15 124/67 99 05/18/16 15:35 97.1 71 15 128/76 98 05/18/16 12:00 70 18 133/71 98 05/19/16 05/19/16 05/19/16 07:00 15:00 23:00 Intake Total 480 ml Output Total 450 ml Balance 30 ml Result Diagram: 05/19/16 0755 05/19/16 0543 Laboratory Results Laboratory Tests Test 05/19/16 05/19/16 05:43 07:55 Sodium Level 135 MEQ/L Potassium Level 5.0 MEQ/L Chloride Level 100 MEQ/L Carbon Dioxide Level 20.3 MEQ/L Anion Gap 15 MEQ/L Blood Urea Nitrogen 57 MG/DL Creatinine 2.66 MG/DL Estimat Glomerular Filtration 23 ML/MIN Rate Random Glucose 110 MG/DL Calcium Level 8.6 MG/DL White Blood Count 24.1 TH/MM3 Red Blood Count 3.59 MIL/MM3 Hemoglobin 9.8 GM/DL Hematocrit 30.7 % Mean Corpuscular Volume 85.5 FL Mean Corpuscular Hemoglobin 27.2 PG Mean Corpuscular Hemoglobin 31.8 % Concent Red Cell Distribution Width 27.1 % Platelet Count 476 TH/MM3 Mean Platelet Volume 8.9 FL Neutrophils (%) (Auto) 86.4 % Lymphocytes (%) (Auto) 3.1 % Monocytes (%) (Auto) 7.7 % Eosinophils (%) (Auto) 1.7 % Basophils (%) (Auto) 1.1 % Neutrophils # (Auto) 20.8 TH/MM3 Lymphocytes # (Auto) 0.7 TH/MM3 Monocytes # (Auto) 1.9 TH/MM3 Eosinophils # (Auto) 0.4 TH/MM3 Basophils # (Auto) 0.3 TH/MM3 CBC Comment AUTO DIFF Administered Medications Medications (Trade) Dose Ordered Sig/Prudence Route PRN Reason Start Time Stop Time Status Last Admin Dose Admin Carvedilol (Coreg) 3.125 mg DAILY PO 05/16/16 09:00 05/19/16 08:22 Clopidogrel Bisulfate (Plavix) 75 mg DAILY PO 05/16/16 09:00 05/19/16 08:22 Isosorbide Mononitrate (Imdur) 30 mg DAILY PO 05/16/16 09:00 05/19/16 08:22 Pantoprazole Sodium (Protonix) 20 mg DAILY PO 05/16/16 09:00 05/19/16 08:22 Ranolazine (Ranexa) 1,000 mg BID PO 05/16/16 09:00 05/19/16 08:22 IV Flush (NS Flush) 2 ml BID FLUSH 05/16/16 09:00 05/17/16 10:59 Sennosides (Senokot) 17.2 mg Q12H PRN PO CONSTIPATION 05/15/16 21:15 05/17/16 15:46 Spironolactone (Aldactone) 25 mg BID@09,18 PO 05/16/16 18:00 05/19/16 08:22 Enoxaparin Sodium (Lovenox Inj) 60 mg Q24H SQ 05/17/16 16:00 05/18/16 17:37 Lorazepam (Ativan) 0.5 mg Q8H PRN PO anxiety 05/16/16 19:15 05/18/16 20:52 Acetaminophen/ Hydrocodone Bitart 1 tab 1 tab Q6H PRN PO PAIN SCALE 6 TO 10 05/16/16 20:00 05/19/16 08:22 Bumetanide (Bumex Inj) 100 ml @ 8 mls/hr CONTINUOUS IV 05/17/16 13:30 05/18/16 20:48 Ondansetron HCl (Zofran Inj) 4 mg Q4H PRN IV PUSH NAUSEA 05/17/16 23:45 05/18/16 06:26 Objective Remarks GENERAL: frail but communicative. SKIN: Warm and dry. HEAD: Normocephalic. EYES: No scleral icterus. No injection or drainage. NECK: Supple, trachea midline. No JVD or lymphadenopathy. LYMPHATIC: No adenopathy. CARDIOVASCULAR: Regular rate and rhythm without murmurs. RESPIRATORY: Breath sounds equal bilaterally. No accessory muscle use. GASTROINTESTINAL: Abdomen soft, non-tender, nondistended. EXTREMITIES: +1 edema MUSCULOSKELETAL: muscle wasting NEUROLOGICAL: No obvious focal deficit. PSYCHIATRIC: Appropriate mood and affect; insight and judgment normal. 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 patient has received IV iron. 3: thrombosis involving the left basilic and cephalic vein which are superficial veins. continue Lovenox which has been reduced for renal failure. if goes to care center can stop Lovenex 4: met with and daughter again and they agree with no CPR and orders written. They agree with hospice consult and will most likely use care center. I have placed a call to renal - Dr. Funez and will ask him to speak with family again today. They are coming to terms with the fact that we can not resolve his renal problem and one more conversation will help them accept and deal with the inevitable. Nothing else to add. Sivakumar Martin MD May 19, 2016 09:37
--- NOTE | 2016-05-19 12:11 | HHI.NPPN ---
Subjective Complaints: Shortness of Breath General Problems: Edema Renal Failure: Chronic, Acute Interval History He is more comfortable compared to yesterday. Still inadequate response to diuresis, renal function is worse. Family is touring hospice facilities and unavailable to discuss situation. ( Martha Bueno) Review of Systems General Constitutional: Fatigue General Remarks insomnia (Martha Bueno) Respiratory Lungs: SOB (Martha Bueno) Cardiovascular Cardiac: Edema (Martha Bueno) Gastrointestinal Gastrointestinal: Nausea & Vomiting (Martha Bueno) Objective Data Data 05/18/16 05/19/16 19:00 07:00 Intake Total 240 ml 720 ml Output Total 250 ml 850 ml Balance -10 ml -130 ml Intake Oral 240 ml 720 ml Output Urine Total 250 ml 850 ml # Bowel Movements 0 Vital Signs Date Time Temp Pulse Resp B/P Pulse Ox O2 Delivery O2 Flow Rate FiO2 05/19/16 08:00 96.1 71 18 117/68 98 05/19/16 04:15 96.4 69 17 116/63 98 05/19/16 00:15 97.2 71 16 101/56 96 05/18/16 19:24 96.5 73 15 124/67 99 05/18/16 15:35 97.1 71 15 128/76 98 (Martha Bueno) -: 05/19/16 0755 05/19/16 0543 Tubes & Lines: [place] Drip Comment Bumex (Martha Bueno) Physical Exam General Appearance: Well Developed, Well Nourished, Comfortable Appearance Remarks sleepy (Martha Bueno) Eyes Eye Exam: Pupils Equal (Martha Bueno) Throat Throat Exam: Oral Mucosa [place] & Moist (Martha Bueno) Neck Neck Exam: Neck Supple (Martha Bueno) Pulmonary Resp Exam: Breath Sounds Equal, No Distress, Crackles (Martha Bueno) Cardiology CV Exam: Regular, Good Perfusion (Martha Bueno) Gastrointestinal/Abdomen GI Exam: Bowel Sounds Present, Distended GI Remarks firm, distended (Martha Bueno) Musculoskeletal MS Exam: Joints Intact, Normal Tone (Martha Bueno) Integumentary Skin Exam: Clear, Warm, Dry (Martha Bueno) Extremeties Extremities Exam: Pedal Pulses Palpable, Moderate Edema, Dependent Edema ( Martha Bueno) Neurologic Neuro Exam: Alert, Awake, Oriented, Speech Clear, Moving All Extremities ( Martha Bueno) Psychiatric Psych Exam: Appropriate Responses (Martha Bueno) Assessment/Plan Discussed Condition With: Patient, Spouse, Daughter Assessment Summary: INEZ/Acute Renal Failure, Fluid/Volume Overload Problem List: (1) Chronic kidney disease Plan: Baseline creatinine 1.7, GFR 46 (CKD 3) his renal function continues to decline fluid overloaded, on bumex gtt at 2 mg/hr; UOP has been 1100 ml over 24 hrs K is normal family deciding on hospice only other treatment available is dialysis, which he would likely do very poorly on and given his age and comorbidities hospice is a reasonable alternative continue Aldactone, monitor response, await family decision I have tried to meet with the family on multiple occasions today to discuss, they are touring hospice facilities and are unavailable daily renal panel, Urine output measurement (2) Anasarca Plan: due to CKD, CHF diuresis as per above, monitor I/O (he also required bumex gtt previous admission) elevate lower extremities, compression stockings, low Na diet, limit oral fluids to 1500 ml daily (3) Deep venous thrombosis of left upper extremity Plan: On lovenox, dose reduced due to renal failure hematology following apparently cannot tolerate Coumadin or Xarelto (4) Ascites Plan: per US, minimal fluid, paracentesis not necessary (Martha Bueno) Plan patient was seen and examined. Poor prognosis. May be going to hospice. ( Jeromy Funez MD) Problem Qualifiers (1) Chronic kidney disease: Qualified Code: N18.3 - Chronic kidney disease, stage 3 (moderate) (2) Deep venous thrombosis of left upper extremity: Qualified Code: I82.622 - Acute deep vein thrombosis (DVT) of other vein of left upper extremity aMrtha Bueno May 19, 2016 12:11 Jeromy Funez MD May 20, 2016 10:34
[2016-05-19] MEDS: BUMETANIDE INJ 100 ML IV SCH (12:44)
--- NOTE | 2016-05-19 13:14 | HHI.PR ---
Subjective Remarks Debilitated General aches and pains especially in lower extremities Abdomen taut Nausea tired Appetite poor (Francine Champion) Objective Objective Results - Vital Signs Date Time Temp Pulse Resp B/P Pulse Ox O2 Delivery O2 Flow Rate FiO2 05/19/16 08:00 96.1 71 18 117/68 98 05/19/16 04:15 96.4 69 17 116/63 98 05/19/16 00:15 97.2 71 16 101/56 96 05/18/16 19:24 96.5 73 15 124/67 99 05/18/16 15:35 97.1 71 15 128/76 98 I/O 05/18/16 05/18/16 05/18/16 05/19/16 05/19/16 05/19/16 07:00 15:00 23:00 07:00 15:00 23:00 Intake Total 0 ml 240 ml 240 ml 480 ml Output Total 300 ml 250 ml 400 ml 450 ml Balance -300 ml -10 ml -160 ml 30 ml Intake Oral 0 ml 240 ml 240 ml 480 ml Output Urine Total 300 ml 250 ml 400 ml 450 ml # Bowel Movements 0 0 0 (Francine Champion) Result Diagram: 05/19/16 0755 05/19/16 0543 ROS General: Fatigue, Weakness, Other (10 point ROS done. Positives include generalized weakness fatigue and a tired sensation all the time. Patient still having some nausea and decreased appetite other systems negative or unremarkable ) Cardiac: Edema GI: Abdominal Pain, Other (edema) (Francine Champion) Physical Exam Physical Exam PHYSICAL EXAMINATION GENERAL: This is an ill appearingCaucasian male sitting up in chair.. He is alert and awake,[place] but tired. HEAD: Normocephalic without any lesion or mass noted. Facial features appear symmetric. OROPHARYNGEAL: Oropharynx without erythema or edema. NECK: Supple. No nuchal rigidity or lymphadenopathy. Trachea midline without deviation. CARDIAC: Regular rhythm, regular rate, S1 and S2 distant. LUNGS: Decreased breath sounds bilateral. Low air volumes No rhonchi ABDOMEN: Soft, taut, no organomegaly or masses. Bowel sounds hypoactive . No rebound. No guarding. EXTREMITIES: Generalized edema throughout his upper and lower extremities including his core weak pulses. No cyanosis. NEUROLOGICAL: Alert, responds to verbal stimuli. SKIN:Warm and moist, dry. Turgor thin Objective Remarks I'm so tired (Francine Champion) A/P Assessment and Plan (1) Acute exacerbation of CHF (congestive heart failure) (2) Cardiomyopathy (3) Deep venous thrombosis of left upper extremity (4) History of CVA (cerebrovascular accident) (5) Chronic kidney disease (6) Hypertension (7) Myeloproliferative disease (8) Anasarca (9) Anemia (10) Leukocytosis 11. Rule out ileus Assessment and Plan 89-year-old male with history of CAD, hypertension, chronic left leg edema, previous CABG, cardiomyopathy, history of DVT and PE, GI bleed. 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 Patient presented back to the emergency room with increased weight gain, pedal edema, increase abdominal girth and dyspnea with exertion. Acute on chronic CHF exacerbation, history of dilated cardiomyopathy Bumex gtt, continue Aldactone Strict intake and output 1200 cc fluid restriction and low sodium diet Continuous cardiac telemetry Cardiology consultation, Dr. Solis evaluated, continue with present management -Had recent echocardiogram, EF 35-40%. -abel, still has scrotal edema encouraged to elevate scrotum -Douglas wrap legs, keep elevated. When care -Keep scrotum elevated Patient still has symptoms of generalized weakness tired and edema. Patient is tired and does not seem to be improving with even with aggressive care Acute DVT left arm, occlusive thrombus in the left cephalic and left basilic vein. Heme input appreciated, Dec. Lovenox to 60 mg SQ daily. -Pt. and want to avoid Coumadin, Eliquis not a good choice due to renal function. Continue Lovenox for now Anasarca Abdominal ultrasound done, not enough fluid for paracentesis. Abdomen continues to show possible increased girth We'll check KUB today to rule out ileus. 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 With significant leukocytosis, anemia Monitor CBC, hemoglobin 9.8 stable. WBC increased today 22.6 Had recent bone marrow biopsy, evaluated by hematology -Continue with supportive care -HH stable Chronic kidney disease III, creat stable. Sodium 134, Continue with Bumex gtt Nephrology input appreciated. -Monitor intake and output Monitor BMP Avoid nephrotoxic agent -Slight increase in creat, monitor closely , will check labs in the morning Elevated troponin, no chest pain, dyspnea on exertion. History of Coronary artery disease -Continue with serial cardiac enzymes-negative Cardiology input appreciated Continue with Plavix, Coreg, Ranexa, Imdur HTN, stable -continue home meds Hx CVA, stable -continue home meds Case management consulted for rehab placement versus other discharge options D/ W , niece and pt. are looking at a hospice options so they can take the patient home Hospice consult on 05-18 Lovenox for DVT prophylaxis, currently on Lovenox and Plavix PUD prophylaxis with Protonix Monitor vital signs currently afebrile, BP 144/82 Continue with above tx KUB done on 05-18 which showed a normal exam Shortness of breath nausea continues. No appetite Medications reviewed. Family not a room for now. Looking at hospice option for discharge today or tomorrow. Spoke with case management who will notify us for any further orders if discharging today Discussed with Dr. Gaitan, patient seen on her behalf Discharge Planning Case management involved, will need SNF for rehabilitation Discussed With: Nurse, Family (patient , and family member), Other (Dr. Gaitan, patient seen on her behalf) (Francine Champion) Assessment and Plan Patient seen and examined appears comfortable family met with hospice patient accepted bed not available tonight plan to go to [facility] am no family at bed side discussed with Francine ALEXIS (Yesenia Gaitan MD) Francine Champion May 19, 2016 13:14 Yesenia Gaitan MD May 19, 2016 15:28
[2016-05-19] MEDS: ENOXAPARIN SODIUM 60 MG/0.6 ML SYRINGE SQ SCH (16:00)
[2016-05-19] MEDS ORDERED: LORazepam 0.5 MG TAB PO/SL PRN (16:15)
[2016-05-19] MEDS ORDERED: FUROSEMIDE 20 MG/2 ML VIAL IV PUSH PRN (16:15)
[2016-05-19] MEDS ORDERED: PROMETHAZINE HCL 25 MG SUPP RECTAL PRN (16:30)
[2016-05-19] MEDS ORDERED: DOCUSATE SODIUM 50 MG/SENNA 8.6 MG TAB PO PRN (16:30)
[2016-05-19] MEDS ORDERED: ACETAMINOPHEN 325 MG TAB PO PRN (16:30)
[2016-05-19] MEDS ORDERED: LORazepam 2 MG/ML VIAL IV PRN ×2 (16:30)
[2016-05-19] MEDS ORDERED: HYDROmorphone HCL PF 1 MG/ML VIAL IV PRN (16:30)
[2016-05-19] MEDS ORDERED: LORazepam 1 MG TAB PO/SL PRN (16:30)
[2016-05-19] MEDS ORDERED: PROMETHAZINE HCL 25 MG TAB PO PRN (16:30)
[2016-05-19] MEDS ORDERED: ATROPINE SULFATE 1% OPHT SOLN 5 ML BTL SL PRN (16:30)
[2016-05-19] MEDS ORDERED: ACETAMINOPHEN 650 MG SUPP RECTAL PRN (16:30)
[2016-05-19] MEDS: HYDROmorphone HCL PF 1 MG/ML VIAL IV PRN ×2 (20:04→23:53)
[2016-05-20 03:30] VITALS: BP 124/58; PULSE 64; RESP 17; TEMP 97; O2SAT 96
[2016-05-20 06:29] LABS: BICARBONATE 23.9 MEQ/L (21.0-32.0)
[2016-05-20 08:00] VITALS: BP 120/77; PULSE 72; RESP 18; TEMP 97.8; O2SAT 95
[2016-05-20] MEDS ORDERED: FUROSEMIDE 20 MG/2 ML VIAL IV PUSH SCH (09:00)
--- NOTE | 2016-05-20 10:26 | HHI.NPPN ---
Subjective Complaints: Shortness of Breath General Problems: Edema Renal Failure: Chronic, Acute Interval History Renal function is worse. He is to be transferred to hospice today. (Martha Bueno) Review of Systems General Constitutional: Fatigue General Remarks insomnia (Martha Bueno) Respiratory Lungs: SOB (Martha Bueno) Cardiovascular Cardiac: Edema (Martha Bueno) Gastrointestinal Gastrointestinal: Nausea & Vomiting (Martha Bueno) Objective Data Data 05/19/16 05/20/16 19:00 07:00 Intake Total 1200 ml 360 ml Output Total 750 ml 600 ml Balance 450 ml -240 ml Intake Oral 1200 ml 360 ml Output Urine Total 750 ml 600 ml # Bowel Movements 0 0 Vital Signs Date Time Temp Pulse Resp B/P Pulse Ox O2 Delivery O2 Flow Rate FiO2 05/20/16 08:00 97.8 72 18 120/77 95 05/20/16 03:30 97.0 64 17 124/58 96 05/19/16 23:50 96.6 64 17 140/66 96 05/19/16 20:04 62 05/19/16 19:37 96.1 62 16 138/72 96 05/19/16 16:42 96.8 57 15 122/65 98 05/19/16 12:00 95.5 64 18 121/66 94 (Martha Bueno) -: 05/19/16 0755 05/20/16 0529 Tubes & Lines: Abel (Martha Bueno) Physical Exam General Appearance: Well Developed, Well Nourished, Comfortable Appearance Remarks sleepy (Martha Bueno) Eyes Eye Exam: Pupils Equal (Martha Bueno) Throat Throat Exam: Oral Mucosa [place] & Moist (Martha Bueno) Neck Neck Exam: Neck Supple (Martha Bueno) Pulmonary Resp Exam: Breath Sounds Equal, No Distress, Crackles (Martha Bueno) Cardiology CV Exam: Regular, Good Perfusion (Martha Bueno) Gastrointestinal/Abdomen GI Exam: Bowel Sounds Present, Distended GI Remarks firm, distended (Martha Bueno) Musculoskeletal MS Exam: Joints Intact, Normal Tone (Martha Bueno) Integumentary Skin Exam: Clear, Warm, Dry (Martha Bueno) Extremeties Extremities Exam: Pedal Pulses Palpable, Moderate Edema, Dependent Edema ( Martha Bueno) Neurologic Neuro Exam: Alert, Awake, Oriented, Speech Clear, Moving All Extremities ( Martha Bueno) Psychiatric Psych Exam: Appropriate Responses (Martha Bueno) Assessment/Plan Discussed Condition With: Patient, Spouse, Daughter Assessment Summary: INEZ/Acute Renal Failure, Fluid/Volume Overload Problem List: (1) Chronic kidney disease Plan: Baseline creatinine 1.7, GFR 46 (CKD 3) his renal function declined, persistent fluid overload not responding to diuretics, they do not want to undergo dialysis now on lasix daily he still has a abel, non oliguric patient and family have elected hospice, to be transferred today, we will sign off at this time (2) Anasarca Plan: due to CKD, CHF bumex gtt was stopped, on Lasix daily elevate lower extremities, compression stockings, low Na diet, limit oral fluids to 1500 ml daily (3) Deep venous thrombosis of left upper extremity Plan: anticoagulation was stopped (4) Ascites Plan: per US, minimal fluid, paracentesis not necessary (Martha Bueno) Plan patient was seen and examined. Discussed with patient' . Agree with above assessment and plan. He is being discharged to hospice. (Jeromy Funez MD) Problem Qualifiers (1) Chronic kidney disease: Qualified Code: N18.3 - Chronic kidney disease, stage 3 (moderate) (2) Deep venous thrombosis of left upper extremity: Qualified Code: I82.622 - Acute deep vein thrombosis (DVT) of other vein of left upper extremity Martha Bueno May 20, 2016 10:26 Jeromy Funez MD May 20, 2016 15:14
[2016-05-20 12:00] VITALS: BP 140/84; PULSE 75; RESP 18; TEMP 96.9; O2SAT 98
[2016-05-20] MEDS: HYDROmorphone HCL PF 1 MG/ML VIAL IV PRN (16:01)
--- NOTE | 2016-06-22 21:35 | HHI.DS ---
Discharge Summary Admission Date May 15, 2016 at 21:19 Discharge Date: May 19, 2016 Admitting Diagnosis acute exacerbation of CHF. Left arm DVT. Chronic kidney disease. (1) Acute exacerbation of CHF (congestive heart failure) (2) Cardiomyopathy (3) Deep venous thrombosis of left upper extremity (4) History of CVA (cerebrovascular accident) (5) Chronic kidney disease (6) Hypertension (7) Myeloproliferative disease (8) Anasarca (9) Anemia (10) Leukocytosis Imaging Last Impressions Abdomen X-Ray 05/18/16 0000 Signed Impressions: Service Date/Time: Wednesday, May 18, 2016 11:53 - CONCLUSION: Normal examination. IVC filter in place Mohamud Pierre MD Abdomen Ultrasound 05/16/16 0000 Signed Impressions: Service Date/Time: Monday, May 16, 2016 20:34 - CONCLUSION: Small to moderate amount of abdominal ascites. Karan Merino MD Upper Extremity Ultrasound 05/15/16 1831 Signed Impressions: Service Date/Time: Sunday, May 15, 2016 19:31 - CONCLUSION: Occlusive thrombus in the left cephalic and left basilic vein. Karan Merino MD Chest X-Ray 05/15/16 0000 Signed Impressions: Service Date/Time: Sunday, May 15, 2016 19:07 - CONCLUSION: 1. Cardiomegaly with small right pleural effusion and right basilar density. 2. Cardiomegaly and previous CABG. Karan Merino MD Hospital Course This is a pleasant 89-year-old male with past medical history of coronary artery disease and stents, craniotomy secondary to meningioma, history of CVA with residual expressive aphasia, GI bleed, previous pulmonary emboli and DVT has IVC filter, CABG, cardiomyopathy, CHF. Patient was recently admitted 05/02 to 05/14 with sepsis, CHF, anasarca, CESAR. He was diuresed, evaluated by both cardiology and nephrology. Underwent bone marrow biopsy per Dr. 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 Medical management was recommended. Patient was actually discharged on the and recommended rehabilitation placement which case management had arranged. However at the last moment, he decided to go home with home health care. Patient presented back to the emergency room complaining of increased weight gain, 4 pounds. Endorses increased pedal edema as well as abdominal girth. He is making urine, has been compliant taking diuretics. He has some dyspnea with exertion, no chest pain. Denies any fever, no chills. Patient was anxious, poor historian requesting that I obtain information from his as she knows "everything". In the emergency room, patient was evaluated in laboratory workup was completed. CBC was remarkable for leukocytosis, WBC 27 which is similar to recent admissions. Hemoglobin 8.4.hematocrit 26.1. Renal function was actually improved, creatinine 1.8 and GFR 36. BNP was 1552. He was noted with left arm swelling and erythema, ultrasound completed showed occlusive thrombus in the left cephalic and left basilic vein. He was given a one-time dose of Eliquis. Chest x-ray remarkable for cardiomegaly with small right pleural effusion and right basilar density as well as findings of previous CABG. He was given Bumex 1 mg 1. Patient was admitted for further evaluation and treatment. (1) Acute exacerbation of CHF (congestive heart failure) (2) Cardiomyopathy (3) Deep venous thrombosis of left upper extremity (4) History of CVA (cerebrovascular accident) (5) Chronic kidney disease (6) Hypertension (7) Myeloproliferative disease (8) Anasarca (9) Anemia (10) Leukocytosis 11. Rule out ileus Assessment and Plan 89-year-old male with history of CAD, hypertension, chronic left leg edema, previous CABG, cardiomyopathy, history of DVT and PE, GI bleed. 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 Patient presented back to the emergency room with increased weight gain, pedal edema, increase abdominal girth and dyspnea with exertion. Acute on chronic CHF exacerbation, history of dilated cardiomyopathy -started on Bumex gtt, continued Aldactone -Nephrology consulted. They adjusted diuretics. Strict intake and output 1200 cc fluid restriction and low sodium diet Continuous cardiac telemetry Cardiology consultation, Dr. Solis evaluated, continue with present management -Had recent echocardiogram, EF 35-40%. -abel, still has scrotal edema encouraged to elevate scrotum -Douglas wrap legs, keep elevated. When care -Keep scrotum elevated -Patient still had symptoms of generalized weakness, was tired and edema. Patient was tired and did seem to be improving even with aggressive care. Not responding to diuretics. He didn't want dialysis Acute DVT left arm, occlusive thrombus in the left cephalic and left basilic vein. Heme input appreciated, Dec. Lovenox to 60 mg SQ daily. -Pt. and want to avoid Coumadin, Eliquis not a good choice due to renal function. Continued Lovenox, ok with heme Anasarca Abdominal ultrasound done, not enough fluid for paracentesis. 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 With significant leukocytosis, anemia Monitor CBC, hemoglobin 9.8 stable. WBC increased today 22.6 Had recent bone marrow biopsy, evaluated by hematology -Continue with supportive care -HH stable Chronic kidney disease III, creat stable. Sodium 134, Continue with Bumex gtt Nephrology input appreciated. -Monitor intake and output Monitor BMP Avoid nephrotoxic agent -Slight increase in creat, monitor closely, not responding to diuretics Elevated troponin, no chest pain, dyspnea on exertion. History of Coronary artery disease -Continue with serial cardiac enzymes-negative Cardiology input appreciated Continue with Plavix, Coreg, Ranexa, Imdur HTN, stable -continue home meds Hx CVA, stable -continue home meds Case management consulted for rehab placement versus other discharge options D/ W , niece and pt. are looking at a hospice options so they can take the patient home Hospice consult on 05-18 pt. and family decided on hospice care center. Pt. discharged to hospice center. Pt Condition on Discharge: Guarded Discharge Disposition: Hospice/Med Facility Discharge Instructions DIET: Follow Instructions for: Heart Healthy Diet Activities you can perform: Regular-No Restrictions Cathie Toney Jun 22, 2016 21:35
== END 2016-05-20 16:20 | disposition hospice, inpatient (51) | DRG 292 ==
LOC: NEPE 18:09 → NEDA 21:19 → N06B 22:07
PROVIDERS: ADMIT Internal Medicine; ATTEND Internal Medicine
DX: I50.9 Heart failure, unspecified (principal); C94.6 Myelodysplastic disease, not elsewhere classified; R18.8 Other ascites; D75.81 Myelofibrosis; I82.622 Acute embolism and thrombosis of deep veins of left upper extremity; I42.0 Dilated cardiomyopathy; R17 Unspecified jaundice; N18.3 Chronic kidney disease, stage 3 (moderate); E61.1 Iron deficiency; D64.9 Anemia, unspecified; I65.29 Occlusion and stenosis of unspecified carotid artery; I69.320 Aphasia following cerebral infarction; R79.89 Other specified abnormal findings of blood chemistry; I12.9 Hypertensive chronic kidney disease with stage 1 through stage 4 chronic kidney disease, or unspecified chronic kidney disease; I25.10 Atherosclerotic heart disease of native coronary artery without angina pectoris; I73.9 Peripheral vascular disease, unspecified; Z95.1 Presence of aortocoronary bypass graft; Z87.891 Personal history of nicotine dependence; Z86.711 Personal history of pulmonary embolism; Z85.828 Personal history of other malignant neoplasm of skin
CPT/HCPCS: 71020; 74000; 76705; 80048; 80053; 80069; 80076; 81001; 82550; 83735; 83880; 84484; 85007; 85027; 85610; 85730; 93005; 93971; J1170; J1650; J1756; J1940; J2405; J2550; Q0169